=== PATIENT | male | born 1985 | race Caucasian/White ===

== ENCOUNTER 2021-01-03 12:15 | Emergency (ER) | payer OTHER, SELFPAY ==
[2021-01-03 12:32] VITALS: BP 126/68; PULSE 87; RESP 18; TEMP 37.2; O2SAT 100
--- NOTE | 2021-01-03 13:14 | ED.URI ---
HPI - URI/Sore Throat General Chief Complaint: Upper Respiratory Infection Stated Complaint: Possible Ear and Sinus infection Time Seen by Provider: 01/03/21 13:07 Source: patient and RN notes reviewed Mode of arrival: ambulatory Limitations: no limitations History of Present Illness HPI Narrative: 35-year-old male presents concern for 2-week history of sinus congestion, drainage, pressure, postnasal drainage, ear pain. Reports sore throat. Reports symptoms worse in the last several days. Reports he has been using [id number]-[id number]-[id number] medications with little relief. Reports is done was positive for strep throat. He denies cough, shortness of breath, fever, body aches, chills, sweats. Reports headache. MD elicited complaint: nasal congestion Related Data Home Medications Medication Instructions Recorded Confirmed lisdexamfetamine [Vyvanse] 70 mg PO DAILY 01/03/21 01/03/21 Allergies Allergy/AdvReac Type Severity Reaction Status Date / Time No Known Allergies Allergy Unknown Verified 01/03/21 12:36 Review of Systems Review of Systems: Narrative: CONSTITUTIONAL: Denies malaise, chills, sweats, or fever. EYES: Denies visual changes, redness, or discharge. ENT: Reports rhinorrhea, congestion, sinus pain, otalgia and sore throat. CARDIOVASCULAR: Denies chest pain, palpitations, or edema. RESPIRATORY: Denies cough or dyspnea. GASTROINTESTINAL: Denies abdominal pain, nausea, vomiting, diarrhea SKIN: Denies rash or itching. MUSCULOSKELETAL: Denies myalgia. NEUROLOGIC: Denies headache. All systems reviewed & are unremarkable except as noted in HPI and below PMFSH Comments At time of signature, agree with nursing past medical, surgical, social and family history. There is no relevant family history pertinent to the presenting complaint Exam Narrative: Exam Narrative: GENERAL: Well-appearing, well-nourished, and in no acute distress. HEAD: Normocephalic EYES: PERRLA, conjunctivae clear ENT: Nares clear, turbinates edematous and erythematous, sinus tenderness. Mucous membranes moist. TM pearly romo with dull light reflex bilaterally; no tragal tenderness. Oropharynx erythematous without lesions. Tonsils enlarged and without exudate, no drooling, no hoarseness, no trismus, uvula midline. NECK: Supple. No lymphadenopathy CHEST: Clear to auscultation, breath sounds equal. No wheezing, rhonchi, rales, or stridor. No respiratory distress, speaks in full sentences. HEART: Regular rate and rhythm. No murmur heard. SKIN: Warm, dry, no rash. NEURO: Alert and oriented x3. PSYCH: Normal mood and affect Course Course Emergency Course: Patient is aware of diagnosis, understands and agrees to treatment plan. Anticipatory guidance given. Patient agrees to follow-up as directed and is aware of reasons to seek care at the emergency department. Portions of this record may have been created with voice recognition software Vital Signs Vital signs: Vital Signs Temperature 99.0 F 01/03/21 12:32 Pulse Rate 87 01/03/21 12:32 Respiratory Rate 18 01/03/21 12:32 Blood Pressure 126/68 01/03/21 12:32 Pulse Oximetry 100 01/03/21 12:32 Temperature 99.0 F 01/03/21 12:32 Pulse Rate 87 01/03/21 12:32 Respiratory Rate 18 01/03/21 12:32 Blood Pressure 126/68 01/03/21 12:32 Pulse Oximetry 100 01/03/21 12:32 Reviewed. MDM - URI/Sore Throat MDM Narrative Medical decision making narrative: Differential diagnosis considered: Douglas virus, strep pharyngitis, allergic rhinitis, upper respiratory tract infection, sinusitis, rhinosinusitis, nasopharyngitis. viral pharyngitis, otitis media, otitis externa, pneumonia, bronchitis, viral cough syndrome, viral syndrome, and influenza. Exam findings show no acute concerns or changes; patient is non-toxic appearing and is in no distress. Patient is appropriate for outpatient treatment and follow-up. Lab Data Labs: Strep Screen Presumptive Negative
== END 2021-01-03 13:20 | disposition home or self-care (01) ==
PROVIDERS: Emergency Provider Nurse Practitioner
DX: J01.90 Acute sinusitis, unspecified (principal); F98.8 Other specified behavioral and emotional disorders with onset usually occurring in childhood and adolescence
CPT/HCPCS: 87081; 87880; 99213; G0463

== ENCOUNTER 2022-09-22 08:18 | Emergency (ER) | payer OTHER, SELFPAY ==
[2022-09-22 08:29] VITALS: BP 143/79; PULSE 97; RESP 16; TEMP 36.6; O2SAT 100
--- NOTE | 2022-09-22 08:31 | ED.EAR ---
HPI - Ear Problem General Chief complaint: Ear Stated complaint: Ear Pain/Sinus Congestion Time Seen by Provider: 09/22/22 08:35 Source: patient and RN notes reviewed Mode of arrival: ambulatory Limitations: no limitations History of Present Illness HPI Narrative: 37-year-old male presents with concern for several month history of intermittent sinus congestion, drainage, pain. Reports fell colored sinus drainage the last several days. Reports cough that he relates to drainage. Reports swollen lymph nodes. Reports sweats and chills, denies measure temperature. MD Complaint: ear pain and other (Sinus congestion) Related Data Home Medications Medication Instructions Recorded Confirmed lisdexamfetamine 60 mg capsule 60 mg PO DAILY 09/22/22 09/22/22 (Vyvanse) serdexmethylphenidate 39.2 39.2 tablet PO DAILY 09/22/22 09/22/22 mg-dexmethylphenidate 7.8 mg capsule (Azstarys) Allergies Allergy/AdvReac Type Severity Reaction Status Date / Time No Known Allergies Allergy Unknown Verified 09/22/22 08:30 Review of Systems Review of Systems: CONSTITUTIONAL: Reports malaise, chills, sweats EYES: Denies visual changes, redness, or discharge. ENT: Reports rhinorrhea, congestion, sinus pain, otalgia CARDIOVASCULAR: Denies chest pain, palpitations, or edema. RESPIRATORY: Reports cough. Denies dyspnea. GASTROINTESTINAL: Denies abdominal pain, nausea, vomiting, diarrhea SKIN: Denies rash or itching. MUSCULOSKELETAL: Reports myalgia. NEUROLOGIC: Reports headache. All systems reviewed & are unremarkable except as noted in HPI and below PMFSH Comments At time of signature, agree with nursing past medical, surgical, social and family history. There is no relevant family history pertinent to the presenting complaint Exam Narrative: GENERAL: Well-appearing, well-nourished, and in no acute distress. HEAD: Normocephalic EYES: PERRLA, conjunctivae clear ENT: Nares clear, turbinates edematous and erythematous, sinus tenderness. Mucous membranes moist. TM pearly romo with dull light reflex bilaterally; no tragal tenderness. Oropharynx erythematous without lesions. Tonsils not enlarged and without exudate, no drooling, no hoarseness, no trismus, uvula midline. NECK: Supple. No lymphadenopathy CHEST: Clear to auscultation, breath sounds equal. No wheezing, rhonchi, rales, or stridor. No respiratory distress, speaks in full sentences. HEART: Regular rate and rhythm. No murmur heard. SKIN: Warm, dry, no rash. NEURO: Alert and oriented x3. PSYCH: Normal mood and affect Course Course Emergency Course: Patient is aware of diagnosis, understands and agrees to treatment plan. Anticipatory guidance given. Patient agrees to follow-up as directed and is aware of reasons to seek care at the emergency department. Portions of this record may have been created with voice recognition software Level of Care: Express Care Visit Vital Signs Vital signs: Reviewed. Medical Decision Making MDM Narrative Medical decision making narrative: Differential diagnosis considered: Douglas virus, strep pharyngitis, allergic rhinitis, upper respiratory tract infection, sinusitis, rhinosinusitis, nasopharyngitis. viral pharyngitis, otitis media, otitis externa, pneumonia, bronchitis, viral cough syndrome, viral syndrome, and influenza. Exam findings show no acute concerns or changes; patient is non-toxic appearing and is in no distress. Patient is appropriate for outpatient treatment and follow-up. Critical Care Time Critical Care Time Critical Care Time: No Discharge Plan Discharge Clinical Impression: Acute bacterial sinusitis Patient Disposition: Home, Self-Care Condition: Stable Instructions: Antibiotic Form, Sinusitis (ED) Additional Instructions: Take medications as prescribed Nonprescription pain medications, such as acetaminophen (eg, Tylenol) or ibuprofen (eg, Motrin, Advil), are recommended for pain. Flushing the nose and
[2022-09-22 08:33] VITALS: BP 143/79; PULSE 97; RESP 16; TEMP 36.6; O2SAT 100
== END 2022-09-22 08:46 | disposition home or self-care (01) ==
PROVIDERS: Emergency Provider Nurse Practitioner
DX: J01.90 Acute sinusitis, unspecified (principal); F98.8 Other specified behavioral and emotional disorders with onset usually occurring in childhood and adolescence
CPT/HCPCS: 99213; G0463

== ENCOUNTER 2023-07-18 08:19 | Emergency (ER) | payer OTHER, SELFPAY ==
[2023-07-18 08:27] VITALS: BP 152/67; PULSE 86; RESP 18; TEMP 36.8; O2SAT 99
--- NOTE | 2023-07-18 08:54 | ED.URI ---
HPI - URI/Sore Throat General Chief Complaint: Upper Respiratory Infection Stated Complaint: Ear Pain/Sore Throat Time Seen by Provider: 07/18/23 08:54 Source: patient, RN notes reviewed and old records reviewed Mode of arrival: ambulatory Limitations: no limitations History of Present Illness HPI Narrative: 38 year old male who presents to [facility] care with complaints of sore throat, occasional cough, low grade fevers, and sinus congestion with drainage and pressure to face and to his ears for the past 8 days. Patient reports that he has been taking Mucinex DM and some Ibuprofen for his symptoms with no improvement. MD elicited complaint: fever, cough, sore throat, rhinorrhea, nasal congestion, sinus pain and other (ear pain) Pertinent past history: sinusitis and seasonal allergies Onset (ago): day(s) (8) Consistency: constant Pain scale (0-10): 5 Description of mucous: yellow and bloody Able to tolerate fluids by mouth: Yes Treatments prior to arrival: ibuprofen and other (Mucinex DM) Related Data Allergies Allergy/AdvReac Type Severity Reaction Status Date / Time No Known Allergies Allergy Unknown Verified 07/18/23 08:38 Review of Systems Review of Systems: CONSTITUTIONAL: Reports malaise, chills, sweats, low grade fever. EYES: Denies visual changes, redness, or discharge. ENT: Reports rhinorrhea, congestion,facial sinus pain, otalgia and sore throat. CARDIOVASCULAR: Denies chest pain, palpitations, or edema. RESPIRATORY: Reports cough.? Denies dyspnea. GASTROINTESTINAL: Denies abdominal pain, nausea, vomiting, diarrhea SKIN: Denies rash or itching. MUSCULOSKELETAL: Denies myalgia. NEUROLOGIC: Denies headache. All systems reviewed & are unremarkable except as noted in HPI and below PMFSH Past Medical History Medical History (Updated 07/19/23 @ 19:54 by Tessie Braga NP) ADHD (attention deficit hyperactivity disorder) Sinusitis Surgical History Surgical History (Updated 07/19/23 @ 19:45 by Tessie Braga NP) History of placement of ear tubes Social History Social History (Updated 07/19/23 @ 19:45 by Tessie Braga NP) Smoking status: Never smoker Alcohol intake: current Alcohol use details: social Substance use type: does not use Gender identity (if verbalized by the patient): Male Comments At time of signature, agree with nursing past medical, surgical, social and family history. There is no relevant family history pertinent to the presenting complaint Exam Narrative: GENERAL: Well-appearing, well-nourished, and in no acute distress. HEAD: Normocephalic EYES: PERRLA, conjunctivae clear ENT: Nares clear, turbinates edematous and erythematous, yellow discharge, sinus tenderness facial. Mucous membranes moist. TM pearly romo with dull light reflex bilaterally; no tragal tenderness. Oropharynx acutely erythematous without lesions. Tonsils not enlarged and without exudate, no drooling, no hoarseness, no trismus, uvula midline.post nasal drainage NECK: Supple. No lymphadenopathy CHEST: Clear to auscultation, breath sounds equal. No wheezing, rhonchi, rales, or stridor. No respiratory distress, speaks in full sentences.cough, SAO2 99% on room air HEART: Regular rate and rhythm. No murmur heard. SKIN: Warm, dry, no rash. NEURO: Alert and oriented x3. PSYCH: Normal mood and affect Course Course Emergency Course: Patient is aware of diagnosis, understands and agrees to treatment plan.? Anticipatory guidance given.? Patient agrees to follow-up as directed and is aware of reasons to seek care at the emergency department. Portions of this record may have been created with voice recognition software Level of Care: Express Care Visit Vital Signs Vital signs: Vital Signs Temperature 36.8 C 07/18/23 08:27 Pulse Rate 86 07/18/23 08:27 Respiratory Rate 18 07/18/23 08:27 Blood Pressure 152/67 H 07/18/23 08:27 Pulse Oximetry 99 07/18/23
== END 2023-07-18 09:13 | disposition home or self-care (01) ==
PROVIDERS: Emergency Provider Registered Nurse
DX: J32.9 Chronic sinusitis, unspecified (principal)
CPT/HCPCS: 87081; 87880; 99213; G0463

== ENCOUNTER 2024-09-06 08:03 | Emergency (ER) | payer OTHER, SELFPAY ==
--- NOTE | 2024-09-06 08:07 | ED_ITS ---
HPI - URI/Sore Throat General Chief Complaint: Upper Respiratory Infection Stated Complaint: Sinus Congestion/Ear Pain Time Seen by Provider: 09/06/24 08:06 Source: patient Mode of arrival: ambulatory Limitations: no limitations History of Present Illness HPI Narrative: Patient is a 39-year-old male that presents with sinus congestion, pressure and ear pain for a month. Patient denies any fever, chills, nausea, vomiting, diarrhea. Patient has tried [id number] medication with no relief. Patient has history of 1 sinus infection a year. Related Data Allergies Allergy/AdvReac Type Severity Reaction Status Date / Time No Known Allergies Allergy Unknown Verified 07/18/23 08:38 Review of Systems Review of Systems: All systems reviewed & are unremarkable except as noted in HPI and below Constitutional: Constitutional: Denies chills, Denies fatigue, Denies fever(s), Denies headache(s), Denies malaise and Denies weakness Eyes: Eyes: Denies blurry vision, Denies itchy eyes and Denies loss of vision ENT: Reports otalgia, Denies headache(s), Reports nasal congestion, Denies sinus pain, Reports sinus pressure and Denies sore throat Cardiovascular: Cardiovascular: Denies chest pain, Denies irregular heart rhythm and Denies dyspnea Respiratory: Respiratory: Denies cough and Denies dyspnea Gastrointestinal: Gastrointestinal: Denies abdominal pain, Denies diarrhea, Denies nausea and Denies vomiting Musculoskeletal: Musculoskeletal: Denies back pain, Denies myalgias and Denies arthralgias Integumentary/Breasts: Skin/Breast: Denies pruritus and Denies rash Neurologic: Denies headache(s), Denies loss of vision and Denies weakness Psychiatric: Psychiatric: Reports no additional psychiatric complaints Endocrine: Endocrine: Denies fatigue Allergic/Immunologic: Allergic/Immunologic: Denies itchy eyes PMFSH Past Medical History Medical History ADHD (attention deficit hyperactivity disorder) Sinusitis Surgical History Surgical History History of placement of ear tubes Social History Social History Smoking status: Never smoker Alcohol intake: current Alcohol use details: social Substance use type: does not use Gender identity (if verbalized by the patient): Male Comments At time of signature, agree with nursing past medical, surgical, social and family history. There is no relevant family history pertinent to the presenting complaint. Exam Const: General: cooperative, healthy appearing, comfortable, no acute distress and well nourished Nutritional Appearance: well nourished Orientation/consciousness: patient oriented x3 Limitations: no limitations HENMT: Head: normal to inspection, normocephalic and atraumatic Ears: hearing grossly normal bilaterally, external ears normal, EAC's normal, no periauricular adenopathy and TM abnormal dull bilateral Face/Nose/Sinus: Normal external nose present, Abnormal mucous membranes and turbinates present erythematous bilateral and diffuse, normal facial exam, face symmetric and Facial tenderness on exam of face and sinuses Face and sinus: normal facial exam and face symmetric Mouth: Yes Normal oral and palatal mucosa present, Yes lip normal, Yes tongue normal, Yes Normal salivary glands and ducts present, Yes oropharynx normal and Yes moist mucous membranes Teeth and gingiva: dentition normal Throat: posterior oropharynx normal, tonsils normal and uvula midline Eyes: General: appearance normal, both eyes and all related structures Alignment and Position: alignment normal and position normal Periorbital: periorbital findings normal Eyelids: eyelids normal Pupils: Equal, round and reactive pupils present Neck: Neck: normal visual inspection, full ROM, no lymphadenopathy and supple Chest: Chest palpation & inspection: normal inspection of the chest and normal palpation of entire chest wall Resp: Effort & Inspection: normal respiratory effort and able to speak in complete sentences Auscultation: clear to auscultation bilaterally, no crackl es, no rales, no rhonchi and no wheezes Cardio: Rate: tachycardic Rhythm: regular rhythm Heart sounds: S1 normal heart sound present and S2 normal heart sound present GI: Inspection: normal to inspection Skin: General skin exam: normal color and no rashes or lesions noted Neuro: General: patient oriented x3 and moves all extremities Cranial nerves: Yes Equal, round and reactive pupils present Speech: normal speech Gait exam (Neuro): Normal gait present Extrem: General: normal to inspection, full ROM and no edema Psych: Appearance: grossly normal and well kempt Mental Status: mental status grossly normal Speech and movement: Normal speech and movement present Affect: normal affect Attitude: cooperative Thought process: Normal thought process present Course Course Emergency Course: Discharge instructions reviewed with patient, as well as provided in writing per nursing staff. The instructions also include specific and strict return/GO TO THE ER as well as f/u information. All questions have been answered, and the patient deny any further questions with discharge and discharge plan. Portions of this record may have been created with voice recognition software Level of Care: Express Care Visit Vital Signs Vital signs: Reviewed MDM - URI/Sore Throat MDM Narrative Medical decision making narrative: Pt well hydrated appearing, in no respiratory distress, hemodynamically stable. Recommend supportive care. The patient is stable at time of discharge the clinical impression was discussed and the patient was given the opportunity to ask questions, which were addressed as completely as possible given the information available at present. Anticipatory guidance and return to care precautions were discussed and the importance of primary care follow-up was stressed and encouraged. The patient voiced understanding of the plan, indications to return, and the need for follow-up. Differential diagnosis considered: Bronchitis, Douglas virus, strep pharyngitis, allergic rhinitis, upper respiratory tract infection, sinusitis, rhinosinusitis, nasopharyngitis. viral pharyngitis, otitis media, otitis externa, otitis effusion, foreign body, cerumen impaction, viral syndrome, and influenza.? Exam findings show no acute concerns or changes; patient is non-toxic appearing and is in no distress.? Patient is appropriate for outpatient treatment and follow- up.? Medical Records Attestation: I reviewed the patient's medical records. Lab Data Attestation: I reviewed the patient's lab results. Discharge Plan Discharge Clinical Impression: Sinusitis Qualifiers: Sinusitis location: maxillary Chronicity: acute Recurrence: non-recurrent Qualified Code(s): J01.00 - Acute maxillary sinusitis, unspecified Patient Disposition: Home, Self-Care Condition: Stable Instructions: Sinusitis (ED) Additional Instructions: Symptomatic treatment of a sinus infection aims to relieve symptoms. These treatments do not shorten the duration of illness. Nonprescription pain medications, such as acetaminophen (eg, Tylenol) or ibuprofen (eg, Motrin, Advil), are recommended for pain. Flushing the nose and sinuses with a saline solution several times per day has been proven to decrease pain associated with congestion and shorten the duration of symptoms. Nasal steroids (such as Flonase, 2 sprays in each nostril daily) can help to reduce swelling inside the nose, usually within two to three days. These drugs have few side effects and relieve symptoms in most people. Oral decongestants (pseudoephedrine and phenylephrine) may be helpful if you have associated symptoms of ear pain or fullness. Nasal decongestant sprays, including oxymetazoline (Afrin) and phenylephrine (Gerson-Synephrine), can be used to temporarily treat congestion. However, these sprays should not be used for more than two to three days due to the risk of rebound congestion (when the nose becomes congested constantly unless the medication is used repeatedly), possible addiction, and long-term consequences of frequent use, including persistent nasal dryness and crusting, which is very difficult to treat once it has developed. Medications to thin secretions (such as guaifenesin) may help to clear mucus. Please follow-up with your primary care doctor in the next 1-2 days. If you cannot follow-up with your primary care doctor please go to the ED for any urgent issues. If you have any worsening of symptoms or any other concerns please go to the ED immediately. Your blood pressure was elevated above 120/80 today at Urgent Care. This puts you above the threshold for follow up visit with a primary care provider. High blood pressure does not usually cause any symptoms, however it may lead to kidney failure, stroke, heart disease just to name a few if untreated . Many people are anxious when seeing a provider or nurse. As a result, you are not diagnosed with hypertension at this time unless your blood pressure is persistently high at two office visits at least one week apart. Some things that can help lower blood pressure are lifestyle modifications, such as light exercise, decreased salt in diet, and weight loss. It is important to follow up with a PCP about this within 1 week. Patient Language: Welsh Prescriptions: New methylprednisolone [Medrol (Og)] 4 mg tablets,dose pack See Rx Instructions .ROUTE .COMPLEX Qty: 21 0RF Rx Instructions: orally per package directions amoxicillin-pot clavulanate 875-125 mg tablet 1 tablet PO Q12H 10 Days Qty: 20 0RF No Action amoxicillin-pot clavulanate 875-125 mg tablet 1 tablet PO Q12H Qty: 20 0RF Rx Instructions: Take all of prescription take with food recommend Activia yogurt or probiotic while taking this medication triamcinolone acetonide [Nasacort] 55 mcg aerosol,spray 1 spray intranasal DAILY Qty: 16.9 0RF Rx Instructions: administer into each nostril Follow-up/Referrals: Elian Mendoza MD [Physician] - 3 Days UNKNOWN,DOCTOR [Primary Care Provider] - Stand Alone Forms: Work/School Release IP Time of Disposition: 08:21
[2024-09-06 08:09] VITALS: BP 141/78; PULSE 105; RESP 16; TEMP 36.4; O2SAT 100
--- OUTSIDE RECORDS SUMMARY | 2024-09-06 08:09 | XMS_ITS | Clinical Summary ---
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 Last Documented On 3 5:53PM ; [facility] Anxiety Disorder Nos 12/16/2015 Acti ve Last Documented On 3 5:49PM ; [facility] Attention-deficit Hyperactivity Disorder 08/11/2015 Active Last Documented On 3 5:49PM ; [facility] Plan of Treatment Attention Deficit Disorder - Dyanavel XR 15 mg 1 tab at noon assuming his insurance will cover this Attention Deficit Hyperactivity Disorder - Vyvanse 60 mg 1 cap in am 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 He was given Buspar in the past in case he needs it for anxiety. Panic Disorder - Klonopin 0.5 mg a day as needed for anxiety/restlessness/panic tone when in flight - Last Documented On 09/06/2023 3:35PM ; [facility] [place] Education and Decision Aids were provided during visit for: Calming techniques such as b reathing exercises/meditation and other relaxation techniques Last Documented On 4 3:34PM ; [facility] [place] Assessments Includes: Assessments from this encounter Findings - Attention-deficit hyperactivity disorder - Last Documented On 09/06/2023 3:35PM ; [facility] - Circadian rhythm sleep disorder - Last Documented On 09/06/2023 3:35PM ; [facility] - Panic disorder - Last Documented On 09/06/2023 3:35PM ; [facility] - Anxiety disorder NOS - Last Documented On 09/06/2023 3:35PM ; [facility] [place] Instructions Includes: Instructions from this encounter Education and Decision Aids were provided during visit for: Calming techniques such as b reathing exercises/meditation and other relaxation techniques Last Documented On 3:34PM ; [facility] Medical Equipment - Implanted Devices Includes: Current Devices No Medical Equipment Recorded Medications Includes: Medications discussed during this encounter and other current Medications New / Renewed during this visit MARCIO WASSERMAN MD on 08/21/2023 Dyanavel XR 15 MG Oral Tablet Chewable Extended Release Provider: MARCIO WASSERMAN MD 30 day supply: 30 tablet, 0 refills Diagnosis: Anxiety disorder, unspecified as directed - 1 tab at noon Pharmacy: [facility]) - [address] , [facility], [id number] - Last Documented On 11/28/2023 11:19AM By Kelly Wasserman MD ; [facility] [place] Armodafinil 250 MG Oral Tablet Provider: MARCIO WASSERMAN MD 30 day supply: 30 tablet, 3 refills Diagnosis: Attention-deficit hyperactivity disorder, combined type as directed - 1 tab as noon Pharmacy: [address], [address] - Last Documented On 08/21/2023 2:57PM By Kelly Wasserman MD ; [facility] [place] Vyvanse 60 MG Oral Capsule Provider: MARCIO WASSERMAN MD 30 day supply: 30 capsule, 0 refills Diagnosis: Attention-deficit hyperactivity disorder, combined type 1 Capsule every morning Pharmacy: [facility]) - [address] [facility], [phone] - Last Documented On 09/27/2023 5:59PM By Kelly Wasserman MD ; [facility] Current Medications (continue as prescribed) Vyvanse 60 MG Oral Capsule 01/01/2024 Provider: MARCIO WASSERMAN MD Diagnosis: Attention-defici t hyperactivity disorder, combined type 1 Capsule every morning Last Documented On 01/01/2024 11:46AM By Kelly Wasserman MD ; [facility] Past Medications on file Armodafinil 250 MG Oral Tablet 12/01/2022 - 03/31/2023 Provider: MARCIO WASSERMAN MD Diagnosis: Circadian rhythm sleep disorder, delayed sleep phase type 1 tablet every morning Last Documented On 12/01/2022 12:50PM By Kelly Wasserman MD ; [facility] Vyvanse 60 MG Oral Capsule 11/21/2022 - 12/21/2022 Provider: MARCIO WASSERMAN MD Diagnosis: Attention-defici t hyperactivity disorder, combined type *1 AM - 1 Capsule every morning Last Documented On 11/21/2022 4:06PM By Kelly Wasserman MD ; [facility] Azstarys 52.3-10.4 MG Oral Capsule 11/21/2022 - 12/21/2022 Provider: MARCIO WASSERMAN MD Diagnosis: Attention-defici t hyperactivity disorder, combined type ud - as directed as directed -- 1 cap at 1 pm Last Documented On 11/21/2022 4:06PM By Kelly Wasserman MD ; [facility] KlonoPIN 0.5 MG OR TABS 05/04/2022 - 06/03/2022 Provider: MARCIO ANAYA MD Diagnosis: Panic disorder [episodic paroxysmal anxiety] as directed - 1 tab a day as needed only for severe anxiety/panic Last Documented On 11/12/2022 5:38PM By Kelly Wasserman MD ; [facility] Azstarys 39.2-7.8 MG OR CAPS 05/04/2022 - 06/03/2022 Provider: MARCIO WASSERMAN MD Diagnosis: Attention-defici t hyperactivity disorder, combined type 1 Capsule every morning Last Documented On 11/12/2022 5:38PM By Kelly Wasserman MD ; [facility] Armodafinil 250 MG OR TABS 02/17/2022 - 03/19/2022 Provider: MARCIO WASSERMAN MD Diagnosis: Attention-defici t hyperactivity disorder, combined type as directed -- 1 tab at noon Last Documented On 11/12/2022 5:38PM By Kelly Wasserman MD ; [facility] Mydayis 25 MG OR CP24 12/06/2019 - 01/05/2020 Provider: MARCIO WASSERMAN MD Diagnosis: Attention-defici t hyperactivity disorder, combined type 1 Capsule every morning Last Documented On 11/12/2022 5:38PM By Kelly Wasserman MD ; [facility] Mydayis 25 MG OR CP24 08/23/2019 - 09/22/2019 Provider: MARCIO WASSERMAN MD Diagnosis: Attention-defici t hyperactivity disorder, combined type as directed --1 cap at 1 pm Last Documented On 11/12/2022 5:38PM By Kelly Wasserman MD ; [facility] Jornay PM 60 MG OR CP24 07/24/2019 - 08/23/2019 Provider: MARCIO WASSERMAN MD Diagnosis: Attention-defici t hyperactivity disorder, combined type as directed -- 1 cap in the evening Last Documented On 11/12/2022 5:38PM By Kelly Wasserman MD ; [facility] Jornay PM 40 MG OR CP24 05/21/2019 - 06/20/2019 Provider: MARCIO WASSERMAN MD Diagnosis: Attention-defici t hyperactivity disorder, combined type as directed -- 1 cap in the evening Last Documented On 11/12/2022 5:38PM By Kelly Wasserman MD ; [facility] Medications Administered Includes: Administered Medications from this encounter No Administered Medications Recorded Vital Signs Includes: Vital Signs from this encounter Vital Name 08/21/2023 02:16P Blood Pressure Sitting L 126/76 BP Cuff Size Regular Pulse Rate-Sitting (bpm) 81 Pulse Rhythm Regular Height (in) 70 Weight (lb) 179 Body Mass Index 25.7 Body Surface Area 2 Last Documented: On 08/21/2023 2:16PM ; [facility] Results Includes: Results discussed during this encounter No Results Recorded For Specified Dates History of Present Illness Includes: History of Present Illness from this encounter HPI DONALD LIANG is a 38 year old male. - Allergy list reviewed - Past medical history reviewed - Medication list reviewed Donald decided to come back to see me since he was not able to search for other physicians or psychiatrists taking his insurance. 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 He gets distracted easily. It has been difficult for him to pay attention. It is hard for him to process information. He gets somewhat disorganized and he is not being productive since he is not able to focus. It is also affecting his motivation to where he is not motivated to even do any tasks at home, let alone his own tasks at work because of his ADHD symptoms. He is not really depressed but it can be stressful for him since he is not productive with his job. Sleep is good. He denied napping during the day. He is trying his best to get back to working out again to help reduce his stress. Appetite is good. Occasionally, he gets restless and fidgety which is part of the hyperactivity of his ADHD. He denied having any delusions or hallucinations. He denied having any suicidal thoughts. He denied having any mood swings. He said that he wanted to get back on the Vyvanse 60 mg in the morning and in the afternoon, he wants to try back the Armodafinil which I explained is not an ADHD medication but he said that it has been helping to improve his mental alertness so he can at least stay awake and alert to do his job. However, he really wants something in the afternoon for his ADHD since the Vyvanse wears off around 1:00 pm. He will be tried on Dyanavel XR 15 mg around noontime that he can take assuming his insurance will cover it. MENTAL STATUS EXAM: Sensorium - alert, oriented to name, place, and time Attitude - cooperative Gait - ambulatory Sleep - good Interest/Energy/Motivation - not as motivated Guilt/Worthlessness - absent Concentration/Attention Span - difficulty focusing and concentrating Memory Recall - fairly good Appetite - good - on 11/21/22 pt weighed 175 lbs and on 08/21/23 he weighed 179 lbs so he gained 4 lbs Suicidal Thoughts - absent Homicidal Thoughts - absent Delusions - absent Hallucinations - absent Appearance - casually groomed Motor Behavior - occasionally restless Eye Contact - intermittent Speech - fluent Mood - not depressed Affect - not as anxious Thought Process - coherent Insight and Judgment - intact Social History Description Last Updated Caffeine use: Daily coffee c onsumption -- He drinks 1 cup of coffee a day. 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 He was close to his parents while growing up and they were supportive of him. He remains close to his parents today. He graduated high school and received a bachelors degree in business administration. He denied any history of verbal, physical, or sexual abuse. He first got at age 21 and remains today. He had 2 sons. He is heterosexual and denied any sexual dysfunction. He denied any past or pending legal problems. His interest and hobbies include working out and playing with his sons 08/21/2023 Last Documented On 4 2:05PM ; [facility] Current nonsmoker 08/21/2023 Last Documented On 4 3:35PM ; [facility] Tobacco non-user 08/21/2023 Last Documented On 4 3:35PM ; [facility] Smoking Status Unknown Procedures and Surgical History Includes: Procedures from this encounter Procedures Code Diagnosis Performing Provider Service L ocation Service Date education and instructions Last Documented On 4 2:05PM ; [facility] supportive care and encourag ement--given positive reinforcement to keep patient motivated and active Last Documented On 4 2:23PM ; [facility] ~* Call [phone] and /or go t o the nearest emergency room or call me if suicidal/homicidal ideation or other serious concerns arise. ~ ~* I gave instructions to call me should there be any questions or concerns. ~ ~* Patient voiced understanding and agreed to treatment plan Last Documented On 4 2:14PM ; [facility] dangerousness assessment: no suicide risk 3085F Last Documented On 4 2:05PM ; [facility] use of tobacco assessment performed 1000F Last Documented On 4 2:15PM ; [facility] patient screened for future fall risk: documentation of any fall with injury in past year - no recent falls 1100F Last Documented On 4 2:14PM ; [facility] review of medications documented 1160F Last Documented On 4 2:14PM ; [facility] assessment of suicide risk performed - n ot suicidal Last Documented On 4 2:15PM ; [facility] screening for adult depressi on: impression and score - please see above for treatment and PHQ score Last Documented On 4 2:15PM ; [facility] standardized depression screening: posit yohana for symptoms Last Documented On 4 2:15PM ; [facility] encouragement to exercise - balanced molly l plan, low fat low carb diet Last Documented On 4 2:14PM ; [facility] Clinical summary provided to patient Last Documented On 4 2:05PM ; [facility] PHQ-9: total score 3 Last Documented On 4 3:34PM ; [facility] Medical History Includes: Medical History addressed during this encounter Description Last Updated Primary Care Provider: [facility].Diagnoses: Sinusitis - given Augmentin 875 mg and Methylprednisolone Dosepak 4 mg 09/22/22; given Augmentin 875 mg and Prednisone Dosepak 4 mg (did not take Prednisone) 01/03/21;given Augmentin 875 mg #20 on 03/31/20. Oral thrush - treated with Nystatin Suspension 100,000 05/11/19Procedural: Coronavirus 2019-nCoV vaccine - Zokem #1 10/06/20 #2 11/03/20 #3 04/202108/21/2023 Last Documented On 4 2:18PM ; [facility] [place] Family History Includes: Family History addressed during this encounter Description Last Updated Family medical history: No significant f amily history 08/21/2023 Last Documented On 4 2:05PM ; [facility] [place] Review of Systems Includes: Review of Systems from this encounter Systemic: Not feeling poorly (malaise). No fever, no chills, and no night sweats. Head: No headache and no sinus pain. Neck: No neck pain and no neck stiffness. Eyes: No vision problems, no itching of the eyes, and no eye pain. Otolaryngeal: No hearing loss, no earache, no nasal discharge, no hoarseness, and no sore throat. Cardiovascular: No chest pain or discomfort, no palpitations, and the heart rate was not fast. Pulmonary: No dyspnea, no cough, and no wheezing. Gastrointestinal: No heartburn. No nausea, no vomiting, no diarrhea, and no constipation. Genitourinary: No increase in urinary frequency. No dysuria. Endocrine: No polydipsia and no excessive sweating. Musculoskeletal: No muscle aches, no localized joint pain, and no localized joint stiffness. Neurological: No dizziness, no vertigo, no fainting, and no motor disturbances. Skin: No pruritus. No skin lesions and no rash. Mental Status Includes: Mental Status from this encounter No Mental Status Recorded Functional Status Includes: Functional Status from this encounter No Functional Status Recorded Physical Exam Includes: Physical Exam from this encounter Allergies Includes: Active Allergies No Known Allergies Encounters Encounter Provider Location Date Check-In Time Check-Out Time Diagnosis PSYCH ADULT FOLLOW UP MARCIO WASSERMAN MD [facility] 08/21/19 24 2:05PM 3:05PM Attention-defici t Hyperactivity Disorder,Anxiety Disorder Nos,Panic Disorder,Sleep Disorder Circadian Rhythm Insurance Includes: Active Insurance Policies Plan Name Member ID Group # Subscriber Relationship Effect yohana Dates 1 - [employer] [id number] DONALD LIANG Self Clinical Notes Includes: Clinical Notes from this encounter * Progress note Date Encounter Last Documented by 08/21/2023 PSYCH ADULT FOLLOW UP Last docum ented on 09/06/2023; 3:35 PM, MARCIO WASSERMAN MD; [facility] Top of Document Medication psychotherapy 30 minutes Active Problems & Conditions - Anxiety Disorder Nos - Attention-deficit Hyperactivity Disorder - Panic Disorder - Sleep Disorder Circadian Rhythm Chief Complaint The Chief Complaint is: Follow up for attention and concentration deficit and anxiety. History of Present Illness DONALD LIANG is a 38 year old male. - Allergy list reviewed - Past medical history reviewed - Medication list reviewed Donald decided to come back to see me since he was not able to search for other physicians or psychiatrists taking his insurance. 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 He gets distracted easily. It has been difficult for him to pay attention. It is hard for him to process information. He gets somewhat disorganized and he is not being productive since he is not able to focus. It is also affecting his motivation to where he is not motivated to even do any tasks at home, let alone his own tasks at work because of his ADHD symptoms. He is not really depressed but it can be stressful for him since he is not productive with his job. Sleep is good. He denied napping during the day. He is trying his best to get back to working out again to help reduce his stress. Appetite is good. Occasionally, he gets restless and fidgety which is part of the hyperactivity of his ADHD. He denied having any delusions or hallucinations. He denied having any suicidal thoughts. He denied having any mood swings. He said that he wanted to get back on the Vyvanse 60 mg in the morning and in the afternoon, he wants to try back the Armodafinil which I explained is not an ADHD medication but he said that it has been helping to improve his mental alertness so he can at least stay awake and alert to do his job. However, he really wants something in the afternoon for his ADHD since the Vyvanse wears off around 1:00 pm. He will be tried on Dyanavel XR 15 mg around noontime that he can take assuming his insurance will cover it. MENTAL STATUS EXAM: Sensorium - alert, oriented to name, place, and time Attitude - cooperative Gait - ambulatory Sleep - good Interest/Energy/Motivation - not as motivated Guilt/Worthlessness - absent Concentration/Attention Span - difficulty focusing and concentrating Memory Recall - fairly good Appetite - good - on 11/21/22 pt weighed 175 lbs and on 08/21/23 he weighed 179 lbs so he gained 4 lbs Suicidal Thoughts - absent Homicidal Thoughts - absent Delusions - absent Hallucinations - absent Appearance - casually groomed Motor Behavior - occasionally restless Eye Contact - intermittent Speech - fluent Mood - not depressed Affect - not as anxious Thought Process - coherent Insight and Judgment - intact Current Medication - - No side effects reported Past Medical/Surgical History Primary Care Provider: [facility]. Diagnoses: Sinusitis - given Augmentin 875 mg and Methylprednisolone Dosepak 4 mg 09/22/22; given Augmentin 875 mg and Prednisone Dosepak 4 mg (did not take Prednisone) 01/03/21;given Augmentin 875 mg #20 on 03/31/20. Oral thrush - treated with Nystatin Suspension 100,000 05/11/19 Procedural: - Coronavirus 2019-nCoV vaccine - Pfizer #1 10/06/20 #2 11/03/20 #3 04/2021 User Defined 4 Past Psychiatric Hospitalizations: None Past Psychiatric Treatment: None Past Psychiatric Medications: Focalin XR-- did not help him -- felt jumbled up Methylphenidate 20 mg in am and 20 mg at noon -- did not quite help him, somewhat agitated Concerta 36 mg in am -- more irritable Jornay PM 100 mg -- did not work for him -- 10/08/19 Strattera -- did not work -- got irritable - 2019 Mydayis 50 mg in am -- 2020 -- did not work Azstarys 39.2-7.8 mg -- did not help -- 05/2022 Social History Tobacco use: Current nonsmoker. Caffeine use: Daily coffee consumption -- He drinks 1 cup of coffee a day. No soda or tea. Tobacco use: Smoking status: Never smoker. Alcohol: Alcohol use - he will have 1-2 beers once a month or less often. Drug Use: Not using drugs (Illicit). 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 Marital: Marital history -- . He was born and raised in [place], [place]. He was close to his parents while growing up and they were supportive of him. He remains close to his parents today. He graduated high school and received a bachelors degree in business administration. He denied any history of verbal, physical, or sexual abuse. He first got at age 21 and remains today. He had 2 sons. He is heterosexual and denied any sexual dysfunction. He denied any past or pending legal problems. His interest and hobbies include working out and playing with his sons Allergies - No Known Allergies Family History Family medical history: No significant family history Review Of Systems Systemic: Not feeling poorly (malaise). No fever, no chills, and no night sweats. Head: No headache and no sinus pain. Neck: No neck pain and no neck stiffness. Eyes: No vision problems, no itching of the eyes, and no eye pain. Otolaryngeal: No hearing loss, no earache, no nasal discharge, no hoarseness, and no sore throat. Cardiovascular: No chest pain or discomfort, no palpitations, and the heart rate was not fast. Pulmonary: No dyspnea, no cough, and no wheezing. Gastrointestinal: No heartburn. No nausea, no vomiting, no diarrhea, and no constipation. Genitourinary: No increase in urinary frequency. No dysuria. Endocrine: No polydipsia and no excessive sweating. Musculoskeletal: No muscle aches, no localized joint pain, and no localized joint stiffness. Neurological: No dizziness, no vertigo, no fainting, and no motor disturbances. Skin: No pruritus. No skin lesions and no rash. Physical Findings - Vitals taken 08/21/2023 02:16 pm BP-Sitting L 126/76 mmHg BP Cuff Size Regular Pulse Rate-Sitting 81 bpm Pulse Rhythm Regular Height 70 in Weight 179 lbs Body Mass Index 25.7 kg/m2 Body Surface Area 2 m2 Tests Educational Testing: Questionnaires PHQ-9: Value PHQ-9: total score 3 Assessment - Attention-deficit hyperactivity disorder - Circadian rhythm sleep disorder - Panic disorder - Anxiety disorder NOS Therapy - Dangerousness assessment: no suicide risk. - Supportive care and encouragement--given positive reinforcement to keep patient motivated and active. - Encouragement to exercise - balanced meal plan, low fat low carb diet. - Education and instructions. - Assessment of suicide risk performed - not suicidal - Clinical summary provided to patient. * Call [phone] and /or go to the nearest emergency room or call me if suicidal/homicidal ideation or other serious concerns arise. * I gave instructions to call me should there be any questions or concerns. * Patient voiced understanding and agreed to treatment plan. Counseling/Education - Calming techniques such as breathing exercises/meditation and other relaxation techniques Plan StartCited - Anxiety disorder, unspecified Dyanavel XR 15 MG tablet as directed - 1 tab at noon, 30 days, 0 refills EndCited StartCited - Attention-deficit hyperactivity disorder, combined type Armodafinil 250 MG tablet as directed - 1 tab as noon, 30 days, 3 refills Vyvanse 60 MG capsule 1 Capsule every morning, 30 days, 0 refills EndCited StartCited - Other Follow-up 11/28/23 EndCited Attention Deficit Disorder - Dyanavel XR 15 mg 1 tab at noon assuming his insurance will cover this Attention Deficit Hyperactivity Disorder - Vyvanse 60 mg 1 cap in am 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 He was given Buspar in the past in case he needs it for anxiety. Panic Disorder - Klonopin 0.5 mg a day as needed for anxiety/restlessness/panic tone when in flight Practice Management Use of tobacco assessment performed and patient screened for future fall risk documentation of any fall with injury in past year - no recent falls Review of medications documented; Standardized depression screening: positive for symptoms and for adult impression and score - please see above for treatment and PHQ score.
--- OUTSIDE RECORDS SUMMARY | 2024-09-06 08:09 | XMS_ITS | Referral Summary ---
Author Organization [facility] [address] [facility] lto Address [address] [place] [address] Care Team Providers Care Property Man Name Role Phone Zena Kraft MD Primary Care Provider [phone] Allergies No known active allergies Medications VYVANSE 60 mg capsule TK ONE C PO QAM 0 04/16/2019 Active methylphenidate ER (CONCERTA) 36 mg CR tablet TK 2 TS PO D AT NOON UTD 0 02/28/2019 Active Active Problems No known active problems Social History Tobacco Use Types Packs/Day Years Used Date Smoking Tobacco: Never Smokeless Tobacco: Never Sex and Gender Information Value Date Recorded Sex Assigned at Not on file Legal Sex Male 9:52 AM [employer] Gender Identity Not on file Sexual Orientation Not on file Last Filed Vital Signs Vital Sign Reading Time Taken Comments Blood Pressure 122/78 05/11/2019 8:47 AM CDT Pulse 77 05/11/2019 8:47 AM CDT Temperature 36.8 C (98.3 F) 05/11/2019 8:47 AM CDT Respiratory Rate - - Oxygen Saturation 97% 05/11/2019 8:47 AM CDT Inhaled Oxygen Concentration - - Weight 81.6 kg (180 lb) 05/11/2019 8:47 AM CDT Height 177.8 cm (5' 10 ) 05/11/2019 8:47 AM CDT Body Mass Index 25.83 05/11/2019 8:47 AM CDT Plan of Treatment Not [place] [address] [facility] PPO Care Teams Property Man Relationship Specialty Start Date End Date Zena Kraft MD [address] [place] [address] PCP - General Pediatrics 05/11/19
--- OUTSIDE RECORDS SUMMARY | 2024-09-06 08:09 | XMS_ITS | Clinical Summary ---
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 Active Last Documented On 3 5:53PM ; [facility] Anxiety Disorder Nos 12/16/2015 Acti ve Last Documented On 3 5:49PM ; [facility] Attention-deficit Hyperactivity Disorder 08/11/2015 Active Last Documented On 3 5:49PM ; [facility] Plan of Treatment No Plan of Treatment Recorded Assessments Includes: Assessments from this encounter No Assessments Recorded Medical Equipment - Implanted Devices Includes: Current Devices No Medical Equipment Recorded Medications Includes: Medications discussed during this encounter and other current Medications Current Medications (continue as prescribed) Vyvanse 60 MG Oral Capsule 01/01/2024 Provider: MARCIO WASSERMAN MD Diagnosis: Attention-defici t hyperactivity disorder, combined type 1 Capsule every morning Last Documented On 01/01/2024 11:46AM By Kelly Wasserman MD ; [facility] Armodafinil 250 MG Oral Tablet 08/21/2023 Provider: MARCIO WASSERMAN MD Diagnosis: Attention-defici t hyperactivity disorder, combined type as directed - 1 tab as noon Last Documented On 08/21/2023 2:57PM By Kelly Wasserman MD ; [facility] Past Medications on file Armodafinil 250 MG Oral Tablet 12/01/2022 - 03/31/2023 Provider: MARCIO WASSERMAN MD Diagnosis: Circadian rhythm sleep disorder, delayed sleep phase type 1 tablet every morning Last Documented On 12/01/2022 12:50PM By Kelly Wasserman MD ; [facility] Vyvanse 60 MG Oral Capsule 11/21/2022 - 12/21/2022 Provider: MARCIO WASSERMAN MD Diagnosis: Attention-defici t hyperactivity disorder, combined type *1 AM - 1 Capsule every morning Last Documented On 11/21/2022 4:06PM By Kelly Wasserman MD ; [facility] Azstarys 52.3-10.4 MG Oral Capsule 11/21/2022 - 12/21/2022 Provider: MARCIO WASSERMAN MD Diagnosis: Attention-defici t hyperactivity disorder, combined type ud - as directed as directed -- 1 cap at 1 pm Last Documented On 11/21/2022 4:06PM By Kelly Wasserman MD ; [facility] KlonoPIN 0.5 MG OR TABS 05/04/2022 - 06/03/2022 Provider: MARCIO ANAYA MD Diagnosis: Panic disorder [episodic paroxysmal anxiety] as directed - 1 tab a day as needed only for severe anxiety/panic Last Documented On 11/12/2022 5:38PM By Kelly Wasserman MD ; [facility] Azstarys 39.2-7.8 MG OR CAPS 05/04/2022 - 06/03/2022 Provider: MARCIO WASSERMAN MD Diagnosis: Attention-defici t hyperactivity disorder, combined type 1 Capsule every morning Last Documented On 11/12/2022 5:38PM By Kelly Wasserman MD ; [facility] Armodafinil 250 MG OR TABS 02/17/2022 - 03/19/2022 Provider: MARCIO WASSERMAN MD Diagnosis: Attention-defici t hyperactivity disorder, combined type as directed -- 1 tab at noon Last Documented On 11/12/2022 5:38PM By Kelly Wasserman MD ; [facility] Mydayis 25 MG OR CP24 12/06/2019 - 01/05/2020 Provider: MARCIO WASSERMAN MD Diagnosis: Attention-defici t hyperactivity disorder, combined type 1 Capsule every morning Last Documented On 11/12/2022 5:38PM By Kelly Wasserman MD ; [facility] Mydayis 25 MG OR CP24 08/23/2019 - 09/22/2019 Provider: MARCIO WASSERMAN MD Diagnosis: Attention-defici t hyperactivity disorder, combined type as directed --1 cap at 1 pm Last Documented On 11/12/2022 5:38PM By Kelly Wasserman MD ; [facility] Jornay PM 60 MG OR CP24 07/24/2019 - 08/23/2019 Provider: MARCIO WASSERMAN MD Diagnosis: Attention-defici t hyperactivity disorder, combined type as directed -- 1 cap in the evening Last Documented On 11/12/2022 5:38PM By Kelly Wasserman MD ; [facility] Jornay PM 40 MG OR CP24 05/21/2019 - 06/20/2019 Provider: MARCIO WASSERMAN MD Diagnosis: Attention-defici t hyperactivity disorder, combined type as directed -- 1 cap in the evening Last Documented On 11/12/2022 5:38PM By Kelly Wasserman MD ; [facility] Medications Administered Includes: Administered Medications from this encounter No Administered Medications Recorded Results Includes: Results discussed during this encounter No Results Recorded For Specified Dates History of Present Illness Includes: History of Present Illness from this encounter No History of Present Illness Recorded Social History No Social History Recorded - Smoking Status Unknown Medical History Includes: Medical History addressed during this encounter No Medical History Recorded Family History Includes: Family History addressed during this encounter No Family History Recorded Review of Systems Includes: Review of Systems from this encounter No Review of Systems Recorded Mental Status Includes: Mental Status from this encounter No Mental Status Recorded Functional Status Includes: Functional Status from this encounter No Functional Status Recorded Physical Exam Includes: Physical Exam from this encounter No Physical Exam Recorded Allergies Includes: Active Allergies No Known Allergies Encounters Encounter Provider Location Date Check-In Time Check-Out Time Diagnosis * PHONE CALL MARCIO WASSERMAN MD [facility] 4 11:51AM 11:59PM Insurance Includes: Active Insurance Policies Plan Name Member ID Group # Subscriber Relationship Effect yohana Dates 1 - [employer] [id number] DONALD LIANG Self Clinical Notes Includes: Clinical Notes from this encounter * Progress note Date Encounter Last Documented by 07/27/2023 * PHONE CALL Last documented on 07/27/2023; 1:48 PMMARCIO MD; [facility] Active Problems & Conditions - Anxiety Disorder Nos - Attention-deficit Hyperactivity Disorder - Panic Disorder - Sleep Disorder Circadian Rhythm Chief Complaint Phone Call - Chief Concern: reason for call: Patient calling. He is asking if you will accept him back. He said he tried to find another doctor that would take his insurance but he did not find anyone. He said he has not seen anyone else and has not been taking any medications. He would really like to come back. He is aware that he will still be private pay and he has no problem with paying the $95 private pay rate for his appointments. pt phone # for return call: [phone] date/initials: 07/27/23 bk Allergies - No Known Allergies Plan StartCited - Other Y ORDER/COMMENT I just do not want him to make it a back and forth, back and forth deal, if I will accept him this time and later he decides to again go find someone else in [place] or whereever that will take his insurance then I will NEVER take him back ever again. This is just to avoid disruption with treatment. I also have other stipulations/conditions that he needs to accept before I take him back -- he should show up for his appointment and NOT MISS anymore due to his long history of missing appointments or no shows here and there. He should be able to be flexible and be willing to take off work in order to come here since I have accomodated him and bent over backwards to fit his schedule so if I accept him -- he should be the one to be bending over backwards to accomodate our schedule w/o having to keep squeezing him in over and over again due to missed appts. Also, jsut remind him that with [facility] drugs --controlled substance meds that it cannot be refilled if he miss an appointment anyway and other office policies. If he agrees and will abide to all of the above then I will accept him just one last time. EndCited
--- OUTSIDE RECORDS SUMMARY | 2024-09-06 08:09 | XMS_ITS | Clinical Summary ---
Author Organization [facility] Address [address] [place] [address] Phone Care Team Providers Care Supervisor [employer] Name Role Phone MEEK JEROME, MARCIO Polanco [phone] Reason for Visit and Chief Complaint The Chief Complaint is: follow up for attention and concentration deficit and anxiety Problems Includes: Problems addressed during this encounter and other active Problems Current Visit Onset Date Resolved Date Provider Ellen maher Status Panic Disorder 05/04/2022 MARCIO Muñoz Active Last Documented On 2 11:08AM ; [facility] Sleep Disorder Circadian Rhythm 07/02/2020 HECTOR WASSERMAN MD Active Last Documented On 0 8:07PM ; [facility] Anxiety Disorder Nos 12/16/2015 MARCIO COLLINS MD Active Last Documented On 6 7:23AM ; [facility] Attention-deficit Hyperactivity Disorder 08/11/2015 MARCIO WASSERMAN MD Active Last Documented On 6 3:19PM ; [facility] Plan of Treatment Attention Deficit Disorder - Azstarys 39.2 mg in am Attention Deficit Hyperactivity Disorder - Vyvanse 70 mg at noon as a back up 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 He was given Buspar in the past in case he needs it for anxiety. Panic Disorder - Klonopin 0.5 mg a day as needed for anxiety - Last Documented On 06/02/2022 1:46PM ; [facility] Education and Decision Aids were provided during visit for: Patient education about medi cation ---Education was given on medication(s) and diagnosis. I reviewed the risks, benefits and side effects of patient's medications Last Documented On 2 8:33AM ; [facility] Discussed calming techniques such as breathing exercises and other relaxation techniques Last Documented On 2 8:33AM ; [facility] Assessments Includes: Assessments from this encounter Findings - Attention-deficit hyperactivity disorder - Last Documented On 06/02/2022 1:46PM ; [facility] - Circadian rhythm sleep disorder - Last Documented On 06/02/2022 1:46PM ; [facility] - Panic disorder - Last Documented On 06/02/2022 1:46PM ; [facility] - Anxiety disorder NOS - Last Documented On 06/02/2022 1:46PM ; [facility] Instructions Includes: Instructions from this encounter Education and Decision Aids were provided during visit for: Patient education about medi cation ---Education was given on medication(s) and diagnosis. I reviewed the risks, benefits and side effects of patient's medications Last Documented On 2 8:33AM ; [facility] Discussed calming techniques such as breathing exercises and other relaxation techniques Last Documented On 2 8:33AM ; [facility] Medical Equipment - Implanted Devices Includes: Current Devices No Medical Equipment Recorded Medications Includes: Medications discussed during this encounter and other current Medications New / Renewed during this visit MARCIO WASSERMAN MD on 05/31/2022 Vyvanse 60 MG Oral Capsule Provider: MARCIO WASSERMAN MD 30 day supply: 30 capsule, 0 refills Diagnosis: Attention-deficit hyperactivity disorder, combined type 1 Capsule every morning [facility]acy: [facility] - [address] , [place], [phone] - Last Documented On 07/26/2022 4:40PM By Kelly Wasserman MD ; [facility] Current Medications (continue as prescribed) Vyvanse 60 MG Oral Capsule 10/03/2022 Provider: MARCIO WASSERMAN MD Diagnosis: Attention-defici t hyperactivity disorder, combined type 1 Capsule every morning Last Documented On 10/03/2022 2:24PM By Kelly Wasserman MD ; [facility] Azstarys 52.3-10.4 MG Oral Capsule 10/03/2022 Provider: MARCIO WASSERMAN MD Diagnosis: Attention-defici t hyperactivity disorder, combined type as directed -- 1 cap at 1 pm Last Documented On 10/03/2022 2:24PM By Kelly Wasserman MD ; [facility] Armodafinil 250 MG Oral Tablet 05/13/2022 Provider: MARCIO WASSERMAN MD Diagnosis: Circadian rhythm sleep disorder, delayed sleep phase type 1 tablet every morning Last Documented On 2 11:08AM By Kelly Wasserman MD ; [facility] Past Medications on file Azstarys 39.2-7.8 MG Oral Capsule 05/04/2022 - 06/03/2022 Provider: MARCIO WASSERMAN MD Diagnosis: Attention-defici t hyperactivity disorder, combined type 1 Capsule every morning Last Documented On 11:19AM By Kelly Wasserman MD ; [facility] KlonoPIN 0.5 MG Oral Tablet 05/04/2022 - 06/03/2022 Provider: MARCIO ANAYA MD Diagnosis: Panic disorder [episodic paroxysmal anxiety] as directed - 1 tab a day as needed only for severe anxiety/panic Last Documented On 11:20AM By Kelly Wasserman MD ; [facility] Armodafinil 250 MG Oral Tablet 02/17/2022 - 03/19/2022 Provider: MARCIO WASSERMAN MD Diagnosis: Attention-defici t hyperactivity disorder, combined type as directed -- 1 tab at noon Last Documented On 02/17/2022 2:12PM By Kelly Wasserman MD ; [facility] Mydayis 25 MG Oral Capsule Extended Release 24 Hour 12/06/2019 - 01/05/2020 Provider: MARCIO WASSERMAN MD Diagnosis: Attention-defici t hyperactivity disorder, combined type 1 Capsule every morning Last Documented On 12/06/2019 6:07PM By Kelly Wasserman MD ; [facility] Mydayis 25 MG Oral Capsule Extended Release 24 Hour 08/23/2019 - 09/22/2019 Provider: MARCIO WASSERMAN MD Diagnosis: Attention-defici t hyperactivity disorder, combined type as directed --1 cap at 1 pm Last Documented On 08/23/2019 3:29PM By Kelly Wasserman MD ; [facility] Jornay PM 60 MG Oral Capsule Extended Release 24 Hour 07/24/2019 - 08/23/2019 Provider: MARCIO WASSERMAN MD Diagnosis: Attention-defici t hyperactivity disorder, combined type as directed -- 1 cap in the evening Last Documented On 0 12:14PM By Kelly Wasserman MD ; [facility] Jornay PM 40 MG Oral Capsule Extended Release 24 Hour 05/21/2019 - 06/20/2019 Provider: MARCIO WASSERMAN MD Diagnosis: Attention-defici t hyperactivity disorder, combined type as directed -- 1 cap in the evening Last Documented On 05/21/2019 2:59PM By Kelly Wasserman MD ; [facility] Medications Administered Includes: Administered Medications from this encounter No Administered Medications Recorded Vital Signs Includes: Vital Signs from this encounter Vital Name 05/31/2022 08:45A Blood Pressure Sitting L 119/75 BP Cuff Size Regular Pulse Rate-Sitting (bpm) 88 Pulse Rhythm Regular Height (in) 70 Weight (lb) 173 Body Mass Index 24.8 Body Surface Area 2 Note: self reported vitals Last Documented: On 05/31/2022 8:46AM ; [facility] Results Includes: Results discussed during this encounter No Results Recorded For Specified Dates History of Present Illness Includes: History of Present Illness from this encounter EZEKIEL LIANG is a 37 year old male. - Allergy list reviewed - Past medical history reviewed - Medication list reviewed This visit was conducted with use of interactive audio and video telecommunication system with real time communication between the patient and the provider. Patient consent for virtual visit obtained today. Total time spent with patient via audio and video telecommunication 30 minutes. Donald reported that he tried the Azstarys 39.2 mg in the morning which helped with his concentration but it only lasts for 4 hours. 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 So his Vyvanse will be resumed since it was discontinued about a month ago. It will be resumed at 60 mg in the morning and then around noon time he can take the Azstarys 39.2 mg and he can take Armodafinil in between or in the afternoon to help improve mental alertness. He felt that the Armodafinil has been really helping him stay alert and stay on task when the Azstarys was not lasting long enough. He denied side effects from the medication. He has not tried the Klonopin yet. He was going to use it during flight since he has no control when he is in the plane. He denied feeling depressed. Sleep is good. Appetite is good. He has not been as tired. He denied feeling bad about himself. He denied having any suicidal thoughts. No delusions or hallucinations. He denied having any mood swings. He denied having any psychomotor restlessness. MENTAL STATUS EXAM: Sensorium - alert, oriented to name, place, and time Attitude - cooperative Gait - ambulatory Sleep - good Interest/Energy/Motivation - good Guilt/Worthlessness - absent Concentration/Attention Span - able to focus and concentrate but only for few hours and then he is back to being distracted and not able to focus/function well, tends to count backwards Memory Recall - fairly good Appetite - good - on 05/04/22 pt weighed 174 lbs and on 05/31/22 he weighed 173 lbs so he lost 1 lb Suicidal Thoughts - absent Homicidal Thoughts - absent Delusions - absent Hallucinations - absent Appearance - casually groomed Motor Behavior - calm Eye Contact - intermittent Speech - fluent Mood - not depressed, occ stressed with work if he is not able to concentrate fully Affect - not as anxious Thought Process - coherent Insight and Judgment - intact Social History Description Last Updated Daily coffee consumption -- He drinks 1 cup of coffee a day. No soda or tea 12/06/2019 Last Documented On 2 8:33AM ; [facility] Alcohol use - he will have 1-2 beers onc e a month or less often 07/24/2019 Last Documented On 2 8:33AM ; [facility] He was born and raised in [place], [place]. 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 [employer] 07/06/2018 Last Documented On 2 8:33AM ; [facility] Marital history -- 08/11/2015 Last Documented On 2 8:33AM ; [facility] Not using drugs (Illicit) 08/11/2015 Last Documented On 2 8:33AM ; [facility] Smoking status : Never smoker 08/11/2015 Last Documented On 2 8:33AM ; [facility] Procedures and Surgical History Includes: Procedures from this encounter Procedures Code Diagnosis Performing Provider Service L ocation Service Date education and instructions Last Documented On 2 8:33AM ; [facility] dangerousness assessment: suicide risk -not suic idal 3085F Last Documented On 2 8:33AM ; [facility] use of tobacco assessment performed 1000F Last Documented On 2 8:33AM ; [facility] patient screened for future fall risk - no recen t falls 3288F Last Documented On 2 8:33AM ; [facility] review of medications documented 1160F Last Documented On 2 8:33AM ; [facility] screening for adult depressi on: impression and score - please see above treatment and PHQ score Last Documented On 2 8:33AM ; [facility] standardized depression screening: posit yohana for symptoms Last Documented On 2 8:33AM ; [facility] encouragement to exercise - pt goes to t he gym at 5 am each day Last Documented On 2 1:42PM ; [facility] Clinical summary provided to patient Last Documented On 2 8:33AM ; [facility] PHQ-9: total score 1 Last Documented On 2 1:41PM ; [facility] Medical History Includes: Medical History addressed during this encounter Description Last Updated History of coronavirus 2019- nCoV vaccine - Pfizer #1 10/06/20 #2 11/03/20 #3 04/202102/17/2022 Last Documented On 2 8:33AM ; [facility] History of sinusitis - given Augmentin 875 mg and Prednisone Dosepak 4 mg (did not take Prednisone) 01/03/21;given Augmentin 875 mg #20 on 03/31/20 03/10/2021 Last Documented On 2 8:33AM ; [facility] History of oral thrush - treated with [place] statin Suspension 100,000 05/11/19 05/21/2019 Last Documented On 2 8:33AM ; [facility] Primary Care Provider: [facility] 05/21/2019 Last Documented On 2 8:33AM ; [facility] Family History Includes: Family History addressed during this encounter Description Last Updated Family medical history : No significant family history 08/11/2015 Last Documented On 2 8:33AM ; [facility] Review of Systems Includes: Review of Systems [...] Location Date Check-In Time Check-Out Time Diagnosis TELEHEALTH MARCIO WASSERMAN MD [facility] 05/31/20 22 8:32AM 11:59PM Attention-deficit Hyperactivity Disorder,Anxiety Disorder Nos,Panic Disorder,Sleep Disorder Circadian Rhythm Insurance Includes: Active Insurance Policies Plan Name Member ID Group # Subscriber Relationship Effect yohana Dates 1 - [employer] [id number] DONALD LIANG Self Clinical Notes Includes: Clinical Notes from this encounter No Clinical Notes Recorded
--- OUTSIDE RECORDS SUMMARY | 2024-09-06 08:09 | XMS_ITS | Clinical Summary ---
Author Organization [facility] [place] Address [address] [place] [address] Care Team Providers Care Wire Preparation Worker Name Role Phone Zena Kraft MD Primary Care Provider [phone] Allergies No known active allergies Medications VYVANSE 60 mg capsule TK ONE C PO QAM 0 04/16/2019 Active methylphenidate ER (CONCERTA) 36 mg CR tablet TK 2 TS PO D AT NOON UTD 0 02/28/2019 Active Active Problems No known active problems Medical History Medical History Date Comments ADHD (attention deficit hyperactivity disorder) Social History Tobacco Use Types Packs/Day Years Used Date Smoking Tobacco: Never Smokeless Tobacco: Never Sex and Gender Information Value Date Recorded Sex Assigned at Not on file Legal Sex Male 9:52 AM [employer]ANT [employer] Gender Identity Not on file Sexual Orientation Not on file Obstetrics History Last Filed Vital Signs Vital Sign Reading [...] 05/11/2019 8:47 AM CDT Plan of Treatment Health Maintenance Due Date Last Done Comments Depression Screening 1984 Hepatitis C Screening 1984 DTaP/Tdap/Td Vaccine (1 - Tdap) 1995 Varicella Vaccines (1 of 2 - 13+ 2-dose series) 1997 Hepatitis B Screening 2002 Regular Well Visit/Exam 18-64 2002 Influenza Vaccine (#1) 2024 HPV Vaccines Aged Out No longer eligi ble based on patient's age to complete this topic Pneumococcal vaccine <65 Aged Out No longer eligible based on patient's age to complete this topic Insurance [facility] P[facility] Care Teams Wire Preparation Worker Relationship Specialty Start Date End Date Zena Kraft MD [address] [place] [address] PCP - General Pediatrics 05/11/19
--- OUTSIDE RECORDS SUMMARY | 2024-09-06 08:09 | XMS_ITS | Clinical Summary ---
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 HECTOR WASSERMAN MD Active Last Documented On 0 8:07PM ; [facility] Anxiety Disorder Nos 12/16/2015 MARCIO COLLINS MD Active Last Documented On 6 7:23AM ; [facility] Attention-deficit Hyperactivity Disorder 08/11/2015 MARCIO WASSERMAN MD Active Last Documented On 6 3:19PM ; [facility] Plan of Treatment Attention Deficit Disorder - Azstarys 52.3 mg at 1 pm Attention Deficit Hyperactivity Disorder - Vyvanse 60 [...] when in flight - Last Documented On 08/12/2022 9:47AM ; [facility] Education and Decision Aids were provided during visit for: Patient education about medi cation ---Education was given on medication(s) and diagnosis. I reviewed the risks, benefits and side effects of patient's medications Last Documented On 3 9:12AM ; [facility] Discussed calming techniques such as breathing exercises and other relaxation techniques Last Documented On 3 9:12AM ; [facility] Assessments Includes: Assessments from this encounter Findings - Attention-deficit hyperactivity disorder - Last Documented On 08/12/2022 9:47AM ; [facility] - Circadian rhythm sleep disorder - Last Documented On 08/12/2022 9:47AM ; [facility] - Panic disorder - Last Documented On 08/12/2022 9:47AM ; [facility] - Anxiety disorder NOS - Last Documented On 08/12/2022 9:47AM ; [facility] Instructions Includes: Instructions from this encounter Education and Decision Aids were provided during visit for: Patient education about medi cation ---Education was given on medication(s) and diagnosis. I reviewed the risks, benefits and side effects of patient's medications Last Documented On 3 9:12AM ; [facility] Discussed calming techniques such as breathing exercises and other relaxation techniques Last Documented On 3 9:12AM ; [facility] Medical Equipment - Implanted Devices Includes: Current Devices No Medical Equipment Recorded Medications Includes: Medications discussed during this encounter and other current Medications Discontinued / Stopped on this date MARCIO WASSERMAN MD on 03/23/2022 Vyvanse 70 MG Oral Capsule Provider: MARCIO WASSERMAN MD Diagnosis: Attention-defici t hyperactivity disorder, combined type Last Documented On 08/11/2022 9:33AM By Kelly Wasserman MD ; [facility] New / Renewed during this visit MARCIO WASSERMAN MD on 08/11/2022 Azstarys 52.3-10.4 MG Oral Capsule Provider: MARCIO WASSERMAN MD 30 day supply: 30 capsule, 0 refills Diagnosis: Attention-deficit hyperactivity disorder, combined type as directed -- 1 cap at 1 pm Pharmacy: [facility]) - [address] [place], [phone] - Last Documented On 10/03/2022 2:12PM By Kelly Wasserman MD ; [facility] Current Medications (continue as prescribed) Vyvanse 60 MG Oral Capsule 10/03/2022 Provider: MARCIO WASSERMAN MD Diagnosis: Attention-defici t hyperactivity disorder, combined type 1 Capsule every morning Last Documented On 10/03/2022 2:24PM By Kelly Wasserman MD ; [facility] Azstarys 52.3-10.4 MG Oral Capsule 10/03/2022 Provider: MARCIO WASSERMAN MD Diagnosis: Attention-defici t hyperactivity disorder, combined type as directed -- 1 cap at 1 pm Last Documented On 10/03/2022 2:24PM By Kelly Wasserman MD ; [facility] Armodafinil 250 MG Oral Tablet 05/13/2022 Provider: MARCIO WASSERMAN MD Diagnosis: Circadian rhythm sleep disorder, delayed sleep phase type 1 tablet every morning Last Documented On 11:08AM By Kelly Wasserman MD ; [facility] Past Medications on file Azstarys 39.2-7.8 MG Oral Capsule 05/04/2022 - 06/03/2022 Provider: MARCIO WASSERMAN MD Diagnosis: Attention-defici t hyperactivity disorder, combined type 1 Capsule every morning Last Documented On 11:19AM By Kelly Wasserman MD ; [facility] KlonoPIN 0.5 MG Oral Tablet 05/04/2022 - 06/03/2022 Provider: MARCIO ANAYA MD Diagnosis: Panic disorder [episodic paroxysmal anxiety] as directed - 1 tab a day as needed only for severe anxiety/panic Last Documented On 11:20AM By Kelly Wasserman MD ; [facility] Armodafinil 250 MG Oral Tablet 02/17/2022 - 03/19/2022 Provider: MARCIO WASSERMAN MD Diagnosis: Attention-defici t hyperactivity disorder, combined type as directed -- 1 tab at noon Last Documented On 02/17/2022 2:12PM By Kelly Wasserman MD ; [facility] Mydayis 25 MG Oral Capsule Extended Release 24 Hour 12/06/2019 - 01/05/2020 Provider: MARCIO WASSERMAN MD Diagnosis: Attention-defici t hyperactivity disorder, combined type 1 Capsule every morning Last Documented On 12/06/2019 6:07PM By Kelly Wasserman MD ; [facility] Mydayis 25 MG Oral Capsule Extended Release 24 Hour 08/23/2019 - 09/22/2019 Provider: MARCIO WASSERMAN MD Diagnosis: Attention-defici t hyperactivity disorder, combined type as directed --1 cap at 1 pm Last Documented On 08/23/2019 3:29PM By Kelly Wasserman MD ; [facility] Jornay PM 60 MG Oral Capsule Extended Release 24 Hour 07/24/2019 - 08/23/2019 Provider: MARCIO WASSERMAN MD Diagnosis: Attention-defici t hyperactivity disorder, combined type as directed -- 1 cap in the evening Last Documented On 0 12:14PM By Kelly Wasserman MD ; [facility] Jornay PM 40 MG Oral Capsule Extended Release 24 Hour 05/21/2019 - 06/20/2019 Provider: MARCIO WASSERMAN MD Diagnosis: Attention-defici t hyperactivity disorder, combined type as directed -- 1 cap in the evening Last Documented On 05/21/2019 2:59PM By Kelly Wasserman MD ; [facility] Medications Administered Includes: Administered Medications from this encounter No Administered Medications Recorded Vital Signs Includes: Vital Signs from this encounter Vital Name 08/11/2022 09:21A Blood Pressure Sitting L 131/78 BP Cuff Size Regular Pulse Rate-Sitting (bpm) 80 Pulse Rhythm Regular Height (in) 70 Weight (lb) 175 Body Mass Index 25.1 Body Surface Area 2 Note: self reported vitals Last Documented: On 08/11/2022 9:22AM ; [facility] Results Includes: Results discussed during this encounter No Results Recorded For Specified Dates History of Present Illness Includes: History of Present Illness from this encounter HPI DONALD LIANG is a 37 year old male. - Allergy list reviewed - Past medical history reviewed - Medication list reviewed Pt talked about some of his struggles trying to juggle work and family obligations. Just because he is working from home, his thinks that he can be interrupted to do errands to go out and sisal picker some thing. He has difficulty saying no to his since he tries to understand his 's situation as well. Pt said that his may be demoted to become a exceptional children teacher assistant and may have to suffer a pay cut. He then feels that he has to work more hours in order to maintain the lifestyle that they have been living. At times he said he wanted to take a break or take a vacation somewhere w/o disturbance from his and kids so he can recharge his battery. At the present time he tries to multitask, hyperfocus but finds himself circling around the same thing. He cannot seem to relax or sit still tone when his wants him to sit with her to watch TV. He just cannot sit still that way. He has not used the Klonopin yet since he has not travelled the last few months. He intended to use it during flight but has not done that. He is somewhat apprehensive about trying it so I asked him to try it at home when he is not working like when he and his are just trying to relax to see if this will help calm his restlessness, fidgetiness, hyperactivity. Pt has not been feeling depressed but gets overwhelmed at times with mounting responsibilities from home that at times may affect his motivation. However he still gets up early like 5 am to go work out as his stress reliever. Pt denied having any mood swings. Pt has not been as irritable. Sleep has been good. Pt has not been napping/sleeping too much during the daytime. Pt has not been feeling as tired. Appetite is good. Pt has not been feeling as bad about self. Pt is able to focus and concentrate for the most part with Vyvanse 60 mg in am. He tried the Azstarys 39.2 mr in the afternoon but did not do much in terms of his concentration/focus so I recommended trying Azstarys 52.3 mg in am to see if this will help improve ADD sx in the afternoon. The Armodafinil that he takes as needed seems to help in between with regards to improving mental alertness, ability to stay on task . Pt denied having any psychomotor restlessness. Pt denied suicidal thoughts. Pt denied having any delusions/hallucinations. MENTAL STATUS EXAM: Sensorium - alert, oriented to name, place, and time Attitude - cooperative Gait - ambulatory Sleep - good Interest/Energy/Motivation - good Guilt/Worthlessness - absent Concentration/Attention Span - able to focus and concentrate better with Vyvanse but wears off in the afternoon Memory Recall - fairly good Appetite - good - on 05/31/22 pt weighed 173 lbs and on 08/11/22 he weighed 175 lbs so he gained 2 lbs Suicidal Thoughts - absent Homicidal Thoughts - absent Delusions - absent Hallucinations - absent Appearance - casually groomed Motor Behavior - occ restless Eye Contact - intermittent Speech - fluent Mood - not depressed but gets stressed with juggling work and family obligations Affect - at times anxious Thought Process - coherent Insight and Judgment - intact Social History Description Last Updated Daily coffee consumption -- He drinks 1 cup of coffee a day. No soda or tea 12/06/2019 Last Documented On 3 9:12AM ; [facility] Alcohol use - he will have 1-2 beers onc e a month or less often 07/24/2019 Last Documented On 3 9:12AM ; [facility] He was born and raised in [place], [place]. 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 [employer] 07/06/2018 Last Documented On 3 9:12AM ; [facility] Marital history -- 08/11/2015 Last Documented On 3 9:12AM ; [facility] Not using drugs (Illicit) 08/11/2015 Last Documented On 3 9:12AM ; [facility] Smoking status : Never smoker 08/11/2015 Last Documented On 3 9:12AM ; [facility] Procedures and Surgical History Includes: Procedures from this encounter Procedures Code Diagnosis Performing Provider Service L ocation Service Date education and instructions Last Documented On 3 9:12AM ; [facility] dangerousness assessment: suicide risk -not suic idal 3085F Last Documented On 3 9:12AM ; [facility] use of tobacco assessment performed 1000F Last Documented On 3 9:12AM ; [facility] patient screened for future fall risk - no recen t falls 3288F Last Documented On 3 9:12AM ; [facility] review of medications documented 1160F Last Documented On 3 9:12AM ; [facility] screening for adult depressi on: impression and score - please see above treatment and PHQ score Last Documented On 3 9:12AM ; [facility] standardized depression screening: posit yohana for symptoms Last Documented On 3 9:12AM ; [facility] encouragement to exercise - works out at 5 am - goes to fitness center - -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 Last Documented On 3 9:46AM ; [facility] Clinical summary provided to patient Last Documented On 3 9:12AM ; [facility] PHQ-9: total score 3 Last Documented On 3 9:45AM ; [facility] Medical History Includes: Medical History addressed during this encounter Description Last Updated History of coronavirus 2019- nCoV vaccine - [email or web address] #1 10/06/20 #2 11/03/20 #3 04/202102/17/2022 Last Documented On 3 9:12AM ; [facility] History of sinusitis - given Augmentin 875 mg and Prednisone Dosepak 4 mg (did not take Prednisone) 01/03/21;given Augmentin 875 mg #20 on 03/31/20 03/10/2021 Last Documented On 3 9:12AM ; [facility] History of oral thrush - treated with [place] statin Suspension 100,000 05/11/19 05/21/2019 Last Documented On 3 9:12AM ; [facility]: [facility] 05/21/2019 Last Documented On 3 9:12AM ; [facility] Family History Includes: Family History addressed during this encounter Description Last Updated Family medical history : No significant family history 08/11/2015 Last Documented On 3 9:12AM ; [facility] Review of Systems Includes: Review of Systems [...] Diagnosis TELEHEALTH MARCIO WASSERMAN MD [facility] 08/11/19 23 9:06AM 11:59PM Attention-deficit Hyperactivity Disorder,Anxiety Disorder Nos,Panic Disorder,Sleep Disorder Circadian Rhythm Insurance Includes: Active Insurance Policies Plan Name Member ID Group # Subscriber Relationship Effect yohana Dates 1 - ADMINISTRATIVE CONCEPTS [id number] DONALD LIANG Self Clinical Notes Includes: Clinical Notes from this encounter No Clinical Notes Recorded
--- OUTSIDE RECORDS SUMMARY | 2024-09-06 08:09 | XMS_ITS | Clinical Summary ---
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 HECTOR WASSERMAN MD Active Last Documented On 0 8:07PM ; [facility] Anxiety Disorder Nos 12/16/2015 MARCIO COLLINS MD Active Last Documented On 6 7:23AM ; [facility] Attention-deficit Hyperactivity Disorder 08/11/2015 MARCIO WASSERMAN MD Active Last Documented On 6 3:19PM ; [facility] Plan of Treatment No Plan of Treatment [...] 10/03/2022 2:24PM By Kelly Wasserman MD ; [facility] Azstarys 52.3-10.4 MG Oral Capsule 10/03/2022 Provider: MARCIO WASSERMAN MD Diagnosis: Attention-defici t hyperactivity disorder, combined type as directed -- 1 cap at 1 pm Last Documented On 10/03/2022 2:24PM By Kelly Wasserman MD ; [facility] Armodafinil 250 MG Oral Tablet 05/13/2022 Provider: MARCIO WASSERMAN MD Diagnosis: Circadian rhythm sleep disorder, delayed sleep phase type 1 tablet every morning Last Documented On 11:08AM By Kelly Wasserman MD ; [facility] Medications Administered Includes: Administered Medications from this [...] Location Date Check-In Time Check-Out Time Diagnosis NO SHOW MARCIO WASSERMAN MD [facility] 10/11/2022 9:00AM 11:59PM Insurance Includes: Active Insurance Policies Plan Name Member ID Group # Subscriber Relationship Effect yohana Dates 1 - ADMINISTRATIVE CONCEPTS [id number] DONALD LIANG Self Clinical Notes Includes: Clinical Notes from this encounter No Clinical Notes Recorded
--- OUTSIDE RECORDS SUMMARY | 2024-09-06 08:09 | XMS_ITS | Clinical Summary ---
Author Organization [facility] Address [address] [address] Phone Care Team Providers Care Manager Competitive Intelligence Name Role Phone Provider, None Primary Care Provider Unavailabl e Allergies No known active allergies Medications Mydayis 37.5 MG CAPSULE SR 24 HR TK 1 C PO AT NOON UTD 03/03/2020 Active Lisdexamfetamine Dimesylate (Vyvanse) 60 MG Capsule TK ONE C PO QAM 04/16/2019 Active Active Problems Problem Noted Date Diagnosed Date Back pain ADHD (attention deficit hyperactivity disorder) Family History Medical History Relation Name Comments No Known Problems Brother No Known Problems Father No Known Problems Mother No Known Problems Sister Relation Name Status Comments Brother Alive Father Alive Mother Alive Sister Alive Social History Tobacco Use Types Packs/Day Years Used Date Smoking Tobacco: Former Smokeless Tobacco: Never Tobacco Cessation:Counseling Given: No Alcohol Use Standard Drinks/Week Comments Yes 0 (1 standard drink = 0.6 oz pur e alcohol) PHQ-2 Answer Date Recorded Total Score - Questions 1-9 0 03/17 Sex and Gender Information Value Date Recorded Sex Assigned at Not on file Legal Sex Male 10:37 PM CDT Gender Identity Not on file Sexual Orientation Not on file Last Filed Vital Signs Vital Sign Reading Time Taken Comments Blood Pressure 140/78 03/31/2020 8:52 AM CDT Pulse 75 03/31/2020 8:52 AM CDT Temperature 35.8 C (96.4 F) 03/31/2020 8:52 AM CDT Respiratory Rate 16 03/31/2020 8:52 AM CDT Oxygen Saturation 97% 03/31/2020 8:52 AM CDT Inhaled Oxygen Concentration - - Weight 81.2 kg (179 lb) 03/31/2020 8:52 AM CDT Height 177.8 cm (5' 10 ) 03/31/2020 8:52 AM CDT Body Mass Index 25.68 03/31/2020 8:52 AM CDT Plan of Treatment Health Maintenance Due Date Last Done Comments Hepatitis C Virus (HCV) Screening 1984 TdaP Immunization 1984 Hepatitis B Immunization (1 of 3 - 19+ 3-dose series) 2003 Influenza Immunization (#1) 2024 SARS-COV-2 Immunization (2023- season) 2024 05/25/2021, 11/03/2020, 10/06/2020 Respiratory Syncytial Virus (RSV) Immunization (Adult) (1 - 1-dose 75+ series) 2059 Meningococcal Immunization (ACWY) Aged Out No longer eligible b ased on patient's age to complete this topic Pneumococcal Immunization Combined Aged Out No longer eligible b ased on patient's age to complete this topic Rotavirus Immunization Aged Out No lo nger eligible based on patient's age to complete this topic Care Teams Manager Competitive Intelligence Relationship Specialty Start Date End Date Provider, None [place] PCP - General 12/31/20
--- OUTSIDE RECORDS SUMMARY | 2024-09-06 08:09 | XMS_ITS | Clinical Summary ---
Author Organization [facility] Address [address] [place] [address] Phone Care Team Providers Care Manager Energy Name Role Phone MEEK JEROME, MARCIO Polanco [phone] Reason for Visit and Chief Complaint TELEHEALTH ADULT PSYCH ESTABLISHED Problems Includes: Problems addressed during this encounter [...] ; [facility] Plan of Treatment No Plan of [...] ; [facility] Armodafinil 250 MG Oral Tablet 08/21/2023 Provider: MARCIO WASSERMAN MD Diagnosis: Attention-defici t hyperactivity disorder, combined type as directed - 1 tab as noon Last Documented On 08/21/2023 2:57PM By Kelly Wasserman MD ; [facility] Medications Administered Includes: Administered Medications from this [...] Allergies Includes: Active Allergies No Known Allergies Insurance Includes: Active Insurance Policies Plan Name Member ID Group # Subscriber Relationship Effect yohana Dates 1 - ADMINISTRATIVE CONCEPTS [id number] DONALD LIANG Self Clinical Notes Includes: Clinical Notes from this encounter No Clinical Notes Recorded
--- OUTSIDE RECORDS SUMMARY | 2024-09-06 08:09 | XMS_ITS ---
Author Organization [facility] Address [address] [place] [address] Phone Care Team Providers Care Global Chief Creative Officer Name Role Phone MEEK JEROME, MARCIO Polanco [phone] Problems Includes: Active, inactive, and resolved Problems All Visits Onset Date Resolved Date Provider Condition S tatus Panic Disorder 05/04/2022 Active Last Documented On 3 5:53PM ; 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 Anxiety Disorder Nos 12/16/2015 Acti ve Last Documented On 3 5:49PM ; [facility] Attention-deficit Hyperactivity Disorder 08/11/2015 Active Last Documented On 3 5:49PM ; [facility] Plan of Treatment Education and Decision Aids were provided during visit for: Calming techniques such as b reathing exercises/meditation and other relaxation techniques Last Documented On 4 1:37PM ; [facility] Calming techniques such as b reathing exercises/meditation and other relaxation techniques Last Documented On 4 3:34PM ; [facility] Assessments Includes: Assessments for all patient encounters Findings Encounter Date Anxiety disorder NOS PSYCH ADULT FOLLOW UP with MARCIO WASSERMAN MD 11/28/2023 Last Documented On 4 1:39PM ; [facility] Attention-deficit hyperactivity disorder PSYCH ADULT FOLLOW UP with MARCIO WASSERMAN MD 11/28/2023 Last Documented On 4 1:39PM ; [facility] Circadian rhythm sleep disorder PSYCH AD ULT FOLLOW UP with MARCIO WASSERMAN MD 11/28/2023 Last Documented On 4 1:39PM ; [facility] Panic disorder PSYCH ADULT FOLLOW UP with PACHECO WASSERMAN MD 11/28/2023 Last Documented On 4 1:39PM ; [facility] Anxiety disorder NOS PSYCH ADULT FOLLOW UP with MARCIO WASSERMAN MD 08/21/2023 Last Documented On 4 3:35PM ; [facility] Attention-deficit hyperactivity disorder PSYCH ADULT FOLLOW UP with MARCIO WASSERMAN MD 08/21/2023 Last Documented On 4 3:35PM ; [facility] Circadian rhythm sleep disorder PSYCH AD ULT FOLLOW UP with MARCIO WASSERMAN MD 08/21/2023 Last Documented On 4 3:35PM ; [facility] Panic disorder PSYCH ADULT FOLLOW UP with PACHECO WASSERMAN MD 08/21/2023 Last Documented On 4 3:35PM ; [facility] Anxiety disorder NOS TELEHEALTH ADULT PS YCH ESTABLISHED with MARCIO WASSERMAN MD 11/21/2022 Last Documented On 3 7:29AM ; [facility] Attention-deficit hyperactivity disorder TELEHEALTH ADULT PSYCH ESTABLISHED with MARCIO WASSERMAN MD 11/21/2022 Last Documented On 3 7:29AM ; [facility] Circadian rhythm sleep disorder TELEHEAL TH ADULT PSYCH ESTABLISHED with MARCIO WASSERMAN MD 11/21/2022 Last Documented On 3 7:29AM ; [facility] Panic disorder TELEHEALTH ADULT PSY CH ESTABLISHED with MARCIO WASSERMAN MD 11/21/2022 Last Documented On 3 7:29AM ; [facility] Instructions Includes: Instructions for all patient encounters Education and Decision Aids were provided during visit for: Calming techniques such as b reathing exercises/meditation and other relaxation techniques Last Documented On 4 1:37PM ; [facility] Calming techniques such as b reathing exercises/meditation and other relaxation techniques Last Documented On 4 3:34PM ; [facility] Medical Equipment - Implanted Devices Includes: Current and historical Devices No Medical Equipment Recorded Medications Includes: Current and historical Medications Current Medications (continue as prescribed) Vyvanse 60 MG Oral Capsule 01/01/2024 Provider: MARCIO WASSERMAN MD Diagnosis: Attention-defici t hyperactivity disorder, combined type 1 Capsule every morning Last Documented On 01/01/2024 11:46AM By Kelly Wasserman MD ; [facility] Armodafinil 250 MG Oral Tablet 08/21/2023 Provider: MARCIO WASSERMAN MD Diagnosis: Attention-defici t hyperactivity disorder, combined type as directed - 1 tab as noon Last Documented On 08/21/2023 2:57PM By Kelly Wasserman MD ; [facility] Past Medications on file Vyvanse 60 MG Oral Capsule 11/20/2023 - 01/01/2024 Provider: MARCIO WASSERMAN MD Diagnosis: Attention-defici t hyperactivity disorder, combined type 1 Capsule every morning Last Documented On 01/01/2024 11:30AM By Kelly Wasserman MD ; [facility] Vyvanse 60 MG Oral Capsule 11/10/2023 - 11/20/2023 Provider: MARCIO WASSERMAN MD Diagnosis: Attention-defici t hyperactivity disorder, combined type 1 Capsule every morning Last Documented On 11/20/2023 7:07PM By Kelly Wasserman MD ; [facility] Vyvanse 60 MG Oral Capsule 09/27/2023 - 11/10/2023 Provider: MARCIO WASSERMAN MD Diagnosis: Attention-defici t hyperactivity disorder, combined type 1 Capsule every morning Last Documented On 11/10/2023 4:51PM By Kelly Wasserman MD ; [facility] Dyanavel XR 15 MG Oral Tablet Chewable Extended Release 08/21/2023 - 11/28/2023 Provider: MARCIO WASSERMAN MD Diagnosis: Anxiety disorder , unspecified as directed - 1 tab at noon Last Documented On 11/28/2023 11:19AM By Kelly Wasserman MD ; [facility] Vyvanse 60 MG Oral Capsule 08/21/2023 - 09/27/2023 Provider: MARCIO WASSERMAN MD Diagnosis: Attention-defici t hyperactivity disorder, combined type 1 Capsule every morning Last Documented On 09/27/2023 5:59PM By Kelly Wasserman MD ; [facility] Armodafinil 250 MG Oral Tablet 12/01/2022 - 03/31/2023 Provider: MARCIO WASSERMAN MD Diagnosis: Circadian rhythm sleep disorder, delayed sleep phase type 1 tablet every morning Last Documented On 12/01/2022 12:50PM By Kelly Wasserman MD ; [facility] Vyvanse 60 MG Oral Capsule 11/21/2022 - 12/21/2022 Provider: MARCIO WASSERMAN MD Diagnosis: Attention-defici t hyperactivity disorder, combined type *1 AM - 1 Capsule every morning Last Documented On 11/21/2022 4:06PM By Kelly Wasserman MD ; [facility] Azstarys 52.3-10.4 MG Oral Capsule 11/21/2022 - 12/21/2022 Provider: MARCIO WASSERMAN MD Diagnosis: Attention-defici t hyperactivity disorder, combined type ud - as directed as directed -- 1 cap at 1 pm Last Documented On 11/21/2022 4:06PM By Kelly Wasserman MD ; [facility] Vyvanse 60 MG OR CAPS 10/03/2022 - 11/21/2022 Provider: MARCIO WASSERMAN MD Diagnosis: Attention-defici t hyperactivity disorder, combined type 1 Capsule every morning Last Documented On 11/21/2022 4:00PM By Kelly Wasserman MD ; [facility] Azstarys 52.3-10.4 MG OR CAPS 10/03/2022 - 11/21/2022 Provider: MARCIO WASSERMAN MD Diagnosis: Attention-defici t hyperactivity disorder, combined type as directed -- 1 cap at 1 pm Last Documented On 11/21/2022 4:02PM By Kelly Wasserman MD ; [facility] Azstarys 52.3-10.4 MG OR CAPS 08/11/2022 - 10/03/2022 Provider: MARCIO WASSERMAN MD Diagnosis: Attention-defici t hyperactivity disorder, combined type as directed -- 1 cap at 1 pm Last Documented On 11/12/2022 5:38PM By Kelly Wasserman MD ; [facility] Vyvanse 60 MG OR CAPS 07/26/2022 - 10/03/2022 Provider: MARCIO WASSERMAN MD Diagnosis: Attention-defici t hyperactivity disorder, combined type 1 Capsule every morning Last Documented On 11/12/2022 5:38PM By Kelly Wasserman MD ; [facility] Vyvanse 60 MG OR CAPS 05/31/2022 - 07/26/2022 Provider: MARCIO WASSERMAN MD Diagnosis: Attention-defici t hyperactivity disorder, combined type 1 Capsule every morning Last Documented On 11/12/2022 5:38PM By Kelly Wasserman MD ; [facility] Armodafinil 250 MG OR TABS 05/13/2022 - 12/01/2022 Provider: MARCIO WASSERMAN MD Diagnosis: Circadian rhythm sleep disorder, delayed sleep phase type 1 tablet every morning Last Documented On 12/01/2022 12:39PM By Kelly Wasserman MD ; [facility] Armodafinil 250 MG OR TABS 05/04/2022 - 05/13/2022 Provider: MARCIO WASSERMAN MD Diagnosis: Circadian rhythm sleep disorder, delayed sleep phase type 1 tablet every morning Last Documented On 11/12/2022 5:38PM By Kelly Wasserman MD ; [facility] KlonoPIN 0.5 MG OR TABS 05/04/2022 - 06/03/2022 Provider: MARCIO ANAYA MD Diagnosis: Panic disorder [episodic paroxysmal anxiety] as directed - 1 tab a day as needed only for severe anxiety/panic Last Documented On 11/12/2022 5:38PM By Kelly Wasserman MD ; [facility] Azstarys 39.2-7.8 MG OR CAPS 05/04/2022 - 06/03/2022 Provider: MARCIO WASSERMAN MD Diagnosis: Attention-defici t hyperactivity disorder, combined type 1 Capsule every morning Last Documented On 11/12/2022 5:38PM By Kelly Wasserman MD ; [facility] Vyvanse 70 MG OR CAPS 03/23/2022 - 08/11/2022 Provider: MARCIO WASSERMAN MD Diagnosis: Attention-defici t hyperactivity disorder, combined type 1 Capsule every morning Last Documented On 11/12/2022 5:38PM By Kelly Wasserman MD ; [facility] Armodafinil 250 MG OR TABS 02/17/2022 - 03/19/2022 Provider: MARCIO WASSERMAN MD Diagnosis: Attention-defici t hyperactivity disorder, combined type as directed -- 1 tab at noon Last Documented On 11/12/2022 5:38PM By Kelly Wasserman MD ; [facility] Vyvanse 70 MG OR CAPS 02/07/2022 - 03/23/2022 Provider: MARCIO WASSERMAN MD Diagnosis: Attention-defici t hyperactivity disorder, combined type 1 Capsule every morning Last Documented On 11/12/2022 5:38PM By Kelly Wasserman MD ; [facility] Vyvanse 70 MG OR CAPS 12/27/2021 - 02/07/2022 Provider: MARCIO WASSERMAN MD Diagnosis: Attention-defici t hyperactivity disorder, combined type 1 Capsule every morning Last Documented On 11/12/2022 5:38PM By Kelly Wasserman MD ; [facility] Vyvanse 70 MG OR CAPS 11/15/2021 - 12/27/2021 Provider: MARCIO WASSERMAN MD Diagnosis: Attention-defici t hyperactivity disorder, combined type 1 Capsule every morning Last Documented On 11/12/2022 5:38PM By Kelly Wasserman MD ; [facility] Vyvanse 70 MG OR CAPS 11/12/2021 - 11/15/2021 Provider: MARCIO WASSERMAN MD Diagnosis: Attention-defici t hyperactivity disorder, combined type 1 Capsule every morning Last Documented On 11/12/2022 5:38PM By Kelly Wasserman MD ; [facility] Vyvanse 60 MG OR CAPS 10/04/2021 - 01/24/2022 Provider: MARCIO WASSERMAN MD Diagnosis: Attention-defici t hyperactivity disorder, combined type 1 Capsule every morning Last Documented On 11/12/2022 5:38PM By Kelly Wasserman MD ; [facility] Vyvanse 60 MG OR CAPS 10/01/2021 - 10/04/2021 Provider: MARCIO WASSERMAN MD Diagnosis: Attention-defici t hyperactivity disorder, combined type 1 Capsule every morning Last Documented On 11/12/2022 5:38PM By Kelly Wasserman MD ; [facility] Armodafinil 250 MG OR TABS 10/01/2021 - 05/04/2022 Provider: MARCIO WASSERMAN MD Diagnosis: Anxiety disorder , unspecified 1 tablet every morning Last Documented On 11/12/2022 5:38PM By Kelly Wasserman MD ; [facility] Vyvanse 70 MG OR CAPS 07/26/2021 - 10/25/2021 Provider : MARCIO WASSERMAN MD Diagnosis: 1 Capsule every morning Last Documented On 11/12/2022 5:38PM By Kelly Wasserman MD ; [facility] Mydayis 50 MG OR CP24 05/17/2021 - 10/25/2021 Provider : MARCIO WASSERMAN MD Diagnosis: 1 Capsule every morning Last Documented On 11/12/2022 5:38PM By Kelly Wasserman MD ; [facility] Strattera 60 MG OR CAPS 05/17/2021 - 10/25/2021 Provider: MARCIO WASSERMAN MD Diagnosis: Anxiety disorder , unspecified as directed - 1 cap at 11 am Last Documented On 11/12/2022 5:38PM By Kelly Wasserman MD ; [facility] Vyvanse 70 MG OR CAPS 05/17/2021 - 07/26/2021 Provider : MARCIO WASSERMAN MD Diagnosis: 1 Capsule every morning Last Documented On 11/12/2022 5:38PM By Kelly Wasserman MD ; [facility] Vyvanse 70 MG OR CAPS 02/19/2021 - 05/17/2021 Provider : MARCIO WASSERMAN MD Diagnosis: 1 Capsule every morning Last Documented On 11/12/2022 5:38PM By Kelly Wasserman MD ; [facility] Mydayis 50 MG OR CP24 02/19/2021 - 05/17/2021 Provider : MARCIO WASSERMAN MD Diagnosis: 1 Capsule every morning Last Documented On 11/12/2022 5:38PM By Kelly Wasserman MD ; [facility] Vyvanse 70 MG OR CAPS 12/30/2020 - 02/19/2021 Provider: MARCIO WASSERMAN MD Diagnosis: Attention-defici t hyperactivity disorder, combined type 1 Capsule every morning Last Documented On 11/12/2022 5:38PM By Kelly Wasserman MD ; [facility] Strattera 60 MG OR CAPS 12/25/2020 - 05/17/2021 Provider: MARCIO WASSERMAN MD Diagnosis: Anxiety disorder , unspecified as directed - 1 cap at 11 am Last Documented On 11/12/2022 5:38PM By Kelly Wasserman MD ; [facility] Mydayis 50 MG OR CP24 12/24/2020 - 02/19/2021 Provider: MARCIO WASSERMAN MD Diagnosis: Attention-defici t hyperactivity disorder, combined type 1 Capsule every morning Last Documented On 11/12/2022 5:38PM By Kelly Wasserman MD ; [facility] Mydayis 37.5 MG OR CP24 11/10/2020 - 12/25/2020 Provider: MARCIO WASSERMAN MD Diagnosis: Attention-defici t hyperactivity disorder, combined type as directed - 1 cap at noon Last Documented On 11/12/2022 5:38PM By Kelly Wasserman MD ; [facility] Vyvanse 70 MG OR CAPS 11/10/2020 - 10/25/2021 Provider: MARCIO WASSERMAN MD Diagnosis: Attention-defici t hyperactivity disorder, combined type 1 Capsule every morning Last Documented On 11/12/2022 5:38PM By Kelly Wasserman MD ; [facility] Mydayis 37.5 MG OR CP24 09/25/2020 - 11/10/2020 Provider: MARCIO WASSERMAN MD Diagnosis: Attention-defici t hyperactivity disorder, combined type as directed - 1 cap at noon Last Documented On 11/12/2022 5:38PM By Kelly Wasserman MD ; [facility] Vyvanse 70 MG OR CAPS 09/25/2020 - 11/10/2020 Provider: MARCIO WASSERMAN MD Diagnosis: Attention-defici t hyperactivity disorder, combined type 1 Capsule every morning Last Documented On 11/12/2022 5:38PM By Kelly Wasserman MD ; [facility] Vyvanse 70 MG OR CAPS 08/14/2020 - 09/25/2020 Provider: MARCIO WASSERMAN MD Diagnosis: Attention-defici t hyperactivity disorder, combined type 1 Capsule every morning Last Documented On 11/12/2022 5:38PM By Kelly Wasserman MD ; [facility] Mydayis 37.5 MG OR CP24 08/14/2020 - 09/25/2020 Provider: MARCIO WASSERMAN MD Diagnosis: Attention-defici t hyperactivity disorder, combined type as directed - 1 cap at noon Last Documented On 11/12/2022 5:38PM By Kelly Wasserman MD ; [facility] Mydayis 37.5 MG OR CP24 07/15/2020 - 08/14/2020 Provider: MARCIO WASSERMAN MD Diagnosis: Attention-defici t hyperactivity disorder, combined type as directed - 1 cap at noon Last Documented On 11/12/2022 5:38PM By Kelly Wasserman MD ; [facility] Armodafinil 150 MG OR TABS 07/15/2020 - 10/25/2021 Provider: MARCIO WASSERMAN MD Diagnosis: Circadian rhythm sleep disorder, delayed sleep phase type 1 tablet every morning Last Documented On 11/12/2022 5:38PM By Kelly Wasserman MD ; [facility] Armodafinil 150 MG OR TABS 07/02/2020 - 07/15/2020 Provider: MARCIO WASSERMAN MD Diagnosis: Circadian rhythm sleep disorder, delayed sleep phase type 1 tablet every morning -- to be sent later Last Documented On 11/12/2022 5:38PM By Kelly Wasserman MD ; [facility] Vyvanse 70 MG OR CAPS 07/02/2020 - 08/14/2020 Provider: MARCIO WASSERMAN MD Diagnosis: Attention-defici t hyperactivity disorder, combined type 1 Capsule every morning Last Documented On 11/12/2022 5:38PM By Kelly Wasserman MD ; [facility] Vyvanse 60 MG OR CAPS 05/20/2020 - 10/12/2020 Provider: MARCIO ANAYA MD Diagnosis: Anxiety disorder , unspecified 1 Capsule every morning Last Documented On 11/12/2022 5:38PM By Kelly Wasserman MD ; [facility] Mydayis 37.5 MG OR CP24 05/20/2020 - 07/15/2020 Provider: MARCIO WSASERMAN MD Diagnosis: Attention-defici t hyperactivity disorder, combined type as directed - 1 cap at noon Last Documented On 11/12/2022 5:38PM By Kelly Wasserman MD ; [facility] Mydayis 37.5 MG OR CP24 04/03/2020 - 05/20/2020 Provider: MARCIO WASSERMAN MD Diagnosis: Attention-defici t hyperactivity disorder, combined type as directed - 1 cap at noon Last Documented On 11/12/2022 5:38PM By Kelly Wasserman MD ; [facility] Vyvanse 60 MG OR CAPS 04/03/2020 - 05/20/2020 Provider: MARCIO ANAYA MD Diagnosis: Anxiety disorder , unspecified 1 Capsule every morning Last Documented On 11/12/2022 5:38PM By Kelly Wasserman MD ; [facility] Mydayis 37.5 MG OR CP24 03/03/2020 - 04/03/2020 Provider: MARCIO WASSERMAN MD Diagnosis: Attention-defici t hyperactivity disorder, combined type as directed - 1 cap at noon Last Documented On 11/12/2022 5:38PM By Kelly Wasserman MD ; [facility] Vyvanse 60 MG OR CAPS 03/03/2020 - 04/03/2020 Provider: MARCIO ANAYA MD Diagnosis: Anxiety disorder , unspecified 1 Capsule every morning Last Documented On 11/12/2022 5:38PM By Kelly Wasserman MD ; [facility] Vyvanse 60 MG OR CAPS 01/21/2020 - 03/03/2020 Provider: MARCIO ANAYA MD Diagnosis: Anxiety disorder , unspecified 1 Capsule every morning Last Documented On 11/12/2022 5:38PM By Kelly Wasserman MD ; [facility] Mydayis 37.5 MG OR CP24 01/21/2020 - 03/03/2020 Provider: MARCIO WASSERMAN MD Diagnosis: Attention-defici t hyperactivity disorder, combined type as directed - 1 cap at noon Last Documented On 11/12/2022 5:38PM By Kelly Wasserman MD ; [facility] Vyvanse 60 MG OR CAPS 12/17/2019 - 01/21/2020 Provider: MARCIO ANAYA MD Diagnosis: Anxiety disorder , unspecified 1 Capsule every morning Last Documented On 11/12/2022 5:38PM By Kelly Wasserman MD ; [facility] Mydayis 25 MG OR CP24 12/06/2019 - 01/05/2020 Provider: MARCIO WASSERMAN MD Diagnosis: Attention-defici t hyperactivity disorder, combined type 1 Capsule every morning Last Documented On 11/12/2022 5:38PM By Kelly Wasserman MD ; [facility] Vyvanse 60 MG OR CAPS 11/07/2019 - 12/17/2019 Provider: MARCIO ANAYA MD Diagnosis: Anxiety disorder , unspecified 1 Capsule every morning Last Documented On 11/12/2022 5:38PM By Kelly Wasserman MD ; [facility] Jornay PM 100 MG OR CP24 09/25/2019 - 01/25/2020 Provider: MARCIO WASSERMAN MD Diagnosis: Attention-defici t hyperactivity disorder, combined type as directed - 1 cap at 8 pm Last Documented On 11/12/2022 5:38PM By Kelly Wasserman MD ; [facility] Vyvanse 60 MG OR CAPS 09/25/2019 - 11/07/2019 Provider: MARCIO ANAYA MD Diagnosis: Anxiety disorder , unspecified 1 Capsule every morning Last Documented On 11/12/2022 5:38PM By Kelly Wasserman MD ; [facility] Jornay PM 100 MG OR CP24 08/23/2019 - 09/25/2019 Provider: MARCIO WASSERMAN MD Diagnosis: Anxiety disorder , unspecified as directed - 1 cap at 8 pm Last Documented On 11/12/2022 5:38PM By Kelly Wasserman MD ; [facility] Mydayis 25 MG OR CP24 08/23/2019 - 09/22/2019 Provider: MARCIO WASSERMAN MD Diagnosis: Attention-defici t hyperactivity disorder, combined type as directed --1 cap at 1 pm Last Documented On 11/12/2022 5:38PM By Kelly Wasserman MD ; [facility] Vyvanse 60 MG OR CAPS 08/23/2019 - 09/25/2019 Provider: MARCIO ANAYA MD Diagnosis: Anxiety disorder , unspecified 1 Capsule every morning Last Documented On 11/12/2022 5:38PM By Kelly Wasserman MD ; [facility] Jornay PM 60 MG OR CP24 07/31/2019 - 09/25/2019 Provid er: Diagnosis: 1 tab at 9 pm Last Documented On 11/12/2022 5:38PM By MARCOS CHAMPION ; [facility] Vyvanse 60 MG OR CAPS 07/24/2019 - 08/23/2019 Provider: MARCIO ANAYA MD Diagnosis: Anxiety disorder , unspecified 1 Capsule every morning Last Documented On 11/12/2022 5:38PM By Kelly Wasserman MD ; [facility] Jornay PM 60 MG OR CP24 07/24/2019 - 08/23/2019 Provider: MARCIO WASSERMAN MD Diagnosis: Attention-defici t hyperactivity disorder, combined type as directed -- 1 cap in the evening Last Documented On 11/12/2022 5:38PM By Kelly Wasserman MD ; [facility] Vyvanse 60 MG OR CAPS 06/26/2019 - 07/24/2019 Provider: MARCIO WASSERMAN MD Diagnosis: Attention-defici t hyperactivity disorder, combined type 1 Capsule every morning Last Documented On 11/12/2022 5:38PM By Kelly Wasserman MD ; [facility] Jornay PM 40 MG OR CP24 06/04/2019 - 08/04/2019 Provid er: Diagnosis: 1 Capsule in the afternoon. Last Documented On 11/12/2022 5:38PM By MARCOS CHAMPION ; [facility] Jornay PM 40 MG OR CP24 05/21/2019 - 06/20/2019 Provider: MARCIO WASSERMAN MD Diagnosis: Attention-defici t hyperactivity disorder, combined type as directed -- 1 cap in the evening Last Documented On 11/12/2022 5:38PM By Kelly Wasserman MD ; [facility] Vyvanse 60 MG OR CAPS 05/21/2019 - 06/26/2019 Provider: MARCIO WASSERMAN MD Diagnosis: Attention-defici t hyperactivity disorder, combined type 1 Capsule every morning Last Documented On 11/12/2022 5:38PM By Kelly Wasserman MD ; [facility] Vyvanse 60 MG OR CAPS 04/11/2019 - 05/21/2019 Provider: MARCIO WASSERMAN MD Diagnosis: Attention-defici t hyperactivity disorder, combined type 1 Capsule every morning Last Documented On 11/12/2022 5:38PM By Kelly Wasserman MD ; [facility] Concerta 36 MG OR TBCR 02/25/2019 - 07/24/2019 Provider: MARCIO WASSERMAN MD Diagnosis: Anxiety disorder , unspecified as directed -- 2 tabs at noon Last Documented On 11/12/2022 5:38PM By Kelly Wasserman MD ; [facility] Vyvanse 60 MG OR CAPS 02/25/2019 - 04/11/2019 Provider: MARCIO WASSERMAN MD Diagnosis: Attention-defici t hyperactivity disorder, combined type 1 Capsule every morning Last Documented On 11/12/2022 5:38PM By Kelly Wasserman MD ; [facility] Vyvanse 60 MG OR CAPS 12/21/2018 - 02/25/2019 Provider: MARCIO WASSERMAN MD Diagnosis: Attention-defici t hyperactivity disorder, combined type 1 Capsule every morning Last Documented On 11/12/2022 5:38PM By Kelly Wasserman MD ; [facility] Concerta 36 MG OR TBCR 12/21/2018 - 02/25/2019 Provider: MARCIO WASSERMAN MD Diagnosis: Anxiety disorder , unspecified as directed -- 2 tabs at noon Last Documented On 11/12/2022 5:38PM By Kelly Wasserman MD ; [facility] Concerta 36 MG OR TBCR 11/12/2018 - 12/21/2018 Provider: MARCIO WASSERMAN MD Diagnosis: Anxiety disorder , unspecified as directed -- 2 tabs at noon Last Documented On 11/12/2022 5:38PM By Kelly Wasserman MD ; [facility] Vyvanse 60 MG OR CAPS 11/12/2018 - 12/21/2018 Provider: MARCIO WASSERMAN MD Diagnosis: Attention-defici t hyperactivity disorder, combined type 1 Capsule every morning Last Documented On 11/12/2022 5:38PM By Kelly Wasserman MD ; [facility] Concerta 36 MG OR TBCR 09/24/2018 - 11/12/2018 Provider: MARCIO WASSERMAN MD Diagnosis: Anxiety disorder , unspecified as directed -- 2 tabs at noon Last Documented On 11/12/2022 5:38PM By Kelly Wasserman MD ; [facility] Vyvanse 60 MG OR CAPS 09/24/2018 - 11/12/2018 Provider: MARCIO WASSERMAN MD Diagnosis: Attention-defici t hyperactivity disorder, combined type 1 Capsule every morning Last Documented On 11/12/2022 5:38PM By Kelly Wasserman MD ; [facility] Concerta 36 MG OR TBCR 08/20/2018 - 09/24/2018 Provider: MARCIO WASSERMAN MD Diagnosis: Anxiety disorder , unspecified as directed -- 2 tabs at noon Last Documented On 11/12/2022 5:38PM By Kelly Wasserman MD ; [facility] Concerta 36 MG OR TBCR 08/17/2018 - 08/17/2018 Provider: MARCIO WASSERMAN MD Diagnosis: Attention-defici t hyperactivity disorder, combined type as directed -- 2 tabs at noon Last Documented On 11/12/2022 5:38PM By Kelly Wasserman MD ; [facility] Vyvanse 60 MG OR CAPS 08/17/2018 - 09/24/2018 Provider: MARCIO WASSERMAN MD Diagnosis: Attention-defici t hyperactivity disorder, combined type 1 Capsule every morning Last Documented On 11/12/2022 5:38PM By Kelly Wasserman MD ; [facility] Vyvanse 50 MG OR CAPS 07/03/2018 - 08/20/2018 Provider: MARCIO WASSERMAN MD Diagnosis: Attention-defici t hyperactivity disorder, combined type 1 Capsule every morning Last Documented On 11/12/2022 5:38PM By Kelly Wasserman MD ; [facility] Methylphenidate HCl 20 MG OR TABS 07/03/2018 - 08/20/2018 Provider: MARCIO WASSERMAN MD Diagnosis: Anxiety disorder , unspecified as directed --1 tab at at 2 pm and 1 tab at 5 pm Last Documented On 11/12/2022 5:38PM By Kelly Wasserman MD ; [facility] Vyvanse 50 MG OR CAPS 03/20/2018 - 07/03/2018 Provider: MARCIO WASSERMAN MD Diagnosis: Attention-defici t hyperactivity disorder, combined type as directed --1 cap in am Last Documented On 11/12/2022 5:38PM By Kelly Wasserman MD ; [facility] Vyvanse 50 MG OR CAPS 12/18/2017 - 03/20/2018 Provider: MARCIO WASSERMAN MD Diagnosis: Attention-defici t hyperactivity disorder, combined type as directed --1 cap in am Last Documented On 11/12/2022 5:38PM By Kelly Wasserman MD ; [facility] Methylphenidate HCl 20 MG OR TABS 12/18/2017 - 07/03/2018 Provider: MARCIO WASSERMAN MD Diagnosis: Attention-defici t hyperactivity disorder, combined type as directed --1 tab at at 2 pm and 1 tab at 5 pm Last Documented On 11/12/2022 5:38PM By Kelly Wasserman MD ; [facility] Methylphenidate HCl 20 MG OR TABS 11/14/2017 - 12/18/2017 Provider: MARCIO WASSERMAN MD Diagnosis: Attention-defici t hyperactivity disorder, combined type as directed --1 tab at at 2 pm and 1 tab at 5 pm Last Documented On 11/12/2022 5:38PM By Kelly Wasserman MD ; [facility] Vyvanse 50 MG OR CAPS 11/14/2017 - 12/18/2017 Provider: MARCIO WASSERMAN MD Diagnosis: Attention-defici t hyperactivity disorder, combined type as directed --1 cap in am Last Documented On 11/12/2022 5:38PM By Kelly Wasserman MD ; [facility] Methylphenidate HCl 20 MG OR TABS 08/03/2017 - 11/14/2017 Provider: MARCIO WASSERMAN MD Diagnosis: Attention-defici t hyperactivity disorder, combined type as directed --1 tab at at 2 pm and 1 tab at 5 pm Last Documented On 11/12/2022 5:38PM By Kelly Wasserman MD ; [facility] Vyvanse 40 MG OR CAPS 08/03/2017 - 11/20/2017 Provider: MARCIO WASSERMAN MD Diagnosis: Attention-defici t hyperactivity disorder, combined type 1 Capsule every morning Last Documented On 11/12/2022 5:38PM By Kelly Wasserman MD ; [facility] Vyvanse 40 MG OR CAPS 07/06/2017 - 08/03/2017 Provider: MARCIO WASSERMAN MD Diagnosis: Attention-defici t hyperactivity disorder, combined type 1 Capsule every morning Last Documented On 11/12/2022 5:38PM By Kelly Wasserman MD ; [facility] Methylphenidate HCl 20 MG OR TABS 07/06/2017 - 08/03/2017 Provider: MARCIO WASSERMAN MD Diagnosis: Attention-defici t hyperactivity disorder, combined type as directed --1 tab at at 2 pm and 1 tab at 5 pm Last Documented On 11/12/2022 5:38PM By Kelly Wasserman MD ; [facility] Vyvanse 40 MG OR CAPS 04/10/2017 - 07/06/2017 Provider: MARCIO WASSERMAN MD Diagnosis: Attention-defici t hyperactivity disorder, combined type 1 Capsule every morning Last Documented On 11/12/2022 5:38PM By Kelly Wasserman MD ; [facility] Methylphenidate HCl 20 MG OR TABS 04/10/2017 - 07/06/2017 Provider: MARCIO WASSERMAN MD Diagnosis: Attention-defici t hyperactivity disorder, combined type as directed --1 tab at at 2 pm and 1 tab at 5 pm Last Documented On 11/12/2022 5:38PM By Kelly Wasserman MD ; [facility] Vyvanse 40 MG OR CAPS 02/17/2017 - 04/10/2017 Provider: MARCIO WASSERMAN MD Diagnosis: Attention-defici t hyperactivity disorder, combined type 1 Capsule every morning Last Documented On 11/12/2022 5:38PM By Kelly Wasserman MD ; [facility] Methylphenidate HCl 20 MG OR TABS 02/17/2017 - 04/10/2017 Provider: MARCIO WASSERMAN MD Diagnosis: Attention-defici t hyperactivity disorder, combined type as directed --1 tab at at 2 pm and 1 tab at 5 pm Last Documented On 11/12/2022 5:38PM By Kelly Wasserman MD ; [facility] Methylphenidate HCl 20 MG OR TABS 01/18/2017 - 02/17/2017 Provider: MARCIO WASSERMAN MD Diagnosis: Attention-defici t hyperactivity disorder, combined type as directed --1 tab at at 2 pm and 1 tab at 5 pm Last Documented On 11/12/2022 5:38PM By Kelly Wasserman MD ; [facility] Vyvanse 40 MG OR CAPS 01/18/2017 - 02/17/2017 Provider: MARCIO WASSERMAN MD Diagnosis: Attention-defici t hyperactivity disorder, combined type 1 Capsule every morning Last Documented On 11/12/2022 5:38PM By Kelly Wasserman MD ; [facility] Methylphenidate HCl 20 MG OR TABS 12/08/2016 - 01/18/2017 Provider: MARCIO WASSERMAN MD Diagnosis: Attention-defici t hyperactivity disorder, combined type as directed --1 tab at at 2 pm and 1 tab at 5 pm Last Documented On 11/12/2022 5:38PM By Kelly Wasserman MD ; [facility] Vyvanse 40 MG OR CAPS 12/08/2016 - 01/18/2017 Provider: MARCIO WASSERMAN MD Diagnosis: Attention-defici t hyperactivity disorder, combined type 1 Capsule every morning Last Documented On 11/12/2022 5:38PM By Kelly Wasserman MD ; [facility] Vyvanse 40 MG OR CAPS 10/24/2016 - 12/08/2016 Provider: MARCIO WASSERMAN MD Diagnosis: Attention-defici t hyperactivity disorder, combined type 1 Capsule every morning Last Documented On 11/12/2022 5:38PM By Kelly Wasserman MD ; [facility] Methylphenidate HCl 20 MG OR TABS 10/24/2016 - 12/08/2016 Provider: MARCIO WASSERMAN MD Diagnosis: Anxiety disorder , unspecified as directed --1 tab in the afternoon Last Documented On 11/12/2022 5:38PM By Kelly Wasserman MD ; [facility] Vyvanse 40 MG OR CAPS 09/08/2016 - 10/24/2016 Provider: MARCIO WASSERMAN MD Diagnosis: Attention-defici t hyperactivity disorder, combined type 1 Capsule every morning Last Documented On 11/12/2022 5:38PM By Kelly Wasserman MD ; [facility] Methylphenidate HCl 20 MG OR TABS 09/08/2016 - 10/24/2016 Provider: MARCIO WASSERMAN MD Diagnosis: Anxiety disorder , unspecified as directed --1 tab in the afternoon Last Documented On 11/12/2022 5:38PM By Kelly Wasserman MD ; [facility] Vyvanse 40 MG OR CAPS 07/28/2016 - 09/08/2016 Provider: MARCIO WASSERMAN MD Diagnosis: Attention-defici t hyperactivity disorder, combined type 1 Capsule every morning Last Documented On 11/12/2022 5:38PM By Kelly Wasserman MD ; [facility] Methylphenidate HCl 20 MG OR TABS 07/28/2016 - 09/08/2016 Provider: MARCIO WASSERMAN MD Diagnosis: Anxiety disorder , unspecified as directed --1 tab in the afternoon Last Documented On 11/12/2022 5:38PM By Kelly Wasserman MD ; [facility] Vyvanse 40 MG OR CAPS 06/27/2016 - 07/28/2016 Provider: MARCIO WASSERMAN MD Diagnosis: Attention-defici t hyperactivity disorder, combined type 1 Capsule every morning Last Documented On 11/12/2022 5:38PM By Kelly Wasserman MD ; [facility] Methylphenidate HCl 20 MG OR TABS 06/27/2016 - 07/28/2016 Provider: MARCIO WASSERMAN MD Diagnosis: Anxiety disorder , unspecified as directed --1 tab in the afternoon Last Documented On 11/12/2022 5:38PM By Kelly Wasserman MD ; [facility] Methylphenidate HCl 20 MG OR TABS 06/01/2016 - 06/27/2016 Provider: MARCIO WASSERMAN MD Diagnosis: Attention-defici t hyperactivity disorder, combined type as directed --1 tab in am and 1 tab at noon Last Documented On 11/12/2022 5:38PM By Kelly Wasserman MD ; [facility] Vyvanse 30 MG OR CAPS 04/25/2016 - 06/28/2016 Provider: MARCIO WASSERMAN MD Diagnosis: Attention-defici t hyperactivity disorder, combined type as directed -- 1 cap in am Last Documented On 11/12/2022 5:38PM By Kelly Wasserman MD ; [facility] Methylphenidate HCl 20 MG OR TABS 03/16/2016 - 06/01/2016 Provider: MARCIO WASSERMAN MD Diagnosis: Attention-defici t hyperactivity disorder, combined type as directed --1 tab in am and 1 tab at noon Last Documented On 11/12/2022 5:38PM By Kelly Wasserman MD ; [facility] Vyvanse 30 MG OR CAPS 03/16/2016 - 04/25/2016 Provider: MARCIO WASSERMAN MD Diagnosis: Attention-defici t hyperactivity disorder, combined type as directed -- 1 cap in am Last Documented On 11/12/2022 5:38PM By Kelly Wasserman MD ; [facility] Methylphenidate HCl 20 MG OR TABS 01/19/2016 - 03/16/2016 Provider: MARCIO WASSERMAN MD Diagnosis: Attention-defici t hyperactivity disorder, combined type as directed --1 tab in am and 1 tab at noon Last Documented On 11/12/2022 5:38PM By Kelly Wasserman MD ; [facility] Vyvanse 30 MG OR CAPS 01/19/2016 - 03/16/2016 Provider: MARCIO WASSERMAN MD Diagnosis: Attention-defici t hyperactivity disorder, combined type as directed -- 1 cap in am Last Documented On 11/12/2022 5:38PM By Kelly Wasserman MD ; [facility] Vyvanse 30 MG OR CAPS 11/25/2015 - 03/16/2016 Provider: MARCIO WASSERMAN MD Diagnosis: Attention-defici t hyperactivity disorder, combined type 1 Capsule every morning Last Documented On 11/12/2022 5:38PM By Kelly Wasserman MD ; [facility] Focalin 10 MG OR TABS 11/25/2015 - 01/25/2016 Provider: MARCIO WASSERMAN MD Diagnosis: Attention-defici t hyperactivity disorder, combined type as directed - 1 tab in am an d 1 tab at noon Last Documented On 11/12/2022 5:38PM By Kelly Wasserman MD ; [facility] Focalin XR 20 MG OR CP24 10/09/2015 - 01/19/2016 Provider: MARCIO WASSERMAN MD Diagnosis: Attention-defici t hyperactivity disorder, combined type 1 Capsule every morning Last Documented On 11/12/2022 5:38PM By Kelly Wasserman MD ; [facility] Focalin 10 MG OR TABS 10/09/2015 - 01/19/2016 Provider: MARCIO WASSERMAN MD Diagnosis: Attention-defici t hyperactivity disorder, combined type as directed -- 1 tab in am, 1 tab at noon, 1 tab at 5 pm Last Documented On 11/12/2022 5:38PM By Kelly Wasserman MD ; [facility] Focalin 10 MG OR TABS 09/14/2015 - 11/25/2015 Provider: MARCIO WASSERMAN MD Diagnosis: Attention-defici t hyperactivity disorder, combined type as directed - 1 tab in am an d 1 tab at noon Last Documented On 11/12/2022 5:38PM By Kelly Wasserman MD ; [facility] Focalin 10 MG OR TABS 09/01/2015 - 09/14/2015 Provider: MARCIO WASSERMAN MD Diagnosis: Attention-defici t hyperactivity disorder, combined type as directed - 1 tab in am an d 1 tab at noon Last Documented On 11/12/2022 5:38PM By Kelly Wasserman MD ; [facility] Focalin 10 MG OR TABS 08/11/2015 - 09/01/2015 Provider: MARCIO WASSERMAN MD Diagnosis: Attention-defici t hyperactivity disorder, combined type 1 tablet every morning Last Documented On 11/12/2022 5:38PM By Kelly Wasserman MD ; [facility] Medications Administered Includes: Administered Medications in patient's chart No Administered Medications Recorded Vital Signs Includes: Vital Signs from 09/06/2023 through 09/06/2024 Vital Name 11/28/2023 10:52A Blood Pressure Sitting L 120/78 BP Cuff Size Regular Pulse Rate-Sitting (bpm) 91 Pulse Rhythm Regular Height (in) 70 Weight (lb) 172 Body Mass Index 24.7 Body Surface Area 2 Last Documented: On 11/28/2023 10:52A M ; [facility] Results Includes: Results from 09/06/2023 through 09/06/2024 No Results Recorded For Specified Dates History of Present Illness History of Present Illness not supported for this document type No History of Present Illness Recorded Social History Description Last Updated Current nonsmoker 11/28/2023 Last Documented On 4 1:39PM ; [facility] Tobacco non-user 11/28/2023 Last Documented On 4 1:39PM ; [facility] Smoking Status Unknown Procedures and Surgical History Includes: Procedures from 09/06/2023 through 09/06/2024 Procedures Code Diagnosis Performing Provider Service Location Service Date PSYCHOTHERAPY 30 MIN W/ [place] [address] Attention-deficit hyperactivity disorder, combined type, Anxiety disorder, unspecified, Panic disorder [episodic paroxysmal anxiety] MARCIO WASSERMAN MD [facility] 11/28/2023 Last Documented On 4 2:06PM ; [facility] Medical History Includes: Medical History in patient's chart No Medical History Recorded Family History Includes: Family History in patient's chart No Family History Recorded Review of Systems Review of Systems not supported for this document type No Review of Systems Recorded Mental Status No Mental Status Recorded Functional Status No Functional Status Recorded Physical Exam Physical Exam not supported for this document type No Physical Exam Recorded Allergies Includes: Active, inactive, and resolved Allergies No Known Allergies Encounters Includes: Encounters from 09/06/2023 through 09/06/2024 Encounter Provider Location Date Check-In Time Check-Out Time Diagnosis PSYCH ADULT FOLLOW UP MARCIO WASSERMAN MD [facility] 11/28/19 24 10:41AM 11:58AM Attention-defici t Hyperactivity Disorder,Anxiety Disorder Nos,Panic Disorder,Sleep Disorder Circadian Rhythm Insurance Includes: Active Insurance Policies Plan Name Member ID Group # Subscriber Relationship Effect yohana Dates 1 - ADMINISTRATIVE CONCEPTS [id number] DONALD LIANG Self Clinical Notes Includes: Signed Clinical Notes starting from 08/05/2022 * Progress note Date Encounter Last Documented by 11/28/2023 PSYCH ADULT FOLLOW UP Last docum ented on 11/28/2023; 1:39 PM, MARCIO WASSERMAN MD; [facility] Top of Document Medication [...] history reviewed - Medication list reviewed Pt has not been feeling depressed. Pt has not been as anxious. Pt denied having any mood swings. However pt just gets irritated when he gets disturbed with his workflow. He had to bring his 14 y/o kid to soccer game in [place] causing disruption in his schedule. He has a 12 y/o and 14 y/o kid to attend to when they have soccer games. He has not needed any Klonopin during flight. He is able to manage by sitting upfront for less turbulence. He and his family are going to [place] end of December 2023. Pt has been motivated in general in doing daily tasks. Sleep has been good. Pt has not been napping/sleeping too much during the daytime. Pt has not been feeling as tired. Appetite is good. Pt has not been feeling as bad about self. Pt is able to focus and concentrate for the most part with Vyvanse 60 mg in am, he said that he does not need any second back up ADHD med. He never got the Dyanavel XR, he said that the Armodafinil 250 mg at noon seemed to be sufficient as a supplement to his Vyvanse, he seemed more alert, awake and focused with it the rest of the afternoon. Pt denied having any psychomotor restlessness. Pt denied suicidal thoughts. Pt denied having any delusions/hallucinations. MENTAL STATUS EXAM: Sensorium - alert, oriented to name, place, and time Attitude - cooperative Gait - ambulatory Sleep - good Interest/Energy/Motivation - good Guilt/Worthlessness - absent Concentration/Attention Span - able to focus and concentrate better with Vyvanse Memory Recall - fairly good Appetite - good - on 08/21/23 pt weighed 179 lbs and on 11/28/23 he weighed 172 lbs so he lost 7 lbs Suicidal Thoughts - absent Homicidal Thoughts - absent Delusions - absent Hallucinations - absent Appearance - casually groomed Motor Behavior - calm Eye Contact - intermittent Speech - fluent Mood - not depressed, occ gets irritated when his workflow gets disrupted Affect - not as anxious Thought Process - coherent Insight and Judgment - intact Current Medication - Armodafinil 250 MG Oral Tablet as directed - 1 tab as noon, 30 days, 3 refills - Vyvanse 60 MG Oral Capsule 1 Capsule every morning, 30 days, 0 refills - - No side effects reported Past Medical/Surgical History Primary Care Provider: [facility]. Diagnoses: Sinusitis - given Augmentin 875 mg and Methylprednisolone Dosepak 4 mg 09/22/22; given Augmentin 875 mg and Prednisone Dosepak 4 mg (did not take Prednisone) 01/03/21;given Augmentin 875 mg #20 on 03/31/20. Oral thrush - treated with Nystatin Suspension 100,000 05/11/19 Procedural: - Coronavirus 2019-nCoV vaccine - AppGratis #1 10/06/20 #2 11/03/20 #3 04/2021 User [...] did not work -- got irritable - 2020 Mydayis 50 mg in am -- 2020 -- did not work Azstarys 39.2-7.8 mg -- did not help -- 05/2022 Dyanavel XR 15 mg -- does not need/not taking 11/2023 Social History Tobacco use: Current nonsmoker. Caffeine use: Daily coffee consumption -- He drinks 1 cup of coffee a day. No soda or tea. Tobacco use: Smoking status: Never smoker. Alcohol: Alcohol use - no alcohol use Drug Use: Not using drugs (Illicit). 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 Marital: Marital history -- . He was born and raised in [place], [place]. He was close to his parents [...] no rash. Physical Findings - Vitals taken 11/28/2023 10:52 am BP-Sitting L 120/78 mmHg BP Cuff Size Regular Pulse Rate-Sitting 91 bpm Pulse Rhythm Regular Height 70 in Weight 172 lbs Body Mass Index 24.7 kg/m2 Body Surface Area 2 m2 Tests Educational Testing: Questionnaires PHQ-9: Value PHQ-9: total score 1 Assessment - Attention-deficit hyperactivity disorder - Circadian rhythm sleep disorder - Panic disorder - Anxiety disorder NOS Therapy - Dangerousness assessment: no suicide risk. - Encouragement to exercise - balanced meal plan - pt sees a filler shaker online and lost 7 lbs since last visit. - Supportive care and encouragement--given positive reinforcement to keep patient motivated and active. - Education and instructions. - Assessment of suicide risk performed - not suicidal - Clinical summary provided to patient. * Call [phone] and /or go to the nearest emergency room or call me if suicidal/homicidal ideation or other serious concerns arise. * I gave instructions to call me should there be any questions or concerns. * Patient voiced understanding and agreed to treatment plan. 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
--- OUTSIDE RECORDS SUMMARY | 2024-09-06 08:10 | XMS_ITS ---
Care Plan - [facility] Created on: September 06, 2024 DONALD LIANG : 1985 Sex: Male Author Organization [facility] Address [address] [place] [address] Phone Care Team Providers Care Pillowcase Turner Name Role Phone MEEK JEROME, MARCIO GÓMEZ [facility] [phone]
--- OUTSIDE RECORDS SUMMARY | 2024-09-06 08:10 | XMS_ITS | Clinical Summary ---
Author Organization [facility] Address [address] [place] [address] Phone Care Team Providers Care Accounting/Finance Tutor Name Role Phone MEEK JEROME, MARCIO GÓMEZ [facility] [phone] Reason for Visit and Chief Complaint TELEHEALTH Problems Includes: Problems addressed during this encounter and other active Problems All Visits Onset Date Resolved Date Provider Condition S tatus Panic Disorder 05/04/2022 MARCIO Muñoz Active Last Documented On 2 11:08AM ; [facility] Sleep Disorder Circadian Rhythm 07/02/2020 HECTOR WASSERMAN MD Active Last Documented On 0 8:07PM ; [facility] Anxiety Disorder Nos 12/16/2015 MARCIO COLLINS MD Active Last Documented On 6 7:23AM ; [facility] Attention-deficit Hyperactivity Disorder 08/11/2015 MARCIO WASSERMAN MD Active Last Documented On 6 3:19PM ; [facility] Plan of Treatment No Plan of Treatment [...] 10/03/2022 2:24PM By Kelly Wasserman MD ; [facility] Azstarys 52.3-10.4 MG Oral Capsule 10/03/2022 Provider: MARCIO WASSERMAN MD Diagnosis: Attention-defici t hyperactivity disorder, combined type as directed -- 1 cap at 1 pm Last Documented On 10/03/2022 2:24PM By Kelly Wasserman MD ; [facility] Armodafinil 250 MG Oral Tablet 05/13/2022 Provider: MARCIO WASSERMAN MD Diagnosis: Circadian rhythm sleep disorder, delayed sleep phase type 1 tablet every morning Last Documented On 2 11:08AM By Kelly Wasserman MD ; [facility] Medications Administered Includes: Administered Medications from this [...] Effect yohana Dates 1 - ADMINISTRATIVE CONCEPTS [id number] DONALD LIANG Self Clinical Notes Includes: Clinical Notes from this encounter No Clinical Notes Recorded
--- OUTSIDE RECORDS SUMMARY | 2024-09-06 08:10 | XMS_ITS ---
Care Plan - [facility] Created on: September 06, 2024 DONALD LINAG : 1985 Sex: Male Author Organization [facility] Address [address] [place] [address] Phone Care Team Providers Care Asl Interpreter Name Role Phone MEEK JEROME, MARCIO GÓMEZ [facility] [phone]
--- OUTSIDE RECORDS SUMMARY | 2024-09-06 08:10 | XMS_ITS | Clinical Summary ---
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 He was given Buspar in the past in case he needs it for anxiety. Panic Disorder - Klonopin 0.5 mg a day as needed for anxiety - Last Documented On 05/08/2022 2:16AM ; [facility] Education and Decision Aids were provided during visit for: Discussed calming techniques such as breathing exercises / meditation and other relaxation techniques Last Documented On 2 2:13AM ; [facility] Assessments Includes: Assessments from this encounter Findings - Attention-deficit hyperactivity disorder - Last Documented On 05/08/2022 2:16AM ; [facility] - Circadian rhythm sleep disorder - Last Documented On 05/08/2022 2:16AM ; [facility] - Panic disorder - Last Documented On 05/08/2022 2:16AM ; [facility] - Anxiety disorder NOS - Last Documented On 05/08/2022 2:16AM ; [facility] Instructions Includes: Instructions from this encounter Education and Decision Aids were provided during visit for: Discussed calming techniques such as breathing exercises / meditation and other relaxation techniques Last Documented On 2:13AM ; [facility] Medical Equipment - Implanted Devices Includes: Current Devices No Medical Equipment Recorded Medications Includes: Medications discussed during this encounter and other current Medications Discontinued / Stopped on this date MARCIO WASSERMAN MD on 10/01/2021 Armodafinil 250 MG Oral Tablet Provider: MARCIO WASSERMAN MD Diagnosis: Anxiety disorder , unspecified Last Documented On 11:08AM By Kelly Wasserman MD ; [facility] New / Renewed during this visit MARCIO WASSERMAN MD on 05/04/2022 Armodafinil 250 MG Oral Tablet Provider: MARCIO WASSERMAN MD 30 day supply: 30 tablet, 3 refills Diagnosis: Circadian rhythm sleep disorder, delayed sleep phase type 1 tablet every morning Pharmacy: [facility] - [address] [facility], [phone] - Last Documented On 2 10:53AM By Kelly Wasserman MD ; [facility] Azstarys 39.2-7.8 MG Oral Capsule Provider: MARCIO WASSERMAN MD 30 day supply: 30 capsule, 0 refills Diagnosis: Attention-deficit hyperactivity disorder, combined type 1 Capsule every morning Pharmacy: [facility] ([place]) - [address] [facility], [id number] - Last Documented On 11:19AM By Kelly Wasserman MD ; [facility] KlonoPIN 0.5 MG Oral Tablet Provider: MARCIO WASSERMAN MD 30 day supply: 7 tablet, 0 refills Diagnosis: Panic disorder [episodic paroxysmal anxiety] as directed - 1 tab a day as needed only for severe anxiety/panic Pharmacy: [facility]) - [address] , [place], [id number] - Last Documented On 2 11:20AM By Kelly Wasserman MD ; [facility] Current Medications (continue as prescribed) Vyvanse 60 MG Oral Capsule 10/03/2022 Provider: MARCIO WASSERMAN MD Diagnosis: Attention-defici t hyperactivity disorder, combined type 1 Capsule every morning Last Documented On 10/03/2022 2:24PM By Kelly Wasserman MD ; [facility] Azstarys 52.3-10.4 MG Oral Capsule 10/03/2022 Provider: MARCIO WASSERMAN MD Diagnosis: Attention-defici t hyperactivity disorder, combined type as directed -- 1 cap at 1 pm Last Documented On 10/03/2022 2:24PM By Kelly Wasserman MD ; [facility] Armodafinil 250 MG Oral Tablet 05/13/2022 Provider: MARCIO WASSERMAN MD Diagnosis: Circadian rhythm sleep disorder, delayed sleep phase type 1 tablet every morning Last Documented On 2 11:08AM By Kelly Wasserman MD ; [facility] Past Medications on file Armodafinil 250 MG Oral Tablet 02/17/2022 - 03/19/2022 Provider: MARCIO WASSERMAN MD Diagnosis: Attention-defici t hyperactivity disorder, combined type as directed -- 1 tab at noon Last Documented On 02/17/2022 2:12PM By Kelly Wasserman MD ; [facility] Mydayis 25 MG Oral Capsule Extended Release 24 Hour 12/06/2019 - 01/05/2020 Provider: MARCIO WASSERMAN MD Diagnosis: Attention-defici t hyperactivity disorder, combined type 1 Capsule every morning Last Documented On 12/06/2019 6:07PM By Kelly Wasserman MD ; [facility] Mydayis 25 MG Oral Capsule Extended Release 24 Hour 08/23/2019 - 09/22/2019 Provider: MARCIO WASSERMAN MD Diagnosis: Attention-defici t hyperactivity disorder, combined type as directed --1 cap at 1 pm Last Documented On 08/23/2019 3:29PM By Kelly Wsaserman MD ; [facility] Jornay PM 60 MG Oral Capsule Extended Release 24 Hour 07/24/2019 - 08/23/2019 Provider: MARCIO WASSERMAN MD Diagnosis: Attention-defici t hyperactivity disorder, combined type as directed -- 1 cap in the evening Last Documented On 0 12:14PM By Kelly Wasserman MD ; [facility] Jornay PM 40 MG Oral Capsule Extended Release 24 Hour 05/21/2019 - 06/20/2019 Provider: MARCIO WASSERMAN MD Diagnosis: Attention-defici t hyperactivity disorder, combined type as directed -- 1 cap in the evening Last Documented On 05/21/2019 2:59PM By Kelly Wasserman MD ; [facility] Medications Administered Includes: Administered Medications from this encounter No Administered Medications Recorded Vital Signs Includes: Vital Signs from this encounter Vital Name 05/04/2022 10:17A Blood Pressure Sitting L 121/77 BP Cuff Size Regular Pulse Rate-Sitting (bpm) 80 Pulse Rhythm Regular Height (in) 70 Weight (lb) 174 Body Mass Index 25 Body Surface Area 2 Note: self reported vitals Last Documented: On 05/04/2022 10:18A M ; [facility] Results Includes: Results discussed during this encounter No Results Recorded For Specified Dates History of Present Illness Includes: History of Present Illness from this encounter EZEKIEL LIANG is a 36 year old male. - Allergy list reviewed - Past medical history reviewed - Medication list reviewed This visit was conducted with use of interactive audio and video telecommunication system with real time communication between the patient and the provider. Patient consent for virtual visit obtained today. Total time spent with patient via audio and video telecommunication 30 minutes. Pt reported having a rough 6 weeks since he has been feeling somewhat down and not as motivated since he is not able to focus and concentrate with his job and this is making him irritated/frustrated. Pt gets occ stressed with not being able to accomplish his tasks. Pt denied having any mood swings. Sleep has been good. Pt has not been napping/sleeping too much during the daytime. Pt has not been feeling as tired. Appetite is good. Pt at times feels bad about self tone when his tends to reject him by making disappointing comments. He felt that he is not being appreciated for all the things he may be doing for her and the whole family in general. He feels that he is doing all he can to run around and bring his kids to ball games while still busy working in between. Pt is not able to focus and concentrate with his tasks and so he is not accomplishing his tasks. The Vyvanse 70 mg in am is only lasting for an hour. He has tried several other meds for ADD and did not work for him. This is causing him to lose confidence in himself. He gets distracted easily. He gets inattentive and will jsut stare in space at times. He will be tried on Azstarys 39.2 mg in am for his ADD sx. Pt denied having any psychomotor restlessness. Pt denied suicidal thoughts. Pt denied having any delusions/hallucinations. His job also entails traveling 3 nights a week. He had to go to [place], [place] and at times he had to work internationally like people in [place], [email or web address] and [place] so he works different shifts depending on the timeline. He was given Armodafinil to help improve mental alertness which he takes as needed. He gets anxious when he flies. He does not have the fear of the actual flight but feels he is not in control when he flies. He will be given a few tabs of Klonopin to be taken as needed during flight. MENTAL STATUS EXAM: Sensorium - alert, oriented to name, place, and time Attitude - cooperative Gait - ambulatory Sleep - good Interest/Energy/Motivation - at times not motivated Guilt/Worthlessness - at times losing confidence in himself when he is not able to focus/concentrate Concentration/Attention Span - hard to focus and concentrate, not staying on task, gets distracted Memory Recall - fairly good Appetite - good - on 02/17/22 pt weighed 178 lbs and on 05/04/22 he weighed 174 lbs so he lost 4 lbs Suicidal Thoughts - absent Homicidal Thoughts - absent Delusions - absent Hallucinations - absent Appearance - casually groomed Motor Behavior - calm Eye Contact - intermittent Speech - fluent Mood - gets somewhat down, disappointed, frustrated since he is not accomplishing his tasks due to ADD sx Affect - occ stressed, anxious Thought Process - coherent Insight and Judgment - intact Social History Description Last Updated Daily coffee consumption -- He drinks 1 cup of coffee a day. No soda or tea 12/06/2019 Last Documented On 2 10:03AM ; [facility] Alcohol use - he will have 1-2 beers onc e a month or less often 07/24/2019 Last Documented On 2 10:03AM ; [facility] He was born and raised in [place], [place]. 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 [employer] 07/06/2018 Last Documented On 2 10:03AM ; [facility] Marital history -- 08/11/2015 Last Documented On 2 10:03AM ; [facility] Not using drugs (Illicit) 08/11/2015 Last Documented On 2 10:03AM ; [facility] Smoking status : Never smoker 08/11/2015 Last Documented On 2 10:03AM ; [facility] Procedures and Surgical History Includes: Procedures from this encounter Procedures Code Diagnosis Performing Provider Service L ocation Service Date education and instructions Last Documented On 2 10:03AM ; [facility] dangerousness assessment: suicide risk -not suic idal 3085F Last Documented On 2 10:03AM ; [facility] use of tobacco assessment performed 1000F Last Documented On 2 10:03AM ; [facility] patient screened for future fall risk - no recen t falls 3288F Last Documented On 2 10:03AM ; [facility] review of medications documented 1160F Last Documented On 2 10:03AM ; [facility] screening for adult depressi on: impression and score - please see above treatment and PHQ score Last Documented On 2 10:03AM ; [facility] standardized depression screening: posit yohana for symptoms Last Documented On 2 10:03AM ; [facility] Counseling on new medication : I discussed the risks, benefits and side effects of Klonopin, Azstarys. Patient verbalized understanding and agreed to treatment Last Documented On 2 2:12AM ; [facility] Clinical summary provided to patient Last Documented On 2 10:03AM ; [facility] PHQ-9: total score 3 Last Documented On 2 2:12AM ; [facility] Medical History Includes: Medical History addressed during this encounter Description Last Updated History of coronavirus 2019- nCoV vaccine - H2scan #1 10/06/20 #2 11/03/20 #3 04/202102/17/2022 Last Documented On 2 10:03AM ; [facility] History of sinusitis - given Augmentin 875 mg and Prednisone Dosepak 4 mg (did not take Prednisone) 01/03/21;given Augmentin 875 mg #20 on 03/31/20 03/10/2021 Last Documented On 2 10:03AM ; [facility] History of oral thrush - treated with Ny statin Suspension 100,000 05/11/19 05/21/2019 Last Documented On 2 10:03AM ; [facility] Primary Care Provider: [facility] 05/21/2019 Last Documented On 2 10:03AM ; [facility] Family History Includes: Family History addressed during this encounter Description Last Updated Family medical history : No significant family history 08/11/2015 Last Documented On 2 10:03AM ; [facility] Review of Systems Includes: Review of Systems [...] Check-Out Time Diagnosis [employer] MARCIO WASSERMAN MD [facility] 05/04/20 22 10:02AM 11:59PM Attention-deficit Hyperactivity Disorder,Anxiety Disorder Nos,Sleep Disorder Circadian Rhythm,Panic Disorder Insurance Includes: Active Insurance Policies Plan Name Member ID Group # Subscriber Relationship Effect yohana Dates 1 - [employer] [id number] DONALD LIANG Self Clinical Notes Includes: Clinical Notes from this encounter No Clinical Notes Recorded
--- OUTSIDE RECORDS SUMMARY | 2024-09-06 08:10 | XMS_ITS | Clinical Summary ---
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 Name Role Phone MEEK JEROME, MARCIO [...] Active Last Documented On 3 5:53PM ; [facility] Sleep Disorder Circadian Rhythm 07/02/2020 Active Last Documented On 3 5:53PM ; [facility] Anxiety Disorder Nos 12/16/2015 Acti ve Last Documented On 3 5:49PM ; [facility] Attention-deficit Hyperactivity Disorder 08/11/2015 Active Last Documented On 3 5:49PM ; [facility] Plan of Treatment Attention Deficit Hyperactivity Disorder - Vyvanse 60 [...] when in flight - Last Documented On 11/28/2023 1:39PM ; [facility] Education and Decision Aids were provided during visit for: Calming techniques such as b reathing exercises/meditation and other relaxation techniques Last Documented On 4 1:37PM ; [facility] Assessments Includes: Assessments from this encounter Findings - Attention-deficit hyperactivity disorder - Last Documented On 11/28/2023 1:39PM ; [facility] - Circadian rhythm sleep disorder - Last Documented On 11/28/2023 1:39PM ; [facility] - Panic disorder - Last Documented On 11/28/2023 1:39PM ; [facility] - Anxiety disorder NOS - Last Documented On 11/28/2023 1:39PM ; [facility] Instructions Includes: Instructions from this encounter Education and Decision Aids were provided during visit for: Calming techniques such as b reathing exercises/meditation and other relaxation techniques Last Documented On 1:37PM ; [facility] Medical Equipment - Implanted Devices Includes: Current Devices No Medical Equipment Recorded Medications Includes: Medications discussed during this encounter and other current Medications Discontinued / Stopped on this date MARCIO WASSERMAN MD on 08/21/2023 Dyanavel XR 15 MG Oral Tablet Chewable Extended Release Provider: MARCIO WASSERMAN MD Diagnosis: Anxiety disorder , unspecified Last Documented On 11/28/2023 11:19AM By Kelly Wasserman MD ; [facility] Current Medications (continue as prescribed) Vyvanse 60 MG Oral Capsule 01/01/2024 Provider: MARCIO WASSERMAN MD Diagnosis: Attention-defici t hyperactivity disorder, combined type 1 Capsule every morning Last Documented On 01/01/2024 11:46AM By Kelly Wasserman MD ; [facility] Armodafinil 250 MG Oral Tablet 08/21/2023 Provider: MARCIO WASSERMAN MD Diagnosis: Attention-defici t hyperactivity disorder, combined type as directed - 1 tab as noon Last Documented On 08/21/2023 2:57PM By Kelly Wasserman MD ; [facility] Past Medications on file Armodafinil 250 MG Oral Tablet 12/01/2022 - 03/31/2023 Provider: MARCIO WASSERMAN MD Diagnosis: Circadian rhythm sleep disorder, delayed sleep phase type 1 tablet every morning Last Documented On 12/01/2022 12:50PM By Kelly Wasserman MD ; [facility] Vyvanse 60 MG Oral Capsule 11/21/2022 - 12/21/2022 Provider: MARCIO WASSERMAN MD Diagnosis: Attention-defici t hyperactivity disorder, combined type *1 AM - 1 Capsule every morning Last Documented On 11/21/2022 4:06PM By Kelly Wasserman MD ; [facility] Azstarys 52.3-10.4 MG Oral Capsule 11/21/2022 - 12/21/2022 Provider: MARCIO WASSERMAN MD Diagnosis: Attention-defici t hyperactivity disorder, combined type ud - as directed as directed -- 1 cap at 1 pm Last Documented On 11/21/2022 4:06PM By Kelly Wasserman MD ; [facility] KlonoPIN 0.5 MG OR TABS 05/04/2022 - 06/03/2022 Provider: MARCIO ANAYA MD Diagnosis: Panic disorder [episodic paroxysmal anxiety] as directed - 1 tab a day as needed only for severe anxiety/panic Last Documented On 11/12/2022 5:38PM By Kelly Wasserman MD ; [facility] Azstarys 39.2-7.8 MG OR CAPS 05/04/2022 - 06/03/2022 Provider: MARCIO WASSERMAN MD Diagnosis: Attention-defici t hyperactivity disorder, combined type 1 Capsule every morning Last Documented On 11/12/2022 5:38PM By Kelly Wasserman MD ; [facility] Armodafinil 250 MG OR TABS 02/17/2022 - 03/19/2022 Provider: MARCIO WASSERMAN MD Diagnosis: Attention-defici t hyperactivity disorder, combined type as directed -- 1 tab at noon Last Documented On 11/12/2022 5:38PM By Kelly Wasserman MD ; [facility] Mydayis 25 MG OR CP24 12/06/2019 - 01/05/2020 Provider: MARCIO WASSERMAN MD Diagnosis: Attention-defici t hyperactivity disorder, combined type 1 Capsule every morning Last Documented On 11/12/2022 5:38PM By Kelly Wasserman MD ; [facility] Mydayis 25 MG OR CP24 08/23/2019 - 09/22/2019 Provider: MARCIO WASSERMAN MD Diagnosis: Attention-defici t hyperactivity disorder, combined type as directed --1 cap at 1 pm Last Documented On 11/12/2022 5:38PM By Kelly Wasserman MD ; [facility] Jornay PM 60 MG OR CP24 07/24/2019 - 08/23/2019 Provider: MARCIO WASSERMAN MD Diagnosis: Attention-defici t hyperactivity disorder, combined type as directed -- 1 cap in the evening Last Documented On 11/12/2022 5:38PM By Kelly Wasserman MD ; [facility] Jornay PM 40 MG OR CP24 05/21/2019 - 06/20/2019 Provider: MARCIO WASSERMAN MD Diagnosis: Attention-defici t hyperactivity disorder, combined type as directed -- 1 cap in the evening Last Documented On 11/12/2022 5:38PM By Kelly Wasserman MD ; [facility] Medications Administered Includes: Administered Medications from this encounter No Administered Medications Recorded Vital Signs Includes: Vital Signs from this encounter Vital Name 11/28/2023 10:52A Blood Pressure Sitting L 120/78 BP Cuff Size Regular Pulse Rate-Sitting (bpm) 91 Pulse Rhythm Regular Height (in) 70 Weight (lb) 172 Body Mass Index 24.7 Body Surface Area 2 Last Documented: On 11/28/2023 10:52A M ; [facility] Results Includes: Results discussed during this encounter No Results Recorded For Specified Dates History of Present Illness Includes: History of Present Illness from this encounter EZEKIEL LIANG is a 38 year old male. - Allergy list reviewed - Past medical history reviewed - Medication list reviewed Pt has not been feeling depressed. Pt has not been as anxious. Pt denied having any mood swings. However pt just gets irritated when he gets disturbed with his workflow. He had to bring his 14 y/o kid to soccer game in [place] causing disruption in his schedule. He has a 12 y/o and 14 y/o kid to attend to when they have soccer games. He has not needed any Klonopin during flight. He is able to manage by sitting upfront for less turbulence. [facility] end [facility]. 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 He was close to his parents [...] working out and playing with his sons 11/28/2023 Last Documented On 4 11:01AM ; [facility] Current nonsmoker 11/28/2023 Last Documented On 4 1:39PM ; [facility] Tobacco non-user 11/28/2023 Last Documented On 4 1:39PM ; [facility] Smoking Status Unknown Procedures and Surgical History Includes: Procedures from this encounter Procedures Code Diagnosis Performing Provider Service Location Service Date PSYCHOTHERAPY 30 MIN W/ [place] [address] Attention-deficit hyperactivity disorder, combined type, Anxiety disorder, unspecified, Panic disorder [episodic paroxysmal anxiety] MARCOI WASSERMAN MD [facility] 11/28/2023 Last Documented On 4 2:06PM ; [facility] education and instructions Last Documented On 4 10:42AM ; [facility] supportive care and encourag ement--given positive reinforcement to keep patient motivated and active Last Documented On 4 11:01AM ; [facility] ~* Call [phone] and /or go t o the nearest emergency room or call me if suicidal/homicidal ideation or other serious concerns arise. ~ ~* I gave instructions to call me should there be any questions or concerns. ~ ~* Patient voiced understanding and agreed to treatment plan Last Documented On 4 10:50AM ; [facility] dangerousness assessment: no suicide risk 3085F Last Documented On 4 10:42AM ; [facility] use of tobacco assessment performed 1000F Last Documented On 4 10:42AM ; [facility] patient screened for future fall risk: documentation of any fall with injury in past year - no recent falls 1100F Last Documented On 4 10:42AM ; [facility] review of medications documented 1160F Last Documented On 4 10:42AM ; [facility] assessment of suicide risk performed - n ot suicidal Last Documented On 4 10:51AM ; [facility] screening for adult depressi on: impression and score - please see above for treatment and PHQ score Last Documented On 4 10:42AM ; [facility] standardized depression screening: posit yohana for symptoms Last Documented On 4 10:42AM ; [facility] encouragement to exercise - balanced meal plan - pt sees a lot boss online and lost 7 lbs since last visit Last Documented On 4 1:38PM ; [facility] Clinical summary provided to patient Last Documented On 4 10:42AM ; [facility] PHQ-9: total score 1 Last Documented On 4 1:37PM ; [facility] Medical History Includes: Medical History addressed during [...] Suspension 100,000 05/11/19Procedural: Coronavirus 2019-nCoV vaccine - [employer] #1 10/06/20 #2 11/03/20 #3 04/202111/28/2023 Last Documented On 4 10:42AM ; [facility] Family History Includes: Family History addressed during this encounter Description Last Updated Family medical history: No significant f amily history 11/28/2023 Last Documented On 4 10:42AM ; [facility] Review of Systems Includes: Review of Systems [...] PSYCH ADULT FOLLOW UP MARCIO WASSERMAN MD [facility] 11/28/19 24 10:41AM 11:58AM Attention-defici t Hyperactivity Disorder,Anxiety Disorder Nos,Panic Disorder,Sleep Disorder Circadian Rhythm Insurance Includes: Active Insurance Policies Plan Name Member ID Group # Subscriber Relationship Effect yohana Dates 1 - [employer] [id number] DONALD LIANG Self Clinical Notes Includes: Clinical Notes from this encounter * Progress note Date Encounter Last Documented by 11/28/2023 PSYCH ADULT FOLLOW UP Last docum ented on 11/28/2023; 1:39 PM, MARCIO WASSERMAN MD; [facility] Top of Document Medication psychotherapy [...] 14 y/o kid to soccer game in [place] causing disruption in his schedule. He has a 12 y/o and 14 y/o kid to attend to when they have soccer games. He has not needed any Klonopin during flight. He is able to manage by sitting upfront for less turbulence. [facility]. 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 Marital: Marital history -- . He was born and raised in [place], [place]. He was close to his parents [...] balanced meal plan - pt sees a lot boss online and lost 7 lbs since last visit. - Supportive care and encouragement--given positive reinforcement to keep patient motivated and active. - Education and instructions. - Assessment of suicide risk performed - not suicidal - Clinical summary provided to patient. * Call [phone] and /or go to the nearest emergency [...]
--- OUTSIDE RECORDS SUMMARY | 2024-09-06 08:10 | XMS_ITS | Clinical Summary ---
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 Active Last Documented On 3 5:53PM ; [facility] Anxiety Disorder Nos 12/16/2015 Acti ve Last Documented On 3 5:49PM ; [facility] Attention-deficit Hyperactivity Disorder 08/11/2015 Active Last Documented On 3 5:49PM ; [facility] Plan of Treatment Attention Deficit Disorder - [...] when in flight - Last Documented On 11/22/2022 7:29AM ; [facility] Assessments Includes: Assessments from this encounter Findings - Attention-deficit hyperactivity disorder - Last Documented On 11/22/2022 7:29AM ; [facility] - Circadian rhythm sleep disorder - Last Documented On 11/22/2022 7:29AM ; [facility] - Panic disorder - Last Documented On 11/22/2022 7:29AM ; [facility] - Anxiety disorder NOS - Last Documented On 11/22/2022 7:29AM ; [facility] Medical Equipment - Implanted Devices Includes: Current Devices No Medical Equipment Recorded Medications Includes: Medications discussed during this encounter and other current Medications Discontinued / Stopped on this date MARCIO WASSERMAN MD on 10/03/2022 Vyvanse 60 MG OR CAPS Provider: VIDHYA WASSERMAN MD Diagnosis: Attention-defici t hyperactivity disorder, combined type Last Documented On 11/21/2022 4:00PM By Kelly Wasserman MD ; [facility] Azstarys 52.3-10.4 MG OR CAPS Provider: MARCIO WASSERMAN MD Diagnosis: Attention-defici t hyperactivity disorder, combined type Last Documented On 11/21/2022 4:02PM By Kelly Wasserman MD ; [facility] New / Renewed during this visit MARCIO WASSERMAN MD on 11/21/2022 Vyvanse 60 MG Oral Capsule Provider: MARCIO WASSERMAN MD 30 day supply: 30 capsule, 0 refills Diagnosis: Attention-deficit hyperactivity disorder, combined type *1 AM - 1 Capsule every morning Pharmacy: [facility] [address] [facility], [id number] - Last Documented On 11/21/2022 4:06PM By Kelly Wasserman MD ; [facility] Azstarys 52.3-10.4 MG Oral Capsule Provider: MARCIO WASSERMAN MD 30 day supply: 30 capsule, 0 refills Diagnosis: Attention-deficit hyperactivity disorder, combined type ud - as directed as directed -- 1 cap at 1 pm Pharmacy: [facility] [address] [facility], [id number] - Last Documented On 11/21/2022 4:06PM By Kelly Wasserman MD ; [facility] Current Medications (continue as prescribed) Vyvanse 60 MG Oral Capsule 01/01/2024 Provider: MARCIO WASSERMAN MD Diagnosis: Attention-defici t hyperactivity disorder, combined type 1 Capsule every morning Last Documented On 01/01/2024 11:46AM By Kelly Wasserman MD ; [facility] Armodafinil 250 MG Oral Tablet 08/21/2023 Provider: MARCIO WASSERMAN MD Diagnosis: Attention-defici t hyperactivity disorder, combined type as directed - 1 tab as noon Last Documented On 08/21/2023 2:57PM By Kelly Wasserman MD ; [facility] Past Medications on file Armodafinil 250 MG Oral Tablet 12/01/2022 - 03/31/2023 Provider: MARCIO WASSERMAN MD Diagnosis: Circadian rhythm sleep disorder, delayed sleep phase type 1 tablet every morning Last Documented On 12/01/2022 12:50PM By Kelly Wasserman MD ; [facility] KlonoPIN 0.5 MG OR TABS 05/04/2022 - 06/03/2022 Provider: MARCIO ANAYA MD Diagnosis: Panic disorder [episodic paroxysmal anxiety] as directed - 1 tab a day as needed only for severe anxiety/panic Last Documented On 11/12/2022 5:38PM By Kelly Wasserman MD ; [facility] Azstarys 39.2-7.8 MG OR CAPS 05/04/2022 - 06/03/2022 Provider: MARCIO WASSERMAN MD Diagnosis: Attention-defici t hyperactivity disorder, combined type 1 Capsule every morning Last Documented On 11/12/2022 5:38PM By Kelly Wasserman MD ; [facility] Armodafinil 250 MG OR TABS 02/17/2022 - 03/19/2022 Provider: MARCIO WASSERMAN MD Diagnosis: Attention-defici t hyperactivity disorder, combined type as directed -- 1 tab at noon Last Documented On 11/12/2022 5:38PM By Kelly Wasserman MD ; [facility] Mydayis 25 MG OR CP24 12/06/2019 - 01/05/2020 Provider: MARCIO WASSERMAN MD Diagnosis: Attention-defici t hyperactivity disorder, combined type 1 Capsule every morning Last Documented On 11/12/2022 5:38PM By Kelly Wasserman MD ; [facility] Mydayis 25 MG OR CP24 08/23/2019 - 09/22/2019 Provider: MARCIO WASSERMAN MD Diagnosis: Attention-defici t hyperactivity disorder, combined type as directed --1 cap at 1 pm Last Documented On 11/12/2022 5:38PM By Kelly Wasserman MD ; [facility] Jornay PM 60 MG OR CP24 07/24/2019 - 08/23/2019 Provider: MARCIO WASSERMAN MD Diagnosis: Attention-defici t hyperactivity disorder, combined type as directed -- 1 cap in the evening Last Documented On 11/12/2022 5:38PM By Kelly Wasserman MD ; [facility] Jornay PM 40 MG OR CP24 05/21/2019 - 06/20/2019 Provider: MARCIO WASSERMAN MD Diagnosis: Attention-defici t hyperactivity disorder, combined type as directed -- 1 cap in the evening Last Documented On 11/12/2022 5:38PM By Kelly Wasserman MD ; [facility] Medications Administered Includes: Administered Medications from this encounter No Administered Medications Recorded Vital Signs Includes: Vital Signs from this encounter Vital Name 11/21/2022 03:43P Blood Pressure Sitting L 119/77 BP Cuff Size Regular Pulse Rate-Sitting (bpm) 57 Pulse Rhythm Regular Height (in) 70 Weight (lb) 175 Body Mass Index 25.1 Body Surface Area 2 Note: self reported vitals Last Documented: On 11/21/2022 3:44PM ; [facility] Results Includes: Results discussed during [...] anxious. Pt denied having any mood swings. Pt has not been as irritable. Pt has been motivated in general in doing daily tasks except some days tired and can get overwhelmed with his job. There are days where his mind is just tired of multitasking that he is thinking of venturing out into another job but he does not know yet what that it. For now, he will continue to work with [employer]. Sleep has been good. Pt has not been napping/sleeping too much during the daytime. Pt has not been feeling as tired. Appetite is good. Pt has not been feeling as bad about self. Pt is able to focus and concentrate better and for the most part with the back up Azstarys that he takes at 1 pm since the Vyvanse that he takes at 6 am only lasts for 6 - 7 hours and he works long hours. . Pt occ gets fidgety as a result of his hyperactivity due to ADHD abut this has been reduced with his current meds. . Pt denied suicidal thoughts. Pt denied having any delusions/hallucinations. He rarely takes Armodafinil but I recommended that since he is not taking his ADHD meds on weekends that he can take Armodafinil if he needs to accomplish some tasks on weekends. Pt has not used Klonopin since he had not flown yet but plans to take it when he goes out of town in December. MENTAL STATUS EXAM: Sensorium - alert, oriented to name, place, and time Attitude - cooperative Gait - ambulatory Sleep - good Interest/Energy/Motivation - good Guilt/Worthlessness - absent Concentration/Attention Span - able to focus and concentrate better with meds Memory Recall - fairly good Appetite - good - on 08/11/22 pt weighed 175 lbs and on 11/21/22 he weighed the same Suicidal Thoughts - absent Homicidal Thoughts - absent Delusions - absent Hallucinations - absent Appearance - casually groomed Motor Behavior - calm Eye Contact - intermittent Speech - fluent Mood - not depressed but some days can get overwhelmed with his workload Affect - at times anxious Thought Process [...] Work history -- 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 He was close to his parents [...] working out and playing with his sons 11/21/2022 Last Documented On 3 3:51PM ; [facility] Tobacco non-user 11/21/2022 Last Documented On 3 7:29AM ; [facility] Current nonsmoker 11/21/2022 Last Documented On 3 7:29AM ; [facility] Smoking Status Unknown Procedures and Surgical History Includes: Procedures from this encounter Procedures Code Diagnosis Performing Provider Service L ocation Service Date education and instructions Last Documented On 3 3:32PM ; [facility] supportive care and encourag ement--given positive reinforcement to keep patient motivated and active Last Documented On 3 3:55PM ; [facility] ~* Call [phone] and /or go t o the nearest emergency room or call me if suicidal/homicidal ideation or other serious concerns arise. ~ ~* I gave instructions to call me should there be any questions or concerns. ~ ~* Patient voiced understanding and agreed to treatment plan Last Documented On 3 3:41PM ; [facility] dangerousness assessment: no suicide risk - not suicidal 3085F Last Documented On 3 3:55PM ; [facility] use of tobacco assessment performed 1000F Last Documented On 3 3:43PM ; [facility] patient screened for future fall risk: documentation of any fall with injury in past year - no recent falls 1100F Last Documented On 3 3:41PM ; [facility] review of medications documented 1160F Last Documented On 3 3:41PM ; [facility] screening for adult depressi on: impression and score - please see above for treatment and PHQ score Last Documented On 3 3:43PM ; [facility] standardized depression screening: posit yohana for symptoms Last Documented On 3 3:43PM ; [facility] encouragement to exercise Last Documented On 3 3:32PM ; [facility] Clinical summary provided to patient Last Documented On 3 3:32PM ; [facility] PHQ-9: total score 3 Last Documented On 3 7:20AM ; [facility] Medical History Includes: Medical History addressed during [...] Suspension 100,000 05/11/19Procedural: Coronavirus 2019-nCoV vaccine - [email or web address] #1 10/06/20 #2 11/03/20 #3 04/202111/21/2022 Last Documented On 3 3:57PM ; [facility] Family History Includes: Family History addressed during this encounter Description Last Updated Family medical history: No significant f amily history 11/21/2022 Last Documented On 3 3:53PM ; [facility] Review of Systems Includes: Review [...] Date Check-In Time Check-Out Time Diagnosis TELEHEALTH ADULT PSYCH ESTABLISHED MARCIO WASSERMAN MD [facility] 023 3:31PM 11:59PM Anxiety Disorder Nos,Attention-de ficit Hyperactivity Disorder,Panic Disorder,Sleep Disorder Circadian Rhythm Insurance Includes: Active Insurance Policies Plan Name Member ID Group # Subscriber Relationship Effect yohana Dates 1 - [employer] [id number] DONALD LIANG Self Clinical Notes Includes: Clinical Notes from this encounter * Progress note Date Encounter Last Documented by 11/21/2022 TELEHEALTH ADULT PSYCH ESTABLISH ED Last documented on 11/22/2022; 7:29 AM, MARCIO WASSERMAN MD; [facility] Top of Document Medication psychotherapy 30 minutes Patient gave verbal consent for Telehealth 11/21/22. Location of patient: patient's home Location of provider: provider's office Patient was alone for the session. This visit was conducted with use of interactive audio and video telecommunication system with real time communication between the patient and the provider. Patient consent for virtual visit obtained today. Total time spent with patient via audio and video telecommunication 30 minutes. Active Problems & Conditions - Anxiety Disorder Nos - Attention-deficit Hyperactivity Disorder - Panic Disorder - Sleep Disorder Circadian Rhythm Chief Complaint The Chief Complaint is: Follow up for attention and concentration deficit and anxiety. History of Present Illness DONALD LIANG is a 37 year old male. - Allergy list reviewed - Past medical history reviewed - Medication list reviewed Pt has not been feeling depressed. Pt has not been as anxious. Pt denied having any mood swings. Pt has not been as irritable. Pt has been motivated in general in doing daily tasks except some days tired and can get overwhelmed with his job. There are days where his mind is just tired of multitasking that he is thinking of venturing out into another job but he does not know yet what that it. For now, he will continue to work with [employer]. Sleep has been good. Pt has not been napping/sleeping too much during the daytime. Pt has not been feeling as tired. Appetite is good. Pt has not been feeling as bad about self. Pt is able to focus and concentrate better and for the most part with the back up Azstarys that he takes at 1 pm since the Vyvanse that he takes at 6 am only lasts for 6 - 7 hours and he works long hours. . Pt occ gets fidgety as a result of his hyperactivity due to ADHD abut this has been reduced with his current meds. . Pt denied suicidal thoughts. Pt denied having any delusions/hallucinations. He rarely takes Armodafinil but I recommended that since he is not taking his ADHD meds on weekends that he can take Armodafinil if he needs to accomplish some tasks on weekends. Pt has not used Klonopin since he had not flown yet but plans to take it when he goes out of town in December. MENTAL STATUS EXAM: Sensorium - alert, oriented to name, place, and time Attitude - cooperative Gait - ambulatory Sleep - good Interest/Energy/Motivation - good Guilt/Worthlessness - absent Concentration/Attention Span - able to focus and concentrate better with meds Memory Recall - fairly good Appetite - good - on 08/11/22 pt weighed 175 lbs and on 11/21/22 he weighed the same Suicidal Thoughts - absent Homicidal Thoughts - absent Delusions - absent Hallucinations - absent Appearance - casually groomed Motor Behavior - calm Eye Contact - intermittent Speech - fluent Mood - not depressed but some days can get overwhelmed with his workload Affect - at times anxious Thought Process - coherent Insight and Judgment - intact Current Medication - Armodafinil 250 MG Tablet 1 tablet every morning 1 tablet every morning, 30 days, 3 refills - - No side effects reported Past Medical/Surgical History Primary Care Provider: [facility]. Diagnoses: Sinusitis - given Augmentin 875 mg and Methylprednisolone Dosepak 4 mg 09/22/22; given Augmentin 875 mg and Prednisone Dosepak 4 mg (did not take Prednisone) 01/03/21;given Augmentin 875 mg #20 on 03/31/20. 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 Marital: Marital history -- . He was born and raised in [place], [place]. He was close to his parents [...] no rash. Physical Findings - Vitals taken 11/21/2022 03:43 pm self reported vitals BP-Sitting L 119/77 mmHg BP Cuff Size Regular Pulse Rate-Sitting 57 bpm Pulse Rhythm Regular Height 70 in Weight 175 lbs Body Mass Index 25.1 kg/m2 Body Surface Area 2 m2 Tests Educational Testing: Questionnaires PHQ-9: Value PHQ-9: total score 3 Assessment - Attention-deficit hyperactivity disorder - Circadian rhythm sleep disorder - Panic disorder - Anxiety disorder NOS Therapy - Dangerousness assessment: no suicide risk - not suicidal. - Supportive care and encouragement--given positive reinforcement to keep patient motivated and active. - Encouragement to exercise. - Education and instructions. - Clinical summary provided to patient. * Call [phone] and /or go to the nearest emergency room or call me if suicidal/homicidal ideation or other serious concerns arise. * I gave instructions to call me should there be any questions or concerns. * Patient voiced understanding and agreed to treatment plan. Plan StartCited - Attention-deficit hyperactivity disorder, combined type Vyvanse 60 MG capsule *1 AM - 1 Capsule every morning, 30 days, 0 refills Azstarys 52.3-10.4 MG capsule ud - as directed as directed -- 1 cap at 1 pm, 30 days, 0 refills EndCited StartCited - Other Follow-up 02/10/23 EndCited Attention Deficit Disorder - Azstarys 52.3 mg [...]
--- OUTSIDE RECORDS SUMMARY | 2024-09-06 08:11 | XMS_ITS ---
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 HECTOR WASSERMAN MD Active Last Documented On 0 8:07PM ; [facility] Anxiety Disorder Nos 12/16/2015 MARCIO COLLINS MD Active Last Documented On 6 7:23AM ; [facility] Attention-deficit Hyperactivity Disorder 08/11/2015 MARCIO WASSERMAN MD Active Last Documented On 6 3:19PM ; [facility] Plan of Treatment Instructions to patient Lose weight Last Documented On 1 10:27AM ; [facility] Lose weight Last Documented On 1 11:14AM ; [facility] Lose weight Last Documented On 0 1:10PM ; [facility] Lose weight Last Documented On 0 1:39PM ; [facility] Education and Decision Aids were provided during visit for: Patient education about medi cation ---Education was given on medication(s) and diagnosis. I reviewed the risks, benefits and side effects of patient's medications Last Documented On 3 9:12AM ; [facility] Discussed calming techniques such as breathing exercises and other relaxation techniques Last Documented On 3 9:12AM ; [facility] Patient education about medi cation ---Education was given on medication(s) and diagnosis. I reviewed the risks, benefits and side effects of patient's medications Last Documented On 2 8:33AM ; [facility] Discussed calming techniques such as breathing exercises and other relaxation techniques Last Documented On 2 8:33AM ; [facility] Discussed calming techniques such as breathing exercises / meditation and other relaxation techniques Last Documented On 2 2:13AM ; [facility] Patient education about medi cation --- I educated patient on medication(s) and diagnosis. I reviewed the risks, benefits and side effects of patient's medications Last Documented On 2 1:30PM ; [facility] Discussed calming techniques such as breathing exercises and other relaxation techniques Last Documented On 2 1:30PM ; [facility] Patient education about medi cation --- I educated patient on medication(s) and diagnosis. I reviewed the risks, benefits and side effects of patient's medications Last Documented On 2 9:21AM ; [facility] Discussed calming techniques such as breathing exercises and other relaxation techniques Last Documented On 2 9:21AM ; [facility] Patient education about medi cation --- I educated patient on medication(s) and diagnosis. I reviewed the risks, benefits and side effects of patient's medications Last Documented On 2 3:37PM ; [facility] Discussed calming techniques such as breathing exercises and other relaxation techniques Last Documented On 2 3:37PM ; [facility] Patient education about medi cation --- I educated patient on medication(s) and diagnosis. I reviewed the risks, benefits and side effects of patient's medications Last Documented On 1 10:20AM ; [facility] Discussed calming techniques such as breathing exercises and other relaxation techniques Last Documented On 1 10:20AM ; [facility] Counseling for nutrition/america ght management provided Last Documented On 1 10:27AM ; [facility] Patient education about medi cation --- I educated patient on medication(s) and diagnosis. I reviewed the risks, benefits and side effects of patient's medications Last Documented On 1 11:00AM ; [facility] Discussed calming techniques such as breathing exercises and other relaxation techniques Last Documented On 1 11:00AM ; [facility] Counseling for nutrition/america ght management provided Last Documented On 1 11:14AM ; [facility] Patient education about medi cation --- I educated patient on medication(s) and diagnosis. I reviewed the risks, benefits and side effects of patient's medications Last Documented On 1 10:36AM ; [facility] Discussed calming techniques such as breathing exercises and other relaxation techniques Last Documented On 1 10:36AM ; [facility] Patient education about medi cation --- I educated patient on medication(s) and diagnosis. I reviewed the risks, benefits and side effects of patient's medications Last Documented On 0 12:10PM ; [facility] Patient education about medi cation --- I educated patient on medication(s) and diagnosis. I reviewed the risks, benefits and side effects of patient's medications Last Documented On 0 1:04PM ; [facility] Discussed calming techniques such as breathing exercises and other relaxation techniques Last Documented On 0 1:04PM ; [facility] Counseling for nutrition/america ght management provided Last Documented On 0 1:10PM ; [facility] Patient education about medi cation --- I educated patient on medication(s) and diagnosis. I reviewed the risks, benefits and side effects of patient's medications Last Documented On 0 1:33PM ; [facility] Discussed calming techniques such as breathing exercises and other relaxation techniques Last Documented On 0 1:33PM ; [facility] Counseling for nutrition/america ght management provided Last Documented On 0 1:39PM ; [facility] Patient education about a pr oper diet Last Documented On 0 2:45PM ; [facility] Patient education about medi cation --- I educated patient on medication(s) and diagnosis. I reviewed the risks, benefits and side effects of patient's medications Last Documented On 0 2:38PM ; [facility] Discussed calming techniques such as breathing exercises and other relaxation techniques Last Documented On 0 2:38PM ; [facility] Counseling for nutrition/america ght management provided Last Documented On 0 2:45PM ; [facility] Patient education about a pr oper diet Last Documented On 0 1:57PM ; [facility] Patient education about medi cation --- I educated patient on medication(s) and diagnosis. I reviewed the risks, benefits and side effects of patient's medications Last Documented On 0 1:43PM ; [facility] Discussed calming techniques such as breathing exercises and other relaxation techniques Last Documented On 0 1:43PM ; [facility] Counseling for nutrition/america ght management provided Last Documented On 0 1:57PM ; [facility] Patient education about a pr oper diet Last Documented On 0 2:50PM ; [facility] Patient education about medi cation --- I educated patient on medication(s) and diagnosis. I reviewed the risks, benefits and side effects of patient's medications Last Documented On 0 2:38PM ; [facility] Discussed calming techniques such as breathing exercises and other relaxation techniques Last Documented On 0 2:38PM ; [facility] Counseling for nutrition/america ght management provided Last Documented On 0 2:50PM ; [facility] Patient education about a pr oper diet Last Documented On 0 11:31AM ; [facility] Patient education about medi cation --- I educated patient on medication(s) and diagnosis. I reviewed the risks, benefits and side effects of patient's medications Last Documented On 0 11:20AM ; [facility] Discussed calming techniques such as breathing exercises and other relaxation techniques Last Documented On 0 11:20AM ; [facility] Counseling for nutrition/america ght management provided Last Documented On 0 11:31AM ; [facility] Patient education about a pr oper diet Last Documented On 9 2:08PM ; [facility] Patient education about medi cation --- I educated patient on medication(s) and diagnosis. I reviewed the risks, benefits and side effects of patient's medications Last Documented On 9 2:02PM ; [facility] Discussed calming techniques such as breathing exercises and other relaxation techniques Last Documented On 9 2:02PM ; [facility] Counseling for nutrition/america ght management provided Last Documented On 9 2:08PM ; [facility] Patient education about medi cation --- I educated patient on medication(s) and diagnosis. I reviewed the risks, benefits and side effects of patient's medications Last Documented On 9 1:59PM ; [facility] Discussed calming techniques such as breathing exercises and other relaxation techniques -- pt feels he is not able to do meditation Last Documented On 9 3:44AM ; [facility] Counseling for nutrition/america ght management provided Last Documented On 9 2:04PM ; [facility] Patient education about a pr oper diet Last Documented On 9 1:33PM ; [facility] Patient education about medi cation --- I educated patient on medication(s) and diagnosis. I reviewed the risks, benefits and side effects of patient's medications Last Documented On 9 1:27PM ; [facility] Discussed calming techniques such as breathing exercises and other relaxation techniques Last Documented On 9 1:27PM ; [facility] Counseling for nutrition/america ght management provided Last Documented On 9 1:33PM ; [facility] Patient education about a pr oper diet Last Documented On 8 4:19PM ; [facility] Patient education about medi cation --- I educated patient on medication(s) and diagnosis. I reviewed the risks, benefits and side effects of patient's medications Last Documented On 8 4:19PM ; [facility] Discussed calming techniques such as breathing exercises and other relaxation techniques Last Documented On 8 4:19PM ; [facility] Counseling for nutrition/america ght management provided Last Documented On 8 4:19PM ; [facility] Patient education about medi cation --- I educated patient on medication(s) and diagnosis. I reviewed the risks, benefits and side effects of patient's medications Last Documented On 8 2:01PM ; [facility] Discussed calming techniques such as breathing exercises and other relaxation techniques Last Documented On 8 2:01PM ; [facility] Patient education about medi cation --- I educated patient on medication(s) and diagnosis. I reviewed the risks, benefits and side effects of patient's medications Last Documented On 8 8:50AM ; [facility] Discussed calming techniques such as breathing exercises and other relaxation techniques Last Documented On 8 8:50AM ; [facility] Counseling for nutrition/america ght management provided -- pt has been working out as stress reliever Last Documented On 8 11:06AM ; [facility] Patient education about medi cation --- I educated patient on medication(s) and diagnosis. I reviewed the risks, benefits and side effects of patient's medications Last Documented On 7 9:29AM ; [facility] Discussed calming techniques such as breathing exercises and other relaxation techniques Last Documented On 7 9:29AM ; [facility] Patient education about medi cation --- I educated patient on medication(s) and diagnosis. I reviewed the risks, benefits and side effects of patient's medications Last Documented On 7 1:01PM ; [facility] Discussed calming techniques such as breathing exercises and other relaxation techniques Last Documented On 7 1:01PM ; [facility] Counseling for nutrition/america ght management provided Last Documented On 7 5:41PM ; [facility] Patient education about medi cation --- I educated patient on medication(s) and diagnosis. I reviewed the risks, benefits and side effects of patient's medications Last Documented On 7 4:53PM ; [facility] Discussed calming techniques such as breathing exercises/meditation and other relaxation techniques Last Documented On 7 4:53PM ; [facility] Patient education about medi cation --- I educated patient on medication(s) and diagnosis. I reviewed the risks, benefits and side effects of patient's medications Last Documented On 6 2:25PM ; [facility] Discussed calming techniques such as breathing exercises/meditation and other relaxation techniques Last Documented On 6 2:25PM ; [facility] Patient education about medi cation --- I educated patient on medication(s) and diagnosis. I reviewed the risks, benefits and side effects of patient's medications Last Documented On 6 4:13PM ; [facility] Discussed calming techniques such as breathing exercises/meditation and other relaxation techniques Last Documented On 6 4:13PM ; [facility] Counseling for nutrition/america ght management provided Last Documented On 6 3:41PM ; [facility] Patient education about medi cation --- I educated patient on medication(s) and diagnosis. I reviewed the risks, benefits and side effects of patient's medications Last Documented On 6 4:20PM ; [facility] Discussed calming techniques such as breathing exercises/meditation and other relaxation techniques Last Documented On 6 4:20PM ; [facility] Patient education about medi cation --- I educated patient on medication(s) and diagnosis. I reviewed the risks, benefits and side effects of patient's medications Last Documented On 6 8:52AM ; [facility] Discussed calming techniques such as breathing exercises/meditation and other relaxation techniques Last Documented On 6 8:52AM ; [facility] Patient education about medi cation --- I educated patient on medication(s) and diagnosis. I reviewed the risks, benefits and side effects of patient's medications Last Documented On 6 8:44AM ; [facility] Discussed calming techniques such as breathing exercises/meditation and other relaxation techniques Last Documented On 6 8:44AM ; [facility] Counseling for nutrition/america ght management provided Last Documented On 6 7:45AM ; [facility] Patient education about medi cation --- I educated patient on medication(s) and diagnosis. I reviewed the risks, benefits and side effects of patient's medications Last Documented On 6 3:15PM ; [facility] Discussed calming techniques such as breathing exercises/meditation and other relaxation techniques Last Documented On 6 3:15PM ; [facility] Assessments Includes: Assessments for all patient encounters Findings Encounter Date Anxiety disorder NOS TELEHEALTH with MARCIO WASSERMAN MD 08/11/2022 Last Documented On 3 9:47AM ; [facility] Attention-deficit hyperactivity disorder TELEHEALTH with MARCIO WASSERMAN MD 08/11/2022 Last Documented On 3 9:47AM ; [facility] Circadian rhythm sleep disorder TELEHEALTH with MARCIO WASSERMAN MD 08/11/2022 Last Documented On 3 9:47AM ; [facility] Panic disorder TELEHEALTH with MARCIO ANAYA MD 08/11/2022 Last Documented On 3 9:47AM ; [facility] Anxiety disorder NOS TELEHEALTH with MARCIO WASSERMAN MD 05/31/2022 Last Documented On 2 1:46PM ; [facility] Attention-deficit hyperactivity disorder TELEHEALTH with MARCIO WASSERMAN MD 05/31/2022 Last Documented On 2 1:46PM ; [facility] Circadian rhythm sleep disorder TELEHEALTH with MARCIO WASSERMAN MD 05/31/2022 Last Documented On 2 1:46PM ; [facility] Panic disorder TELEHEALTH with MARCIO ANAYA MD 05/31/2022 Last Documented On 2 1:46PM ; [facility] Anxiety disorder NOS TELEHEALTH with MARCIO WASSERMAN MD 05/04/2022 Last Documented On 2 2:16AM ; [facility] Attention-deficit hyperactivity disorder TELEHEALTH with MARCIO WASSERMAN MD 05/04/2022 Last Documented On 2 2:16AM ; [facility] Circadian rhythm sleep disorder TELEHEALTH with MARCIO WASSERMAN MD 05/04/2022 Last Documented On 2 2:16AM ; [facility] Panic disorder TELEHEALTH with MARCIO ANAYA MD 05/04/2022 Last Documented On 2 2:16AM ; [facility] Anxiety disorder NOS FOLLOW UP with MARCIO WASSERMAN MD 02/17/2022 Last Documented On 2 9:06AM ; [facility] Attention-deficit hyperactivity disorder FOLLOW UP with MARCIO WASSERMAN MD 02/17/2022 Last Documented On 2 9:06AM ; [facility] Circadian rhythm sleep disorder FOLLOW UP with Jose Enrique WASSERMAN MD 02/17/2022 Last Documented On 2 9:06AM ; [facility] Anxiety disorder NOS TELEHEALTH with MARCIO WASSERMAN MD 12/09/2021 Last Documented On 2 8:47AM ; [facility] Attention-deficit hyperactivity disorder TELEHEALTH with MARCIO WASSERMAN MD 12/09/2021 Last Documented On 2 8:47AM ; [facility] Circadian rhythm sleep disorder TELEHEALTH with MARCIO WASSERMAN MD 12/09/2021 Last Documented On 2 8:47AM ; [facility] Attention-deficit hyperactivity disorder * PHONE CALL with MARCIO WASSERMAN MD 11/12/2021 Last Documented On 2 5:29PM ; [facility] Anxiety disorder NOS TELEHEALTH with MARCIO WASSERMAN MD 10/01/2021 Last Documented On 2 10:48AM ; [facility] Attention-deficit hyperactivity disorder TELEHEALTH with MARCIO WASSERMAN MD 10/01/2021 Last Documented On 2 10:48AM ; [facility] Circadian rhythm sleep disorder TELEHEALTH with MARCIO WASSERMAN MD 10/01/2021 Last Documented On 2 10:48AM ; [facility] Anxiety disorder NOS TELEHEALTH with MARCIO WASSERMAN MD 03/10/2021 Last Documented On 1 10:47AM ; [facility] Attention-deficit hyperactivity disorder TELEHEALTH with MARCIO WASSERMAN MD 03/10/2021 Last Documented On 1 10:47AM ; [facility] Circadian rhythm sleep disorder TELEHEALTH with MARCIO WASSERMAN MD 03/10/2021 Last Documented On 1 10:47AM ; [facility] Anxiety disorder NOS TELEHEALTH with MARCIO WASSERMAN MD 12/24/2020 Last Documented On 1 8:45AM ; [facility] Attention-deficit hyperactivity disorder TELEHEALTH with MARCIO WASSERMAN MD 12/24/2020 Last Documented On 1 8:45AM ; [facility] Circadian rhythm sleep disorder TELEHEALTH with MARCIO WASSERMAN MD 12/24/2020 Last Documented On 1 8:45AM ; [facility] Anxiety disorder NOS TELEHEALTH with MARCIO WASSERMAN MD 09/03/2020 Last Documented On 1 7:58AM ; [facility] Attention-deficit hyperactivity disorder TELEHEALTH with MARCIO WASSERMAN MD 09/03/2020 Last Documented On 1 7:58AM ; [facility] Circadian rhythm sleep disorder TELEHEALTH with MARCIO WASSERMAN MD 09/03/2020 Last Documented On 1 7:58AM ; [facility] Anxiety disorder NOS TELEHEALTH with MARCIO WASSERMAN MD 07/02/2020 Last Documented On 0 8:13PM ; [facility] Attention-deficit hyperactivity disorder TELEHEALTH with MARCIO WASSERMAN MD 07/02/2020 Last Documented On 0 8:13PM ; [facility] Circadian rhythm sleep disorder TELEHEALTH with MARCIO WASSERMAN MD 07/02/2020 Last Documented On 0 8:13PM ; [facility] Anxiety disorder NOS TELEHEALTH with MARCIO WASSERMAN MD 04/03/2020 Last Documented On 0 8:45AM ; [facility] Attention-deficit hyperactivity disorder TELEHEALTH with MARCIO WASSERMAN MD 04/03/2020 Last Documented On 0 8:45AM ; [facility] Anxiety disorder NOS GENERAL OFFICE VISIT with Jose Enrique WASSERMAN MD 01/21/2020 Last Documented On 0 11:37PM ; [facility] Attention-deficit hyperactivity disorder GENERAL OFFICE VISIT with MARCIO WASSERMAN MD 01/21/2020 Last Documented On 0 11:37PM ; [facility] Anxiety disorder NOS TELEHEALTH with MARCIO WASSERMAN MD 12/06/2019 Last Documented On 0 6:16PM ; [facility] Attention-deficit hyperactivity disorder TELEHEALTH with MARCIO WASSERMAN MD 12/06/2019 Last Documented On 0 6:16PM ; [facility] Anxiety disorder NOS GENERAL OFFICE VISIT with Jose Enrique WASSERMAN MD 09/25/2019 Last Documented On 0 3:19PM ; [facility] Attention-deficit hyperactivity disorder GENERAL OFFICE VISIT with MARCIO WASSERMAN MD 09/25/2019 Last Documented On 0 3:19PM ; [facility] Anxiety disorder NOS GENERAL OFFICE VISIT with Jose Enrique WASSERMAN MD 08/23/2019 Last Documented On 0 2:43PM ; [facility] Attention-deficit hyperactivity disorder GENERAL OFFICE VISIT with MARCIO WASSERMAN MD 08/23/2019 Last Documented On 0 2:43PM ; [facility] Anxiety disorder NOS GENERAL OFFICE VISIT with Jose Enrique WASSERMAN MD 07/24/2019 Last Documented On 0 10:00PM ; [facility] Attention-deficit hyperactivity disorder GENERAL OFFICE VISIT with MARCIO WASSERMAN MD 07/24/2019 Last Documented On 0 10:00PM ; [facility] Anxiety disorder NOS GENERAL OFFICE VISIT with Jose Enrique WASSERMAN MD 05/21/2019 Last Documented On 9 10:18PM ; [facility] Attention-deficit hyperactivity disorder GENERAL OFFICE VISIT with MARCIO WASSERMAN MD 05/21/2019 Last Documented On 9 10:18PM ; [facility] Anxiety disorder NOS GENERAL OFFICE VISIT with Jose Enrique WASSERMAN MD 12/21/2018 Last Documented On 9 3:55AM ; [facility] Attention-deficit hyperactivity disorder GENERAL OFFICE VISIT with MARCIO WASSERMAN MD 12/21/2018 Last Documented On 9 3:55AM ; [facility] Anxiety disorder NOS GENERAL OFFICE VISIT with Jose Enrique WASSERMAN MD 08/17/2018 Last Documented On 9 7:24AM ; [facility] Attention-deficit hyperactivity disorder GENERAL OFFICE VISIT with MARCIO WASSERMAN MD 08/17/2018 Last Documented On 9 7:24AM ; [facility] Anxiety disorder NOS GENERAL OFFICE VISIT with Jose Enrique WASSERMAN MD 07/03/2018 Last Documented On 8 2:04PM ; [facility] Attention-deficit hyperactivity disorder GENERAL OFFICE VISIT with MARCIO WASSERMAN MD 07/03/2018 Last Documented On 8 2:04PM ; [facility] Anxiety disorder NOS GENERAL OFFICE VISIT with Jose Enrique WASSERMAN MD 11/14/2017 Last Documented On 8 2:49AM ; [facility] Attention-deficit hyperactivity disorder GENERAL OFFICE VISIT with MARCIO WASSERMAN MD 11/14/2017 Last Documented On 8 2:49AM ; [facility] Anxiety disorder NOS GENERAL OFFICE VISIT with Jose Enrique WASSERMAN MD 08/03/2017 Last Documented On 8 9:31PM ; [facility] Attention-deficit hyperactivity disorder GENERAL OFFICE VISIT with MARCIO WASSERMAN MD 08/03/2017 Last Documented On 8 9:31PM ; [facility] Anxiety disorder NOS GENERAL OFFICE VISIT with Jose Enrique WASSERMAN MD 02/17/2017 Last Documented On 7 11:20AM ; [facility] Attention-deficit hyperactivity disorder GENERAL OFFICE VISIT with MARCIO WASSERMAN MD 02/17/2017 Last Documented On 7 11:20AM ; [facility] Anxiety disorder NOS GENERAL OFFICE VISIT with Jose Enrique WASSERMAN MD 12/08/2016 Last Documented On 7 5:49PM ; [facility] Attention-deficit hyperactivity disorder GENERAL OFFICE VISIT with MARCIO WASSERMAN MD 12/08/2016 Last Documented On 7 5:49PM ; [facility] Anxiety disorder NOS GENERAL OFFICE VISIT with Jose Enrique WASSERMAN MD 07/28/2016 Last Documented On 7 2:55AM ; [facility] Attention-deficit hyperactivity disorder GENERAL OFFICE VISIT with MARCIO WASSERMAN MD 07/28/2016 Last Documented On 7 2:55AM ; [facility] Anxiety disorder NOS GENERAL OFFICE VISIT with Jose Enrique WASSERMAN MD 06/27/2016 Last Documented On 6 9:33AM ; [facility] Attention-deficit hyperactivity disorder GENERAL OFFICE VISIT with MARCIO WASSERMAN MD 06/27/2016 Last Documented On 6 9:33AM ; [facility] Anxiety disorder NOS GENERAL OFFICE VISIT with Jose Enrique WASSERMAN MD 03/16/2016 Last Documented On 6 3:43PM ; [facility] Attention-deficit hyperactivity disorder GENERAL OFFICE VISIT with MARCIO WASSERMAN MD 03/16/2016 Last Documented On 6 3:43PM ; [facility] Anxiety disorder NOS GENERAL OFFICE VISIT with Jose Enrique WASSERMAN MD 01/19/2016 Last Documented On 6 7:25AM ; [facility] Attention-deficit hyperactivity disorder GENERAL OFFICE VISIT with MARCIO WASSERMAN MD 01/19/2016 Last Documented On 6 7:25AM ; [facility] * PHONE CALL with MARCIO WASSERMAN MD 11/25/2015 Last Documented On 6 6:00PM ; [facility] Attention-deficit hyperactivity disorder GENERAL OFFICE VISIT with MARCIO WASSERMAN MD 10/09/2015 Last Documented On 6 10:09AM ; [facility] Attention-deficit hyperactivity disorder GENERAL OFFICE VISIT with MARCIO WASSERMAN MD 09/14/2015 Last Documented On 6 7:47AM ; [facility] Attention-deficit hyperactivity disorder * PHONE CALL with MARCIO WASSERMAN MD 09/01/2015 Last Documented On 6 2:53PM ; [facility] Attention-deficit hyperactivity disorder NEW PATIENT VISIT with MARCIO WASSERMAN MD 08/11/2015 Last Documented On 6 7:56PM ; [facility] Instructions Includes: Instructions for all patient encounters Instructions to patient Lose weight Last Documented On 1 10:27AM ; [facility] Lose weight Last Documented On 1 11:14AM ; [facility] Lose weight Last Documented On 0 1:10PM ; [facility] Lose weight Last Documented On 0 1:39PM ; [facility] Education and Decision Aids were provided during visit for: Patient education about medi cation ---Education was given on medication(s) and diagnosis. I reviewed the risks, benefits and side effects of patient's medications Last Documented On 3 9:12AM ; [facility] Discussed calming techniques such as breathing exercises and other relaxation techniques Last Documented On 3 9:12AM ; [facility] Patient education about medi cation ---Education was given on medication(s) and diagnosis. I reviewed the risks, benefits and side effects of patient's medications Last Documented On 2 8:33AM ; [facility] Discuss[facility] calming techniques such as breathing exercises and other relaxation techniques Last Documented On 2 8:33AM ; [facility] Discussed calming techniques such as breathing exercises / meditation and other relaxation techniques Last Documented On 2 2:13AM ; [facility] Patient education about medi cation --- I educated patient on medication(s) and diagnosis. I reviewed the risks, benefits and side effects of patient's medications Last Documented On 2 1:30PM ; [facility] Discussed calming techniques such as breathing exercises and other relaxation techniques Last Documented On 2 1:30PM ; [facility] Patient education about medi cation --- I educated patient on medication(s) and diagnosis. I reviewed the risks, benefits and side effects of patient's medications Last Documented On 2 9:21AM ; [facility] Discussed calming techniques such as breathing exercises and other relaxation techniques Last Documented On 2 9:21AM ; [facility] Patient education about medi cation --- I educated patient on medication(s) and diagnosis. I reviewed the risks, benefits and side effects of patient's medications Last Documented On 2 3:37PM ; [facility] Discussed calming techniques such as breathing exercises and other relaxation techniques Last Documented On 2 3:37PM ; [facility] Patient education about medi cation --- I educated patient on medication(s) and diagnosis. I reviewed the risks, benefits and side effects of patient's medications Last Documented On 1 10:20AM ; [facility] Discussed calming techniques such as breathing exercises and other relaxation techniques Last Documented On 1 10:20AM ; [facility] Counseling for nutrition/america ght management provided Last Documented On 1 10:27AM ; [facility] Patient education about medi cation --- I educated patient on medication(s) and diagnosis. I reviewed the risks, benefits and side effects of patient's medications Last Documented On 1 11:00AM ; [facility] Discussed calming techniques such as breathing exercises and other relaxation techniques Last Documented On 1 11:00AM ; [facility] Counseling for nutrition/america ght management provided Last Documented On 1 11:14AM ; [facility] Patient education about medi cation --- I educated patient on medication(s) and diagnosis. I reviewed the risks, benefits and side effects of patient's medications Last Documented On 1 10:36AM ; [facility] Discussed calming techniques such as breathing exercises and other relaxation techniques Last Documented On 1 10:36AM ; [facility] Patient education about medi cation --- I educated patient on medication(s) and diagnosis. I reviewed the risks, benefits and side effects of patient's medications Last Documented On 0 12:10PM ; [facility] Patient education about medi cation --- I educated patient on medication(s) and diagnosis. I reviewed the risks, benefits and side effects of patient's medications Last Documented On 0 1:04PM ; [facility] Discussed calming techniques such as breathing exercises and other relaxation techniques Last Documented On 0 1:04PM ; [facility] Counseling for nutrition/america ght management provided Last Documented On 0 1:10PM ; [facility] Patient education about medi cation --- I educated patient on medication(s) and diagnosis. I reviewed the risks, benefits and side effects of patient's medications Last Documented On 0 1:33PM ; [facility] Discussed calming techniques such as breathing exercises and other relaxation techniques Last Documented On 0 1:33PM ; [facility] Counseling for nutrition/america ght management provided Last Documented On 0 1:39PM ; [facility] Patient education about a pr oper diet Last Documented On 0 2:45PM ; [facility] Patient education about medi cation --- I educated patient on medication(s) and diagnosis. I reviewed the risks, benefits and side effects of patient's medications Last Documented On 0 2:38PM ; [facility] Discussed calming techniques such as breathing exercises and other relaxation techniques Last Documented On 0 2:38PM ; [facility] Counseling for nutrition/america ght management provided Last Documented On 0 2:45PM ; [facility] Patient education about a pr oper diet Last Documented On 0 1:57PM ; [facility] Patient education about medi cation --- I educated patient on medication(s) and diagnosis. I reviewed the risks, benefits and side effects of patient's medications Last Documented On 0 1:43PM ; [facility] Discussed calming techniques such as breathing exercises and other relaxation techniques Last Documented On 0 1:43PM ; [facility] Counseling for nutrition/america ght management provided Last Documented On 0 1:57PM ; [facility] Patient education about a pr oper diet Last Documented On 0 2:50PM ; [facility] Patient education about medi cation --- I educated patient on medication(s) and diagnosis. I reviewed the risks, benefits and side effects of patient's medications Last Documented On 0 2:38PM ; [facility] Discussed calming techniques such as breathing exercises and other relaxation techniques Last Documented On 0 2:38PM ; [facility] Counseling for nutrition/america ght management provided Last Documented On 0 2:50PM ; [facility] Patient education about a pr oper diet Last Documented On 0 11:31AM ; [facility] Patient education about medi cation --- I educated patient on medication(s) and diagnosis. I reviewed the risks, benefits and side effects of patient's medications Last Documented On 0 11:20AM ; [facility] Discussed calming techniques such as breathing exercises and other relaxation techniques Last Documented On 0 11:20AM ; [facility] Counseling for nutrition/america ght management provided Last Documented On 0 11:31AM ; [facility] Patient education about a pr oper diet Last Documented On 9 2:08PM ; [facility] Patient education about medi cation --- I educated patient on medication(s) and diagnosis. I reviewed the risks, benefits and side effects of patient's medications Last Documented On 9 2:02PM ; [facility] Discussed calming techniques such as breathing exercises and other relaxation techniques Last Documented On 9 2:02PM ; [facility] Counseling for nutrition/america ght management provided Last Documented On 9 2:08PM ; [facility] Patient education about medi cation --- I educated patient on medication(s) and diagnosis. I reviewed the risks, benefits and side effects of patient's medications Last Documented On 9 1:59PM ; [facility] Discussed calming techniques such as breathing exercises and other relaxation techniques -- pt feels he is not able to do meditation Last Documented On 9 3:44AM ; [facility] Counseling for nutrition/america ght management provided Last Documented On 9 2:04PM ; [facility] Patient education about a pr oper diet Last Documented On 9 1:33PM ; [facility] Patient education about medi cation --- I educated patient on medication(s) and diagnosis. I reviewed the risks, benefits and side effects of patient's medications Last Documented On 9 1:27PM ; [facility] Discussed calming techniques such as breathing exercises and other relaxation techniques Last Documented On 9 1:27PM ; [facility] Counseling for nutrition/america ght management provided Last Documented On 9 1:33PM ; [facility] Patient education about a pr oper diet Last Documented On 8 4:19PM ; [facility] Patient education about medi cation --- I educated patient on medication(s) and diagnosis. I reviewed the risks, benefits and side effects of patient's medications Last Documented On 8 4:19PM ; [facility] Discussed calming techniques such as breathing exercises and other relaxation techniques Last Documented On 8 4:19PM ; [facility] Counseling for nutrition/america ght management provided Last Documented On 8 4:19PM ; [facility] Patient education about medi cation --- I educated patient on medication(s) and diagnosis. I reviewed the risks, benefits and side effects of patient's medications Last Documented On 8 2:01PM ; [facility] Discussed calming techniques such as breathing exercises and other relaxation techniques Last Documented On 8 2:01PM ; [facility] Patient education about medi cation --- I educated patient on medication(s) and diagnosis. I reviewed the risks, benefits and side effects of patient's medications Last Documented On 8 8:50AM ; [facility] Discussed calming techniques such as breathing exercises and other relaxation techniques Last Documented On 8 8:50AM ; [facility] Counseling for nutrition/america ght management provided -- pt has been working out as stress reliever Last Documented On 8 11:06AM ; [facility] Patient education about medi cation --- I educated patient on medication(s) and diagnosis. I reviewed the risks, benefits and side effects of patient's medications Last Documented On 7 9:29AM ; [facility] Discussed calming techniques such as breathing exercises and other relaxation techniques Last Documented On 7 9:29AM ; [facility] Patient education about medi cation --- I educated patient on medication(s) and diagnosis. I reviewed the risks, benefits and side effects of patient's medications Last Documented On 7 1:01PM ; [facility] Discussed calming techniques such as breathing exercises and other relaxation techniques Last Documented On 7 1:01PM ; [facility] Counseling for nutrition/america ght management provided Last Documented On 7 5:41PM ; [facility] Patient education about medi cation --- I educated patient on medication(s) and diagnosis. I reviewed the risks, benefits and side effects of patient's medications Last Documented On 7 4:53PM ; [facility] Discussed calming techniques such as breathing exercises/meditation and other relaxation techniques Last Documented On 7 4:53PM ; [facility] Patient education about medi cation --- I educated patient on medication(s) and diagnosis. I reviewed the risks, benefits and side effects of patient's medications Last Documented On 6 2:25PM ; [facility] Discussed calming techniques such as breathing exercises/meditation and other relaxation techniques Last Documented On 6 2:25PM ; [facility] Patient education about medi cation --- I educated patient on medication(s) and diagnosis. I reviewed the risks, benefits and side effects of patient's medications Last Documented On 6 4:13PM ; [facility] Discussed calming techniques such as breathing exercises/meditation and other relaxation techniques Last Documented On 6 4:13PM ; [facility] Counseling for nutrition/america ght management provided Last Documented On 6 3:41PM ; [facility] Patient education about medi cation --- I educated patient on medication(s) and diagnosis. I reviewed the risks, benefits and side effects of patient's medications Last Documented On 6 4:20PM ; [facility] Discussed calming techniques such as breathing exercises/meditation and other relaxation techniques Last Documented On 6 4:20PM ; [facility] Patient education about medi cation --- I educated patient on medication(s) and diagnosis. I reviewed the risks, benefits and side effects of patient's medications Last Documented On 6 8:52AM ; [facility] Discussed calming techniques such as breathing exercises/meditation and other relaxation techniques Last Documented On 6 8:52AM ; [facility] Patient education about medi cation --- I educated patient on medication(s) and diagnosis. I reviewed the risks, benefits and side effects of patient's medications Last Documented On 6 8:44AM ; [facility] Discussed calming techniques such as breathing exercises/meditation and other relaxation techniques Last Documented On 6 8:44AM ; [facility] Counseling for nutrition/america ght management provided Last Documented On 6 7:45AM ; [facility] Patient education about medi cation --- I educated patient on medication(s) and diagnosis. I reviewed the risks, benefits and side effects of patient's medications Last Documented On 6 3:15PM ; [facility] Discussed calming techniques such as breathing exercises/meditation and other relaxation techniques Last Documented On 6 3:15PM ; [facility] Medical Equipment - Implanted Devices Includes: Current and historical Devices No Medical Equipment Recorded Medications Includes: Current and historical Medications Current Medications (continue as prescribed) Vyvanse 60 MG Oral Capsule 10/03/2022 Provider: MARCIO WASSERMAN MD Diagnosis: Attention-defici t hyperactivity disorder, combined type 1 Capsule every morning Last Documented On 10/03/2022 2:24PM By Kelly Wasserman MD ; [facility] Azstarys 52.3-10.4 MG Oral Capsule 10/03/2022 Provider: MRACIO WASSERMAN MD Diagnosis: Attention-defici t hyperactivity disorder, combined type as directed -- 1 cap at 1 pm Last Documented On 10/03/2022 2:24PM By Kelly Wasserman MD ; [facility] Armodafinil 250 MG Oral Tablet 05/13/2022 Provider: MARCIO WASSERMAN MD Diagnosis: Circadian rhythm sleep disorder, delayed sleep phase type 1 tablet every morning Last Documented On 11:08AM By Kelly Wasserman MD ; [facility] Past Medications on file Azstarys 52.3-10.4 MG Oral Capsule 08/11/2022 - 10/03/2022 Provider: MARCIO WASSERMAN MD Diagnosis: Attention-defici t hyperactivity disorder, combined type as directed -- 1 cap at 1 pm Last Documented On 10/03/2022 2:12PM By Kelly Wasserman MD ; [facility] Vyvanse 60 MG Oral Capsule 07/26/2022 - 10/03/2022 Provider: MARCIO WASSERMAN MD Diagnosis: Attention-defici t hyperactivity disorder, combined type 1 Capsule every morning Last Documented On 10/03/2022 2:13PM By Kelly Wasserman MD ; [facility] Vyvanse 60 MG Oral Capsule 05/31/2022 - 07/26/2022 Provider: MARCIO WASSERMAN MD Diagnosis: Attention-defici t hyperactivity disorder, combined type 1 Capsule every morning Last Documented On 07/26/2022 4:40PM By Kelly Wasserman MD ; [facility] Armodafinil 250 MG Oral Tablet 05/04/2022 - 05/13/2022 Provider: MARCIO WASSERMAN MD Diagnosis: Circadian rhythm sleep disorder, delayed sleep phase type 1 tablet every morning Last Documented On 10:53AM By Kelly Wasserman MD ; [facility] Azstarys 39.2-7.8 MG Oral Capsule 05/04/2022 - 06/03/2022 Provider: MARCIO WASSERMAN MD Diagnosis: Attention-defici t hyperactivity disorder, combined type 1 Capsule every morning Last Documented On 11:19AM By Kelly Wasserman MD ; [facility] KlonoPIN 0.5 MG Oral Tablet 05/04/2022 - 06/03/2022 Provider: MARCIO ANAYA MD Diagnosis: Panic disorder [episodic paroxysmal anxiety] as directed - 1 tab a day as needed only for severe anxiety/panic Last Documented On 11:20AM By Kelly Wasserman MD ; [facility] Vyvanse 70 MG Oral Capsule 03/23/2022 - 08/11/2022 Provider: MARCIO WASSERMAN MD Diagnosis: Attention-defici t hyperactivity disorder, combined type 1 Capsule every morning Last Documented On 08/11/2022 9:33AM By Kelly Wasserman MD ; [facility] Armodafinil 250 MG Oral Tablet 02/17/2022 - 03/19/2022 Provider: MARCIO WASSERMAN MD Diagnosis: Attention-defici t hyperactivity disorder, combined type as directed -- 1 tab at noon Last Documented On 02/17/2022 2:12PM By Kelly Wasserman MD ; [facility] Vyvanse 70 MG Oral Capsule 02/07/2022 - 03/23/2022 Provider: MARCIO WASSERMAN MD Diagnosis: Attention-defici t hyperactivity disorder, combined type 1 Capsule every morning Last Documented On 11:13AM By Kelly Wasserman MD ; [facility] Vyvanse 70 MG Oral Capsule 12/27/2021 - 02/07/2022 Provider: MARCIO WASSERMAN MD Diagnosis: Attention-defici t hyperactivity disorder, combined type 1 Capsule every morning Last Documented On 02/07/2022 6:28PM By Kelly Wasserman MD ; [facility] Vyvanse 70 MG Oral Capsule 11/15/2021 - 12/27/2021 Provider: MARCIO WASSERMAN MD Diagnosis: Attention-defici t hyperactivity disorder, combined type 1 Capsule every morning Last Documented On 12/27/2021 3:01PM By Kelly Wasserman MD ; [facility] Medical [facility] Vyvanse 70 MG Oral Capsule 11/12/2021 - 11/15/2021 Provider: MARCIO WASSERMAN MD Diagnosis: Attention-defici t hyperactivity disorder, combined type 1 Capsule every morning Last Documented On 2 11:32AM By Kelly Wasserman MD ; [facility] V[facility] 60 MG Oral Capsule 10/04/2021 - 01/24/2022 Provider: MARCIO WASSERMAN MD Diagnosis: Attention-defici t hyperactivity disorder, combined type 1 Capsule every morning Last Documented On 01/24/2022 8:41AM By Kelly Wasserman MD ; [facility] Vy[facility]se 60 MG Oral Capsule 10/01/2021 - 10/04/2021 Provider: MARCIO WASSERMAN MD Diagnosis: Attention-defici t hyperactivity disorder, combined type 1 Capsule every morning Last Documented On 2 11:20AM By Kelly Wasserman MD ; [facility] Armodafinil 250 MG Oral Tablet 10/01/2021 - 05/04/2022 Provider: MARCIO WASSERMAN MD Diagnosis: Anxiety disorder , unspecified 1 tablet every morning Last Documented On 2 11:08AM By Kelly Wasserman MD ; [facility] V[facility]se 70 MG Oral Capsule 07/26/2021 - 10/25/2021 Pro vider: MARCIO WASSERMAN MD Diagnosis: 1 Capsule every morning Last Documented On 2 10:40AM By Kelly Wasserman MD ; [facility] Medical [facility] Vyvanse 70 MG Oral Capsule 05/17/2021 - 07/26/2021 Pro vider: MARCIO WASSERMAN MD Diagnosis: 1 Capsule every morning Last Documented On 07/26/2021 3:20PM By Kelly Wasserman MD ; [facility] Strattera 60 MG Oral Capsule 05/17/2021 - 10/25/2021 Provider: MARCIO WASSERMAN MD Diagnosis: Anxiety disorder , unspecified as directed - 1 cap at 11 am Last Documented On 2 10:40AM By Kelly Wasserman MD ; [facility] Mydayis 50 MG Oral Capsule Extended Release 24 Hour 05/17/2021 - 10/25/2021 Provider: MARCIO WASSERMAN MD Diagnosis: 1 Capsule every morning Last Documented On 2 10:40AM By Kelly Wasserman MD ; [facility] Vyvanse 70 MG Oral Capsule 02/19/2021 - 05/17/2021 Pro vider: MARCIO WASSERMAN MD Diagnosis: 1 Capsule every morning Last Documented On 05/17/2021 1:01PM By Kelly Wasserman MD ; [facility] Mydayis 50 MG Oral Capsule Extended Release 24 Hour 02/19/2021 - 05/17/2021 Provider: MARCIO WASSERMAN MD Diagnosis: 1 Capsule every morning Last Documented On 05/17/2021 1:02PM By Kelly Wasserman MD ; [facility] Vyvanse 70 MG Oral Capsule 12/30/2020 - 02/19/2021 Provider: MARCIO WASSERMAN MD Diagnosis: Attention-defici t hyperactivity disorder, combined type 1 Capsule every morning Last Documented On 12:03PM By Kelly Wasserman MD ; [facility] Strattera 60 MG Oral Capsule 12/25/2020 - 05/17/2021 Provider: MARCIO WASSERMAN MD Diagnosis: Anxiety disorder , unspecified as directed - 1 cap at 11 am Last Documented On 05/17/2021 1:00PM By Kelly Wasserman MD ; [facility] Mydayis 50 MG Oral Capsule Extended Release 24 Hour 12/24/2020 - 02/19/2021 Provider: MARCIO WASSERMAN MD Diagnosis: Attention-defici t hyperactivity disorder, combined type 1 Capsule every morning Last Documented On 12:03PM By Kelly Wasserman MD ; [facility] Mydayis 37.5 MG Oral Capsule Extended Release 24 Hour 11/10/2020 - 12/25/2020 Provider: MARCIO WASSERMAN MD Diagnosis: Attention-defici t hyperactivity disorder, combined type as directed - 1 cap at noon Last Documented On 12/25/2020 7:17AM By Kelly Wasserman MD ; [facility] Medical [facility] EDS Vyvanse 70 MG Oral Capsule 11/10/2020 - 10/25/2021 Provider: MARCIO WASSERMAN MD Diagnosis: Attention-defici t hyperactivity disorder, combined type 1 Capsule every morning Last Documented On 10:40AM By [facility] My[facility] 37.5 [facility] Oral Capsule Extended Release 24 Hour 09/25/2020 - 11/10/2020 Provider: MARCIO WASSERMAN MD Diagnosis: Attention-defici t hyperactivity disorder, combined type as directed - 1 cap at noon Last Documented On 11/10/2020 4:04PM By Kelly [facility] MD [facility] Oral Caps[facility] 09/25/2020 - 11/10/2020 Provider: MARCIO WASSERMAN MD Diagnosis: Attention-defici t hyperactivity disorder, combined type 1 Capsule every morning Last Documented On 11/10/2020 4:03PM By Kelly [facility] MD ; [facility] My[facility].5 [facility] Oral Capsule Extended Release 24 Hour 08/14/2020 - 09/25/2020 Provider: MARCIO WASSERMAN MD Diagnosis: Attention-defici t hyperactivity disorder, combined type as directed - 1 cap at noon Last Documented On 09/25/2020 5:29PM By Kelly [facility] MD ; [facility] Oral Capsule 08/14/2020 - 09/25/2020 Provider: MARCIO WASSERMAN MD Diagnosis: Attention-defici t hyperactivity disorder, combined type 1 Capsule every morning Last Documented On 09/25/2020 5:28PM By Kelly [facility] MD [facility] Armod[facility] 150 MG Oral Tablet 07/15/2020 - 10/25/2021 Provider: MARCIO WASSERMAN MD Diagnosis: Circadian rhythm sleep disorder, delayed sleep phase type 1 tablet every morning Last Documented On 10:41AM By Kelly Wasserman MD ; [facility] Medical [facility] Mydayis 37.5 MG Oral Capsule Extended Release 24 Hour 07/15/2020 - 08/14/2020 Provider: MARCIO WASSERMAN MD Diagnosis: Attention-defici t hyperactivity disorder, combined type as directed - 1 cap at noon Last Documented On 08/14/2020 3:10PM By Kelly [facility] MD [facility] Oral Capsule 07/02/2020 - 08/14/2020 Provider: MARCIO WASSERMAN MD Diagnosis: Attention-defici t hyperactivity disorder, combined type 1 Capsule every morning Last Documented On 08/14/2020 3:11PM By Kelly Wasserman MD ; [facility] Armodafinil 150 MG Oral Tablet 07/02/2020 - 07/15/2020 Provider: MARCIO WASSERMAN MD Diagnosis: Circadian rhythm sleep disorder, delayed sleep phase type 1 tablet every morning -- to be sent later Last Documented On 07/15/2020 5:40PM By Kelly Wasserman MD ; [facility] Vyvanse 60 MG Oral Capsule 05/20/2020 - 10/12/2020 Provider: MARCIO ANAYA MD Diagnosis: Anxiety disorder , unspecified 1 Capsule every morning Last Documented On 10/12/2020 7:56AM By Kelly Wasserman MD ; [facility] Mydayis 37.5 MG Oral Capsule Extended Release 24 Hour 05/20/2020 - 07/15/2020 Provider: MARCIO WASSERMAN MD Diagnosis: Attention-defici t hyperactivity disorder, combined type as directed - 1 cap at noon Last Documented On 07/15/2020 5:41PM By Kelly Wasserman MD ; [facility] Vyvanse 60 MG Oral Capsule 04/03/2020 - 05/20/2020 Provider: MARCIO ANAYA MD Diagnosis: Anxiety disorder , unspecified 1 Capsule every morning Last Documented On 05/20/2020 5:39PM By Kelly [facility] MD [facility] My[facility].5 [facility] Oral Capsule Extended Release 24 Hour 04/03/2020 - 05/20/2020 Provider: MARCIO WASSERMAN MD Diagnosis: Attention-defici t hyperactivity disorder, combined type as directed - 1 cap at noon Last Documented On 05/20/2020 5:31PM By Kelly Wasserman MD ; [facility] Vyvanse 60 MG Oral Capsule 03/03/2020 - 04/03/2020 Provider: MARCIO ANAYA MD Diagnosis: Anxiety disorder , unspecified 1 Capsule every morning Last Documented On 04/03/2020 1:48PM By Kelly Wasserman MD ; [facility] Mydayis 37.5 MG Oral Capsule Extended Release 24 Hour 03/03/2020 - 04/03/2020 Provider: MARCIO WASSERMAN MD Diagnosis: Attention-defici t hyperactivity disorder, combined type as directed - 1 cap at noon Last Documented On 04/03/2020 1:46PM By Kelly Wasserman MD ; [facility] Mydayis 37.5 MG Oral Capsule Extended Release 24 Hour 01/21/2020 - 03/03/2020 Provider: MARCIO WASSERMAN MD Diagnosis: Attention-defici t hyperactivity disorder, combined type as directed - 1 cap at noon Last Documented On 03/03/2020 3:19PM By Kelly [facility] MD ; [facility] V[facility] MG Oral Capsule 01/21/2020 - 03/03/2020 Provider: MARCIO ANAYA MD Diagnosis: Anxiety disorder , unspecified 1 Capsule every morning Last Documented On 03/03/2020 3:18PM By Kelly Wasserman MD ; [facility] Vyvanse 60 MG Oral Capsule 12/17/2019 - 01/21/2020 Provider: MARCIO ANAYA MD Diagnosis: Anxiety disorder , unspecified 1 Capsule every morning Last Documented On 01/21/2020 2:23PM By Kelly Wasserman MD ; [facility] Mydayis 25 MG Oral Capsule Extended Release 24 Hour 12/06/2019 - 01/05/2020 Provider: MARCIO WASSERMAN MD Diagnosis: Attention-defici t hyperactivity disorder, combined type 1 Capsule every morning Last Documented On 12/06/2019 6:07PM By Kelly Wasserman MD ; [facility] Vyvanse 60 MG Oral Capsule 11/07/2019 - 12/17/2019 Provider: MARCIO ANAYA MD Diagnosis: Anxiety disorder , unspecified 1 Capsule every morning Last Documented On 12/17/2019 3:49PM By Kelly Wasserman MD ; [facility] Vyvanse 60 MG Oral Capsule 09/25/2019 - 11/07/2019 Provider: MARCIO ANAYA MD Diagnosis: Anxiety disorder , unspecified 1 Capsule every morning Last Documented On 11/07/2019 3:53PM By Kelly Wasserman MD ; [facility] Jornay PM 100 MG Oral Capsule Extended Release 24 Hour 09/25/2019 - 01/25/2020 Provider: MARCIO WASSERMAN MD Diagnosis: Attention-defici t hyperactivity disorder, combined type as directed - 1 cap at 8 pm Last Documented On 0 11:34PM By Kelly Wasserman MD ; [facility] Mydayis 25 MG Oral Capsule Extended Release 24 Hour 08/23/2019 - 09/22/2019 Provider: MARCIO WASSERMAN MD Diagnosis: Attention-defici t hyperactivity disorder, combined type as directed --1 cap at 1 pm Last Documented On 08/23/2019 3:29PM By Kelly Wasserman MD ; [facility] Jornay PM 100 MG Oral Capsule Extended Release 24 Hour 08/23/2019 - 09/25/2019 Provider: MARCIO WASSERMAN MD Diagnosis: Anxiety disorder , unspecified as directed - 1 cap at 8 pm Last Documented On 09/25/2019 2:45PM By Kelly Wasserman MD ; [facility] Vyvanse 60 MG Oral Capsule 08/23/2019 - 09/25/2019 Provider: MARCIO ANAYA MD Diagnosis: Anxiety disorder , unspecified 1 Capsule every morning Last Documented On 09/25/2019 2:15PM By Kelly Wasserman MD ; [facility] Jornay PM 60 MG Oral Capsule Extended Release 24 Hour 07/31/2019 - 09/25/2019 Provider: MARCIO WASSERMAN MD Diagnosis: 1 tab at 9 pm Last Documented On 09/25/2019 3:21PM By eKlly Wasserman MD ; [facility] Jornay PM 60 MG Oral Capsule Extended Release 24 Hour 07/24/2019 - 08/23/2019 Provider: MARCIO WASSERMAN MD Diagnosis: Attention-defici t hyperactivity disorder, combined type as directed -- 1 cap in the evening Last Documented On 0 12:14PM By Kelly [facility] MD ; [facility] MG Oral Capsule 07/24/2019 - 08/23/2019 Provider: MARCIO ANAYA MD Diagnosis: Anxiety disorder , unspecified 1 Capsule every morning Last Documented On 08/23/2019 3:38PM By Kelly Wasserman MD ; [facility] V[facility] MG Oral Capsule 06/26/2019 - 07/24/2019 Provider: MARCIO WASSERMAN MD Diagnosis: Attention-defici t hyperactivity disorder, combined type 1 Capsule every morning Last Documented On 0 12:14PM By Kelly Wasserman MD ; [facility] Jornay PM 40 MG Oral Capsule Extended Release 24 Hour 06/04/2019 - 08/04/2019 Provider: MARCIO WASSERMAN MD Diagnosis: 1 Capsule in the afternoon. Last Documented On 08/04/2019 9:54PM By Kelly Wasserman MD ; [facility] Jornay PM 40 MG Oral Capsule Extended Release 24 Hour 05/21/2019 - 06/20/2019 Provider: MARCIO WASSERMAN MD Diagnosis: Attention-defici t hyperactivity disorder, combined type as directed -- 1 cap in the evening Last Documented On 05/21/2019 2:59PM By Kelly Wasserman MD ; [facility] Vyvanse 60 MG Oral Capsule 05/21/2019 - 06/26/2019 Provider: MARCIO WASSERMAN MD Diagnosis: Attention-defici t hyperactivity disorder, combined type 1 Capsule every morning Last Documented On 06/26/2019 1:57PM By Kelly [facility] MD ; [facility] V[facility] MG Oral Capsule 04/11/2019 - 05/21/2019 Provider: MARCIO WASSERMAN MD Diagnosis: Attention-defici t hyperactivity disorder, combined type 1 Capsule every morning Last Documented On 05/21/2019 2:55PM By Kelly W[facility] MD ; [facility] V[facility] 60MG Oral Capsule 02/25/2019 - 04/11/2019 Provider: MARCIO WASSERMAN MD Diagnosis: Attention-defici t hyperactivity disorder, combined type 1 Capsule every morning Last Documented On 04/11/2019 3:29PM By Kelly Wasserman MD ; [facility] Concerta 36MG Oral Tablet Extended Release 02/25/2019 - 07/24/2019 Provider: MARCIO WASSERMAN MD Diagnosis: Anxiety disorder , unspecified as directed -- 2 tabs at noon Last Documented On 0 11:30AM By MARCOS CHAMPION ; [facility] Concerta 36MG Oral Tablet Extended Release 12/21/2018 - 02/25/2019 Provider: MARCIO WASSERMAN MD Diagnosis: Anxiety disorder , unspecified as directed -- 2 tabs at noon Last Documented On 02/25/2019 2:26PM By Kelly Wasserman MD ; [facility] V[facility] 60MG Oral Capsule 12/21/2018 - 02/25/2019 Provider: MARCIO WASSERMAN MD Diagnosis: Attention-defici t hyperactivity disorder, combined type 1 Capsule every morning Last Documented On 02/25/2019 2:27PM By Kelly Wasserman MD ; [facility] Concerta 36MG Oral Tablet Extended Release 11/12/2018 - 12/21/2018 Provider: MARCIO WASSERMAN MD Diagnosis: Anxiety disorder , unspecified as directed -- 2 tabs at noon Last Documented On 12/21/2018 2:40PM By Kelly Wasserman MD ; [facility] Vyvanse 60MG Oral Capsule 11/12/2018 - 12/21/2018 Provider: MARCIO WASSERMAN MD Diagnosis: Attention-defici t hyperactivity disorder, combined type 1 Capsule every morning Last Documented On 12/21/2018 2:40PM By Kelly Wasserman MD ; [facility] Concerta 36MG Oral Tablet Extended Release 09/24/2018 - 11/12/2018 Provider: MARCIO WASSERMAN MD Diagnosis: Anxiety disorder , unspecified as directed -- 2 tabs at noon Last Documented On 9 12:03PM By Kelly Wasserman MD ; [facility] V[facility] 60MG Oral Capsule 09/24/2018 - 11/12/2018 Provider: MARCIO WASSERMAN MD Diagnosis: Attention-defici t hyperactivity disorder, combined type 1 Capsule every morning Last Documented On 9 12:03PM By Kelly Wasserman MD ; [facility] Concert[facility] 36MG Oral Tablet Extended Release 08/20/2018 - 09/24/2018 Provider: MARCIO WASSERMAN MD Diagnosis: Anxiety disorder , unspecified as directed -- 2 tabs at noon Last Documented On 9 11:38AM By Kelly Wasserman MD ; [facility] Concerta 36MG Oral Tablet Extended Release 08/17/2018 - 08/17/2018 Provider: MARCIO WASSERMAN MD Diagnosis: Attention-defici t hyperactivity disorder, combined type as directed -- 2 tabs at noon Last Documented On 08/20/2018 7:22AM By Kelly Wasserman MD ; [facility] Vyvanse 60MG Oral Capsule 08/17/2018 - 09/24/2018 Provider: MARCIO WASSERMAN MD Diagnosis: Attention-defici t hyperactivity disorder, combined type 1 Capsule every morning Last Documented On 9 11:37AM By Kelly Wasserman MD ; [facility] Methylphenidate HCl 20MG Oral Tablet 07/03/2018 - 08/20/2018 Provider: MARCIO WASSERMAN MD Diagnosis: Anxiety disorder , unspecified as directed --1 tab at at 2 pm and 1 tab at 5 pm Last Documented On 08/20/2018 7:19AM By Kelly Wasserman MD ; [facility] Vyvanse 50MG Oral Capsule 07/03/2018 - 08/20/2018 Provider: MARCIO WASSERMAN MD Diagnosis: Attention-defici t hyperactivity disorder, combined type 1 Capsule every morning Last Documented On 08/20/2018 7:19AM By Kelly Wasserman MD ; [facility] Vyvanse 50MG Oral Capsule 03/20/2018 - 07/03/2018 Provider: MARCIO WASSERMAN MD Diagnosis: Attention-defici t hyperactivity disorder, combined type as directed --1 cap in am Last Documented On 07/03/2018 5:36PM By Kelly Wasserman MD ; [facility] Methylphenidate HCl 20MG Oral Tablet 12/18/2017 - 07/03/2018 Provider: MARCIO WASSERMAN MD Diagnosis: Attention-defici t hyperactivity disorder, combined type as directed --1 tab at at 2 pm and 1 tab at 5 pm Last Documented On 07/03/2018 5:36PM By Kelly [facility] MD ; [facility] V[facility] 50MG Oral Capsule, conventional 12/18/2017 - 03/20/2018 Provider: MARCIO WASSERMAN MD Diagnosis: Attention-defici t hyperactivity disorder, combined type as directed --1 cap in am Last Documented On 8 10:56AM By Kelly Wasserman MD ; [facility] M[facility] 20MG Oral Tablet 11/14/2017 - 12/18/2017 Provider: MARCIO WASSERMAN MD Diagnosis: Attention-defici t hyperactivity disorder, combined type as directed --1 tab at at 2 pm and 1 tab at 5 pm Last Documented On 12/18/2017 5:14PM By Kelly Wasserman MD ; [facility] V[facility] 50MG Oral Capsule 11/14/2017 - 12/18/2017 Provider: MARCIO WASSERMAN MD Diagnosis: Attention-defici t hyperactivity disorder, combined type as directed --1 cap in am Last Documented On 12/18/2017 5:14PM By Kelly Wasserman MD ; [facility] Methylphenidate HCl 20MG Oral Tablet 08/03/2017 - 11/14/2017 Provider: MARCIO WASSERMAN MD Diagnosis: Attention-defici t hyperactivity disorder, combined type as directed --1 tab at at 2 pm and 1 tab at 5 pm Last Documented On 11/14/2017 2:56PM By Kelly Wasserman MD ; [facility] V[facility] 40MG Oral Capsule, conventional 08/03/2017 - 11/20/2017 Provider: MARCIO WASSERMAN MD Diagnosis: Attention-defici t hyperactivity disorder, combined type 1 Capsule every morning Last Documented On 11/20/2017 2:47AM By Kelly Wasserman MD ; [facility] Methylphenidate HCl 20MG Oral Tablet 07/06/2017 - 08/03/2017 Provider: MARCIO WASSERMAN MD Diagnosis: Attention-defici t hyperactivity disorder, combined type as directed --1 tab at at 2 pm and 1 tab at 5 pm Last Documented On 08/03/2017 9:35AM By Kelly Wasserman MD ; [facility] V[facility] 40MG Oral Capsule 07/06/2017 - 08/03/2017 Provider: MARCIO WASSERMAN MD Diagnosis: Attention-defici t hyperactivity disorder, combined type 1 Capsule every morning Last Documented On 08/03/2017 9:35AM By Kelly Wasserman MD ; [facility] Methylphenidate HCl 20MG Oral Tablet 04/10/2017 - 07/06/2017 Provider: MARCIO WASSERMAN MD Diagnosis: Attention-defici t hyperactivity disorder, combined type as directed --1 tab at at 2 pm and 1 tab at 5 pm Last Documented On 07/06/2017 2:17PM By Kelly Wasserman MD ; [facility] V[facility] 40MG Oral Capsule, conventional 04/10/2017 - 07/06/2017 Provider: MARCIO WASSERMAN MD Diagnosis: Attention-defici t hyperactivity disorder, combined type 1 Capsule every morning Last Documented On 07/06/2017 2:16PM By Kelly Wasserman MD ; [facility] Methylphenidate HCl 20MG Oral Tablet 02/17/2017 - 04/10/2017 Provider: MARCIO WASSERMAN MD Diagnosis: Attention-defici t hyperactivity disorder, combined type as directed --1 tab at at 2 pm and 1 tab at 5 pm Last Documented On 04/10/2017 2:32PM By Kelly Wasserman MD ; [facility] V[facility] 40MG Oral Capsule 02/17/2017 - 04/10/2017 Provider: MARCIO WASSERMAN MD Diagnosis: Attention-defici t hyperactivity disorder, combined type 1 Capsule every morning Last Documented On 04/10/2017 2:29PM By Kelly Wasserman MD ; [facility] V[facility] 40MG Oral Capsule, conventional 01/18/2017 - 02/17/2017 Provider: MARCIO WASSERMAN MD Diagnosis: Attention-defici t hyperactivity disorder, combined type 1 Capsule every morning Last Documented On 02/17/2017 9:52AM By Kelly Wasserman MD ; [facility] M[facility] 20MG Oral Tablet 01/18/2017 - 02/17/2017 Provider: MARCIO WASSERMAN MD Diagnosis: Attention-defici t hyperactivity disorder, combined type as directed --1 tab at at 2 pm and 1 tab at 5 pm Last Documented On 02/17/2017 9:56AM By Kelly Wasserman MD ; [facility] Vyvanse 40MG Oral Capsule 12/08/2016 - 01/18/2017 Provider: MARCIO WASSERMAN MD Diagnosis: Attention-defici t hyperactivity disorder, combined type 1 Capsule every morning Last Documented On 01/18/2017 2:54PM By Kelly Wasserman MD ; [facility] Methylphenidate HCl 20MG Oral Tablet 12/08/2016 - 01/18/2017 Provider: MARCIO WASSERMAN MD Diagnosis: Attention-defici t hyperactivity disorder, combined type as directed --1 tab at at 2 pm and 1 tab at 5 pm Last Documented On 01/18/2017 2:39PM By Kelly Wasserman MD ; [facility] M[facility] 20MG Oral Tablet 10/24/2016 - 12/08/2016 Provider: MARCIO WASSERMAN MD Diagnosis: Anxiety disorder , unspecified as directed --1 tab in the afternoon Last Documented On 12/08/2016 1:36PM By Kelly Wasserman MD ; [facility] Vyvanse 40MG Oral Capsule 10/24/2016 - 12/08/2016 Provider: MARCIO WASSERMAN MD Diagnosis: Attention-defici t hyperactivity disorder, combined type 1 Capsule every morning Last Documented On 12/08/2016 1:36PM By Kelly Wasserman MD ; [facility] M[facility] 20MG Oral Tablet 09/08/2016 - 10/24/2016 Provider: MARCIO WASSERMAN MD Diagnosis: Anxiety disorder , unspecified as directed --1 tab in the afternoon Last Documented On 10/24/2016 2:56PM By Kelly Wasserman MD ; [facility] Vyvanse 40MG Oral Capsule, conventional 09/08/2016 - 10/24/2016 Provider: MARCIO WASSERMAN MD Diagnosis: Attention-defici t hyperactivity disorder, combined type 1 Capsule every morning Last Documented On 10/24/2016 2:55PM By Kelly Wasserman MD ; [facility] M[facility] 20 MG Tablet 07/28/2016 - 09/08/2016 Provider: MARCIO WASSERMAN MD Diagnosis: Anxiety disorder , unspecified as directed --1 tab in the afternoon Last Documented On 09/08/2016 1:45PM By Kelly Wasserman MD ; [facility] Vyvanse 40 MG Capsule 07/28/2016 - 09/08/2016 Provider: MARCIO WASSERMAN MD Diagnosis: Attention-defici t hyperactivity disorder, combined type 1 Capsule every morning Last Documented On 09/08/2016 1:44PM By Kelly Wasserman MD ; [facility] Vyvanse 40 MG Capsule, conventional 06/27/2016 - 07/28/2016 Provider: MARCIO WASSERMAN MD Diagnosis: Attention-defici t hyperactivity disorder, combined type 1 Capsule every morning Last Documented On 07/28/2016 4:38PM By Kelly Wasserman MD ; [facility] M[facility] 20 MG Tablet 06/27/2016 - 07/28/2016 Provider: MARCIO WASSERMAN MD Diagnosis: Anxiety disorder , unspecified as directed --1 tab in the afternoon Last Documented On 07/28/2016 4:38PM By Kelly Wasserman MD ; [facility] M[facility] 20 MG Tablet 06/01/2016 - 06/27/2016 Provider: MARCIO WASSERMAN MD Diagnosis: Attention-defici t hyperactivity disorder, combined type as directed --1 tab in am and 1 tab at noon Last Documented On 06/27/2016 3:15PM By Kelly Wasserman MD ; [facility] V[facility]se 30 MG Capsule, conventional 04/25/2016 - 06/28/2016 Provider: MARCIO WASSERMAN MD Diagnosis: Attention-defici t hyperactivity disorder, combined type as directed -- 1 cap in am Last Documented On 06/28/2016 9:20AM By Kelly Wasserman MD ; [facility] Vyvanse 30 MG Capsule, conventional 03/16/2016 - 04/25/2016 Provider: MARCIO WASSERMAN MD Diagnosis: Attention-defici t hyperactivity disorder, combined type as directed -- 1 cap in am Last Documented On 6 12:21PM By Kelly Wasserman MD ; [facility] M[facility] 20 MG Tablet 03/16/2016 - 06/01/2016 Provider: MARCIO WASSERMAN MD Diagnosis: Attention-defici t hyperactivity disorder, combined type as directed --1 tab in am and 1 tab at noon Last Documented On 6 10:55AM By Kelly Wasserman MD ; [facility] M[facility] 20 MG Tablet 01/19/2016 - 03/16/2016 Provider: MARCIO WASSERMAN MD Diagnosis: Attention-defici t hyperactivity disorder, combined type as directed --1 tab in am and 1 tab at noon Last Documented On 03/16/2016 5:10PM By Kelly Wasserman MD ; [facility] V[facility]se 30 MG Capsule, conventional 01/19/2016 - 03/16/2016 Provider: MARCIO WASSERMAN MD Diagnosis: Attention-defici t hyperactivity disorder, combined type as directed -- 1 cap in am Last Documented On 03/16/2016 5:10PM By Kelly Wasserman MD ; [facility] V[facility] 30 MG Capsule, conventional 11/25/2015 - 03/16/2016 Provider: MARCIO WASSERMAN MD Diagnosis: Attention-defici t hyperactivity disorder, combined type 1 Capsule every morning Last Documented On 6 4:17PM By NICOLAS MACE LPN ; [facility] Focalin 10 MG Tablet 11/25/2015 - 01/25/2016 Provider: MARCIO WASSERMAN MD Diagnosis: Attention-defici t hyperactivity disorder, combined type as directed - 1 tab in am an d 1 tab at noon Last Documented On 01/25/2016 3:20AM By Kelly Wasserman MD ; [facility] Focalin XR 20 MG Capsule, extended-release 24 hour 10/09/2015 - 01/19/2016 Provider: MARCIO WASSERMAN MD Diagnosis: Attention-defici t hyperactivity disorder, combined type 1 Capsule every morning Last Documented On 6 4:33PM By NICOLAS MACE LPN ; [facility] F[facility] 10 MG Tablet 10/09/2015 - 01/19/2016 Provider: MARCIO WASSERMAN MD Diagnosis: Attention-defici t hyperactivity disorder, combined type as directed -- 1 tab in am, 1 tab at noon, 1 tab at 5 pm Last Documented On 6 4:33PM By NICOLAS MACE LPN ; [facility] Focalin 10 MG Tablet 09/14/2015 - 11/25/2015 Provider: MARCIO WASSERMAN MD Diagnosis: Attention-defici t hyperactivity disorder, combined type as directed - 1 tab in am an d 1 tab at noon Last Documented On 11/25/2015 5:54PM By Kelly Wasserman MD ; [facility] Focalin 10 MG Tablet 09/01/2015 - 09/14/2015 Provider: MARCIO WASSERMAN MD Diagnosis: Attention-defici t hyperactivity disorder, combined type as directed - 1 tab in am an d 1 tab at noon Last Documented On 09/14/2015 9:12AM By Kelly Wasserman MD ; [facility] Focalin 10 MG Tablet 08/11/2015 - 09/01/2015 Provider: MARCIO WASSERMAN MD Diagnosis: Attention-defici t hyperactivity disorder, combined type 1 tablet every morning Last Documented On 09/01/2015 2:53PM By Kelly Wasserman MD ; [facility] Medications Administered Includes: Administered Medications in patient's chart No Administered Medications Recorded Results Includes: Results from 09/06/2023 through 09/06/2024 No Results Recorded For Specified Dates History of Present Illness History of Present Illness not supported for this document type No History of Present Illness Recorded Social History Description Last Updated Current nonsmoker 12/24/2020 Last Documented On 1 8:45AM ; [facility] Alcohol 12/24/2020 Last Documented On 1 8:45AM ; [facility] Lives with spouse 12/24/2020 Last Documented On 1 8:45AM ; [facility] Daily coffee consumption -- He drinks 1 cup of coffee a day. No soda or tea 12/06/2019 Last Documented On 0 6:16PM ; [facility] He was born and raised in [place], [place]. 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 [employer] 07/06/2018 Last Documented On 8 2:04PM ; [facility] Marital history -- 08/11/2015 Last Documented On 6 7:56PM ; [facility] Not using drugs (Illicit) 08/11/2015 Last Documented On 6 7:56PM ; [facility] Smoking Status Unknown Medical History Includes: Medical History in patient's chart Description Last Updated History of coronavirus 2019- nCoV vaccine - Pfizer #1 10/06/20 #2 11/03/20 #3 04/202102/17/2022 Last Documented On 2 9:06AM ; [facility] History of sinusitis - given Augmentin 875 mg and Prednisone Dosepak 4 mg (did not take Prednisone) 01/03/21;given Augmentin 875 mg #20 on 03/31/20 03/10/2021 Last Documented On 1 10:47AM ; [facility] History of oral thrush - treated with Ny statin Suspension 100,000 05/11/19 05/21/2019 Last Documented On 9 10:18PM ; [facility] Primary Care Provider: [facility] 05/21/2019 Last Documented On 9 10:18PM ; [facility] Family History Includes: Family History in patient's chart Description Last Updated Family medical history : No significant family history 08/11/2015 Last Documented On 6 7:56PM ; [facility] Review of Systems Review of Systems not supported for this document type No Review of Systems Recorded Mental Status No Mental Status Recorded Functional Status No Functional Status Recorded Physical Exam Physical Exam not supported for this document type No Physical Exam Recorded Allergies Includes: Active, inactive, and resolved Allergies No Known Allergies Insurance Includes: Active Insurance Policies Plan Name Member ID Group # Subscriber Relationship Effect yohana Dates 1 - ADMINISTRATIVE CONCEPTS [id number] DONALD A LIANG Self Clinical Notes Includes: Signed Clinical Notes starting from 08/05/2022 No Clinical Notes Recorded
--- OUTSIDE RECORDS SUMMARY | 2024-09-06 08:14 | XMS_ITS | Clinical Summary ---
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 Last Documented On 3 5:53PM ; [facility] Anxiety Disorder Nos 12/16/2015 Acti ve Last Documented On 3 5:49PM ; [facility] Attention-deficit Hyperactivity Disorder 08/11/2015 Active Last Documented On 3 5:49PM ; [facility] Plan of Treatment No Plan of [...] 01/01/2024 11:46AM By Kelly Wasserman MD ; [facility] Armodafinil 250 MG Oral Tablet 08/21/2023 Provider: MARCIO WASSERMAN MD Diagnosis: Attention-defici t hyperactivity disorder, combined type as directed - 1 tab as noon Last Documented On 08/21/2023 2:57PM By Kelly Wasserman MD ; [facility] Medications Administered Includes: Administered Medications from [...] Effect yohana Dates 1 - ADMINISTRATIVE CONCEPTS [id number] DONALD LIANG Self Clinical Notes Includes: Clinical Notes from this encounter No Clinical Notes Recorded
--- OUTSIDE RECORDS SUMMARY | 2024-09-06 08:14 | XMS_ITS | Clinical Summary ---
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 Last Documented On 3 5:53PM ; [facility] Anxiety Disorder Nos 12/16/2015 Acti ve Last Documented On 3 5:49PM ; [facility] Attention-deficit Hyperactivity Disorder 08/11/2015 Active Last Documented On 3 5:49PM ; [facility] Plan of Treatment Attention [...] - Last Documented On 09/06/2023 3:35PM ; [facility] Education and Decision Aids were provided during visit for: Calming techniques such as b reathing exercises/meditation and other relaxation techniques Last Documented On 4 3:34PM ; [facility] Assessments Includes: Assessments from this encounter Findings - Attention-deficit hyperactivity disorder - Last Documented On 09/06/2023 3:35PM ; [facility] - Circadian rhythm sleep disorder - Last Documented On 09/06/2023 3:35PM ; [facility] - Panic disorder - Last Documented On 09/06/2023 3:35PM ; [facility] - Anxiety disorder NOS - Last Documented On 09/06/2023 3:35PM ; [facility] Instructions Includes: Instructions from this encounter Education and Decision Aids were provided during visit for: Calming techniques such as b reathing exercises/meditation and other relaxation techniques Last Documented On 3:34PM ; [facility] Medical Equipment - Implanted [...] Laws) - [address] , [facility], [id number] - Last Documented On 11/28/2023 11:19AM By Kelly Wasserman MD ; [facility] Armodafinil 250 MG Oral Tablet Provider: MARCIO WASSERMAN MD 30 day supply: 30 tablet, 3 refills Diagnosis: Attention-deficit hyperactivity disorder, combined type as directed - 1 tab as noon Pharmacy: [address], [address] - Last Documented On 08/21/2023 2:57PM By Kelly Wasserman MD ; [facility] Vyvanse 60 MG Oral Capsule Provider: MARCIO WASSERMAN MD 30 day supply: 30 capsule, 0 refills Diagnosis: Attention-deficit hyperactivity disorder, combined type 1 Capsule every morning Pharmacy: [facility] - [address] [facility], [phone] - Last Documented On 09/27/2023 5:59PM By Kelly Wasserman MD ; [facility] Current Medications (continue as prescribed) Vyvanse 60 MG Oral Capsule 01/01/2024 Provider: MARCIO WASSERMAN MD Diagnosis: Attention-defici t hyperactivity disorder, combined type 1 Capsule every morning Last Documented On 01/01/2024 11:46AM By Kelly Wasserman MD ; [facility] Past Medications on file Armodafinil 250 MG Oral Tablet 12/01/2022 - 03/31/2023 Provider: MARCIO WASSERMAN MD Diagnosis: Circadian rhythm sleep disorder, delayed sleep phase type 1 tablet every morning Last Documented On 12/01/2022 12:50PM By Kelly Wasserman MD ; [facility] Vyvanse 60 MG Oral Capsule 11/21/2022 - 12/21/2022 Provider: MARCIO WASSERMAN MD Diagnosis: Attention-defici t hyperactivity disorder, combined type *1 AM - 1 Capsule every morning Last Documented On 11/21/2022 4:06PM By Kelly Wasserman MD ; [facility] Azstarys 52.3-10.4 MG Oral Capsule 11/21/2022 - 12/21/2022 Provider: MARCIO WASSERMAN MD Diagnosis: Attention-defici t hyperactivity disorder, combined type ud - as directed as directed -- 1 cap at 1 pm Last Documented On 11/21/2022 4:06PM By Kelly aWsserman MD ; [facility] KlonoPIN 0.5 MG OR TABS 05/04/2022 - 06/03/2022 Provider: MARCIO ANAYA MD Diagnosis: Panic disorder [episodic paroxysmal anxiety] as directed - 1 tab a day as needed only for severe anxiety/panic Last Documented On 11/12/2022 5:38PM By Kelly Wasserman MD ; [facility] Azstarys 39.2-7.8 MG OR CAPS 05/04/2022 - 06/03/2022 Provider: MARCIO WASSERMAN MD Diagnosis: Attention-defici t hyperactivity disorder, combined type 1 Capsule every morning Last Documented On 11/12/2022 5:38PM By Kelly Wasserman MD ; [facility] Armodafinil 250 MG OR TABS 02/17/2022 - 03/19/2022 Provider: MARCIO WASSERMAN MD Diagnosis: Attention-defici t hyperactivity disorder, combined type as directed -- 1 tab at noon Last Documented On 11/12/2022 5:38PM By Kelly Wasserman MD ; [facility] Mydayis 25 MG OR CP24 12/06/2019 - 01/05/2020 Provider: MARCIO WASSERMAN MD Diagnosis: Attention-defici t hyperactivity disorder, combined type 1 Capsule every morning Last Documented On 11/12/2022 5:38PM By Kelly Wasserman MD ; [facility] Mydayis 25 MG OR CP24 08/23/2019 - 09/22/2019 Provider: MARCIO WASSERMAN MD Diagnosis: Attention-defici t hyperactivity disorder, combined type as directed --1 cap at 1 pm Last Documented On 11/12/2022 5:38PM By Kelly Wasserman MD ; [facility] Jornay PM 60 MG OR CP24 07/24/2019 - 08/23/2019 Provider: MARCIO WASSERMAN MD Diagnosis: Attention-defici t hyperactivity disorder, combined type as directed -- 1 cap in the evening Last Documented On 11/12/2022 5:38PM By Kelly Wasserman MD ; [facility] Jornay PM 40 MG OR CP24 05/21/2019 - 06/20/2019 Provider: MARCIO WASSERMAN MD Diagnosis: Attention-defici t hyperactivity disorder, combined type as directed -- 1 cap in the evening Last Documented On 11/12/2022 5:38PM By Kelly Wasserman MD ; [facility] Medications Administered Includes: Administered Medications from this encounter No Administered Medications Recorded Vital Signs Includes: Vital Signs from this encounter Vital Name 08/21/2023 02:16P Blood Pressure Sitting L 126/76 BP Cuff Size Regular Pulse Rate-Sitting (bpm) 81 Pulse Rhythm Regular Height (in) 70 Weight (lb) 179 Body Mass Index 25.7 Body Surface Area 2 Last Documented: On 08/21/2023 2:16PM ; [facility] Results Includes: Results discussed [...] (Illicit).Work: Work history -- 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 He was close to his parents [...] 08/21/2023 Last Documented On 4 2:05PM ; [facility] Current nonsmoker 08/21/2023 Last Documented On 4 3:35PM ; [facility] Tobacco non-user 08/21/2023 Last Documented On 4 3:35PM ; [facility] Smoking Status Unknown Procedures and Surgical History Includes: Procedures from this encounter Procedures Code Diagnosis Performing Provider Service L ocation Service Date education and instructions Last Documented On 4 2:05PM ; [facility] supportive care and encourag ement--given positive reinforcement to keep patient motivated and active Last Documented On 4 2:23PM ; [facility] ~* Call [phone] and /or go t o the nearest emergency room or call me if suicidal/homicidal ideation or other serious concerns arise. ~ ~* I gave instructions to call me should there be any questions or concerns. ~ ~* Patient voiced understanding and agreed to treatment plan Last Documented On 4 2:14PM ; [facility] dangerousness assessment: no suicide risk 3085F Last Documented On 4 2:05PM ; [facility] use of tobacco assessment performed 1000F Last Documented On 4 2:15PM ; [facility] patient screened for future fall risk: documentation of any fall with injury in past year - no recent falls 1100F Last Documented On 4 2:14PM ; [facility] review of medications documented 1160F Last Documented On 4 2:14PM ; [facility] assessment of suicide risk performed - n ot suicidal Last Documented On 4 2:15PM ; [facility] screening for adult depressi on: impression and score - please see above for treatment and PHQ score Last Documented On 4 2:15PM ; [facility] standardized depression screening: posit yohana for symptoms Last Documented On 4 2:15PM ; [facility] encouragement to exercise - balanced molly l plan, low fat low carb diet Last Documented On 4 2:14PM ; [facility] Clinical summary provided to patient Last Documented On 4 2:05PM ; [facility] PHQ-9: total score 3 Last Documented On 4 3:34PM ; [facility] Medical History Includes: Medical [...] Suspension 100,000 05/11/19Procedural: Coronavirus 2019-nCoV vaccine - [employer] #1 10/06/20 #2 11/03/20 #3 04/202108/21/2023 Last Documented On 4 2:18PM ; [facility] Family History Includes: Family History addressed during this encounter Description Last Updated Family medical history: No significant f amily history 08/21/2023 Last Documented On 4 2:05PM ; [facility] Review of Systems Includes: [...] PSYCH ADULT FOLLOW UP MARCIO WASSERMAN MD [facility] 08/21/19 24 2:05PM 3:05PM Attention-defici t Hyperactivity Disorder,Anxiety Disorder Nos,Panic Disorder,Sleep Disorder Circadian Rhythm Insurance Includes: Active Insurance Policies Plan Name Member ID Group # Subscriber Relationship Effect yohana Dates 1 - ADMINISTRATIVE CONCEPTS [id number] DONALD LIANG Self Clinical Notes Includes: Clinical Notes from this encounter * Progress note Date Encounter Last Documented by 08/21/2023 PSYCH ADULT FOLLOW UP Last docum ented on 09/06/2023; 3:35 PM, MARCIO WASSERMAN MD; [facility] Top of Document Medication [...] Work: Work history -- 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 Marital: Marital history -- . He was born and raised in [place], [place]. He was close to his parents [...] Clinical summary provided to patient. * Call [phone] and /or go to the nearest emergency [...]
--- OUTSIDE RECORDS SUMMARY | 2024-09-06 08:14 | XMS_ITS | Clinical Summary ---
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 Active Last Documented On 3 5:53PM ; [facility] Anxiety Disorder Nos 12/16/2015 Acti ve Last Documented On 3 5:49PM ; [facility] Attention-deficit Hyperactivity Disorder 08/11/2015 Active Last Documented On 3 5:49PM ; [facility] Plan of Treatment No Plan of Treatment [...] 01/01/2024 11:46AM By Kelly Wasserman MD ; [facility] Armodafinil 250 MG Oral Tablet 08/21/2023 Provider: MARCIO WASSERMAN MD Diagnosis: Attention-defici t hyperactivity disorder, combined type as directed - 1 tab as noon Last Documented On 08/21/2023 2:57PM By Kelly Wasserman MD ; [facility] Past Medications on file Armodafinil 250 MG Oral Tablet 12/01/2022 - 03/31/2023 Provider: MARCIO WASSERMAN MD Diagnosis: Circadian rhythm sleep disorder, delayed sleep phase type 1 tablet every morning Last Documented On 12/01/2022 12:50PM By Kelly Wasserman MD ; [facility] Vyvanse 60 MG Oral Capsule 11/21/2022 - 12/21/2022 Provider: MARCIO WASSERMAN MD Diagnosis: Attention-defici t hyperactivity disorder, combined type *1 AM - 1 Capsule every morning Last Documented On 11/21/2022 4:06PM By Kelly Wasserman MD ; [facility] Azstarys 52.3-10.4 MG Oral Capsule 11/21/2022 - 12/21/2022 Provider: MARCIO WASSERMAN MD Diagnosis: Attention-defici t hyperactivity disorder, combined type ud - as directed as directed -- 1 cap at 1 pm Last Documented On 11/21/2022 4:06PM By Kelly Wasserman MD ; [facility] KlonoPIN 0.5 MG OR TABS 05/04/2022 - 06/03/2022 Provider: MARCIO ANAYA MD Diagnosis: Panic disorder [episodic paroxysmal anxiety] as directed - 1 tab a day as needed only for severe anxiety/panic Last Documented On 11/12/2022 5:38PM By Kelly Wasserman MD ; [facility] Azstarys 39.2-7.8 MG OR CAPS 05/04/2022 - 06/03/2022 Provider: MARCIO WASSERMAN MD Diagnosis: Attention-defici t hyperactivity disorder, combined type 1 Capsule every morning Last Documented On 11/12/2022 5:38PM By Kelly Wasserman MD ; [facility] Armodafinil 250 MG OR TABS 02/17/2022 - 03/19/2022 Provider: MARCIO WASSERMAN MD Diagnosis: Attention-defici t hyperactivity disorder, combined type as directed -- 1 tab at noon Last Documented On 11/12/2022 5:38PM By Kelly Wasserman MD ; [facility] Mydayis 25 MG OR CP24 12/06/2019 - 01/05/2020 Provider: MARCIO WASSERMAN MD Diagnosis: Attention-defici t hyperactivity disorder, combined type 1 Capsule every morning Last Documented On 11/12/2022 5:38PM By Kelly Wasserman MD ; [facility] Mydayis 25 MG OR CP24 08/23/2019 - 09/22/2019 Provider: MARCIO WASSERMAN MD Diagnosis: Attention-defici t hyperactivity disorder, combined type as directed --1 cap at 1 pm Last Documented On 11/12/2022 5:38PM By Kelly Wasserman MD ; [facility] Jornay PM 60 MG OR CP24 07/24/2019 - 08/23/2019 Provider: MARCIO WASSERMAN MD Diagnosis: Attention-defici t hyperactivity disorder, combined type as directed -- 1 cap in the evening Last Documented On 11/12/2022 5:38PM By Kelly Wasserman MD ; [facility] Jornay PM 40 MG OR CP24 05/21/2019 - 06/20/2019 Provider: MARCIO WASSERMAN MD Diagnosis: Attention-defici t hyperactivity disorder, combined type as directed -- 1 cap in the evening Last Documented On 11/12/2022 5:38PM By Kelly Wasserman MD ; [facility] Medications Administered Includes: Administered Medications from this [...] Diagnosis * PHONE CALL MARCIO WASSERMAN MD [facility] 4 11:51AM 11:59PM Insurance Includes: Active Insurance Policies Plan Name Member ID Group # Subscriber Relationship Effect yohana Dates 1 - ADMINISTRATIVE CONCEPTS [id number] DONALD LIANG Self Clinical Notes Includes: Clinical Notes from this encounter * Progress note Date Encounter Last Documented by 07/27/2023 * PHONE CALL Last documented on 07/27/2023; 1:48 PMMARCIO MD; [facility] Active Problems & Conditions [...] appointments. pt phone # for return call: [phone] date/initials: 07/27/23 bk Allergies - No Known [...]
--- OUTSIDE RECORDS SUMMARY | 2024-09-06 08:14 | XMS_ITS | Clinical Summary ---
Author Organization [facility] Address [address] [place] [address] Phone Care Team Providers Care Business Continuity Planner Name Role Phone MEEK JEROME, MARCIO Polanco [phone] Reason for Visit and Chief Complaint The Chief Complaint is: follow up for attention and concentration deficit and anxiety Problems Includes: Problems addressed during this encounter and other active Problems Current Visit Onset Date Resolved Date Provider Ellen maher Status Panic Disorder 05/04/2022 MARCIO Muñoz Active Last Documented On 2 11:08AM ; [facility] Sleep Disorder Circadian Rhythm 07/02/2020 HECTOR WASSERMAN MD Active Last Documented On 0 8:07PM ; [facility] Anxiety Disorder Nos 12/16/2015 MARCIO COLLINS MD Active Last Documented On 6 7:23AM ; [facility] Attention-deficit Hyperactivity Disorder 08/11/2015 MARCIO WASSERMAN MD Active Last Documented On 6 3:19PM ; [facility] Plan of Treatment Attention Deficit Disorder - [...] - Last Documented On 06/02/2022 1:46PM ; [facility] Education and Decision Aids were provided during visit for: Patient education about medi cation ---Education was given on medication(s) and diagnosis. I reviewed the risks, benefits and side effects of patient's medications Last Documented On 2 8:33AM ; [facility] Discussed calming techniques such as breathing exercises and other relaxation techniques Last Documented On 2 8:33AM ; [facility] Assessments Includes: Assessments from this encounter Findings - Attention-deficit hyperactivity disorder - Last Documented On 06/02/2022 1:46PM ; [facility] - Circadian rhythm sleep disorder - Last Documented On 06/02/2022 1:46PM ; [facility] - Panic disorder - Last Documented On 06/02/2022 1:46PM ; [facility] - Anxiety disorder NOS - Last Documented On 06/02/2022 1:46PM ; [facility] Instructions Includes: Instructions from this encounter Education and Decision Aids were provided during visit for: Patient education about medi cation ---Education was given on medication(s) and diagnosis. I reviewed the risks, benefits and side effects of patient's medications Last Documented On 2 8:33AM ; [facility] Discussed calming techniques such as breathing exercises and other relaxation techniques Last Documented On 2 8:33AM ; [facility] Medical Equipment - Implanted Devices Includes: Current [...] - [address] , [place], [phone] - Last Documented On 07/26/2022 4:40PM By Kelly Wasserman MD ; [facility] Current Medications (continue as prescribed) Vyvanse 60 MG Oral Capsule 10/03/2022 Provider: MARCIO WASSERMAN MD Diagnosis: Attention-defici t hyperactivity disorder, combined type 1 Capsule every morning Last Documented On 10/03/2022 2:24PM By Kelly Wasserman MD ; [facility] Azstarys 52.3-10.4 MG Oral Capsule 10/03/2022 Provider: MARCIO WASSERMAN MD Diagnosis: Attention-defici t hyperactivity disorder, combined type as directed -- 1 cap at 1 pm Last Documented On 10/03/2022 2:24PM By Kelly Wasserman MD ; [facility] Armodafinil 250 MG Oral Tablet 05/13/2022 Provider: MARCIO WASSERMAN MD Diagnosis: Circadian rhythm sleep disorder, delayed sleep phase type 1 tablet every morning Last Documented On 2 11:08AM By Kelly Wasserman MD ; [facility] Past Medications on file Azstarys 39.2-7.8 MG Oral Capsule 05/04/2022 - 06/03/2022 Provider: MARCIO WASSERMAN MD Diagnosis: Attention-defici t hyperactivity disorder, combined type 1 Capsule every morning Last Documented On 11:19AM By Kelly Wasserman MD ; [facility] KlonoPIN 0.5 MG Oral Tablet 05/04/2022 - 06/03/2022 Provider: MARCIO ANAYA MD Diagnosis: Panic disorder [episodic paroxysmal anxiety] as directed - 1 tab a day as needed only for severe anxiety/panic Last Documented On 11:20AM By Kelly Wasserman MD ; [facility] Armodafinil 250 MG Oral Tablet 02/17/2022 - 03/19/2022 Provider: MARCIO WASSERMAN MD Diagnosis: Attention-defici t hyperactivity disorder, combined type as directed -- 1 tab at noon Last Documented On 02/17/2022 2:12PM By Kelly Wasserman MD ; [facility] Mydayis 25 MG Oral Capsule Extended Release 24 Hour 12/06/2019 - 01/05/2020 Provider: MARCIO WASSERMAN MD Diagnosis: Attention-defici t hyperactivity disorder, combined type 1 Capsule every morning Last Documented On 12/06/2019 6:07PM By Kelly Wasserman MD ; [facility] Mydayis 25 MG Oral Capsule Extended Release 24 Hour 08/23/2019 - 09/22/2019 Provider: MARCIO WASSERMAN MD Diagnosis: Attention-defici t hyperactivity disorder, combined type as directed --1 cap at 1 pm Last Documented On 08/23/2019 3:29PM By Kelly Wasserman MD ; [facility] Jornay PM 60 MG Oral Capsule Extended Release 24 Hour 07/24/2019 - 08/23/2019 Provider: MARCIO WASSERMAN MD Diagnosis: Attention-defici t hyperactivity disorder, combined type as directed -- 1 cap in the evening Last Documented On 0 12:14PM By Kelly Wasserman MD ; [facility] Jornay PM 40 MG Oral Capsule Extended Release 24 Hour 05/21/2019 - 06/20/2019 Provider: MARCIO WASSERMAN MD Diagnosis: Attention-defici t hyperactivity disorder, combined type as directed -- 1 cap in the evening Last Documented On 05/21/2019 2:59PM By Kelly Wasserman MD ; [facility] Medications Administered Includes: Administered Medications from this [...] vitals Last Documented: On 05/31/2022 8:46AM ; [facility] Results Includes: Results discussed during this encounter [...] 12/06/2019 Last Documented On 2 8:33AM ; [facility] Alcohol use - he will have 1-2 beers onc e a month or less often 07/24/2019 Last Documented On 2 8:33AM ; [facility] He was born and raised in [place], [place]. 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 [employer] 07/06/2018 Last Documented On 2 8:33AM ; [facility] Marital history -- 08/11/2015 Last Documented On 2 8:33AM ; [facility] Not using drugs (Illicit) 08/11/2015 Last Documented On 2 8:33AM ; [facility] Smoking status : Never smoker 08/11/2015 Last Documented On 2 8:33AM ; [facility] Procedures and Surgical History Includes: Procedures from this encounter Procedures Code Diagnosis Performing Provider Service L ocation Service Date education and instructions Last Documented On 2 8:33AM ; [facility] dangerousness assessment: suicide risk -not suic idal 3085F Last Documented On 2 8:33AM ; [facility] use of tobacco assessment performed 1000F Last Documented On 2 8:33AM ; [facility] patient screened for future fall risk - no recen t falls 3288F Last Documented On 2 8:33AM ; [facility] review of medications documented 1160F Last Documented On 2 8:33AM ; [facility] screening for adult depressi on: impression and score - please see above treatment and PHQ score Last Documented On 2 8:33AM ; [facility] standardized depression screening: posit yohana for symptoms Last Documented On 2 8:33AM ; [facility] encouragement to exercise - pt goes to t he gym at 5 am each day Last Documented On 2 1:42PM ; [facility] Clinical summary provided to patient Last Documented On 2 8:33AM ; [facility] PHQ-9: total score 1 Last Documented On 2 1:41PM ; [facility] Medical History Includes: Medical History addressed during this encounter Description Last Updated History of coronavirus 2019- nCoV vaccine - Pfizer #1 10/06/20 #2 11/03/20 #3 04/202102/17/2022 Last Documented On 2 8:33AM ; [facility] History of sinusitis - given Augmentin 875 mg and Prednisone Dosepak 4 mg (did not take Prednisone) 01/03/21;given Augmentin 875 mg #20 on 03/31/20 03/10/2021 Last Documented On 2 8:33AM ; [facility] History of oral thrush - treated with Ny statin Suspension 100,000 05/11/19 05/21/2019 Last Documented On 2 8:33AM ; [facility] Primary Care Provider: [facility] 05/21/2019 Last Documented On 2 8:33AM ; [facility] Family History Includes: Family History addressed during this encounter Description Last Updated Family medical history : No significant family history 08/11/2015 Last Documented On 2 8:33AM ; [facility] Review of Systems Includes: Review of Systems [...] Check-Out Time Diagnosis TELEHEALTH MARCIO WASSERMAN MD [facility] 05/31/20 22 8:32AM 11:59PM Attention-deficit Hyperactivity Disorder,Anxiety Disorder Nos,Panic Disorder,Sleep Disorder Circadian Rhythm Insurance Includes: Active Insurance Policies Plan Name Member ID Group # Subscriber Relationship Effect yohana Dates 1 - ADMINISTRATIVE CONCEPTS [id number] DONALD LIANG Self Clinical Notes Includes: Clinical Notes from this encounter No Clinical Notes Recorded
--- OUTSIDE RECORDS SUMMARY | 2024-09-06 08:14 | XMS_ITS | Clinical Summary ---
Author Organization [facility] Address [address] [place] [address] Phone Care Team Providers Care Search Engineer Name Role Phone MEEK JEROME, MARCIO GÓMEZ [facility] [phone] Reason for Visit and Chief Complaint NO SHOW Problems Includes: Problems addressed during this encounter and other active Problems All Visits Onset Date Resolved Date Provider Condition S tatus Panic Disorder 05/04/2022 MARCIO Muñoz Active Last Documented On 2 11:08AM ; [facility] Sleep Disorder Circadian Rhythm 07/02/2020 HECTOR WASSERMAN MD Active Last Documented On 0 8:07PM ; [facility] Anxiety Disorder Nos 12/16/2015 MARCIO COLLINS MD Active Last Documented On 6 7:23AM ; [facility] Attention-deficit Hyperactivity Disorder 08/11/2015 MARCIO WASSERMAN MD Active Last Documented On 6 3:19PM ; [facility] Plan of Treatment No Plan of Treatment [...] 10/03/2022 2:24PM By Kelly Wasserman MD ; [facility] Azstarys 52.3-10.4 MG Oral Capsule 10/03/2022 Provider: MARCIO WASSERMAN MD Diagnosis: Attention-defici t hyperactivity disorder, combined type as directed -- 1 cap at 1 pm Last Documented On 10/03/2022 2:24PM By Kelly Wasserman MD ; [facility] Medical [facility] Armodafinil 250 MG Oral Tablet 05/13/2022 Provider: MARCIO WASSERMAN MD Diagnosis: Circadian rhythm sleep disorder, delayed sleep phase type 1 tablet every morning Last Documented On 11:08AM By Kelly Wasserman MD ; [facility] Medications Administered Includes: Administered Medications from this [...] Time Diagnosis NO SHOW MARCIO WASSERMAN MD [facility] 10/11/2022 9:00AM 11:59PM Insurance Includes: Active Insurance Policies Plan Name Member ID Group # Subscriber Relationship Effect yohana Dates 1 - ADMINISTRATIVE CONCEPTS [id number] DONALD LIANG Self Clinical Notes Includes: Clinical Notes from this encounter No Clinical Notes Recorded
--- OUTSIDE RECORDS SUMMARY | 2024-09-06 08:14 | XMS_ITS | Clinical Summary ---
Author Organization [facility] Address [address] [place] [address] Phone Care Team Providers Care Floor Scrubber Name Role Phone MEEK JEROME, MARCIO Polanco [phone] Reason for Visit and Chief Complaint The Chief Complaint is: follow up for attention and concentration deficit and anxiety Problems Includes: Problems addressed during this encounter and other active Problems Current Visit Onset Date Resolved Date Provider Ayusho nika Status Panic Disorder 05/04/2022 MARCIO Muñoz Active Last Documented On 2 11:08AM ; [facility] Sleep Disorder Circadian Rhythm 07/02/2020 HECTOR WASSERMAN MD Active Last Documented On 0 8:07PM ; [facility] Anxiety Disorder Nos 12/16/2015 MARCIO COLLINS MD Active Last Documented On 6 7:23AM ; [facility] Attention-deficit Hyperactivity Disorder 08/11/2015 MARCIO WASSERMAN MD Active Last Documented On 6 3:19PM ; [facility] Plan of Treatment Attention Deficit Disorder - [...] - Last Documented On 08/12/2022 9:47AM ; [facility] Education and Decision Aids were provided during visit for: Patient education about medi cation ---Education was given on medication(s) and diagnosis. I reviewed the risks, benefits and side effects of patient's medications Last Documented On 3 9:12AM ; [facility] Discuss[facility] calming techniques such as breathing exercises and other relaxation techniques Last Documented On 3 9:12AM ; [facility] Assessments Includes: Assessments from this encounter Findings - Attention-deficit hyperactivity disorder - Last Documented On 08/12/2022 9:47AM ; [facility] - Circadian rhythm sleep disorder - Last Documented On 08/12/2022 9:47AM ; [facility] - Panic disorder - Last Documented On 08/12/2022 9:47AM ; [facility] - Anxiety disorder NOS - Last Documented On 08/12/2022 9:47AM ; [facility] Instructions Includes: Instructions from this encounter Education and Decision Aids were provided during visit for: Patient education about medi cation ---Education was given on medication(s) and diagnosis. I reviewed the risks, benefits and side effects of patient's medications Last Documented On 3 9:12AM ; [facility] Discussed calming techniques such as breathing exercises and other relaxation techniques Last Documented On 3 9:12AM ; [facility] Medical Equipment - Implanted Devices Includes: Current Devices No Medical Equipment Recorded Medications Includes: Medications discussed during this encounter and other current Medications Discontinued / Stopped on this date MARCIO WASSERMAN MD on 03/23/2022 Vyvanse 70 MG Oral Capsule Provider: MARCIO WASSERMAN MD Diagnosis: Attention-defici t hyperactivity disorder, combined type Last Documented On 08/11/2022 9:33AM By Kelly Wasserman MD ; [facility] New / Renewed during this visit MARCIO WASSERMAN MD on 08/11/2022 Azstarys 52.3-10.4 MG Oral Capsule Provider: MARCIO WASSERMAN MD 30 day supply: 30 capsule, 0 refills Diagnosis: Attention-deficit hyperactivity disorder, combined type as directed -- 1 cap at 1 pm Pharmacy: [facility]) - [address] [place], [phone] - Last Documented On 10/03/2022 2:12PM By Kelly Wasserman MD ; [facility] Current Medications (continue as prescribed) Vyvanse 60 MG Oral Capsule 10/03/2022 Provider: MARCIO WASSERMAN MD Diagnosis: Attention-defici t hyperactivity disorder, combined type 1 Capsule every morning Last Documented On 10/03/2022 2:24PM By Kelly Wasserman MD ; [facility] Azstarys 52.3-10.4 MG Oral Capsule 10/03/2022 Provider: MARCIO WASSERMAN MD Diagnosis: Attention-defici t hyperactivity disorder, combined type as directed -- 1 cap at 1 pm Last Documented On 10/03/2022 2:24PM By Kelly Wasserman MD ; [facility] Armodafinil 250 MG Oral Tablet 05/13/2022 Provider: MARCIO WASSERMAN MD Diagnosis: Circadian rhythm sleep disorder, delayed sleep phase type 1 tablet every morning Last Documented On 11:08AM By Kelly Wasserman MD ; [facility] Past Medications on file Azstarys 39.2-7.8 MG Oral Capsule 05/04/2022 - 06/03/2022 Provider: MARCIO WASSERMAN MD Diagnosis: Attention-defici t hyperactivity disorder, combined type 1 Capsule every morning Last Documented On 11:19AM By Kelly Wasserman MD ; [facility] KlonoPIN 0.5 MG Oral Tablet 05/04/2022 - 06/03/2022 Provider: MARCIO ANAYA MD Diagnosis: Panic disorder [episodic paroxysmal anxiety] as directed - 1 tab a day as needed only for severe anxiety/panic Last Documented On 11:20AM By Kelly Wasserman MD ; [facility] Armodafinil 250 MG Oral Tablet 02/17/2022 - 03/19/2022 Provider: MARCIO WASSERMAN MD Diagnosis: Attention-defici t hyperactivity disorder, combined type as directed -- 1 tab at noon Last Documented On 02/17/2022 2:12PM By Kelly Wasserman MD ; [facility] Mydayis 25 MG Oral Capsule Extended Release 24 Hour 12/06/2019 - 01/05/2020 Provider: MARCIO WASSERMAN MD Diagnosis: Attention-defici t hyperactivity disorder, combined type 1 Capsule every morning Last Documented On 12/06/2019 6:07PM By Kelly Wasserman MD ; [facility] Mydayis 25 MG Oral Capsule Extended Release 24 Hour 08/23/2019 - 09/22/2019 Provider: MARCIO WASSERMAN MD Diagnosis: Attention-defici t hyperactivity disorder, combined type as directed --1 cap at 1 pm Last Documented On 08/23/2019 3:29PM By Kelly Wasserman MD ; [facility] Jornay PM 60 MG Oral Capsule Extended Release 24 Hour 07/24/2019 - 08/23/2019 Provider: MARCIO WASSERMAN MD Diagnosis: Attention-defici t hyperactivity disorder, combined type as directed -- 1 cap in the evening Last Documented On 0 12:14PM By Kelly Wasserman MD ; [facility] Jornay PM 40 MG Oral Capsule Extended Release 24 Hour 05/21/2019 - 06/20/2019 Provider: MARCIO WASSERMAN MD Diagnosis: Attention-defici t hyperactivity disorder, combined type as directed -- 1 cap in the evening Last Documented On 05/21/2019 2:59PM By Kelly Wasserman MD ; [facility] Medications Administered Includes: Administered Medications from this [...] vitals Last Documented: On 08/11/2022 9:22AM ; [facility] Results Includes: Results discussed during this encounter [...] to do errands to go out and pickling solution maker some thing. He has difficulty saying no to his since he tries to understand his 's situation as well. Pt said that his may be demoted to become a child development associate teacher and may have to suffer a pay [...] 12/06/2019 Last Documented On 3 9:12AM ; [facility] Alcohol use - he will have 1-2 beers onc e a month or less often 07/24/2019 Last Documented On 3 9:12AM ; [facility] He was born and raised in [place], [place]. 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 [employer] 07/06/2018 Last Documented On 3 9:12AM ; [facility] Marital history -- 08/11/2015 Last Documented On 3 9:12AM ; [facility] Not using drugs (Illicit) 08/11/2015 Last Documented On 3 9:12AM ; [facility] Smoking status : Never smoker 08/11/2015 Last Documented On 3 9:12AM ; [facility] Procedures and Surgical History Includes: Procedures from this encounter Procedures Code Diagnosis Performing Provider Service L ocation Service Date education and instructions Last Documented On 3 9:12AM ; [facility] dangerousness assessment: suicide risk -not suic idal 3085F Last Documented On 3 9:12AM ; [facility] use of tobacco assessment performed 1000F Last Documented On 3 9:12AM ; [facility] patient screened for future fall risk - no recen t falls 3288F Last Documented On 3 9:12AM ; [facility] review of medications documented 1160F Last Documented On 3 9:12AM ; [facility] screening for adult depressi on: impression and score - please see above treatment and PHQ score Last Documented On 3 9:12AM ; [facility] standardized depression screening: posit yohana for symptoms Last Documented On 3 9:12AM ; [facility] encouragement to exercise - works out at 5 am - goes to fitness center - -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 Last Documented On 3 9:46AM ; [facility] Clinical summary provided to patient Last Documented On 3 9:12AM ; [facility] PHQ-9: total score 3 Last Documented On 3 9:45AM ; [facility] Medical History Includes: Medical History addressed during this encounter Description Last Updated History of coronavirus 2019- nCoV vaccine - [place] #1 10/06/20 #2 11/03/20 #3 04/202102/17/2022 Last Documented On 3 9:12AM ; [facility] History of sinusitis - given Augmentin 875 mg and Prednisone Dosepak 4 mg (did not take Prednisone) 01/03/21;given Augmentin 875 mg #20 on 03/31/20 03/10/2021 Last Documented On 3 9:12AM ; [facility] History of oral thrush - treated with Ny statin Suspension 100,000 05/11/19 05/21/2019 Last Documented On 3 9:12AM ; [facility] 05/21/2019 Last Documented On 3 9:12AM ; [facility] Family History Includes: Family History addressed during this encounter Description Last Updated Family medical history : No significant family history 08/11/2015 Last Documented On 3 9:12AM ; [facility] Review of Systems Includes: Review of Systems [...] Check-Out Time Diagnosis TELEHEALTH MARCIO WASSERMAN MD [facility] 08/11/19 23 9:06AM 11:59PM Attention-deficit Hyperactivity Disorder,Anxiety Disorder Nos,Panic Disorder,Sleep Disorder Circadian Rhythm Insurance Includes: Active Insurance Policies Plan Name Member ID Group # Subscriber Relationship Effect yohana Dates 1 - ADMINISTRATIVE CONCEPTS [id number] DONALD LIANG Self Clinical Notes Includes: Clinical Notes from this encounter No Clinical Notes Recorded
--- OUTSIDE RECORDS SUMMARY | 2024-09-06 08:15 | XMS_ITS | Clinical Summary ---
Author Organization [facility] Address [address] [place] [address] Phone Care Team Providers Care Television Tube Inspector Name Role Phone MEEK JEROME, MARCIO GÓMEZ Unavailable [phone] Reason for Visit and Chief Complaint The Chief Complaint is: follow up for attention and concentration deficit and anxiety Problems Includes: Problems addressed during this encounter and other active Problems Current Visit Onset Date Resolved Date Provider Ellen maher Status Panic Disorder 05/04/2022 Active Last Documented On 3 5:53PM ; [facility] Sleep Disorder Circadian Rhythm 07/02/2020 Active Last Documented On 3 5:53PM ; [facility] Anxiety Disorder Nos 12/16/2015 Acti ve Last Documented On 3 5:49PM ; [facility] Attention-deficit Hyperactivity Disorder 08/11/2015 Active Last Documented On 3 5:49PM ; [facility] Plan of Treatment Attention Deficit Disorder [...] - Last Documented On 11/22/2022 7:29AM ; [facility] Assessments Includes: Assessments from this encounter Findings - Attention-deficit hyperactivity disorder - Last Documented On 11/22/2022 7:29AM ; [facility] - Circadian rhythm sleep disorder - Last Documented On 11/22/2022 7:29AM ; [facility] - Panic disorder - Last Documented On 11/22/2022 7:29AM ; [facility] - Anxiety disorder NOS - Last Documented On 11/22/2022 7:29AM ; [facility] Medical Equipment - Implanted Devices Includes: Current Devices No Medical Equipment Recorded Medications Includes: Medications discussed during this encounter and other current Medications Discontinued / Stopped on this date MARCIO WASSERMAN MD on 10/03/2022 Vyvanse 60 MG OR CAPS Provider: VIDHYA WASSERMAN MD Diagnosis: Attention-defici t hyperactivity disorder, combined type Last Documented On 11/21/2022 4:00PM By Kelly Wasserman MD ; [facility] Azstarys 52.3-10.4 MG OR CAPS Provider: MARCIO WASSERMAN MD Diagnosis: Attention-defici t hyperactivity disorder, combined type Last Documented On 11/21/2022 4:02PM By Kelly Wasserman MD ; [facility] New / Renewed during this visit MARCIO WASSERMAN MD on 11/21/2022 Vyvanse 60 MG Oral Capsule Provider: MARCIO WASSERMAN MD 30 day supply: 30 capsule, 0 refills Diagnosis: Attention-deficit hyperactivity disorder, combined type *1 AM - 1 Capsule every morning Pharmacy: [facility] [address] [facility], [id number] - Last Documented On 11/21/2022 4:06PM By Kelly Wasserman MD ; [facility] Azstarys 52.3-10.4 MG Oral Capsule Provider: MARCIO WASSERMAN MD 30 day supply: 30 capsule, 0 refills Diagnosis: Attention-deficit hyperactivity disorder, combined type ud - as directed as directed -- 1 cap at 1 pm Pharmacy: [facility] [address] [facility], [id number] - Last Documented On 11/21/2022 4:06PM By Kelly Wasserman MD ; [facility] Current Medications (continue as prescribed) Vyvanse 60 MG Oral Capsule 01/01/2024 Provider: MARCIO WASSERMAN MD Diagnosis: Attention-defici t hyperactivity disorder, combined type 1 Capsule every morning Last Documented On 01/01/2024 11:46AM By Kelly Wasserman MD ; [facility] Armodafinil 250 MG Oral Tablet 08/21/2023 Provider: MARCIO WASSERMAN MD Diagnosis: Attention-defici t hyperactivity disorder, combined type as directed - 1 tab as noon Last Documented On 08/21/2023 2:57PM By Kelly Wasserman MD ; [facility] Past Medications on file Armodafinil 250 MG Oral Tablet 12/01/2022 - 03/31/2023 Provider: MARCIO WASSERMAN MD Diagnosis: Circadian rhythm sleep disorder, delayed sleep phase type 1 tablet every morning Last Documented On 12/01/2022 12:50PM By Kelly Wasserman MD ; [facility] KlonoPIN 0.5 MG OR TABS 05/04/2022 - 06/03/2022 Provider: MARCIO ANAYA MD Diagnosis: Panic disorder [episodic paroxysmal anxiety] as directed - 1 tab a day as needed only for severe anxiety/panic Last Documented On 11/12/2022 5:38PM By Kelly Wasserman MD ; [facility] Azstarys 39.2-7.8 MG OR CAPS 05/04/2022 - 06/03/2022 Provider: MARCIO WASSERMAN MD Diagnosis: Attention-defici t hyperactivity disorder, combined type 1 Capsule every morning Last Documented On 11/12/2022 5:38PM By Kelly Wasserman MD ; [facility] Armodafinil 250 MG OR TABS 02/17/2022 - 03/19/2022 Provider: MARCIO WASSERMAN MD Diagnosis: Attention-defici t hyperactivity disorder, combined type as directed -- 1 tab at noon Last Documented On 11/12/2022 5:38PM By Kelly Wasserman MD ; [facility] Mydayis 25 MG OR CP24 12/06/2019 - 01/05/2020 Provider: MARCIO WASSERMAN MD Diagnosis: Attention-defici t hyperactivity disorder, combined type 1 Capsule every morning Last Documented On 11/12/2022 5:38PM By Kelly Wasserman MD ; [facility] Mydayis 25 MG OR CP24 08/23/2019 - 09/22/2019 Provider: MARCIO WASSERMAN MD Diagnosis: Attention-defici t hyperactivity disorder, combined type as directed --1 cap at 1 pm Last Documented On 11/12/2022 5:38PM By Kelly Wasserman MD ; [facility] Jornay PM 60 MG OR CP24 07/24/2019 - 08/23/2019 Provider: MARCIO WASSERMAN MD Diagnosis: Attention-defici t hyperactivity disorder, combined type as directed -- 1 cap in the evening Last Documented On 11/12/2022 5:38PM By Kelly Wasserman MD ; [facility] Jornay PM 40 MG OR CP24 05/21/2019 - 06/20/2019 Provider: MARCIO WASSERMAN MD Diagnosis: Attention-defici t hyperactivity disorder, combined type as directed -- 1 cap in the evening Last Documented On 11/12/2022 5:38PM By Kelly Wasserman MD ; [facility] Medications Administered Includes: Administered Medications from [...] vitals Last Documented: On 11/21/2022 3:44PM ; [facility] Results Includes: Results discussed during this [...] he will continue to work with [employer]. Sleep has been good. 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 He was close to his parents [...] 11/21/2022 Last Documented On 3 3:51PM ; [facility] Tobacco non-user 11/21/2022 Last Documented On 3 7:29AM ; [facility] Current nonsmoker 11/21/2022 Last Documented On 3 7:29AM ; [facility] Smoking Status Unknown Procedures and Surgical History Includes: Procedures from this encounter Procedures Code Diagnosis Performing Provider Service L ocation Service Date education and instructions Last Documented On 3 3:32PM ; [facility] supportive care and encourag ement--given positive reinforcement to keep patient motivated and active Last Documented On 3 3:55PM ; [facility] ~* Call [phone] and /or go t o the nearest emergency room or call me if suicidal/homicidal ideation or other serious concerns arise. ~ ~* I gave instructions to call me should there be any questions or concerns. ~ ~* Patient voiced understanding and agreed to treatment plan Last Documented On 3 3:41PM ; [facility] dangerousness assessment: no suicide risk - not suicidal 3085F Last Documented On 3 3:55PM ; [facility] use of tobacco assessment performed 1000F Last Documented On 3 3:43PM ; [facility] patient screened for future fall risk: documentation of any fall with injury in past year - no recent falls 1100F Last Documented On 3 3:41PM ; [facility] review of medications documented 1160F Last Documented On 3 3:41PM ; [facility] screening for adult depressi on: impression and score - please see above for treatment and PHQ score Last Documented On 3 3:43PM ; [facility] standardized depression screening: posit yohana for symptoms Last Documented On 3 3:43PM ; [facility] encouragement to exercise Last Documented On 3 3:32PM ; [facility] Clinical summary provided to patient Last Documented On 3 3:32PM ; [facility] PHQ-9: total score 3 Last Documented On 3 7:20AM ; [facility] Medical History Includes: Medical History [...] Suspension 100,000 05/11/19Procedural: Coronavirus 2019-nCoV vaccine - Scalix #1 10/06/20 #2 11/03/20 #3 04/202111/21/2022 Last Documented On 3 3:57PM ; [facility] Family History Includes: Family History addressed during this encounter Description Last Updated Family medical history: No significant f amily history 11/21/2022 Last Documented On 3 3:53PM ; [facility] Review of Systems Includes: Review of Systems [...] TELEHEALTH ADULT PSYCH ESTABLISHED MARCIO WASSERMAN MD [facility] 023 3:31PM 11:59PM Anxiety Disorder Nos,Attention-de ficit Hyperactivity Disorder,Panic Disorder,Sleep Disorder Circadian Rhythm Insurance Includes: Active Insurance Policies Plan Name Member ID Group # Subscriber Relationship Effect yohana Dates 1 - ADMINISTRATIVE CONCEPTS [id number] DONALD LIANG Self Clinical Notes Includes: Clinical Notes from this encounter * Progress note Date Encounter Last Documented by 11/21/2022 TELEHEALTH ADULT PSYCH ESTABLISH ED Last documented on 11/22/2022; 7:29 AM, MARCIO WASSERMAN MD; [facility] Top of Document Medication psychotherapy [...] will continue to work with [employer]. Sleep has been good. Pt has not [...] reported Past Medical/Surgical History Primary Care Provider: [facility]. Diagnoses: Sinusitis - given Augmentin 875 mg and Methylprednisolone Dosepak 4 mg 09/22/22; given Augmentin 875 mg and Prednisone Dosepak 4 mg (did not take Prednisone) 01/03/21;given Augmentin 875 mg #20 on 03/31/20. 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 Marital: Marital history -- . He was born and raised in [place], [place]. He was close to his parents [...] Clinical summary provided to patient. * Call [phone] and /or go to the nearest emergency [...]
--- OUTSIDE RECORDS SUMMARY | 2024-09-06 08:15 | XMS_ITS | Clinical Summary ---
Author Organization [facility] Address [address] [place] [address] Phone Care Team Providers Care Insurance Claims Supervisor Name Role Phone MEEK JEROME, MARCIO GÓMEZ [facility] [phone] Reason for Visit and Chief Complaint TELEHEALTH Problems Includes: Problems addressed during this encounter and other active Problems All Visits Onset Date Resolved Date Provider Condition S tatus Panic Disorder 05/04/2022 MARCIO Muñoz Active Last Documented On 2 11:08AM ; [facility] Sleep Disorder Circadian Rhythm 07/02/2020 HECTOR WASSERMAN MD Active Last Documented On 0 8:07PM ; [facility] Anxiety Disorder Nos 12/16/2015 MARCIO COLLINS MD Active Last Documented On 6 7:23AM ; [facility] Attention-deficit Hyperactivity Disorder 08/11/2015 MARCIO WASSERMAN MD Active Last Documented On 6 3:19PM ; [facility] Plan of Treatment No Plan of Treatment [...] 10/03/2022 2:24PM By Kelly Wasserman MD ; [facility] Azstarys 52.3-10.4 MG Oral Capsule 10/03/2022 Provider: MARCIO WASSERMAN MD Diagnosis: Attention-defici t hyperactivity disorder, combined type as directed -- 1 cap at 1 pm Last Documented On 10/03/2022 2:24PM By Kelly Wasserman MD ; [facility] Armodafinil 250 MG Oral Tablet 05/13/2022 Provider: MARCIO WASSERMAN MD Diagnosis: Circadian rhythm sleep disorder, delayed sleep phase type 1 tablet every morning Last Documented On 2 11:08AM By Kelly Wasserman MD ; [facility] Medications Administered Includes: Administered Medications from this [...] Effect yohana Dates 1 - ADMINISTRATIVE CONCEPTS [id number] DONALD LIANG Self Clinical Notes Includes: Clinical Notes from this encounter No Clinical Notes Recorded
--- OUTSIDE RECORDS SUMMARY | 2024-09-06 08:15 | XMS_ITS | Clinical Summary ---
Author Organization [facility] Address [address] [place] [address] Phone Care Team Providers Care Precision Millwright Name Role Phone MEEK JEROME, MARCIO GÓMEZ [...] - Last Documented On 11/28/2023 1:39PM ; [facility] Education and Decision Aids were provided during visit for: Calming techniques such as b reathing exercises/meditation and other relaxation techniques Last Documented On 4 1:37PM ; [facility] Assessments Includes: Assessments from [...] OR TABS 05/04/2022 - 06/03/2022 Provider: MARCIO ANAAY MD Diagnosis: Panic disorder [episodic paroxysmal anxiety] [...] 11/12/2022 5:38PM By Kelly Wasserman MD ; [facility] Jornay PM 40 MG OR CP24 05/21/2019 - 06/20/2019 Provider: MARCIO WASSERMAN MD Diagnosis: Attention-defici t hyperactivity disorder, combined type as directed -- 1 cap in the evening Last Documented On 11/12/2022 5:38PM By Kelly Wasserman MD ; [facility] Medications Administered Includes: Administered Medications [...] 13 y/o kid to soccer game in [place] causing disruption in his schedule. He has a 12 y/o and 14 y/o kid to attend to when they have soccer games. He has not needed any Klonopin during flight. He is able to manage by sitting upfront for less turbulence. [facility]. 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 He was close to his parents [...] 11/28/2023 Last Documented On 4 11:01AM ; [facility] Current nonsmoker 11/28/2023 Last Documented On 4 1:39PM ; [facility] Tobacco non-user 11/28/2023 Last Documented On 4 1:39PM ; [facility] Smoking Status Unknown Procedures and Surgical History Includes: Procedures from this encounter Procedures Code Diagnosis Performing Provider Service Location Service Date PSYCHOTHERAPY 30 MIN W/ [place] [address] Attention-deficit hyperactivity disorder, combined type, Anxiety disorder, unspecified, Panic disorder [episodic paroxysmal anxiety] MARCIO WASSERMAN MD [facility] 11/28/2023 Last Documented On 4 2:06PM ; [facility] education and instructions Last Documented On 4 10:42AM ; [facility] supportive care and encourag ement--given positive reinforcement to keep patient motivated and active Last Documented On 4 11:01AM ; [facility] ~* Call [phone] and /or [...] 3085F Last Documented On 4 10:42AM ; [facility] use of tobacco assessment performed 1000F Last Documented On 4 10:42AM ; [facility] patient screened for future fall risk: documentation of any fall with injury in past year - no recent falls 1100F Last Documented On 4 10:42AM ; [facility] review of medications documented 1160F [...] balanced meal plan - pt sees a lead man over all dies in [employer] online and lost 7 lbs since last [...] Suspension 100,000 05/11/19Procedural: Coronavirus 2019-nCoV vaccine - [place]attle #1 10/06/20 #2 11/03/20 #3 04/202111/28/2023 Last [...] PSYCH ADULT FOLLOW UP MARCIO WASSERMAN MD [facility] 11/28/19 24 10:41AM 11:58AM Attention-defici t Hyperactivity Disorder,Anxiety Disorder Nos,Panic Disorder,Sleep Disorder Circadian Rhythm Insurance Includes: Active Insurance Policies Plan Name Member ID Group # Subscriber Relationship Effect yohana Dates 1 - ADMINISTRATIVE CONCEPTS [id number] DONALD LIANG Self Clinical Notes Includes: Clinical Notes from this encounter * Progress note Date Encounter Last Documented by 11/28/2023 PSYCH ADULT FOLLOW UP Last docum ented on 11/28/2023; 1:39 PM, MARCIO WASSERMAN MD; [facility] Top of Document Medication [...] 13 y/o kid to soccer game in [place] causing disruption in his schedule. He has a 12 y/o and 14 y/o kid to attend to when they have soccer games. He has not needed any Klonopin during flight. He is able to manage by sitting upfront for less turbulence. [facility]. 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 Marital: Marital history -- . He was born and raised in [place], [place]. He was close to his parents [...] balanced meal plan - pt sees a lead man over all dies in [employer] online and lost 7 lbs since last visit. - Supportive care and encouragement--given positive reinforcement to keep patient motivated and active. - Education and instructions. - Assessment of suicide risk performed - not suicidal - Clinical summary provided to patient. * Call [phone] and /or go to the nearest emergency [...]
--- OUTSIDE RECORDS SUMMARY | 2024-09-06 08:15 | XMS_ITS | Clinical Summary ---
Author Organization [facility] Address [address] [place] [address] Phone Care Team Providers Care Utility Clerk Name Role Phone MEEK JEROME, MARCIO Polanco [phone] Reason for Visit and Chief Complaint The Chief Complaint is: follow up for attention and concentration deficit and anxiety Problems Includes: Problems addressed during this encounter and other active Problems Current Visit Onset Date Resolved Date Provider Conditio n Status Panic Disorder 05/04/2022 MARCIO Muñoz Active Last Documented On 2 11:08AM ; [facility] Sleep Disorder Circadian Rhythm 07/02/2020 HECTOR WASSERMAN MD Active Last Documented On 0 8:07PM ; [facility] Anxiety Disorder Nos 12/16/2015 MARCIO COLLINS MD Active Last Documented On 6 7:23AM ; [facility] Attention-deficit Hyperactivity Disorder 08/11/2015 MARCIO WASSERMAN MD Active Last Documented On 6 3:19PM ; [facility] Plan of Treatment Attention Deficit Disorder [...] - Last Documented On 05/08/2022 2:16AM ; [facility] Education and Decision Aids were provided during visit for: Discussed calming techniques such as breathing exercises / meditation and other relaxation techniques Last Documented On 2 2:13AM ; [facility] Assessments Includes: Assessments from this encounter Findings - Attention-deficit hyperactivity disorder - Last Documented On 05/08/2022 2:16AM ; [facility] - Circadian rhythm sleep disorder - Last Documented On 05/08/2022 2:16AM ; [facility] - Panic disorder - Last Documented On 05/08/2022 2:16AM ; [facility] - Anxiety disorder NOS - Last Documented On 05/08/2022 2:16AM ; [facility] Instructions Includes: Instructions from this encounter Education and Decision Aids were provided during visit for: Discussed calming techniques such as breathing exercises / meditation and other relaxation techniques Last Documented On 2:13AM ; [facility] Medical Equipment - Implanted Devices Includes: Current Devices No Medical Equipment Recorded Medications Includes: Medications discussed during this encounter and other current Medications Discontinued / Stopped on this date MARCIO WASSERMAN MD on 10/01/2021 Armodafinil 250 MG Oral Tablet Provider: MARCIO WASSERMAN MD Diagnosis: Anxiety disorder , unspecified Last Documented On 11:08AM By Kelly Wasserman MD ; [facility] New / Renewed during this visit MARCIO WASSERMAN MD on 05/04/2022 Armodafinil 250 MG Oral Tablet Provider: MARCIO WASSERMAN MD 30 day supply: 30 tablet, 3 refills Diagnosis: Circadian rhythm sleep disorder, delayed sleep phase type 1 tablet every morning Pharmacy: [facility]) - [address] [facility], [id number] - Last Documented On 2 10:53AM By Kelly Wasserman MD ; [facility] Azstarys 39.2-7.8 MG Oral Capsule Provider: MARCIO WASSERMAN MD 30 day supply: 30 capsule, 0 refills Diagnosis: Attention-deficit hyperactivity disorder, combined type 1 Capsule every morning Pharmacy: [facility] ([place]) - [address] [facility], [id number] - Last Documented On 11:19AM By Kelly Wasserman MD ; [facility] KlonoPIN 0.5 MG Oral Tablet Provider: MARCIO WASSERMAN MD 30 day supply: 7 tablet, 0 refills Diagnosis: Panic disorder [episodic paroxysmal anxiety] as directed - 1 tab a day as needed only for severe anxiety/panic Pharmacy: [facility]) - [address] , [place], [id number] - Last Documented On 2 11:20AM By Kelly Wasserman MD ; [facility] Current Medications (continue as prescribed) Vyvanse 60 MG Oral Capsule 10/03/2022 Provider: MARCIO WASSERMAN MD Diagnosis: Attention-defici t hyperactivity disorder, combined type 1 Capsule every morning Last Documented On 10/03/2022 2:24PM By Kelly Wasserman MD ; [facility] Azstarys 52.3-10.4 MG Oral Capsule 10/03/2022 Provider: MARCIO WASSERMAN MD Diagnosis: Attention-defici t hyperactivity disorder, combined type as directed -- 1 cap at 1 pm Last Documented On 10/03/2022 2:24PM By Kelly Wsaserman MD ; [facility] Armodafinil 250 MG Oral Tablet 05/13/2022 Provider: MARCIO WASSERMAN MD Diagnosis: Circadian rhythm sleep disorder, delayed sleep phase type 1 tablet every morning Last Documented On 2 11:08AM By Kelly Wasserman MD ; [facility] Past Medications on file Armodafinil 250 MG Oral Tablet 02/17/2022 - 03/19/2022 Provider: MARCIO WASSERMAN MD Diagnosis: Attention-defici t hyperactivity disorder, combined type as directed -- 1 tab at noon Last Documented On 02/17/2022 2:12PM By Kelly Wasserman MD ; [facility] Mydayis 25 MG Oral Capsule Extended Release 24 Hour 12/06/2019 - 01/05/2020 Provider: MARCIO WASSERMAN MD Diagnosis: Attention-defici t hyperactivity disorder, combined type 1 Capsule every morning Last Documented On 12/06/2019 6:07PM By Kelly Wasserman MD ; [facility] Mydayis 25 MG Oral Capsule Extended Release 24 Hour 08/23/2019 - 09/22/2019 Provider: MARCIO WASSERMAN MD Diagnosis: Attention-defici t hyperactivity disorder, combined type as directed --1 cap at 1 pm Last Documented On 08/23/2019 3:29PM By Kelly Wasserman MD ; [facility] Jornay PM 60 MG Oral Capsule Extended Release 24 Hour 07/24/2019 - 08/23/2019 Provider: MARCIO WASSERMAN MD Diagnosis: Attention-defici t hyperactivity disorder, combined type as directed -- 1 cap in the evening Last Documented On 0 12:14PM By Kelly Wasserman MD ; [facility] Jornay PM 40 MG Oral Capsule Extended Release 24 Hour 05/21/2019 - 06/20/2019 Provider: MARCIO WASSERMAN MD Diagnosis: Attention-defici t hyperactivity disorder, combined type as directed -- 1 cap in the evening Last Documented On 05/21/2019 2:59PM By Kelly Wasserman MD ; [facility] Medications Administered Includes: Administered Medications from [...] Last Documented: On 05/04/2022 10:18A M ; [facility] Results Includes: Results discussed during this [...] a week. He had to go to [place], [place] and at times he had to work internationally like people in [employer], [employer] and [place] so he works different shifts depending on [...] 12/06/2019 Last Documented On 2 10:03AM ; [facility] Alcohol use - he will have 1-2 beers onc e a month or less often 07/24/2019 Last Documented On 2 10:03AM ; [facility] He was born and raised in [place], [place]. 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 [employer] 07/06/2018 Last Documented On 2 10:03AM ; [facility] Marital history -- 08/11/2015 Last Documented On 2 10:03AM ; [facility] Not using drugs (Illicit) 08/11/2015 Last Documented On 2 10:03AM ; [facility] Smoking status : Never smoker 08/11/2015 Last Documented On 2 10:03AM ; [facility] Procedures and Surgical History Includes: Procedures from this encounter Procedures Code Diagnosis Performing Provider Service L ocation Service Date education and instructions Last Documented On 2 10:03AM ; [facility] dangerousness assessment: suicide risk -not suic idal 3085F Last Documented On 2 10:03AM ; [facility] use of tobacco assessment performed 1000F Last Documented On 2 10:03AM ; [facility] patient screened for future fall risk - no recen t falls 3288F Last Documented On 2 10:03AM ; [facility] review of medications documented 1160F Last Documented On 2 10:03AM ; [facility] screening for adult depressi on: impression and score - please see above treatment and PHQ score Last Documented On 2 10:03AM ; [facility] standardized depression screening: posit yohana for symptoms Last Documented On 2 10:03AM ; [facility] Counseling on new medication : I discussed the risks, benefits and side effects of Klonopin, Azstarys. Patient verbalized understanding and agreed to treatment Last Documented On 2 2:12AM ; [facility] Clinical summary provided to patient Last Documented On 2 10:03AM ; [facility] PHQ-9: total score 3 Last Documented On 2 2:12AM ; [facility] Medical History Includes: Medical History addressed during this encounter Description Last Updated History of coronavirus 2019- nCoV vaccine - [employer] #1 10/06/20 #2 11/03/20 #3 04/202102/17/2022 Last Documented On 2 10:03AM ; [facility] History of sinusitis - given Augmentin 875 mg and Prednisone Dosepak 4 mg (did not take Prednisone) 01/03/21;given Augmentin 875 mg #20 on 03/31/20 03/10/2021 Last Documented On 2 10:03AM ; [facility] History of oral thrush - treated with [place] statin Suspension 100,000 05/11/19 05/21/2019 Last Documented On 2 10:03AM ; [facility] Primary Care Provider: [facility] 05/21/2019 Last Documented On 2 10:03AM ; [facility] Family History Includes: Family History addressed during this encounter Description Last Updated Family medical history : No significant family history 08/11/2015 Last Documented On 2 10:03AM ; [facility] Review of Systems Includes: [...] Check-Out Time Diagnosis [employer] MARCIO WASSERMAN MD [facility] 05/04/20 22 10:02AM 11:59PM Attention-deficit Hyperactivity Disorder,Anxiety Disorder Nos,Sleep Disorder Circadian Rhythm,Panic Disorder Insurance Includes: Active Insurance Policies Plan Name Member ID Group # Subscriber Relationship Effect yohana Dates 1 - ADMINISTRATIVE [employer]CEPTS [id number] DONALD LIANG Self Clinical Notes Includes: Clinical Notes from this encounter No Clinical Notes Recorded
--- OUTSIDE RECORDS SUMMARY | 2024-09-06 08:15 | XMS_ITS ---
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 HECTOR WASSERMAN MD Active Last Documented On 0 8:07PM ; [facility] Anxiety Disorder Nos 12/16/2015 MARCIO COLLINS MD Active Last Documented On 6 7:23AM ; [facility] Attention-deficit Hyperactivity Disorder 08/11/2015 MARCIO WASSERMAN MD Active Last Documented On 6 3:19PM ; [facility] Plan of Treatment Instructions to patient Lose weight Last Documented On 1 10:27AM ; [facility] Lose weight Last Documented On 1 11:14AM ; [facility] Lose weight Last Documented On 0 1:10PM ; [facility] Lose weight Last Documented On 0 1:39PM ; [facility] Education and Decision Aids were provided during visit for: Patient education about medi cation ---Education was given on medication(s) and diagnosis. I reviewed the risks, benefits and side effects of patient's medications Last Documented On 3 9:12AM ; [facility] Discussed calming techniques such as breathing exercises and other relaxation techniques Last Documented On 3 9:12AM ; [facility] Patient education about medi cation ---Education was given on medication(s) and diagnosis. I reviewed the risks, benefits and side effects of patient's medications Last Documented On 2 8:33AM ; [facility] Discussed calming techniques such as breathing exercises and other relaxation techniques Last Documented On 2 8:33AM ; [facility] Discussed calming techniques such as breathing exercises / meditation and other relaxation techniques Last Documented On 2 2:13AM ; [facility] Patient education about medi cation --- I educated patient on medication(s) and diagnosis. I reviewed the risks, benefits and side effects of patient's medications Last Documented On 2 1:30PM ; [facility] Discussed calming techniques such as breathing exercises and other relaxation techniques Last Documented On 2 1:30PM ; [facility] Patient education about medi cation --- I educated patient on medication(s) and diagnosis. I reviewed the risks, benefits and side effects of patient's medications Last Documented On 2 9:21AM ; [facility] Discussed calming techniques such as breathing exercises and other relaxation techniques Last Documented On 2 9:21AM ; [facility] Patient education about medi cation --- I educated patient on medication(s) and diagnosis. I reviewed the risks, benefits and side effects of patient's medications Last Documented On 2 3:37PM ; [facility] Discussed calming techniques such as breathing exercises and other relaxation techniques Last Documented On 2 3:37PM ; [facility] Patient education about medi cation --- I educated patient on medication(s) and diagnosis. I reviewed the risks, benefits and side effects of patient's medications Last Documented On 1 10:20AM ; [facility] Discussed calming techniques such as breathing exercises and other relaxation techniques Last Documented On 1 10:20AM ; [facility] Counseling for nutrition/america ght management provided Last Documented On 1 10:27AM ; [facility] Patient education about medi cation --- I educated patient on medication(s) and diagnosis. I reviewed the risks, benefits and side effects of patient's medications Last Documented On 1 11:00AM ; [facility] Discussed calming techniques such as breathing exercises and other relaxation techniques Last Documented On 1 11:00AM ; [facility] Counseling for nutrition/america ght management provided Last Documented On 1 11:14AM ; [facility] Patient education about medi cation --- I educated patient on medication(s) and diagnosis. I reviewed the risks, benefits and side effects of patient's medications Last Documented On 1 10:36AM ; [facility] Discussed calming techniques such as breathing exercises and other relaxation techniques Last Documented On 1 10:36AM ; [facility] Patient education about medi cation --- I educated patient on medication(s) and diagnosis. I reviewed the risks, benefits and side effects of patient's medications Last Documented On 0 12:10PM ; [facility] Patient education about medi cation --- I educated patient on medication(s) and diagnosis. I reviewed the risks, benefits and side effects of patient's medications Last Documented On 0 1:04PM ; [facility] Discussed calming techniques such as breathing exercises and other relaxation techniques Last Documented On 0 1:04PM ; [facility] Counseling for nutrition/america ght management provided Last Documented On 0 1:10PM ; [facility] Patient education about medi cation --- I educated patient on medication(s) and diagnosis. I reviewed the risks, benefits and side effects of patient's medications Last Documented On 0 1:33PM ; [facility] Discussed calming techniques such as breathing exercises and other relaxation techniques Last Documented On 0 1:33PM ; [facility] Counseling for nutrition/america ght management provided Last Documented On 0 1:39PM ; [facility] Patient education about a pr oper diet Last Documented On 0 2:45PM ; [facility] Patient education about medi cation --- I educated patient on medication(s) and diagnosis. I reviewed the risks, benefits and side effects of patient's medications Last Documented On 0 2:38PM ; [facility] Discussed calming techniques such as breathing exercises and other relaxation techniques Last Documented On 0 2:38PM ; [facility] Counseling for nutrition/america ght management provided Last Documented On 0 2:45PM ; [facility] Patient education about a pr oper diet Last Documented On 0 1:57PM ; [facility] Patient education about medi cation --- I educated patient on medication(s) and diagnosis. I reviewed the risks, benefits and side effects of patient's medications Last Documented On 0 1:43PM ; [facility] Discussed calming techniques such as breathing exercises and other relaxation techniques Last Documented On 0 1:43PM ; [facility] Counseling for nutrition/america ght management provided Last Documented On 0 1:57PM ; [facility] Patient education about a pr oper diet Last Documented On 0 2:50PM ; [facility] Patient education about medi cation --- I educated patient on medication(s) and diagnosis. I reviewed the risks, benefits and side effects of patient's medications Last Documented On 0 2:38PM ; [facility] Discussed calming techniques such as breathing exercises and other relaxation techniques Last Documented On 0 2:38PM ; [facility] Counseling for nutrition/america ght management provided Last Documented On 0 2:50PM ; [facility] Patient education about a pr oper diet Last Documented On 0 11:31AM ; [facility] Patient education about medi cation --- I educated patient on medication(s) and diagnosis. I reviewed the risks, benefits and side effects of patient's medications Last Documented On 0 11:20AM ; [facility] Discussed calming techniques such as breathing exercises and other relaxation techniques Last Documented On 0 11:20AM ; [facility] Counseling for nutrition/america ght management provided Last Documented On 0 11:31AM ; [facility] Patient education about a pr oper diet Last Documented On 9 2:08PM ; [facility] Patient education about medi cation --- I educated patient on medication(s) and diagnosis. I reviewed the risks, benefits and side effects of patient's medications Last Documented On 9 2:02PM ; [facility] Discussed calming techniques such as breathing exercises and other relaxation techniques Last Documented On 9 2:02PM ; [facility] Counseling for nutrition/america ght management provided Last Documented On 9 2:08PM ; [facility] Patient education about medi cation --- I educated patient on medication(s) and diagnosis. I reviewed the risks, benefits and side effects of patient's medications Last Documented On 9 1:59PM ; [facility] Discussed calming techniques such as breathing exercises and other relaxation techniques -- pt feels he is not able to do meditation Last Documented On 9 3:44AM ; [facility] Counseling for nutrition/america ght management provided Last Documented On 9 2:04PM ; [facility] Patient education about a pr oper diet Last Documented On 9 1:33PM ; [facility] Patient education about medi cation --- I educated patient on medication(s) and diagnosis. I reviewed the risks, benefits and side effects of patient's medications Last Documented On 9 1:27PM ; [facility] Discussed calming techniques such as breathing exercises and other relaxation techniques Last Documented On 9 1:27PM ; [facility] Counseling for nutrition/america ght management provided Last Documented On 9 1:33PM ; [facility] Patient education about a pr oper diet Last Documented On 8 4:19PM ; [facility] Patient education about medi cation --- I educated patient on medication(s) and diagnosis. I reviewed the risks, benefits and side effects of patient's medications Last Documented On 8 4:19PM ; [facility] Discussed calming techniques such as breathing exercises and other relaxation techniques Last Documented On 8 4:19PM ; [facility] Counseling for nutrition/america ght management provided Last Documented On 8 4:19PM ; [facility] Patient education about medi cation --- I educated patient on medication(s) and diagnosis. I reviewed the risks, benefits and side effects of patient's medications Last Documented On 8 2:01PM ; [facility] Discussed calming techniques such as breathing exercises and other relaxation techniques Last Documented On 8 2:01PM ; [facility] Patient education about medi cation --- I educated patient on medication(s) and diagnosis. I reviewed the risks, benefits and side effects of patient's medications Last Documented On 8 8:50AM ; [facility] Discussed calming techniques such as breathing exercises and other relaxation techniques Last Documented On 8 8:50AM ; [facility] Counseling for nutrition/america ght management provided -- pt has been working out as stress reliever Last Documented On 8 11:06AM ; [facility] Patient education about medi cation --- I educated patient on medication(s) and diagnosis. I reviewed the risks, benefits and side effects of patient's medications Last Documented On 7 9:29AM ; [facility] Discussed calming techniques such as breathing exercises and other relaxation techniques Last Documented On 7 9:29AM ; [facility] Patient education about medi cation --- I educated patient on medication(s) and diagnosis. I reviewed the risks, benefits and side effects of patient's medications Last Documented On 7 1:01PM ; [facility] Discussed calming techniques such as breathing exercises and other relaxation techniques Last Documented On 7 1:01PM ; [facility] Counseling for nutrition/america ght management provided Last Documented On 7 5:41PM ; [facility] Patient education about medi cation --- I educated patient on medication(s) and diagnosis. I reviewed the risks, benefits and side effects of patient's medications Last Documented On 7 4:53PM ; [facility] Discussed calming techniques such as breathing exercises/meditation and other relaxation techniques Last Documented On 7 4:53PM ; [facility] Patient education about medi cation --- I educated patient on medication(s) and diagnosis. I reviewed the risks, benefits and side effects of patient's medications Last Documented On 6 2:25PM ; [facility] Discussed calming techniques such as breathing exercises/meditation and other relaxation techniques Last Documented On 6 2:25PM ; [facility] Patient education about medi cation --- I educated patient on medication(s) and diagnosis. I reviewed the risks, benefits and side effects of patient's medications Last Documented On 6 4:13PM ; [facility] Discussed calming techniques such as breathing exercises/meditation and other relaxation techniques Last Documented On 6 4:13PM ; [facility] Counseling for nutrition/america ght management provided Last Documented On 6 3:41PM ; [facility] Patient education about medi cation --- I educated patient on medication(s) and diagnosis. I reviewed the risks, benefits and side effects of patient's medications Last Documented On 6 4:20PM ; [facility] Discussed calming techniques such as breathing exercises/meditation and other relaxation techniques Last Documented On 6 4:20PM ; [facility] Patient education about medi cation --- I educated patient on medication(s) and diagnosis. I reviewed the risks, benefits and side effects of patient's medications Last Documented On 6 8:52AM ; [facility] Discussed calming techniques such as breathing exercises/meditation and other relaxation techniques Last Documented On 6 8:52AM ; [facility] Patient education about medi cation --- I educated patient on medication(s) and diagnosis. I reviewed the risks, benefits and side effects of patient's medications Last Documented On 6 8:44AM ; [facility] Discussed calming techniques such as breathing exercises/meditation and other relaxation techniques Last Documented On 6 8:44AM ; [facility] Counseling for nutrition/america ght management provided Last Documented On 6 7:45AM ; [facility] Patient education about medi cation --- I educated patient on medication(s) and diagnosis. I reviewed the risks, benefits and side effects of patient's medications Last Documented On 6 3:15PM ; [facility] Discussed calming techniques such as breathing exercises/meditation and other relaxation techniques Last Documented On 6 3:15PM ; [facility] Assessments Includes: Assessments for all patient encounters Findings Encounter Date Anxiety disorder NOS TELEHEALTH with MARCIO WASSERMAN MD 08/11/2022 Last Documented On 3 9:47AM ; [facility] Attention-deficit hyperactivity disorder TELEHEALTH with MARCIO WASSERMAN MD 08/11/2022 Last Documented On 3 9:47AM ; [facility] Circadian rhythm sleep disorder TELEHEALTH with MARCIO WASSERMAN MD 08/11/2022 Last Documented On 3 9:47AM ; [facility] Panic disorder TELEHEALTH with MARCIO ANAYA MD 08/11/2022 Last Documented On 3 9:47AM ; [facility] Anxiety disorder NOS TELEHEALTH with MARCIO WASSREMAN MD 05/31/2022 Last Documented On 2 1:46PM ; [facility] Attention-deficit hyperactivity disorder TELEHEALTH with MARCIO WASSERMAN MD 05/31/2022 Last Documented On 2 1:46PM ; [facility] Circadian rhythm sleep disorder TELEHEALTH with MRACIO WASSERMAN MD 05/31/2022 Last Documented On 2 1:46PM ; [facility] Panic disorder TELEHEALTH with MARCIO ANAYA MD 05/31/2022 Last Documented On 2 1:46PM ; [facility] Anxiety disorder NOS TELEHEALTH with MARCIO WASSERMAN MD 05/04/2022 Last Documented On 2 2:16AM ; [facility] Attention-deficit hyperactivity disorder TELEHEALTH with MARCIO WASSERMAN MD 05/04/2022 Last Documented On 2 2:16AM ; [facility] Circadian rhythm sleep disorder TELEHEALTH with MARCIO WASSERMAN MD 05/04/2022 Last Documented On 2 2:16AM ; [facility] Panic disorder TELEHEALTH with MARCIO ANAYA MD 05/04/2022 Last Documented On 2 2:16AM ; [facility] Anxiety disorder NOS FOLLOW UP with MARCIO WASSERMAN MD 02/17/2022 Last Documented On 2 9:06AM ; [facility] Attention-deficit [facility]activity disorder FOLLOW UP with MARCIO WASSERMAN MD 02/17/2022 Last Documented On 2 9:06AM ; [facility] Circadian rhythm sleep disorder FOLLOW UP with Jose Enrique WASSERMAN MD 02/17/2022 Last Documented On 2 9:06AM ; [facility] Anxiety disorder NOS TELEHEALTH with MARCIO WASSERMAN MD 12/09/2021 Last Documented On 2 8:47AM ; [facility] Attention-deficit hyperactivity disorder TELEHEALTH with MARCIO WASSERMAN MD 12/09/2021 Last Documented On 2 8:47AM ; [facility] Circadian rhythm sleep disorder TELEHEALTH with MARCIO WASSERMAN MD 12/09/2021 Last Documented On 2 8:47AM ; [facility] Attention-deficit hyperactivity disorder * PHONE CALL with MARCIO WASSERMAN MD 11/12/2021 Last Documented On 2 5:29PM ; [facility] Anxiety disorder NOS TELEHEALTH with MARCIO WASSERMAN MD 10/01/2021 Last Documented On 2 10:48AM ; [facility] Attention-deficit hyperactivity disorder TELEHEALTH with MARCIO WASSERMAN MD 10/01/2021 Last Documented On 2 10:48AM ; [facility] Circadian rhythm sleep disorder TELEHEALTH with MARCIO WASSERMAN MD 10/01/2021 Last Documented On 2 10:48AM ; [facility] Anxiety disorder NOS TELEHEALTH with MARCIO WASSERMAN MD 03/10/2021 Last Documented On 1 10:47AM ; [facility] Attention-deficit hyperactivity disorder TELEHEALTH with MARCIO WASSERMAN MD 03/10/2021 Last Documented On 1 10:47AM ; [facility] Circadian rhythm sleep disorder TELEHEALTH with MARCIO WASSERMAN MD 03/10/2021 Last Documented On 1 10:47AM ; [facility] Anxiety disorder NOS TELEHEALTH with MARCIO WASSERMAN MD 12/24/2020 Last Documented On 1 8:45AM ; [facility] Attention-deficit hyperactivity disorder TELEHEALTH with MARCIO WASSERMAN MD 12/24/2020 Last Documented On 1 8:45AM ; [facility] Circadian rhythm sleep disorder TELEHEALTH with MARCIO WASSERMAN MD 12/24/2020 Last Documented On 1 8:45AM ; [facility] Anxiety disorder NOS TELEHEALTH with MARCIO WASSERMAN MD 09/03/2020 Last Documented On 1 7:58AM ; [facility] Attention-deficit hyperactivity disorder TELEHEALTH with MARCIO WASSERMAN MD 09/03/2020 Last Documented On 1 7:58AM ; [facility] Circadian rhythm sleep disorder TELEHEALTH with MARCIO WASSERMAN MD 09/03/2020 Last Documented On 1 7:58AM ; [facility] Anxiety disorder NOS TELEHEALTH with MARCIO WASSERMAN MD 07/02/2020 Last Documented On 0 8:13PM ; [facility] Attention-deficit hyperactivity disorder TELEHEALTH with MARCIO WASSERMAN MD 07/02/2020 Last Documented On 0 8:13PM ; [facility] Circadian rhythm sleep disorder TELEHEALTH with MARCIO WASSERMAN MD 07/02/2020 Last Documented On 0 8:13PM ; [facility] Anxiety disorder NOS TELEHEALTH with MARCIO WASSERMAN MD 04/03/2020 Last Documented On 0 8:45AM ; [facility] Attention-deficit hyperactivity disorder TELEHEALTH with MARCIO WASSERMAN MD 04/03/2020 Last Documented On 0 8:45AM ; [facility] Anxiety disorder NOS GENERAL OFFICE VISIT with Jose Enrique WASSERMAN MD 01/21/2020 Last Documented On 0 11:37PM ; [facility] Attention-deficit hyperactivity disorder GENERAL OFFICE VISIT with MARCIO WASSERMAN MD 01/21/2020 Last Documented On 0 11:37PM ; [facility] Anxiety disorder NOS TELEHEALTH with MARCIO WASSERMAN MD 12/06/2019 Last Documented On 0 6:16PM ; [facility] Attention-deficit hyperactivity disorder TELEHEALTH with MARCIO WASSERMAN MD 12/06/2019 Last Documented On 0 6:16PM ; [facility] Anxiety disorder NOS GENERAL OFFICE VISIT with Jose Enrique WASSERMAN MD 09/25/2019 Last Documented On 0 3:19PM ; [facility] Attention-deficit hyperactivity disorder GENERAL OFFICE VISIT with MARCIO WASSERMAN MD 09/25/2019 Last Documented On 0 3:19PM ; [facility] Anxiety disorder NOS GENERAL OFFICE VISIT with Jose Enrique WASSERMAN MD 08/23/2019 Last Documented On 0 2:43PM ; [facility] Attention-deficit hyperactivity disorder GENERAL OFFICE VISIT with MARCIO WASSERMAN MD 08/23/2019 Last Documented On 0 2:43PM ; [facility] Anxiety disorder NOS GENERAL OFFICE VISIT with Jose Enrique WASSERMAN MD 07/24/2019 Last Documented On 0 10:00PM ; [facility] Attention-deficit hyperactivity disorder GENERAL OFFICE VISIT with MARCIO WASSERMAN MD 07/24/2019 Last Documented On 0 10:00PM ; [facility] Anxiety disorder NOS GENERAL OFFICE VISIT with Jose Enrique WASSERMAN MD 05/21/2019 Last Documented On 9 10:18PM ; [facility] Attention-deficit hyperactivity disorder GENERAL OFFICE VISIT with MARCIO WASSERMAN MD 05/21/2019 Last Documented On 9 10:18PM ; [facility] Anxiety disorder NOS GENERAL OFFICE VISIT with Jose Enrique WASSERMAN MD 12/21/2018 Last Documented On 9 3:55AM ; [facility] Attention-deficit hyperactivity disorder GENERAL OFFICE VISIT with MARCIO WASSERMAN MD 12/21/2018 Last Documented On 9 3:55AM ; [facility] Anxiety disorder NOS GENERAL OFFICE VISIT with Jose Enrique WASSERMAN MD 08/17/2018 Last Documented On 9 7:24AM ; [facility] Attention-deficit hyperactivity disorder GENERAL OFFICE VISIT with MARCIO WASSERMAN MD 08/17/2018 Last Documented On 9 7:24AM ; [facility] Anxiety disorder NOS GENERAL OFFICE VISIT with Jose Enrique WASSERMAN MD 07/03/2018 Last Documented On 8 2:04PM ; [facility] Attention-deficit hyperactivity disorder GENERAL OFFICE VISIT with MARCIO WASSERMAN MD 07/03/2018 Last Documented On 8 2:04PM ; [facility] Anxiety disorder NOS GENERAL OFFICE VISIT with Jose Enrique WASSERMAN MD 11/14/2017 Last Documented On 8 2:49AM ; [facility] Attention-deficit hyperactivity disorder GENERAL OFFICE VISIT with MARCIO WASSERMAN MD 11/14/2017 Last Documented On 8 2:49AM ; [facility] Anxiety disorder NOS GENERAL OFFICE VISIT with Jose Enrique WASSERMAN MD 08/03/2017 Last Documented On 8 9:31PM ; [facility] Attention-deficit hyperactivity disorder GENERAL OFFICE VISIT with MARCIO WASSERMAN MD 08/03/2017 Last Documented On 8 9:31PM ; [facility] Anxiety disorder NOS GENERAL OFFICE VISIT with Jose Enrique WASSERMAN MD 02/17/2017 Last Documented On 7 11:20AM ; [facility] Attention-deficit hyperactivity disorder GENERAL OFFICE VISIT with MARCIO WASSERMAN MD 02/17/2017 Last Documented On 7 11:20AM ; [facility] Anxiety disorder NOS GENERAL OFFICE VISIT with Jose Enrique WASSERMAN MD 12/08/2016 Last Documented On 7 5:49PM ; [facility] Attention-deficit hyperactivity disorder GENERAL OFFICE VISIT with MARCIO WASSERMAN MD 12/08/2016 Last Documented On 7 5:49PM ; [facility] Anxiety disorder NOS GENERAL OFFICE VISIT with Jose Enrique WASSERMAN MD 07/28/2016 Last Documented On 7 2:55AM ; [facility] Attention-deficit hyperactivity disorder GENERAL OFFICE VISIT with MARCIO WASSERMAN MD 07/28/2016 Last Documented On 7 2:55AM ; [facility] Anxiety disorder NOS GENERAL OFFICE VISIT with Jose Enrique WASSERMAN MD 06/27/2016 Last Documented On 6 9:33AM ; [facility] Attention-deficit hyperactivity disorder GENERAL OFFICE VISIT with MARCIO WASSERMAN MD 06/27/2016 Last Documented On 6 9:33AM ; [facility] Anxiety disorder NOS GENERAL OFFICE VISIT with Jose Enrique WASSERMAN MD 03/16/2016 Last Documented On 6 3:43PM ; [facility] Attention-deficit hyperactivity disorder GENERAL OFFICE VISIT with MARCIO WASSERMAN MD 03/16/2016 Last Documented On 6 3:43PM ; [facility] Anxiety disorder NOS GENERAL OFFICE VISIT with Jose Enrique WASSERMAN MD 01/19/2016 Last Documented On 6 7:25AM ; [facility] Attention-deficit hyperactivity disorder GENERAL OFFICE VISIT with MARCIO WASSERMAN MD 01/19/2016 Last Documented On 6 7:25AM ; [facility] * PHONE CALL with MARCIO WASSERMAN MD 11/25/2015 Last Documented On 6 6:00PM ; [facility] Attention-deficit hyperactivity disorder GENERAL OFFICE VISIT with MARCIO WASSERMAN MD 10/09/2015 Last Documented On 6 10:09AM ; [facility] Attention-deficit hyperactivity disorder GENERAL OFFICE VISIT with MARCIO WASSERMAN MD 09/14/2015 Last Documented On 6 7:47AM ; [facility] Attention-deficit hyperactivity disorder * PHONE CALL with MARCIO WASSERMAN MD 09/01/2015 Last Documented On 6 2:53PM ; [facility] Attention-deficit hyperactivity disorder NEW PATIENT VISIT with MARCIO WASSERMAN MD 08/11/2015 Last Documented On 6 7:56PM ; [facility] Instructions Includes: Instructions for all patient encounters Instructions to patient Lose weight Last Documented On 1 10:27AM ; [facility] Lose weight Last Documented On 1 11:14AM ; [facility] Lose weight Last Documented On 0 1:10PM ; [facility] Lose weight Last Documented On 0 1:39PM ; [facility] Education and Decision Aids were provided during visit for: Patient education about medi cation ---Education was given on medication(s) and diagnosis. I reviewed the risks, benefits and side effects of patient's medications Last Documented On 3 9:12AM ; [facility] Discussed calming techniques such as breathing exercises and other relaxation techniques Last Documented On 3 9:12AM ; [facility] Patient education about medi cation ---Education was given on medication(s) and diagnosis. I reviewed the risks, benefits and side effects of patient's medications Last Documented On 2 8:33AM ; [facility] Discussed calming techniques such as breathing exercises and other relaxation techniques Last Documented On 2 8:33AM ; [facility] Discussed calming techniques such as breathing exercises / meditation and other relaxation techniques Last Documented On 2 2:13AM ; [facility] Patient education about medi cation --- I educated patient on medication(s) and diagnosis. I reviewed the risks, benefits and side effects of patient's medications Last Documented On 2 1:30PM ; [facility] Discussed calming techniques such as breathing exercises and other relaxation techniques Last Documented On 2 1:30PM ; [facility] Patient education about medi cation --- I educated patient on medication(s) and diagnosis. I reviewed the risks, benefits and side effects of patient's medications Last Documented On 2 9:21AM ; [facility] Discussed calming techniques such as breathing exercises and other relaxation techniques Last Documented On 2 9:21AM ; [facility] Patient education about medi cation --- I educated patient on medication(s) and diagnosis. I reviewed the risks, benefits and side effects of patient's medications Last Documented On 2 3:37PM ; [facility] Discussed calming techniques such as breathing exercises and other relaxation techniques Last Documented On 2 3:37PM ; [facility] Patient education about medi cation --- I educated patient on medication(s) and diagnosis. I reviewed the risks, benefits and side effects of patient's medications Last Documented On 1 10:20AM ; [facility] Discussed calming techniques such as breathing exercises and other relaxation techniques Last Documented On 1 10:20AM ; [facility] Counseling for nutrition/america ght management provided Last Documented On 1 10:27AM ; [facility] Patient education about medi cation --- I educated patient on medication(s) and diagnosis. I reviewed the risks, benefits and side effects of patient's medications Last Documented On 1 11:00AM ; [facility] Discussed calming techniques such as breathing exercises and other relaxation techniques Last Documented On 1 11:00AM ; [facility] Counseling for nutrition/america ght management provided Last Documented On 1 11:14AM ; [facility] Patient education about medi cation --- I educated patient on medication(s) and diagnosis. I reviewed the risks, benefits and side effects of patient's medications Last Documented On 1 10:36AM ; [facility] Discussed calming techniques such as breathing exercises and other relaxation techniques Last Documented On 1 10:36AM ; [facility] Patient education about medi cation --- I educated patient on medication(s) and diagnosis. I reviewed the risks, benefits and side effects of patient's medications Last Documented On 0 12:10PM ; [facility] Patient education about medi cation --- I educated patient on medication(s) and diagnosis. I reviewed the risks, benefits and side effects of patient's medications Last Documented On 0 1:04PM ; [facility] Discussed calming techniques such as breathing exercises and other relaxation techniques Last Documented On 0 1:04PM ; [facility] Counseling for nutrition/america ght management provided Last Documented On 0 1:10PM ; [facility] Patient education about medi cation --- I educated patient on medication(s) and diagnosis. I reviewed the risks, benefits and side effects of patient's medications Last Documented On 0 1:33PM ; [facility] Discussed calming techniques such as breathing exercises and other relaxation techniques Last Documented On 0 1:33PM ; [facility] Counseling for nutrition/america ght management provided Last Documented On 0 1:39PM ; [facility] Patient education about a pr oper diet Last Documented On 0 2:45PM ; [facility] Patient education about medi cation --- I educated patient on medication(s) and diagnosis. I reviewed the risks, benefits and side effects of patient's medications Last Documented On 0 2:38PM ; [facility] Discussed calming techniques such as breathing exercises and other relaxation techniques Last Documented On 0 2:38PM ; [facility] Counseling for nutrition/america ght management provided Last Documented On 0 2:45PM ; [facility] Patient education about a pr oper diet Last Documented On 0 1:57PM ; [facility] Patient education about medi cation --- I educated patient on medication(s) and diagnosis. I reviewed the risks, benefits and side effects of patient's medications Last Documented On 0 1:43PM ; [facility] Discussed calming techniques such as breathing exercises and other relaxation techniques Last Documented On 0 1:43PM ; [facility] Counseling for nutrition/america ght management provided Last Documented On 0 1:57PM ; [facility] Patient education about a pr oper diet Last Documented On 0 2:50PM ; [facility] Patient education about medi cation --- I educated patient on medication(s) and diagnosis. I reviewed the risks, benefits and side effects of patient's medications Last Documented On 0 2:38PM ; [facility] Discussed calming techniques such as breathing exercises and other relaxation techniques Last Documented On 0 2:38PM ; [facility] Counseling for nutrition/america ght management provided Last Documented On 0 2:50PM ; [facility] Patient education about a pr oper diet Last Documented On 0 11:31AM ; [facility] Patient education about medi cation --- I educated patient on medication(s) and diagnosis. I reviewed the risks, benefits and side effects of patient's medications Last Documented On 0 11:20AM ; [facility] Discussed calming techniques such as breathing exercises and other relaxation techniques Last Documented On 0 11:20AM ; [facility] Counseling for nutrition/america ght management provided Last Documented On 0 11:31AM ; [facility] Patient education about a pr oper diet Last Documented On 9 2:08PM ; [facility] Patient education about medi cation --- I educated patient on medication(s) and diagnosis. I reviewed the risks, benefits and side effects of patient's medications Last Documented On 9 2:02PM ; [facility] Discussed calming techniques such as breathing exercises and other relaxation techniques Last Documented On 9 2:02PM ; [facility] Counseling for nutrition/america ght management provided Last Documented On 9 2:08PM ; [facility] Patient education about medi cation --- I educated patient on medication(s) and diagnosis. I reviewed the risks, benefits and side effects of patient's medications Last Documented On 9 1:59PM ; [facility] Discussed calming techniques such as breathing exercises and other relaxation techniques -- pt feels he is not able to do meditation Last Documented On 9 3:44AM ; [facility] Counseling for nutrition/america ght management provided Last Documented On 9 2:04PM ; [facility] Patient education about a pr oper diet Last Documented On 9 1:33PM ; [facility] Patient education about medi cation --- I educated patient on medication(s) and diagnosis. I reviewed the risks, benefits and side effects of patient's medications Last Documented On 9 1:27PM ; [facility] Discussed calming techniques such as breathing exercises and other relaxation techniques Last Documented On 9 1:27PM ; [facility] Counseling for nutrition/america ght management provided Last Documented On 9 1:33PM ; [facility] Patient education about a pr oper diet Last Documented On 8 4:19PM ; [facility] Patient education about medi cation --- I educated patient on medication(s) and diagnosis. I reviewed the risks, benefits and side effects of patient's medications Last Documented On 8 4:19PM ; [facility] Discussed calming techniques such as breathing exercises and other relaxation techniques Last Documented On 8 4:19PM ; [facility] Counseling for nutrition/america ght management provided Last Documented On 8 4:19PM ; [facility] Patient education about medi cation --- I educated patient on medication(s) and diagnosis. I reviewed the risks, benefits and side effects of patient's medications Last Documented On 8 2:01PM ; [facility] Discussed calming techniques such as breathing exercises and other relaxation techniques Last Documented On 8 2:01PM ; [facility] Patient education about medi cation --- I educated patient on medication(s) and diagnosis. I reviewed the risks, benefits and side effects of patient's medications Last Documented On 8 8:50AM ; [facility] Discussed calming techniques such as breathing exercises and other relaxation techniques Last Documented On 8 8:50AM ; [facility] Counseling for nutrition/america ght management provided -- pt has been working out as stress reliever Last Documented On 8 11:06AM ; [facility] Patient education about medi cation --- I educated patient on medication(s) and diagnosis. I reviewed the risks, benefits and side effects of patient's medications Last Documented On 7 9:29AM ; [facility] Discussed calming techniques such as breathing exercises and other relaxation techniques Last Documented On 7 9:29AM ; [facility] Patient education about medi cation --- I educated patient on medication(s) and diagnosis. I reviewed the risks, benefits and side effects of patient's medications Last Documented On 7 1:01PM ; [facility] Discussed calming techniques such as breathing exercises and other relaxation techniques Last Documented On 7 1:01PM ; [facility] Counseling for nutrition/america ght management provided Last Documented On 7 5:41PM ; [facility] Patient education about medi cation --- I educated patient on medication(s) and diagnosis. I reviewed the risks, benefits and side effects of patient's medications Last Documented On 7 4:53PM ; [facility] Discussed calming techniques such as breathing exercises/meditation and other relaxation techniques Last Documented On 7 4:53PM ; [facility] Patient education about medi cation --- I educated patient on medication(s) and diagnosis. I reviewed the risks, benefits and side effects of patient's medications Last Documented On 6 2:25PM ; [facility] Discussed calming techniques such as breathing exercises/meditation and other relaxation techniques Last Documented On 6 2:25PM ; [facility] Patient education about medi cation --- I educated patient on medication(s) and diagnosis. I reviewed the risks, benefits and side effects of patient's medications Last Documented On 6 4:13PM ; [facility] Discussed calming techniques such as breathing exercises/meditation and other relaxation techniques Last Documented On 6 4:13PM ; [facility] Counseling for nutrition/america ght management provided Last Documented On 6 3:41PM ; [facility] Patient education about medi cation --- I educated patient on medication(s) and diagnosis. I reviewed the risks, benefits and side effects of patient's medications Last Documented On 6 4:20PM ; [facility] Discussed calming techniques such as breathing exercises/meditation and other relaxation techniques Last Documented On 6 4:20PM ; [facility] Patient education about medi cation --- I educated patient on medication(s) and diagnosis. I reviewed the risks, benefits and side effects of patient's medications Last Documented On 6 8:52AM ; [facility] Discussed calming techniques such as breathing exercises/meditation and other relaxation techniques Last Documented On 6 8:52AM ; [facility] Patient education about medi cation --- I educated patient on medication(s) and diagnosis. I reviewed the risks, benefits and side effects of patient's medications Last Documented On 6 8:44AM ; [facility] Discussed calming techniques such as breathing exercises/meditation and other relaxation techniques Last Documented On 6 8:44AM ; [facility] Counseling for nutrition/america ght management provided Last Documented On 6 7:45AM ; [facility] Patient education about medi cation --- I educated patient on medication(s) and diagnosis. I reviewed the risks, benefits and side effects of patient's medications Last Documented On 6 3:15PM ; [facility] Discussed calming techniques such as breathing exercises/meditation and other relaxation techniques Last Documented On 6 3:15PM ; [facility] Medical Equipment - Implanted Devices Includes: Current and historical Devices No Medical Equipment Recorded Medications Includes: Current and historical Medications Current Medications (continue as prescribed) Vyvanse 60 MG Oral Capsule 10/03/2022 Provider: MARCIO WASSERMAN MD Diagnosis: Attention-defici t hyperactivity disorder, combined type 1 Capsule every morning Last Documented On 10/03/2022 2:24PM By Kelly Wassermna MD ; [facility] Azstarys 52.3-10.4 MG Oral Capsule 10/03/2022 Provider: MARCIO WASSERMAN MD Diagnosis: Attention-defici t hyperactivity disorder, combined type as directed -- 1 cap at 1 pm Last Documented On 10/03/2022 2:24PM By Kelly Wasserman MD ; [facility] Armodafinil 250 MG Oral Tablet 05/13/2022 Provider: MARCIO WASSERMAN MD Diagnosis: Circadian rhythm sleep disorder, delayed sleep phase type 1 tablet every morning Last Documented On 11:08AM By Kelly Wasserman MD ; [facility] Past Medications on file Azstarys 52.3-10.4 MG Oral Capsule 08/11/2022 - 10/03/2022 Provider: MARCIO WASSERMAN MD Diagnosis: Attention-defici t hyperactivity disorder, combined type as directed -- 1 cap at 1 pm Last Documented On 10/03/2022 2:12PM By Kelly Wasserman MD ; [facility] Vyvanse 60 MG Oral Capsule 07/26/2022 - 10/03/2022 Provider: MARCIO WASSERMAN MD Diagnosis: Attention-defici t hyperactivity disorder, combined type 1 Capsule every morning Last Documented On 10/03/2022 2:13PM By Kelly Wasserman MD ; [facility] Vyvanse 60 MG Oral Capsule 05/31/2022 - 07/26/2022 Provider: MARCIO WASSERMAN MD Diagnosis: Attention-defici t hyperactivity disorder, combined type 1 Capsule every morning Last Documented On 07/26/2022 4:40PM By Kelly Wasserman MD ; [facility] Armodafinil 250 MG Oral Tablet 05/04/2022 - 05/13/2022 Provider: MARCIO WASSERMAN MD Diagnosis: Circadian rhythm sleep disorder, delayed sleep phase type 1 tablet every morning Last Documented On 10:53AM By Kelly Wasserman MD ; [facility] Azstarys 39.2-7.8 MG Oral Capsule 05/04/2022 - 06/03/2022 Provider: MARCIO WASSERMAN MD Diagnosis: Attention-defici t hyperactivity disorder, combined type 1 Capsule every morning Last Documented On 11:19AM By Kelly Wasserman MD ; [facility] KlonoPIN 0.5 MG Oral Tablet 05/04/2022 - 06/03/2022 Provider: MARCIO ANAYA MD Diagnosis: Panic disorder [episodic paroxysmal anxiety] as directed - 1 tab a day as needed only for severe anxiety/panic Last Documented On 11:20AM By Kelly Wasserman MD ; [facility] Vyvanse 70 MG Oral Capsule 03/23/2022 - 08/11/2022 Provider: MARCIO WASSERMAN MD Diagnosis: Attention-defici t hyperactivity disorder, combined type 1 Capsule every morning Last Documented On 08/11/2022 9:33AM By Kelly Wasserman MD ; [facility] Armodafinil 250 MG Oral Tablet 02/17/2022 - 03/19/2022 Provider: MARCIO WASSERMAN MD Diagnosis: Attention-defici t hyperactivity disorder, combined type as directed -- 1 tab at noon Last Documented On 02/17/2022 2:12PM By Kelly Wasserman MD ; [facility] Vyvanse 70 MG Oral Capsule 02/07/2022 - 03/23/2022 Provider: MARCIO WASSERMAN MD Diagnosis: Attention-defici t hyperactivity disorder, combined type 1 Capsule every morning Last Documented On 11:13AM By Kelly Wasserman MD ; [facility] Vyvanse 70 MG Oral Capsule 12/27/2021 - 02/07/2022 Provider: MARCIO WASSERMAN MD Diagnosis: Attention-defici t hyperactivity disorder, combined type 1 Capsule every morning Last Documented On 02/07/2022 6:28PM By Kelly Wasserman MD ; [facility] Vyvanse 70 MG Oral Capsule 11/15/2021 - 12/27/2021 Provider: MARCIO WASSERMAN MD Diagnosis: Attention-defici t hyperactivity disorder, combined type 1 Capsule every morning Last Documented On 12/27/2021 3:01PM By Kelly Wasserman MD ; [facility] MG Oral Capsule 11/12/2021 - 11/15/2021 Provider: MARCIO WASSERMAN MD Diagnosis: Attention-defici t hyperactivity disorder, combined type 1 Capsule every morning Last Documented On 2 11:32AM By Kelly Wasserman MD ; [facility] Vy[facility]se 60 MG Oral Capsule 10/04/2021 - 01/24/2022 Provider: MARCIO WASSERMAN MD Diagnosis: Attention-defici t hyperactivity disorder, combined type 1 Capsule every morning Last Documented On 01/24/2022 8:41AM By Kelly Wasserman MD ; [facility] Vy[facility]se 60 MG Oral Capsule 10/01/2021 - 10/04/2021 Provider: MARCIO WASSERMAN MD Diagnosis: Attention-defici t hyperactivity disorder, combined type 1 Capsule every morning Last Documented On 2 11:20AM By Kelly Wasserman MD ; [facility] Armodafinil 250 MG Oral Tablet 10/01/2021 - 05/04/2022 Provider: MARCIO WASSERMAN MD Diagnosis: Anxiety disorder , unspecified 1 tablet every morning Last Documented On 2 11:08AM By Kelly Wasserman MD ; [facility] Vy[facility]se 70 MG Oral Capsule 07/26/2021 - 10/25/2021 Pro vider: MARCIO WASSERMAN MD Diagnosis: 1 Capsule every morning Last Documented On 2 10:40AM By Kelly Wasserman MD ; [facility] Vy[facility]se 70 MG Oral Capsule 05/17/2021 - 07/26/2021 Pro vider: MARCIO WASSERMAN MD Diagnosis: 1 Capsule every morning Last Documented On 07/26/2021 3:20PM By Kelly Wasserman MD ; [facility] Strattera 60 MG Oral Capsule 05/17/2021 - 10/25/2021 Provider: MARCIO WASSERMAN MD Diagnosis: Anxiety disorder , unspecified as directed - 1 cap at 11 am Last Documented On 2 10:40AM By Kelly Wasserman MD ; [facility] Mydayis 50 MG Oral Capsule Extended Release 24 Hour 05/17/2021 - 10/25/2021 Provider: MACRIO WASSERMAN MD Diagnosis: 1 Capsule every morning Last Documented On 2 10:40AM By Kelly Wasserman MD ; [facility] Vyvanse 70 MG Oral Capsule 02/19/2021 - 05/17/2021 Pro vider: MARCIO WASSERMAN MD Diagnosis: 1 Capsule every morning Last Documented On 05/17/2021 1:01PM By Kelly Wasserman MD ; [facility] Mydayis 50 MG Oral Capsule Extended Release 24 Hour 02/19/2021 - 05/17/2021 Provider: MARCIO WASSERMAN MD Diagnosis: 1 Capsule every morning Last Documented On 05/17/2021 1:02PM By Kelly Wasserman MD ; [facility] Vyvanse 70 MG Oral Capsule 12/30/2020 - 02/19/2021 Provider: MARCIO WASSERMAN MD Diagnosis: Attention-defici t hyperactivity disorder, combined type 1 Capsule every morning Last Documented On 12:03PM By Kelly Wasserman MD ; [facility] Strattera 60 MG Oral Capsule 12/25/2020 - 05/17/2021 Provider: MARCIO WASSERMAN MD Diagnosis: Anxiety disorder , unspecified as directed - 1 cap at 11 am Last Documented On 05/17/2021 1:00PM By Kelly Wasserman MD ; [facility] Mydayis 50 MG Oral Capsule Extended Release 24 Hour 12/24/2020 - 02/19/2021 Provider: MARCIO WASSERMAN MD Diagnosis: Attention-defici t hyperactivity disorder, combined type 1 Capsule every morning Last Documented On 12:03PM By Kelly Wasserman MD ; [facility] Mydayis 37.5 MG Oral Capsule Extended Release 24 Hour 11/10/2020 - 12/25/2020 Provider: MARCIO WASSERMAN MD Diagnosis: Attention-defici t hyperactivity disorder, combined type as directed - 1 cap at noon Last Documented On 12/25/2020 7:17AM By Kelly Wasserman MD ; [facility] Vy[facility]se 70 MG Oral Capsule 11/10/2020 - 10/25/2021 Provider: MARCIO WASSERMAN MD Diagnosis: Attention-defici t hyperactivity disorder, combined type 1 Capsule every morning Last Documented On 10:40AM By Kelly Wasserman MD ; [facility] Mydayis 37.5 MG Oral Capsule Extended Release 24 Hour 09/25/2020 - 11/10/2020 Provider: MARCIO WASSERMAN MD Diagnosis: Attention-defici t hyperactivity disorder, combined type as directed - 1 cap at noon Last Documented On 11/10/2020 4:04PM By Kelly Wasserman MD ; [facility] Vy[facility]se 70 MG Oral Capsule 09/25/2020 - 11/10/2020 Provider: MARCIO WASSERAMN MD Diagnosis: Attention-defici t hyperactivity disorder, combined type 1 Capsule every morning Last Documented On 11/10/2020 4:03PM By Kelly Wasserman MD ; [facility] Mydayis 37.5 MG Oral Capsule Extended Release 24 Hour 08/14/2020 - 09/25/2020 Provider: MARCIO WASSERMAN MD Diagnosis: Attention-defici t hyperactivity disorder, combined type as directed - 1 cap at noon Last Documented On 09/25/2020 5:29PM By Kelly Wasserman MD ; [facility] Vyvanse 70 MG Oral Capsule 08/14/2020 - 09/25/2020 Provider: MARCIO WASSERMAN MD Diagnosis: Attention-defici t hyperactivity disorder, combined type 1 Capsule every morning Last Documented On 09/25/2020 5:28PM By Kelly W[facility] ; [facility] Oral Tablet 07/15/2020 - 10/25/2021 Provider: MARCIO WASSERMAN MD Diagnosis: Circadian rhythm sleep disorder, delayed sleep phase type 1 tablet every morning Last Documented On 10:41AM By Kelly Wasserman MD ; [facility] Medical [facility] Mydayis 37.5 MG Oral Capsule Extended Release 24 Hour 07/15/2020 - 08/14/2020 Provider: MARCIO WASSERMAN MD Diagnosis: Attention-defici t hyperactivity disorder, combined type as directed - 1 cap at noon Last Documented On 08/14/2020 3:10PM By Kelly Wasserman MD ; [facility] V[facility] 70 MG Oral Capsule 07/02/2020 - 08/14/2020 Provider: MARCIO WASSERMAN MD Diagnosis: Attention-defici t hyperactivity disorder, combined type 1 Capsule every morning Last Documented On 08/14/2020 3:11PM By Kelly Wasserman MD ; [facility] Armodafinil 150 MG Oral Tablet 07/02/2020 - 07/15/2020 Provider: MARCIO WASSERMAN MD Diagnosis: Circadian rhythm sleep disorder, delayed sleep phase type 1 tablet every morning -- to be sent later Last Documented On 07/15/2020 5:40PM By Kelly Wasserman MD ; [facility] Vyvanse 60 MG Oral Capsule 05/20/2020 - 10/12/2020 Provider: MARCIO ANAYA MD Diagnosis: Anxiety disorder , unspecified 1 Capsule every morning Last Documented On 10/12/2020 7:56AM By Kelly Wasserman MD ; [facility] Mydayis 37.5 MG Oral Capsule Extended Release 24 Hour 05/20/2020 - 07/15/2020 Provider: MARCIO WASSERMAN MD Diagnosis: Attention-defici t hyperactivity disorder, combined type as directed - 1 cap at noon Last Documented On 07/15/2020 5:41PM By Kelly Wasserman MD ; [facility] Vyvanse 60 MG Oral Capsule 04/03/2020 - 05/20/2020 Provider: MARCIO ANAYA MD Diagnosis: Anxiety disorder , unspecified 1 Capsule every morning Last Documented On 05/20/2020 5:39PM By Kelly Wasserman MD ; [facility] My[facility] 37.5 MG Oral Capsule Extended Release 24 Hour 04/03/2020 - 05/20/2020 Provider: MARCIO WASSERMAN MD Diagnosis: Attention-defici t hyperactivity disorder, combined type as directed - 1 cap at noon Last Documented On 05/20/2020 5:31PM By Kelly Wasserman MD ; [facility] Vyvanse 60 MG Oral Capsule 03/03/2020 - 04/03/2020 Provider: MARCIO ANAYA MD Diagnosis: Anxiety disorder , unspecified 1 Capsule every morning Last Documented On 04/03/2020 1:48PM By Kelly Wasserman MD ; [facility] Mydayis 37.5 MG Oral Capsule Extended Release 24 Hour 03/03/2020 - 04/03/2020 Provider: MARCIO WASSERMAN MD Diagnosis: Attention-defici t hyperactivity disorder, combined type as directed - 1 cap at noon Last Documented On 04/03/2020 1:46PM By Kelly Wasserman MD ; [facility] Mydayis 37.5 MG Oral Capsule Extended Release 24 Hour 01/21/2020 - 03/03/2020 Provider: MARCIO WASSERMAN MD Diagnosis: Attention-defici t hyperactivity disorder, combined type as directed - 1 cap at noon Last Documented On 03/03/2020 3:19PM By Kelly Wasserman MD ; [facility] V[facility] 60 MG Oral Capsule 01/21/2020 - 03/03/2020 Provider: MARCIO ANAYA MD Diagnosis: Anxiety disorder , unspecified 1 Capsule every morning Last Documented On 03/03/2020 3:18PM By Kelly Wasserman MD ; [facility] Vyvanse 60 MG Oral Capsule 12/17/2019 - 01/21/2020 Provider: MARCIO ANAYA MD Diagnosis: Anxiety disorder , unspecified 1 Capsule every morning Last Documented On 01/21/2020 2:23PM By Kelly Wasserman MD ; [facility] Mydayis 25 MG Oral Capsule Extended Release 24 Hour 12/06/2019 - 01/05/2020 Provider: MARCIO WASSERMAN MD Diagnosis: Attention-defici t hyperactivity disorder, combined type 1 Capsule every morning Last Documented On 12/06/2019 6:07PM By Kelly Wasserman MD ; [facility] Vyvanse 60 MG Oral Capsule 11/07/2019 - 12/17/2019 Provider: MARCIO ANAYA MD Diagnosis: Anxiety disorder , unspecified 1 Capsule every morning Last Documented On 12/17/2019 3:49PM By Kelly Wasserman MD ; [facility] Vyvanse 60 MG Oral Capsule 09/25/2019 - 11/07/2019 Provider: MARCIO ANAYA MD Diagnosis: Anxiety disorder , unspecified 1 Capsule every morning Last Documented On 11/07/2019 3:53PM By Kelly Wasserman MD ; [facility] Jornay PM 100 MG Oral Capsule Extended Release 24 Hour 09/25/2019 - 01/25/2020 Provider: MARCIO WASSERMAN MD Diagnosis: Attention-defici t hyperactivity disorder, combined type as directed - 1 cap at 8 pm Last Documented On 0 11:34PM By Kelly Wasserman MD ; [facility] Mydayis 25 MG Oral Capsule Extended Release 24 Hour 08/23/2019 - 09/22/2019 Provider: MARCIO WASSERMAN MD Diagnosis: Attention-defici t hyperactivity disorder, combined type as directed --1 cap at 1 pm Last Documented On 08/23/2019 3:29PM By Kelly Wasserman MD ; [facility] Jornay PM 100 MG Oral Capsule Extended Release 24 Hour 08/23/2019 - 09/25/2019 Provider: MARCIO WASSERMAN MD Diagnosis: Anxiety disorder , unspecified as directed - 1 cap at 8 pm Last Documented On 09/25/2019 2:45PM By Kelly Wasserman MD ; [facility] Vyvanse 60 MG Oral Capsule 08/23/2019 - 09/25/2019 Provider: MARCIO ANAYA MD Diagnosis: Anxiety disorder , unspecified 1 Capsule every morning Last Documented On 09/25/2019 2:15PM By Kelly Wasserman MD ; [facility] Jornay PM 60 MG Oral Capsule Extended Release 24 Hour 07/31/2019 - 09/25/2019 Provider: MARCIO WASSERMAN MD Diagnosis: 1 tab at 9 pm Last Documented On 09/25/2019 3:21PM By Kelly Wasserman MD ; [facility] Jornay PM 60 MG Oral Capsule Extended Release 24 Hour 07/24/2019 - 08/23/2019 Provider: MARCIO WASSERMAN MD Diagnosis: Attention-defici t hyperactivity disorder, combined type as directed -- 1 cap in the evening Last Documented On 0 12:14PM By Kelly Wasserman MD ; [facility] V[facility] 60 MG Oral Capsule 07/24/2019 - 08/23/2019 Provider: MARCIO ANAYA MD Diagnosis: Anxiety disorder , unspecified 1 Capsule every morning Last Documented On 08/23/2019 3:38PM By Kelly Wasserman MD ; [facility] Vy[facility]se 60 MG Oral Capsule 06/26/2019 - 07/24/2019 Provider: MARCIO WASSERMAN MD Diagnosis: Attention-defici t hyperactivity disorder, combined type 1 Capsule every morning Last Documented On 0 12:14PM By Kelly Wasserman MD ; [facility] Jornay PM 40 MG Oral Capsule Extended Release 24 Hour 06/04/2019 - 08/04/2019 Provider: MARCIO WASSERMAN MD Diagnosis: 1 Capsule in the afternoon. Last Documented On 08/04/2019 9:54PM By Kelly Wasserman MD ; [facility] Jornay PM 40 MG Oral Capsule Extended Release 24 Hour 05/21/2019 - 06/20/2019 Provider: MARCIO WASSERMAN MD Diagnosis: Attention-defici t hyperactivity disorder, combined type as directed -- 1 cap in the evening Last Documented On 05/21/2019 2:59PM By Kelly Wasserman MD ; [facility] Vyvanse 60 MG Oral Capsule 05/21/2019 - 06/26/2019 Provider: MARCIO WASSERMAN MD Diagnosis: Attention-defici t hyperactivity disorder, combined type 1 Capsule every morning Last Documented On 06/26/2019 1:57PM By Kelly Wasserman MD ; [facility] V[facility] 60 MG Oral Capsule 04/11/2019 - 05/21/2019 Provider: MARCIO WASSERMAN MD Diagnosis: Attention-defici t hyperactivity disorder, combined type 1 Capsule every morning Last Documented On 05/21/2019 2:55PM By Kelly Wasserman MD ; [facility] Vy[facility]se 60MG Oral Capsule 02/25/2019 - 04/11/2019 Provider: MARCIO WASSERMAN MD Diagnosis: Attention-defici t hyperactivity disorder, combined type 1 Capsule every morning Last Documented On 04/11/2019 3:29PM By Kelly Wasserman MD ; [facility] Concerta 36MG Oral Tablet Extended Release 02/25/2019 - 07/24/2019 Provider: MARCIO WASSERMAN MD Diagnosis: Anxiety disorder , unspecified as directed -- 2 tabs at noon Last Documented On 0 11:30AM By MARCOS CHAMPION ; [facility] Concerta 36MG Oral Tablet Extended Release 12/21/2018 - 02/25/2019 Provider: MARCIO WASSERMAN MD Diagnosis: Anxiety disorder , unspecified as directed -- 2 tabs at noon Last Documented On 02/25/2019 2:26PM By Kelly Wasserman MD ; [facility] Vy[facility]se 60MG Oral Capsule 12/21/2018 - 02/25/2019 Provider: MARCIO WASSERMAN MD Diagnosis: Attention-defici t hyperactivity disorder, combined type 1 Capsule every morning Last Documented On 02/25/2019 2:27PM By Kelly Wasserman MD ; [facility] Concerta 36MG Oral Tablet Extended Release 11/12/2018 - 12/21/2018 Provider: MARCIO WASSERMAN MD Diagnosis: Anxiety disorder , unspecified as directed -- 2 tabs at noon Last Documented On 12/21/2018 2:40PM By Kelly Wasserman MD ; [facility] Vyvanse 60MG Oral Capsule 11/12/2018 - 12/21/2018 Provider: MARCIO WASSERMAN MD Diagnosis: Attention-defici t hyperactivity disorder, combined type 1 Capsule every morning Last Documented On 12/21/2018 2:40PM By Kelly Wasserman MD ; [facility] Concerta 36MG Oral Tablet Extended Release 09/24/2018 - 11/12/2018 Provider: MARCIO WASSERMAN MD Diagnosis: Anxiety disorder , unspecified as directed -- 2 tabs at noon Last Documented On 9 12:03PM By Kelly Wasserman MD ; [facility] Vy[facility]se 60MG Oral Capsule 09/24/2018 - 11/12/2018 Provider: MARCIO WASSERMAN MD Diagnosis: Attention-defici t hyperactivity disorder, combined type 1 Capsule every morning Last Documented On 9 12:03PM By Kelly Wasserman MD ; [facility] Concerta 36MG Oral Tablet Extended Release 08/20/2018 - 09/24/2018 Provider: MARCIO WASSERMAN MD Diagnosis: Anxiety disorder , unspecified as directed -- 2 tabs at noon Last Documented On 9 11:38AM By Kelly Wasserman MD ; [facility] Concerta 36MG Oral Tablet Extended Release 08/17/2018 - 08/17/2018 Provider: MARCIO WASSERMAN MD Diagnosis: Attention-defici t hyperactivity disorder, combined type as directed -- 2 tabs at noon Last Documented On 08/20/2018 7:22AM By Kelly Wasserman MD ; [facility] Vyvanse 60MG Oral Capsule 08/17/2018 - 09/24/2018 Provider: MARCIO WASSERMAN MD Diagnosis: Attention-defici t hyperactivity disorder, combined type 1 Capsule every morning Last Documented On 9 11:37AM By Kelly Wasserman MD ; [facility] Methylphenidate HCl 20MG Oral Tablet 07/03/2018 - 08/20/2018 Provider: MARCIO WASSERMAN MD Diagnosis: Anxiety disorder , unspecified as directed --1 tab at at 2 pm and 1 tab at 5 pm Last Documented On 08/20/2018 7:19AM By Kelly Wasserman MD ; [facility] Vyvanse 50MG Oral Capsule 07/03/2018 - 08/20/2018 Provider: MARCIO WASSERMAN MD Diagnosis: Attention-defici t hyperactivity disorder, combined type 1 Capsule every morning Last Documented On 08/20/2018 7:19AM By Kelly Wasserman MD ; [facility] Vyvanse 50MG Oral Capsule 03/20/2018 - 07/03/2018 Provider: MARCIO WASSERMAN MD Diagnosis: Attention-defici t hyperactivity disorder, combined type as directed --1 cap in am Last Documented On 07/03/2018 5:36PM By Kelly Wasserman MD ; [facility] Methylphenidate HCl 20MG Oral Tablet 12/18/2017 - 07/03/2018 Provider: MARCIO WASSERMAN MD Diagnosis: Attention-defici t hyperactivity disorder, combined type as directed --1 tab at at 2 pm and 1 tab at 5 pm Last Documented On 07/03/2018 5:36PM By Kelly Wasserman MD ; [facility] Vy[facility]se 50MG Oral Capsule, conventional 12/18/2017 - 03/20/2018 Provider: MARCIO WASSERMAN MD Diagnosis: Attention-defici t hyperactivity disorder, combined type as directed --1 cap in am Last Documented On 8 10:56AM By Kelly Wasserman MD ; [facility] M[facility] 20MG Oral Tablet 11/14/2017 - 12/18/2017 Provider: MARCIO WASSERMAN MD Diagnosis: Attention-defici t hyperactivity disorder, combined type as directed --1 tab at at 2 pm and 1 tab at 5 pm Last Documented On 12/18/2017 5:14PM By Kelly Wasserman MD ; [facility] Vyvanse 50MG Oral Capsule 11/14/2017 - 12/18/2017 Provider: MARCIO WASSERMAN MD Diagnosis: Attention-defici t hyperactivity disorder, combined type as directed --1 cap in am Last Documented On 12/18/2017 5:14PM By Kelly Wasserman MD ; [facility] Methylphenidate HCl 20MG Oral Tablet 08/03/2017 - 11/14/2017 Provider: MARCIO WASSERMAN MD Diagnosis: Attention-defici t hyperactivity disorder, combined type as directed --1 tab at at 2 pm and 1 tab at 5 pm Last Documented On 11/14/2017 2:56PM By Kelly Wasserman MD ; [facility] Vyvanse 40MG Oral Capsule, conventional 08/03/2017 - 11/20/2017 Provider: MARCIO WASSERMAN MD Diagnosis: Attention-defici t hyperactivity disorder, combined type 1 Capsule every morning Last Documented On 11/20/2017 2:47AM By Kelly Wasserman MD ; [facility] Methylphenidate HCl 20MG Oral Tablet 07/06/2017 - 08/03/2017 Provider: MARCIO WASSERMAN MD Diagnosis: Attention-defici t hyperactivity disorder, combined type as directed --1 tab at at 2 pm and 1 tab at 5 pm Last Documented On 08/03/2017 9:35AM By Kelly Wasserman MD ; [facility] Vyvanse 40MG Oral Capsule 07/06/2017 - 08/03/2017 Provider: MARCIO WASSERMAN MD Diagnosis: Attention-defici t hyperactivity disorder, combined type 1 Capsule every morning Last Documented On 08/03/2017 9:35AM By Kelly Wasserman MD ; [facility] Methylphenidate HCl 20MG Oral Tablet 04/10/2017 - 07/06/2017 Provider: MARCIO WASSERMAN MD Diagnosis: Attention-defici t hyperactivity disorder, combined type as directed --1 tab at at 2 pm and 1 tab at 5 pm Last Documented On 07/06/2017 2:17PM By Kelly Wasserman MD ; [facility] Vyvanse 40MG Oral Capsule, conventional 04/10/2017 - 07/06/2017 Provider: MARCIO WASSERMAN MD Diagnosis: Attention-defici t hyperactivity disorder, combined type 1 Capsule every morning Last Documented On 07/06/2017 2:16PM By Kelly Wasserman MD ; [facility] Methylphenidate HCl 20MG Oral Tablet 02/17/2017 - 04/10/2017 Provider: MARCIO WASSERMAN MD Diagnosis: Attention-defici t hyperactivity disorder, combined type as directed --1 tab at at 2 pm and 1 tab at 5 pm Last Documented On 04/10/2017 2:32PM By Kelly Wasserman MD ; [facility] Vyvanse 40MG Oral Capsule 02/17/2017 - 04/10/2017 Provider: MARCIO WASSERMAN MD Diagnosis: Attention-defici t hyperactivity disorder, combined type 1 Capsule every morning Last Documented On 04/10/2017 2:29PM By Kelly Wasserman MD ; [facility] Vyvanse 40MG Oral Capsule, conventional 01/18/2017 - 02/17/2017 Provider: MARCIO WASSERMAN MD Diagnosis: Attention-defici t hyperactivity disorder, combined type 1 Capsule every morning Last Documented On 02/17/2017 9:52AM By Kelly Wasserman MD ; [facility] Methylphenidate HCl 20MG Oral Tablet 01/18/2017 - 02/17/2017 Provider: MARCIO WASSERMAN MD Diagnosis: Attention-defici t hyperactivity disorder, combined type as directed --1 tab at at 2 pm and 1 tab at 5 pm Last Documented On 02/17/2017 9:56AM By Kelly Wasserman MD ; [facility] Vyvanse 40MG Oral Capsule 12/08/2016 - 01/18/2017 Provider: MARCIO WASSERMAN MD Diagnosis: Attention-defici t hyperactivity disorder, combined type 1 Capsule every morning Last Documented On 01/18/2017 2:54PM By Kelly Wasserman MD ; [facility] Methylphenidate HCl 20MG Oral Tablet 12/08/2016 - 01/18/2017 Provider: MARCIO WASSERMAN MD Diagnosis: Attention-defici t hyperactivity disorder, combined type as directed --1 tab at at 2 pm and 1 tab at 5 pm Last Documented On 01/18/2017 2:39PM By Kelly Wasserman MD ; [facility] Methylphenidate HCl 20MG Oral Tablet 10/24/2016 - 12/08/2016 Provider: MARCIO WASSERMAN MD Diagnosis: Anxiety disorder , unspecified as directed --1 tab in the afternoon Last Documented On 12/08/2016 1:36PM By Kelly Wasserman MD ; [facility] Vyvanse 40MG Oral Capsule 10/24/2016 - 12/08/2016 Provider: MARCIO WASSERMAN MD Diagnosis: Attention-defici t hyperactivity disorder, combined type 1 Capsule every morning Last Documented On 12/08/2016 1:36PM By Kelly Wasserman MD ; [facility] Methylphenidate HCl 20MG Oral Tablet 09/08/2016 - 10/24/2016 Provider: MARCIO WASSERMAN MD Diagnosis: Anxiety disorder , unspecified as directed --1 tab in the afternoon Last Documented On 10/24/2016 2:56PM By Kelly Wasserman MD ; [facility] Vyvanse 40MG Oral Capsule, conventional 09/08/2016 - 10/24/2016 Provider: MARCIO WASSERMAN MD Diagnosis: Attention-defici t hyperactivity disorder, combined type 1 Capsule every morning Last Documented On 10/24/2016 2:55PM By Kelly Wasserman MD ; [facility] Methylphenidate HCl 20 MG Tablet 07/28/2016 - 09/08/2016 Provider: MARCIO WASSERMAN MD Diagnosis: Anxiety disorder , unspecified as directed --1 tab in the afternoon Last Documented On 09/08/2016 1:45PM By Kelly Wasserman MD ; [facility] Vyvanse 40 MG Capsule 07/28/2016 - 09/08/2016 Provider: MARCIO WASSERMAN MD Diagnosis: Attention-defici t hyperactivity disorder, combined type 1 Capsule every morning Last Documented On 09/08/2016 1:44PM By Kelly Wasserman MD ; [facility] Vyvanse 40 MG Capsule, conventional 06/27/2016 - 07/28/2016 Provider: MARCIO WASSERMAN MD Diagnosis: Attention-defici t hyperactivity disorder, combined type 1 Capsule every morning Last Documented On 07/28/2016 4:38PM By Kelly Wasserman MD ; [facility] Methyl[facility]id[facility] HCl 20 MG Tablet 06/27/2016 - 07/28/2016 Provider: MARCIO WASSERMAN MD Diagnosis: Anxiety disorder , unspecified as directed --1 tab in the afternoon Last Documented On 07/28/2016 4:38PM By Kelly Wasserman MD ; [facility] Methylphenidate HCl 20 MG Tablet 06/01/2016 - 06/27/2016 Provider: MARCIO WASSERMAN MD Diagnosis: Attention-defici t hyperactivity disorder, combined type as directed --1 tab in am and 1 tab at noon Last Documented On 06/27/2016 3:15PM By Kelly Wasserman MD ; [facility] Vyvanse 30 MG Capsule, conventional 04/25/2016 - 06/28/2016 Provider: MARCIO WASSERMAN MD Diagnosis: Attention-defici t hyperactivity disorder, combined type as directed -- 1 cap in am Last Documented On 06/28/2016 9:20AM By Kelly Wasserman MD ; [facility] Vyvanse 30 MG Capsule, conventional 03/16/2016 - 04/25/2016 Provider: MARCIO WASSERMAN MD Diagnosis: Attention-defici t hyperactivity disorder, combined type as directed -- 1 cap in am Last Documented On 6 12:21PM By Kelly Wasserman MD ; [facility] Methyl[facility]idate HCl 20 MG Tablet 03/16/2016 - 06/01/2016 Provider: MARCIO WASSERMAN MD Diagnosis: Attention-defici t hyperactivity disorder, combined type as directed --1 tab in am and 1 tab at noon Last Documented On 6 10:55AM By Kelly Wasserman MD ; [facility] Methylphenidate HCl 20 MG Tablet 01/19/2016 - 03/16/2016 Provider: MARCIO WASSERMAN MD Diagnosis: Attention-defici t hyperactivity disorder, combined type as directed --1 tab in am and 1 tab at noon Last Documented On 03/16/2016 5:10PM By Kelly Wasserman MD ; [facility] Vyvanse 30 MG Capsule, conventional 01/19/2016 - 03/16/2016 Provider: MARCIO WASSERMAN MD Diagnosis: Attention-defici t hyperactivity disorder, combined type as directed -- 1 cap in am Last Documented On 03/16/2016 5:10PM By Kelly Wasserman MD ; [facility] Vyvanse 30 MG Capsule, conventional 11/25/2015 - 03/16/2016 Provider: MARCIO WASSERMAN MD Diagnosis: Attention-defici t hyperactivity disorder, combined type 1 Capsule every morning Last Documented On 6 4:17PM By NICOLAS MACE LPN ; [facility] Focalin 10 MG Tablet 11/25/2015 - 01/25/2016 Provider: MARCIO WASSERMAN MD Diagnosis: Attention-defici t hyperactivity disorder, combined type as directed - 1 tab in am an d 1 tab at noon Last Documented On 01/25/2016 3:20AM By Kelly Wasserman MD ; [facility] Focalin XR 20 MG Capsule, extended-release 24 hour 10/09/2015 - 01/19/2016 Provider: MARCIO WASSERMAN MD Diagnosis: Attention-defici t hyperactivity disorder, combined type 1 Capsule every morning Last Documented On 6 4:33PM By NICOLAS MACE LPN ; [facility] Focalin 10 MG Tablet 10/09/2015 - 01/19/2016 Provider: MARCIO WASSERMAN MD Diagnosis: Attention-defici t hyperactivity disorder, combined type as directed -- 1 tab in am, 1 tab at noon, 1 tab at 5 pm Last Documented On 6 4:33PM By NICOLAS MACE LPN ; [facility] Focalin 10 MG Tablet 09/14/2015 - 11/25/2015 Provider: MARCIO WASSERMAN MD Diagnosis: Attention-defici t hyperactivity disorder, combined type as directed - 1 tab in am an d 1 tab at noon Last Documented On 11/25/2015 5:54PM By Kelly Wasserman MD ; [facility] Focalin 10 MG Tablet 09/01/2015 - 09/14/2015 Provider: MARCIO WASSERMAN MD Diagnosis: Attention-defici t hyperactivity disorder, combined type as directed - 1 tab in am an d 1 tab at noon Last Documented On 09/14/2015 9:12AM By Kelly Wasserman MD ; [facility] Focalin 10 MG Tablet 08/11/2015 - 09/01/2015 Provider: MARCIO WASSERMAN MD Diagnosis: Attention-defici t hyperactivity disorder, combined type 1 tablet every morning Last Documented On 09/01/2015 2:53PM By Kelly Wasserman MD ; [facility] Medications Administered Includes: Administered Medications in patient's chart No Administered Medications Recorded Results Includes: Results from 09/06/2023 through 09/06/2024 No Results Recorded For Specified Dates History of Present Illness History of Present Illness not supported for this document type No History of Present Illness Recorded Social History Description Last Updated Current nonsmoker 12/24/2020 Last Documented On 1 8:45AM ; [facility] Alcohol 12/24/2020 Last Documented On 1 8:45AM ; [facility] Lives with spouse 12/24/2020 Last Documented On 1 8:45AM ; [facility] Daily coffee consumption -- He drinks 1 cup of coffee a day. No soda or tea 12/06/2019 Last Documented On 0 6:16PM ; [facility] He was born and raised in [place], [place]. 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 [employer] 07/06/2018 Last Documented On 8 2:04PM ; [facility] Marital history -- 08/11/2015 Last Documented On 6 7:56PM ; [facility] Not using drugs (Illicit) 08/11/2015 Last Documented On 6 7:56PM ; [facility] Smoking Status Unknown Medical History Includes: Medical History in patient's chart Description Last Updated History of coronavirus 2019- nCoV vaccine - Pfizer #1 10/06/20 #2 11/03/20 #3 04/202102/17/2022 Last Documented On 2 9:06AM ; [facility] History of sinusitis - given Augmentin 875 mg and Prednisone Dosepak 4 mg (did not take Prednisone) 01/03/21;given Augmentin 875 mg #20 on 03/31/20 03/10/2021 Last Documented On 1 10:47AM ; [facility] History of oral thrush - treated with [place] statin Suspension 100,000 05/11/19 05/21/2019 Last Documented On 9 10:18PM ; [facility] Primary Care Provider: [facility] 05/21/2019 Last Documented On 9 10:18PM ; [facility] Family History Includes: Family History in patient's chart Description Last Updated Family medical history : No significant family history 08/11/2015 Last Documented On 6 7:56PM ; [facility] Review of Systems Review of Systems not [...] Effect yohana Dates 1 - ADMINISTRATIVE CONCEPTS [id number] DONALD A LIANG Self Clinical Notes Includes: Signed Clinical Notes starting from 08/05/2022 No Clinical Notes Recorded
--- OUTSIDE RECORDS SUMMARY | 2024-09-06 08:15 | XMS_ITS ---
Care Plan - [facility] Medical [facility] Created on: September 06, 2024 DONALD LIANG : 1985 Sex: Male Author Organization [facility] Medical [facility] Address [address] [place] [address] Phone Care Team Providers Care Manager Statistical Name Role Phone MEEK JEROME, MARCIO GÓMEZ [facility] [phone]
--- OUTSIDE RECORDS SUMMARY | 2024-09-06 08:15 | XMS_ITS ---
Author Organization [facility] Address [address] [place] [address] Phone Care Team Providers Care Health Inspector Name Role Phone MEEK JEROME, MARCIO Polanco [phone] Problems Includes: Active, inactive, and resolved [...] 5:49PM ; [facility] Plan of Treatment Education and Decision Aids were provided during visit for: Calming techniques such as b reathing exercises/meditation and other relaxation techniques Last Documented On 4 1:37PM ; [facility] Calming techniques such as b reathing exercises/meditation and other relaxation techniques Last Documented On 4 3:34PM ; [facility] Assessments Includes: Assessments for all patient encounters Findings Encounter Date Anxiety disorder NOS PSYCH ADULT FOLLOW UP with MARCIO WASSERMAN MD 11/28/2023 Last Documented On 4 1:39PM ; [facility] Attention-deficit hyperactivity disorder PSYCH ADULT FOLLOW UP with MARCIO WASSERMAN MD 11/28/2023 Last Documented On 4 1:39PM ; [facility] Circadian rhythm sleep disorder PSYCH AD ULT FOLLOW UP with MARCIO WASSERMAN MD 11/28/2023 Last Documented On 4 1:39PM ; [facility] Panic disorder PSYCH ADULT FOLLOW UP with PACHECO WASSERMAN MD 11/28/2023 Last Documented On 4 1:39PM ; [facility] Anxiety disorder NOS PSYCH ADULT FOLLOW UP with MARCIO WASSERMAN MD 08/21/2023 Last Documented On 4 3:35PM ; [facility] Attention-deficit hyperactivity disorder PSYCH ADULT FOLLOW UP with MARCIO WASSERMAN MD 08/21/2023 Last Documented On 4 3:35PM ; [facility] Circadian rhythm sleep disorder PSYCH AD ULT FOLLOW UP with MARCIO WASSERMAN MD 08/21/2023 Last Documented On 4 3:35PM ; [facility] Panic disorder PSYCH ADULT FOLLOW UP with PACHECO WASSERMAN MD 08/21/2023 Last Documented On 4 3:35PM ; [facility] Anxiety disorder NOS TELEHEALTH ADULT PS YCH ESTABLISHED with MARCIO WASSERMAN MD 11/21/2022 Last Documented On 3 7:29AM ; [facility] Attention-deficit hyperactivity disorder TELEHEALTH ADULT PSYCH ESTABLISHED with MARCIO WASSERMAN MD 11/21/2022 Last Documented On 3 7:29AM ; [facility] Circadian rhythm sleep disorder TELEHEAL TH ADULT PSYCH ESTABLISHED with MARCIO WASSERMAN MD 11/21/2022 Last Documented On 3 7:29AM ; [facility] Panic disorder TELEHEALTH ADULT PSY CH ESTABLISHED with MARCIO WASSERMAN MD 11/21/2022 Last Documented On 3 7:29AM ; [facility] Instructions Includes: Instructions for all patient encounters Education and Decision Aids were provided during visit for: Calming techniques such as b reathing exercises/meditation and other relaxation techniques Last Documented On 4 1:37PM ; [facility] Calming techniques such as b reathing exercises/meditation and other relaxation techniques Last Documented On 4 3:34PM ; [facility] Medical Equipment - Implanted Devices Includes: [...] 08/21/2023 2:57PM By Kelly Wasserman MD ; [facility] Past Medications on file Vyvanse 60 MG Oral Capsule 11/20/2023 - 01/01/2024 Provider: MARCIO WASSERMAN MD Diagnosis: Attention-defici t hyperactivity disorder, combined type 1 Capsule every morning Last Documented On 01/01/2024 11:30AM By Kelly Wasserman MD ; [facility] Vyvanse 60 MG Oral Capsule 11/10/2023 - 11/20/2023 Provider: MARCIO WASSERMAN MD Diagnosis: Attention-defici t hyperactivity disorder, combined type 1 Capsule every morning Last Documented On 11/20/2023 7:07PM By Kelly Wasserman MD ; [facility] Vyvanse 60 MG Oral Capsule 09/27/2023 - 11/10/2023 Provider: MARCIO WASSERMAN MD Diagnosis: Attention-defici t hyperactivity disorder, combined type 1 Capsule every morning Last Documented On 11/10/2023 4:51PM By Kelly Wasserman MD ; [facility] Dyanavel XR 15 MG Oral Tablet Chewable Extended Release 08/21/2023 - 11/28/2023 Provider: MARCIO WASSERMAN MD Diagnosis: Anxiety disorder , unspecified as directed - 1 tab at noon Last Documented On 11/28/2023 11:19AM By Kelly Wasserman MD ; [facility] Vyvanse 60 MG Oral Capsule 08/21/2023 - 09/27/2023 Provider: MARCIO WASSERMAN MD Diagnosis: Attention-defici t hyperactivity disorder, combined type 1 Capsule every morning Last Documented On 09/27/2023 5:59PM By Kelly Wasserman MD ; [facility] Armodafinil 250 MG Oral Tablet 12/01/2022 - 03/31/2023 Provider: MARCIO WASSERMAN MD Diagnosis: Circadian rhythm sleep disorder, delayed sleep phase type 1 tablet every morning Last Documented On 12/01/2022 12:50PM By Kelly Wasserman MD ; [facility] Vyvanse 60 MG Oral Capsule 11/21/2022 - 12/21/2022 Provider: MARCIO WASSERMAN MD Diagnosis: Attention-defici t hyperactivity disorder, combined type *1 AM - 1 Capsule every morning Last Documented On 11/21/2022 4:06PM By Kelly Wasserman MD ; [facility] Azstarys 52.3-10.4 MG Oral Capsule 11/21/2022 - 12/21/2022 Provider: MARCIO WASSERMAN MD Diagnosis: Attention-defici t hyperactivity disorder, combined type ud - as directed as directed -- 1 cap at 1 pm Last Documented On 11/21/2022 4:06PM By Kelly Wasserman MD ; [facility] Vyvanse 60 MG OR CAPS 10/03/2022 - 11/21/2022 Provider: MARCIO WASSERMAN MD Diagnosis: Attention-defici t hyperactivity disorder, combined type 1 Capsule every morning Last Documented On 11/21/2022 4:00PM By Kelly Wasserman MD ; [facility] Azstarys 52.3-10.4 MG OR CAPS 10/03/2022 - 11/21/2022 Provider: MARCIO WASSERMAN MD Diagnosis: Attention-defici t hyperactivity disorder, combined type as directed -- 1 cap at 1 pm Last Documented On 11/21/2022 4:02PM By Kelly Wasserman MD ; [facility] Azstarys 52.3-10.4 MG OR CAPS 08/11/2022 - 10/03/2022 Provider: MARCIO WASSERMAN MD Diagnosis: Attention-defici t hyperactivity disorder, combined type as directed -- 1 cap at 1 pm Last Documented On 11/12/2022 5:38PM By Kelly Wasserman MD ; [facility] Vyvanse 60 MG OR CAPS [...] 11/12/2022 5:38PM By Kelly Wasserman MD ; [facility] Armodafinil 250 MG OR TABS 05/13/2022 - 12/01/2022 Provider: MARCIO WASSERMAN MD Diagnosis: Circadian rhythm sleep disorder, delayed sleep phase type 1 tablet every morning Last Documented On 12/01/2022 12:39PM By Kelly Wasserman MD ; [facility] Armodafinil 250 MG OR TABS 05/04/2022 - 05/13/2022 Provider: MARCIO WASSERMAN MD Diagnosis: Circadian rhythm sleep disorder, delayed sleep phase type 1 tablet every morning Last Documented On 11/12/2022 5:38PM By Kelly Wasserman MD ; [facility] KlonoPIN 0.5 MG OR TABS 05/04/2022 - 06/03/2022 Provider: MARCIO ANAYA MD Diagnosis: Panic disorder [episodic paroxysmal anxiety] as directed - 1 tab a day as needed only for severe anxiety/panic Last Documented On 11/12/2022 5:38PM By Kelly Wasserman MD ; [facility] Azstarys 39.2-7.8 MG OR CAPS 05/04/2022 - 06/03/2022 Provider: MARCIO WASSERMAN MD Diagnosis: Attention-defici t hyperactivity disorder, combined type 1 Capsule every morning Last Documented On 11/12/2022 5:38PM By Kelly Wasserman MD ; [facility] Vyvanse 70 MG OR CAPS 03/23/2022 - 08/11/2022 Provider: MARCIO WASSERMAN MD Diagnosis: Attention-defici t hyperactivity disorder, combined type 1 Capsule every morning Last Documented On 11/12/2022 5:38PM By Kelly Wasserman MD ; [facility] Armodafinil 250 MG OR TABS 02/17/2022 - 03/19/2022 Provider: MARCIO WASSERMAN MD Diagnosis: Attention-defici t hyperactivity disorder, combined type as directed -- 1 tab at noon Last Documented On 11/12/2022 5:38PM By Kelly Wasserman MD ; [facility] Vyvanse 70 MG OR CAPS 02/07/2022 - 03/23/2022 Provider: MARCIO WASSERMAN MD Diagnosis: Attention-defici t hyperactivity disorder, combined type 1 Capsule every morning Last Documented On 11/12/2022 5:38PM By Kelly Wasserman MD ; [facility] Vyvanse 70 MG OR CAPS 12/27/2021 - 02/07/2022 Provider: MARCIO WASSERMAN MD Diagnosis: Attention-defici t hyperactivity disorder, combined type 1 Capsule every morning Last Documented On 11/12/2022 5:38PM By Kelly Wasserman MD ; [facility] Vyvanse 70 MG OR CAPS 11/15/2021 - 12/27/2021 Provider: MARCIO WASSERMAN MD Diagnosis: Attention-defici t hyperactivity disorder, combined type 1 Capsule every morning Last Documented On 11/12/2022 5:38PM By Kelly Wasserman MD ; [facility] Vyvanse 70 MG OR CAPS 11/12/2021 - 11/15/2021 Provider: MARCIO WASSERMAN MD Diagnosis: Attention-defici t hyperactivity disorder, combined type 1 Capsule every morning Last Documented On 11/12/2022 5:38PM By Kelly Wasserman MD ; [facility] Vyvanse 60 MG OR CAPS 10/04/2021 - 01/24/2022 Provider: MARCIO WASSERMAN MD Diagnosis: Attention-defici t hyperactivity disorder, combined type 1 Capsule every morning Last Documented On 11/12/2022 5:38PM By Kelly Wasserman MD ; [facility] Vyvanse 60 MG OR CAPS 10/01/2021 - 10/04/2021 Provider: MARCIO WASSERMAN MD Diagnosis: Attention-defici t hyperactivity disorder, combined type 1 Capsule every morning Last Documented On 11/12/2022 5:38PM By Kelly Wasserman MD ; [facility] Armodafinil 250 MG OR TABS 10/01/2021 - 05/04/2022 Provider: MARCIO WASSERMAN MD Diagnosis: Anxiety disorder , unspecified 1 tablet every morning Last Documented On 11/12/2022 5:38PM By Kelly Wasserman MD ; [facility] Vyvanse 70 MG OR CAPS 07/26/2021 - 10/25/2021 Provider : MARCIO WASSERMAN MD Diagnosis: 1 Capsule every morning Last Documented On 11/12/2022 5:38PM By Kelly Wasserman MD ; [facility] Mydayis 50 MG OR CP24 05/17/2021 - 10/25/2021 Provider : MARCIO WASSERMAN MD Diagnosis: 1 Capsule every morning Last Documented On 11/12/2022 5:38PM By Kelly Wasserman MD ; [facility] Strattera 60 MG OR CAPS 05/17/2021 - 10/25/2021 Provider: MARCIO WASSERMAN MD Diagnosis: Anxiety disorder , unspecified as directed - 1 cap at 11 am Last Documented On 11/12/2022 5:38PM By Kelly Wasserman MD ; [facility] Vyvanse 70 MG OR CAPS 05/17/2021 - 07/26/2021 Provider : MARCIO WASSERMAN MD Diagnosis: 1 Capsule every morning Last Documented On 11/12/2022 5:38PM By Kelly Wasserman MD ; [facility] Vyvanse 70 MG OR CAPS 02/19/2021 - 05/17/2021 Provider : MARCIO WASSERMAN MD Diagnosis: 1 Capsule every morning Last Documented On 11/12/2022 5:38PM By Kelly Wasserman MD ; [facility] Mydayis 50 MG OR CP24 02/19/2021 - 05/17/2021 Provider : MARCIO WASSERMAN MD Diagnosis: 1 Capsule every morning Last Documented On 11/12/2022 5:38PM By Kelly Wasserman MD ; [facility] Vyvanse 70 MG OR CAPS 12/30/2020 - 02/19/2021 Provider: MARCIO WASSERMAN MD Diagnosis: Attention-defici t hyperactivity disorder, combined type 1 Capsule every morning Last Documented On 11/12/2022 5:38PM By Kelly Wasserman MD ; [facility] Strattera 60 MG OR CAPS 12/25/2020 - [...] 11/12/2022 5:38PM By Kelly Wasserman MD ; [facility] Mydayis 37.5 MG OR CP24 11/10/2020 - 12/25/2020 Provider: MARCIO WASSERMAN MD Diagnosis: Attention-defici t hyperactivity disorder, combined type as directed - 1 cap at noon Last Documented On 11/12/2022 5:38PM By Kelly Wasserman MD ; [facility] Vyvanse 70 MG OR CAPS 11/10/2020 - 10/25/2021 Provider: MARCIO WASSERMAN MD Diagnosis: Attention-defici t hyperactivity disorder, combined type 1 Capsule every morning Last Documented On 11/12/2022 5:38PM By Kelly Wasserman MD ; [facility] Mydayis 37.5 MG OR CP24 09/25/2020 - 11/10/2020 Provider: MARCIO WASSERMAN MD Diagnosis: Attention-defici t hyperactivity disorder, combined type as directed - 1 cap at noon Last Documented On 11/12/2022 5:38PM By Kelly Wasserman MD ; [facility] Vyvanse 70 MG OR CAPS 09/25/2020 - 11/10/2020 Provider: MARCIO WASSERMAN MD Diagnosis: Attention-defici t hyperactivity disorder, combined type 1 Capsule every morning Last Documented On 11/12/2022 5:38PM By Kelly Wasserman MD ; [facility] Vyvanse 70 MG OR CAPS 08/14/2020 - 09/25/2020 Provider: MARCIO WASSERMAN MD Diagnosis: Attention-defici t hyperactivity disorder, combined type 1 Capsule every morning Last Documented On 11/12/2022 5:38PM By Kelly Wasserman MD ; [facility] Mydayis 37.5 MG OR CP24 08/14/2020 - 09/25/2020 Provider: MARCIO WASSERMAN MD Diagnosis: Attention-defici t hyperactivity disorder, combined type as directed - 1 cap at noon Last Documented On 11/12/2022 5:38PM By Kelly Wasserman MD ; [facility] Mydayis 37.5 MG OR CP24 07/15/2020 - 08/14/2020 Provider: MARCIO WASSERMAN MD Diagnosis: Attention-defici t hyperactivity disorder, combined type as directed - 1 cap at noon Last Documented On 11/12/2022 5:38PM By Kelly Wasserman MD ; [facility] Armodafinil 150 MG OR TABS 07/15/2020 - 10/25/2021 Provider: MARCIO WASSERMAN MD Diagnosis: Circadian rhythm sleep disorder, delayed sleep phase type 1 tablet every morning Last Documented On 11/12/2022 5:38PM By Kelly Wasserman MD ; [facility] Armodafinil 150 MG OR TABS 07/02/2020 - 07/15/2020 Provider: MARCIO WASSERMAN MD Diagnosis: Circadian rhythm sleep disorder, delayed sleep phase type 1 tablet every morning -- to be sent later Last Documented On 11/12/2022 5:38PM By Kelly Wasserman MD ; [facility] Vyvanse 70 MG OR CAPS 07/02/2020 - 08/14/2020 Provider: MARCIO WASSERMAN MD Diagnosis: Attention-defici t hyperactivity disorder, combined type 1 Capsule every morning Last Documented On 11/12/2022 5:38PM By Kelly Wasserman MD ; [facility] Vyvanse 60 MG OR CAPS 05/20/2020 - 10/12/2020 Provider: MARCIO ANAYA MD Diagnosis: Anxiety disorder , unspecified 1 Capsule every morning Last Documented On 11/12/2022 5:38PM By Kelly Wasserman MD ; [facility] Mydayis 37.5 MG OR CP24 05/20/2020 - 07/15/2020 Provider: MARCIO WASSERMAN MD Diagnosis: Attention-defici t hyperactivity disorder, combined type as directed - 1 cap at noon Last Documented On 11/12/2022 5:38PM By Kelly Wasserman MD ; [facility] Mydayis 37.5 MG OR CP24 04/03/2020 - 05/20/2020 Provider: MARCIO WASSERMAN MD Diagnosis: Attention-defici t hyperactivity disorder, combined type as directed - 1 cap at noon Last Documented On 11/12/2022 5:38PM By Kelly Wasserman MD ; [facility] Vyvanse 60 MG OR CAPS 04/03/2020 - 05/20/2020 Provider: MARCIO ANAYA MD Diagnosis: Anxiety disorder , unspecified 1 Capsule every morning Last Documented On 11/12/2022 5:38PM By Kelly Wasserman MD ; [facility] Mydayis 37.5 MG OR CP24 03/03/2020 - 04/03/2020 Provider: MARCIO WASSERMAN MD Diagnosis: Attention-defici t hyperactivity disorder, combined type as directed - 1 cap at noon Last Documented On 11/12/2022 5:38PM By Kelly Wasserman MD ; [facility] Vyvanse 60 MG OR CAPS 03/03/2020 - 04/03/2020 Provider: MARCIO ANAYA MD Diagnosis: Anxiety disorder , unspecified 1 Capsule every morning Last Documented On 11/12/2022 5:38PM By Kelly Wasserman MD ; [facility] Vyvanse 60 MG OR CAPS 01/21/2020 - 03/03/2020 Provider: MARCIO ANAYA MD Diagnosis: Anxiety disorder , unspecified 1 Capsule every morning Last Documented On 11/12/2022 5:38PM By Kelly Wasserman MD ; [facility] Mydayis 37.5 MG OR CP24 01/21/2020 - 03/03/2020 Provider: MARCIO WASSERMAN MD Diagnosis: Attention-defici t hyperactivity disorder, combined type as directed - 1 cap at noon Last Documented On 11/12/2022 5:38PM By Kelly Wasserman MD ; [facility] Vyvanse 60 MG OR CAPS 12/17/2019 - 01/21/2020 Provider: MARCIO ANAYA MD Diagnosis: Anxiety disorder , unspecified 1 Capsule every morning Last Documented On 11/12/2022 5:38PM By Kelly Wasserman MD ; [facility] Mydayis 25 MG OR CP24 12/06/2019 - 01/05/2020 Provider: MARCIO WASSERMAN MD Diagnosis: Attention-defici t hyperactivity disorder, combined type 1 Capsule every morning Last Documented On 11/12/2022 5:38PM By Kelly Wasserman MD ; [facility] Vyvanse 60 MG OR CAPS 11/07/2019 - 12/17/2019 Provider: MARCIO ANAYA MD Diagnosis: Anxiety disorder , unspecified 1 Capsule every morning Last Documented On 11/12/2022 5:38PM By Kelly Wasserman MD ; [facility] Jornay PM 100 MG OR CP24 09/25/2019 - 01/25/2020 Provider: MARCIO WASSERMAN MD Diagnosis: Attention-defici t hyperactivity disorder, combined type as directed - 1 cap at 8 pm Last Documented On 11/12/2022 5:38PM By Kelly Wasserman MD ; [facility] Vyvanse 60 MG OR CAPS 09/25/2019 - 11/07/2019 Provider: MARCIO ANAYA MD Diagnosis: Anxiety disorder , unspecified 1 Capsule every morning Last Documented On 11/12/2022 5:38PM By Kelly Wasserman MD ; [facility] Jornay PM 100 MG OR CP24 08/23/2019 - 09/25/2019 Provider: MARCIO WASSERMAN MD Diagnosis: Anxiety disorder , unspecified as directed - 1 cap at 8 pm Last Documented On 11/12/2022 5:38PM By Kelly Wasserman MD ; [facility] Mydayis 25 MG OR CP24 08/23/2019 - 09/22/2019 Provider: MARCIO WASSERMAN MD Diagnosis: Attention-defici t hyperactivity disorder, combined type as directed --1 cap at 1 pm Last Documented On 11/12/2022 5:38PM By Kelly Wasserman MD ; [facility] Vyvanse 60 MG OR CAPS 08/23/2019 - 09/25/2019 Provider: MARCIO ANAYA MD Diagnosis: Anxiety disorder , unspecified 1 Capsule every morning Last Documented On 11/12/2022 5:38PM By Kelly Wasserman MD ; [facility] Jornay PM 60 MG OR CP24 07/31/2019 - 09/25/2019 Provid er: Diagnosis: 1 tab at 9 pm Last Documented On 11/12/2022 5:38PM By MARCOS CHAMPION ; [facility] Vyvanse 60 MG OR CAPS 07/24/2019 - 08/23/2019 Provider: MARCIO ANAYA MD Diagnosis: Anxiety disorder , unspecified 1 Capsule every morning Last Documented On 11/12/2022 5:38PM By Kelly Wasserman MD ; [facility] Jornay PM 60 MG OR CP24 07/24/2019 - 08/23/2019 Provider: MARCIO WASSERMAN MD Diagnosis: Attention-defici t hyperactivity disorder, combined type as directed -- 1 cap in the evening Last Documented On 11/12/2022 5:38PM By Kelly Wasserman MD ; [facility] Vyvanse 60 MG OR CAPS 06/26/2019 - 07/24/2019 Provider: MARCIO WASSERMAN MD Diagnosis: Attention-defici t hyperactivity disorder, combined type 1 Capsule every morning Last Documented On 11/12/2022 5:38PM By Kelly Wasserman MD ; [facility] Jornay PM 40 MG OR CP24 06/04/2019 - 08/04/2019 Provid er: Diagnosis: 1 Capsule in the afternoon. Last Documented On 11/12/2022 5:38PM By MARCOS CHAMPION ; [facility] Jornay PM 40 MG OR CP24 05/21/2019 - 06/20/2019 Provider: MARCIO WASSERMAN MD Diagnosis: Attention-defici t hyperactivity disorder, combined type as directed -- 1 cap in the evening Last Documented On 11/12/2022 5:38PM By Kelly Wasserman MD ; [facility] Vyvanse 60 MG OR CAPS 05/21/2019 - 06/26/2019 Provider: MARCIO WASSERMAN MD Diagnosis: Attention-defici t hyperactivity disorder, combined type 1 Capsule every morning Last Documented On 11/12/2022 5:38PM By Kelly Wasserman MD ; [facility] Vyvanse 60 MG OR CAPS 04/11/2019 - 05/21/2019 Provider: MARCIO WASSERMAN MD Diagnosis: Attention-defici t hyperactivity disorder, combined type 1 Capsule every morning Last Documented On 11/12/2022 5:38PM By Kelly Wasserman MD ; [facility] Concerta 36 MG OR TBCR 02/25/2019 - 07/24/2019 Provider: MARCIO WASSERMAN MD Diagnosis: Anxiety disorder , unspecified as directed -- 2 tabs at noon Last Documented On 11/12/2022 5:38PM By Kelly Wasserman MD ; [facility] Vyvanse 60 MG OR CAPS 02/25/2019 - 04/11/2019 Provider: MARCIO WASSERMAN MD Diagnosis: Attention-defici t hyperactivity disorder, combined type 1 Capsule every morning Last Documented On 11/12/2022 5:38PM By Kelly Wasserman MD ; [facility] Vyvanse 60 MG OR CAPS 12/21/2018 - 02/25/2019 Provider: MARCIO WASSERMAN MD Diagnosis: Attention-defici t hyperactivity disorder, combined type 1 Capsule every morning Last Documented On 11/12/2022 5:38PM By Kelly Wasserman MD ; [facility] Concerta 36 MG OR TBCR 12/21/2018 - 02/25/2019 Provider: MARCIO WASSERMAN MD Diagnosis: Anxiety disorder , unspecified as directed -- 2 tabs at noon Last Documented On 11/12/2022 5:38PM By Kelly Wasserman MD ; [facility] Concerta 36 MG OR TBCR 11/12/2018 - 12/21/2018 Provider: MARCIO WASSERMAN MD Diagnosis: Anxiety disorder , unspecified as directed -- 2 tabs at noon Last Documented On 11/12/2022 5:38PM By Kelly Wasserman MD ; [facility] Vyvanse 60 MG OR CAPS 11/12/2018 - 12/21/2018 Provider: MARCIO WASSERMAN MD Diagnosis: Attention-defici t hyperactivity disorder, combined type 1 Capsule every morning Last Documented On 11/12/2022 5:38PM By Kelly Wasserman MD ; [facility] Concerta 36 MG OR TBCR 09/24/2018 - 11/12/2018 Provider: MARCIO WASSERMAN MD Diagnosis: Anxiety disorder , unspecified as directed -- 2 tabs at noon Last Documented On 11/12/2022 5:38PM By Kelly Wasserman MD ; [facility] Vyvanse 60 MG OR CAPS 09/24/2018 - 11/12/2018 Provider: MARCIO WASSERMAN MD Diagnosis: Attention-defici t hyperactivity disorder, combined type 1 Capsule every morning Last Documented On 11/12/2022 5:38PM By Kelly Wasserman MD ; [facility] Concerta 36 MG OR TBCR 08/20/2018 - 09/24/2018 Provider: MARCIO WASSERMAN MD Diagnosis: Anxiety disorder , unspecified as directed -- 2 tabs at noon Last Documented On 11/12/2022 5:38PM By Kelly Wasserman MD ; [facility] Concerta 36 MG OR TBCR 08/17/2018 - 08/17/2018 Provider: MARCIO WASSERMAN MD Diagnosis: Attention-defici t hyperactivity disorder, combined type as directed -- 2 tabs at noon Last Documented On 11/12/2022 5:38PM By Kelly Wasserman MD ; [facility] Vyvanse 60 MG OR CAPS 08/17/2018 - 09/24/2018 Provider: MARCIO WASSERMAN MD Diagnosis: Attention-defici t hyperactivity disorder, combined type 1 Capsule every morning Last Documented On 11/12/2022 5:38PM By Kelly Wasserman MD ; [facility] Vyvanse 50 MG OR CAPS 07/03/2018 - 08/20/2018 Provider: MARCIO WASSERMAN MD Diagnosis: Attention-defici t hyperactivity disorder, combined type 1 Capsule every morning Last Documented On 11/12/2022 5:38PM By Kelly Wasserman MD ; [facility] Methylphenidate HCl 20 MG OR TABS 07/03/2018 - 08/20/2018 Provider: MARCIO WASSERMAN MD Diagnosis: Anxiety disorder , unspecified as directed --1 tab at at 2 pm and 1 tab at 5 pm Last Documented On 11/12/2022 5:38PM By Kelly Wasserman MD ; [facility] Vyvanse 50 MG OR CAPS 03/20/2018 - 07/03/2018 Provider: MARCIO WASSERMAN MD Diagnosis: Attention-defici t hyperactivity disorder, combined type as directed --1 cap in am Last Documented On 11/12/2022 5:38PM By Kelly Wasserman MD ; [facility] Vyvanse 50 MG OR CAPS 12/18/2017 - 03/20/2018 Provider: MARCIO WASSERMAN MD Diagnosis: Attention-defici t hyperactivity disorder, combined type as directed --1 cap in am Last Documented On 11/12/2022 5:38PM By Kelly Wasserman MD ; [facility] Methylphenidate HCl 20 MG OR TABS 12/18/2017 - 07/03/2018 Provider: MARCIO WASSERMAN MD Diagnosis: Attention-defici t hyperactivity disorder, combined type as directed --1 tab at at 2 pm and 1 tab at 5 pm Last Documented On 11/12/2022 5:38PM By Kelly Wasserman MD ; [facility] Methylphenidate HCl 20 MG OR TABS 11/14/2017 - 12/18/2017 Provider: MARCIO WASSERMAN MD Diagnosis: Attention-defici t hyperactivity disorder, combined type as directed --1 tab at at 2 pm and 1 tab at 5 pm Last Documented On 11/12/2022 5:38PM By Kelly Wasserman MD ; [facility] Vyvanse 50 MG OR CAPS 11/14/2017 - 12/18/2017 Provider: MARCIO WASSERMAN MD Diagnosis: Attention-defici t hyperactivity disorder, combined type as directed --1 cap in am Last Documented On 11/12/2022 5:38PM By Kelyl Wasserman MD ; [facility] Methylphenidate HCl 20 MG OR TABS 08/03/2017 - 11/14/2017 Provider: MARCIO WASSERMAN MD Diagnosis: Attention-defici t hyperactivity disorder, combined type as directed --1 tab at at 2 pm and 1 tab at 5 pm Last Documented On 11/12/2022 5:38PM By Kelly Wasserman MD ; [facility] Vyvanse 40 MG OR CAPS 08/03/2017 - 11/20/2017 Provider: MARCIO WASSERMAN MD Diagnosis: Attention-defici t hyperactivity disorder, combined type 1 Capsule every morning Last Documented On 11/12/2022 5:38PM By Kelly Wasserman MD ; [facility] Vyvanse 40 MG OR CAPS 07/06/2017 - 08/03/2017 Provider: MARCIO WASSERMAN MD Diagnosis: Attention-defici t hyperactivity disorder, combined type 1 Capsule every morning Last Documented On 11/12/2022 5:38PM By Kelly Wasserman MD ; [facility] Methylphenidate HCl 20 MG OR TABS 07/06/2017 - 08/03/2017 Provider: MARCIO WASSERMAN MD Diagnosis: Attention-defici t hyperactivity disorder, combined type as directed --1 tab at at 2 pm and 1 tab at 5 pm Last Documented On 11/12/2022 5:38PM By Kelly Wasserman MD ; [facility] Vyvanse 40 MG OR CAPS 04/10/2017 - 07/06/2017 Provider: MARCIO WASSERMAN MD Diagnosis: Attention-defici t hyperactivity disorder, combined type 1 Capsule every morning Last Documented On 11/12/2022 5:38PM By Kelly Wasserman MD ; [facility] Methylphenidate HCl 20 MG OR TABS 04/10/2017 - 07/06/2017 Provider: MARCIO WASSERMAN MD Diagnosis: Attention-defici t hyperactivity disorder, combined type as directed --1 tab at at 2 pm and 1 tab at 5 pm Last Documented On 11/12/2022 5:38PM By Kelly Wasserman MD ; [facility] Vyvanse 40 MG OR CAPS 02/17/2017 - 04/10/2017 Provider: MARCIO WASSERMAN MD Diagnosis: Attention-defici t hyperactivity disorder, combined type 1 Capsule every morning Last Documented On 11/12/2022 5:38PM By Kelly Wasserman MD ; [facility] Methylphenidate HCl 20 MG OR TABS 02/17/2017 - 04/10/2017 Provider: MARCIO WASSERMAN MD Diagnosis: Attention-defici t hyperactivity disorder, combined type as directed --1 tab at at 2 pm and 1 tab at 5 pm Last Documented On 11/12/2022 5:38PM By Kelly Wasserman MD ; [facility] Methylphenidate HCl 20 MG OR TABS 01/18/2017 - 02/17/2017 Provider: MARCIO WASSERMAN MD Diagnosis: Attention-defici t hyperactivity disorder, combined type as directed --1 tab at at 2 pm and 1 tab at 5 pm Last Documented On 11/12/2022 5:38PM By Kelly Wasserman MD ; [facility] Vyvanse 40 MG OR CAPS 01/18/2017 - 02/17/2017 Provider: MARCIO WASSERMAN MD Diagnosis: Attention-defici t hyperactivity disorder, combined type 1 Capsule every morning Last Documented On 11/12/2022 5:38PM By Kelly Wasserman MD ; [facility] Methylphenidate HCl 20 MG OR TABS 12/08/2016 [...] 11/12/2022 5:38PM By Kelly Wasserman MD ; [facility] Vyvanse 40 MG OR CAPS 10/24/2016 - 12/08/2016 Provider: MARCIO WASSERMAN MD Diagnosis: Attention-defici t hyperactivity disorder, combined type 1 Capsule every morning Last Documented On 11/12/2022 5:38PM By Kelly Wasserman MD ; [facility] Methylphenidate HCl 20 MG OR TABS 10/24/2016 - 12/08/2016 Provider: MARCIO WASSERMAN MD Diagnosis: Anxiety disorder , unspecified as directed --1 tab in the afternoon Last Documented On 11/12/2022 5:38PM By Kelly Wasserman MD ; [facility] Vyvanse 40 MG OR CAPS 09/08/2016 - 10/24/2016 Provider: MARCIO WASSERMAN MD Diagnosis: Attention-defici t hyperactivity disorder, combined type 1 Capsule every morning Last Documented On 11/12/2022 5:38PM By Kelly Wasserman MD ; [facility] Methylphenidate HCl 20 MG OR TABS 09/08/2016 - 10/24/2016 Provider: MARCIO WASSERMAN MD Diagnosis: Anxiety disorder , unspecified as directed --1 tab in the afternoon Last Documented On 11/12/2022 5:38PM By Kelly Wasserman MD ; [facility] Vyvanse 40 MG OR CAPS 07/28/2016 - 09/08/2016 Provider: MARCIO WASSERMAN MD Diagnosis: Attention-defici t hyperactivity disorder, combined type 1 Capsule every morning Last Documented On 11/12/2022 5:38PM By Kelly Wasserman MD ; [facility] Methylphenidate HCl 20 MG OR TABS 07/28/2016 - 09/08/2016 Provider: MARCIO WASSERMAN MD Diagnosis: Anxiety disorder , unspecified as directed --1 tab in the afternoon Last Documented On 11/12/2022 5:38PM By Kelly Wasserman MD ; [facility] Vyvanse 40 MG OR CAPS 06/27/2016 - 07/28/2016 Provider: MARCIO WASSERMAN MD Diagnosis: Attention-defici t hyperactivity disorder, combined type 1 Capsule every morning Last Documented On 11/12/2022 5:38PM By Kelly Wasserman MD ; [facility] Methylphenidate HCl 20 MG OR TABS 06/27/2016 - 07/28/2016 Provider: MARCIO WASSERMAN MD Diagnosis: Anxiety disorder , unspecified as directed --1 tab in the afternoon Last Documented On 11/12/2022 5:38PM By Kelly Wasserman MD ; [facility] Methylphenidate HCl 20 MG OR TABS 06/01/2016 - 06/27/2016 Provider: MARCIO WASSERMAN MD Diagnosis: Attention-defici t hyperactivity disorder, combined type as directed --1 tab in am and 1 tab at noon Last Documented On 11/12/2022 5:38PM By Kelly Wasserman MD ; [facility] Vyvanse 30 MG OR CAPS 04/25/2016 - 06/28/2016 Provider: MARCIO WASSERMAN MD Diagnosis: Attention-defici t hyperactivity disorder, combined type as directed -- 1 cap in am Last Documented On 11/12/2022 5:38PM By Kelly Wasserman MD ; [facility] Methylphenidate HCl 20 MG OR TABS 03/16/2016 - 06/01/2016 Provider: MARCIO WASSERMAN MD Diagnosis: Attention-defici t hyperactivity disorder, combined type as directed --1 tab in am and 1 tab at noon Last Documented On 11/12/2022 5:38PM By Kelly Wasserman MD ; [facility] Vyvanse 30 MG OR CAPS 03/16/2016 - 04/25/2016 Provider: MARCIO WASSERMAN MD Diagnosis: Attention-defici t hyperactivity disorder, combined type as directed -- 1 cap in am Last Documented On 11/12/2022 5:38PM By Kelly Wasserman MD ; [facility] Methylphenidate HCl 20 MG OR TABS 01/19/2016 [...] 11/12/2022 5:38PM By Kelly Wasserman MD ; [facility] Vyvanse 30 MG OR CAPS 11/25/2015 - 03/16/2016 Provider: MARCIO WASSERMAN MD Diagnosis: Attention-defici t hyperactivity disorder, combined type 1 Capsule every morning Last Documented On 11/12/2022 5:38PM By Kelly Wasserman MD ; [facility] Focalin 10 MG OR TABS 11/25/2015 - 01/25/2016 Provider: MARCIO WASSERMAN MD Diagnosis: Attention-defici t hyperactivity disorder, combined type as directed - 1 tab in am an d 1 tab at noon Last Documented On 11/12/2022 5:38PM By Kelly Wasserman MD ; [facility] Focalin XR 20 MG OR CP24 10/09/2015 - 01/19/2016 Provider: MARCIO WASSERMAN MD Diagnosis: Attention-defici t hyperactivity disorder, combined type 1 Capsule every morning Last Documented On 11/12/2022 5:38PM By Kelly Wasserman MD ; [facility] Focalin 10 MG OR TABS 10/09/2015 - 01/19/2016 Provider: MARCIO WASSERMAN MD Diagnosis: Attention-defici t hyperactivity disorder, combined type as directed -- 1 tab in am, 1 tab at noon, 1 tab at 5 pm Last Documented On 11/12/2022 5:38PM By Kelly Wasserman MD ; [facility] Focalin 10 MG OR TABS 09/14/2015 - 11/25/2015 Provider: MARCIO WASSERMAN MD Diagnosis: Attention-defici t hyperactivity disorder, combined type as directed - 1 tab in am an d 1 tab at noon Last Documented On 11/12/2022 5:38PM By Kelly Wasserman MD ; [facility] Focalin 10 MG OR TABS 09/01/2015 - 09/14/2015 Provider: MARCIO WASSERMAN MD Diagnosis: Attention-defici t hyperactivity disorder, combined type as directed - 1 tab in am an d 1 tab at noon Last Documented On 11/12/2022 5:38PM By Kelly Wasserman MD ; [facility] Focalin 10 MG OR TABS 08/11/2015 - 09/01/2015 Provider: MARCIO WASSERMAN MD Diagnosis: Attention-defici t hyperactivity disorder, combined type 1 tablet every morning Last Documented On 11/12/2022 5:38PM By Kelly Wasserman MD ; [facility] Medications Administered Includes: Administered Medications in patient's chart No Administered Medications Recorded Vital Signs Includes: Vital Signs from 09/06/2023 through 09/06/2024 Vital Name 11/28/2023 10:52A Blood Pressure Sitting L 120/78 BP Cuff Size Regular Pulse Rate-Sitting (bpm) 91 Pulse Rhythm Regular Height (in) 70 Weight (lb) 172 Body Mass Index 24.7 Body Surface Area 2 Last Documented: On 11/28/2023 10:52A M ; [facility] Results Includes: Results from 09/06/2023 through 09/06/2024 No Results Recorded For Specified Dates History of Present Illness History of Present Illness not supported for this document type No History of Present Illness Recorded Social History Description Last Updated Current nonsmoker 11/28/2023 Last Documented On 4 1:39PM ; [facility] Tobacco non-user 11/28/2023 Last Documented On 4 1:39PM ; [facility] Smoking Status Unknown Procedures and Surgical History Includes: Procedures from 09/06/2023 through 09/06/2024 Procedures Code Diagnosis Performing Provider Service Location Service Date PSYCHOTHERAPY 30 MIN W/ [place] [address] Attention-deficit hyperactivity disorder, combined type, Anxiety disorder, unspecified, Panic disorder [episodic paroxysmal anxiety] MARCIO WASSERMAN MD [facility] 11/28/2023 Last Documented On 4 2:06PM ; [facility] Medical History Includes: Medical History in patient's [...] PSYCH ADULT FOLLOW UP MARCIO WASSERMAN MD [facility] 11/28/19 24 10:41AM 11:58AM Attention-defici t Hyperactivity Disorder,Anxiety Disorder Nos,Panic Disorder,Sleep Disorder [employer] Insurance Includes: Active Insurance Policies Plan Name Member ID Group # Subscriber Relationship Effect yohana Dates 1 - ADMIN[employer] [id number] DONALD LIANG Self Clinical Notes Includes: Signed Clinical Notes starting from 08/05/2022 * Progress note Date Encounter Last Documented by 11/28/2023 PSYCH ADULT FOLLOW UP Last docum ented on 11/28/2023; 1:39 PM, MARCIO WASSERMAN MD; [facility] Top of Document Medication psychotherapy [...] 14 y/o kid to soccer game in [place] causing disruption in his schedule. He has a 12 y/o and 14 y/o kid to attend to when they have soccer games. He has not needed any Klonopin during flight. He is able to manage by sitting upfront for less turbulence. He and his family are going to [place] end of December 2023. 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 Marital: Marital history -- . He was born and raised in [place], [place]. He was close to his parents [...] balanced meal plan - pt sees a teacher lip reading online and lost 7 lbs since last visit. - Supportive care and encouragement--given positive reinforcement to keep patient motivated and active. - Education and instructions. - Assessment of suicide risk performed - not suicidal - Clinical summary provided to patient. * Call [phone] and /or go to the nearest emergency [...]
--- OUTSIDE RECORDS SUMMARY | 2024-09-06 08:15 | XMS_ITS ---
Care Plan - [facility] Created on: September 06, 2024 DONALD LIANG : 1985 Sex: Male Author Organization [facility] Address [address] [place] [address] Phone Care Team Providers Care Dietitian Assistant Name Role Phone MEEK JEROME, MARCIO GÓMEZ [facility] [phone]
== END 2024-09-06 08:25 | disposition home or self-care (01) ==
PROVIDERS: Emergency Provider Nurse Practitioner Family
DX: J01.00 Acute maxillary sinusitis, unspecified (principal)
CPT/HCPCS: 99213; G0463